=== PATIENT | female | born 1960 | race Caucasian/White ===

== ENCOUNTER → 2017-11-28 10:20 | Outpatient (CLI) | payer OTHER, SELFPAY ==
[2017-11-28 12:24] LABS: Hematocrit 43.6 % (37-47); Hemoglobin 14.8 g/dl (12.0-15.0); Mean Corp Hgb Conc 33.9 g/gl (32-36); Mean Corpuscular Hgb 30.9 pg (27.0-32.0); Mean Platelet Vol. 10.6 fl (6.2-12.0); Platelet Count 252 K/mm3 (150-450); RBC Distribution Width SD 39.7 fl (35.1-43.9); Red Blood Count 4.79 M/mm3 (4.2-5.4); White Blood Count 6.6 K/mm3 (4.4-11.0)
[2017-11-28 12:32] LABS: Scan Indicated on CBC? Y/N NO
[2017-11-28 12:51] LABS: ALB/GLOB Ratio 1.4 RATIO (0.9-2.4); AST(SGOT) 18 U/L (15-37); Alanine Aminotransfer ALT/SGPT 27 U/L (13-56); Albumin, Serum 4.5 g/dL (3.2-5.0); Alkaline Phosphatase 96 U/L (45-117); Anion Gap 11 (5-15); BUN 18 mg/dL (7-18); BUN/Creat Ratio 18.9 RATIO (10-20); Calcium,Total 9.3 mg/dL (8.5-10.1); Chloride 110 mmol/L (98-107); Creatinine, Serum 0.95 mg/dL (0.55-1.02); EST Glomerular Filtration Rate 65 mL/min (>60); Est Glom Filt Rate - Afr Amer 78 mL/min (>60); Globulin 3.3 g/dL (2.2-4.2); Glucose 87 mg/dL (74-106); Protein, Total 7.8 g/dL (6.4-8.2); Sodium Level 141 mmol/L (136-145)
[2017-12-02 12:07] LABS: KEPPRA (LEVETIRACETAM) 23.6 ug/mL (10.0-40.0)
== END ==
LOC: MTLAB 10:26
PROVIDERS: Family Provider Family Medicine; PCP Family Medicine
DX: G40.909 Epilepsy, unspecified, not intractable, without status epilepticus (principal)
CPT/HCPCS: 36415; 80053; 80177; 85027

== ENCOUNTER → 2017-12-13 15:13 | Outpatient (CLI) | payer OTHER, SELFPAY ==
[2017-12-13 17:05] LABS: Free T3 2.2 pg/mL (2.18-3.98); T4 Free Direct 1.26 ng/dL (0.76-1.46); Thyroid Stim Hormone (TSH) 6.93 uIU/mL (0.358-3.74)
== END ==
PROVIDERS: Family Provider Family Medicine; PCP Family Medicine; Visit Provider Nurse Practitioner
DX: Z86.39 Personal history of other endocrine, nutritional and metabolic disease (principal)
CPT/HCPCS: 36415; 84439; 84443; 84481

== ENCOUNTER → 2018-01-30 09:17 | Outpatient (CLI) | payer OTHER, SELFPAY ==
[2018-01-30 15:17] LABS: T4 Free Direct 1.33 ng/dL (0.76-1.46); Thyroid Stim Hormone (TSH) 1.04 uIU/mL (0.358-3.74)
== END ==
LOC: MTLAB 09:18
PROVIDERS: Family Provider Family Medicine; PCP Family Medicine; Visit Provider Nurse Practitioner
DX: E03.9 Hypothyroidism, unspecified (principal); R89.9 Unspecified abnormal finding in specimens from other organs, systems and tissues
CPT/HCPCS: 36415; 84439; 84443

== ENCOUNTER 2018-03-25 09:00 | Outpatient (RCR) | payer OTHER, SELFPAY ==
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
--- NOTE | 2017-04-02 09:55 | HP.OTCOM ---
OT Communication Note 04/02/[address] Patrick Phillips Pt., Keily, has had variable compliance with prefabricated splint because of increase rubbing and discomfort over wrist and ulnar styloid. She is continuing to work on increasing shoulder flexion and elbow flexion. She needed increased rest breaks to promote ROM tasks. Pt. completed AROM/AAROM to R UE for 1x10 total reps of shoulder flexion (2x5 reps), 1x10 reps of elbow flexion (2x5 reps). Completed PROM to wrist to promote extension for 5 reps to promote wrist extension. She is to continue HEP and increase to 4-6x daily for AROM shoulder flexion, AROM elbow exercises alone to decrease stiffness, and promote ROM to hand and fingers. to continue PROM to fingers and continue to work on promoting AROM for wrist extension and finger flexion. She is still significantly limited by pain, weakness, and limited ROM. Continuing to promote ROM through active and passive strength as tolerated. Weightbearing techniques are being promoted to try and decrease pain but pain persists with all movements at this time. OT will continue to progress through therapy techniques to promote ROM and strength. Pt. educated that increase movement will help decrease swelling. Edema glove does not seem to be option as Pt. is too painful with touch to R hand at this time. Sincerely, Liberty Pardo Contact Information
--- NOTE | 2017-04-02 10:08 | HP.OTCOM_ITS ---
OT Communication Note 04/02/[address] Patrick Phillips Pt., Keily, has had variable compliance with prefabricated splint because of increase rubbing and discomfort over wrist and ulnar styloid. She is continuing to work on increasing shoulder flexion and elbow flexion. She needed increased rest breaks to promote ROM tasks. Pt. completed AROM/AAROM to R UE for 1x10 total reps of shoulder flexion (2x5 reps), 1x10 reps of elbow flexion (2x5 reps) . Completed PROM to wrist to promote extension for 5 reps to promote wrist extension. She is to continue HEP and increase to 4-6x daily for AROM shoulder flexion, AROM elbow exercises alone to decrease stiffness, and promote ROM to hand and fingers. to continue PROM to fingers and continue to work on promoting AROM for wrist extension and finger flexion. She is still significantly limited by pain, weakness, and limited ROM. Continuing to promote ROM through active and passive strength as tolerated. Weightbearing techniques are being promoted to try and decrease pain but pain persists with all movements at this time. OT will continue to progress through therapy techniques to promote ROM and strength. Pt. educated that increase movement will help decrease swelling. Edema glove does not seem to be option as Pt. is too painful with touch to R hand at this time. Sincerely, Liberty Pardo Contact Information
--- NOTE | 2017-04-26 08:13 | OTREVAL_ITS ---
Patrick Phillips, It has been my pleasure to treat DIANNE BENZ over the last 8 visits for Cat bite with abscess to carpal tunnel, suppuratuive flexor tenosynovitis. Please see the progress note below for an update on the occupational therapy plan of care! Subjective: Pt, Dianne, arrived with , Yo. Pt. noted that she had seocndary surgery to remove infection. provided pictures. There is a total of 7 open wounds with 4 on dorsum and 3 on palmar side of hand. Rosa noted that volar incisions are located over median nerve and aroudn ring and pinky fingers. She noted decreased pain in wrist and hand since surgical removal but has since has increased pain in shoulder. Rosa and Yo noted Dr. Phillips surgically manipulated shoulder during surgery.Rosa noted she is on less pain meds but back on antibiotics and nursing come daily to change dressign and repack hand to promote healing. Objective/Function: Pt. re-evaluation post surgical operation for removal of infection to R dominant hand. Pt. present with serve limited ROM and strength. Hand is swollen and has 7 surgical opening on dorsum and volar sides. Nursing reporting daily for packing of incisions. Muscle atrohy is present t/o R UE and is increasingly pronouced throughout forearm and wrist areas. Pt. ROM of shoudler is as follows: active flexion of R shoulder 0-116 with increased pain presnet; active abduction 0-84 degrees with increased pain. Pt. active elbow 0- 108 degrees. Pt. is able to rest hand in pronated position but has significantly decreased supination at this time of R UE. Compensations noted for all R UE movement secondary to increased weakness and pain. Pt. ROM of wrist is as follows: active flexion 48-37 for a total of 11 degrees. Pt. is in flexed position and splint to help place Pt. in more neutral position. She is unable to actively extend wrist at this time. She has PROM of R wrist for extension measuring from 45-13. Pt. L UE is WFL and her L wrist flexion is 0-60 degrees with L wrist extension 0-59 degrees. Pt. is unable to form composite fist with R hand; L hand is WNL. Pt. active ROM of R finger flexion at MCP for digits 2-5 are as follows: 9-29; 20-34; 22-30; 22-29. Pt. is unable to axtively flex PIP at this time. Passive PIP flexion is as follows for digits 2-5: 8-57; 4 -57; 7- 52; 7-67. Pt. 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 Plan Frequency: 2x /Week Duration: 4-6 Weeks Plan: continue POC. POC to continued to focus on regaining ROM, strength, and fx use of R dominant hand. Orthotics will be used as needed and wound care completed daily by nursing per Pt. report. Anticipated Interventions Anticipated Interventions: A/AAROM/PROM, Strengthening, Edema Control, Scar Care , Massage, Wound Care, Modalities, Orthoses, Joint Protection/Energy Conservation, Fine Motor Coord/Aakash, ADL Training, Education re Skin Care and Precautions, Education re Self Massage Techniques, Education re Correct Donning Tech,Care&Wearing Sched Comp Garments, Caregiver Training, Home Program Please do not hesitate to contact me at [phone] by phone or Fax: if you have questions or concerns regarding this new plan of care! Sincerely, Liberty Pardo
--- NOTE | 2017-04-26 10:26 | HP.OTCOM ---
OT Communication Note 04/26/[address] Patrick Phillips Keily has returned to outpatient OT following incision and debridement of infection occurring s/p cat bite. Pt. continues to have significantly decreased ROM and strength. Please refer to re-evaluation for additional measurements on functional ability. Due to decreased ROM and strength Pt. would potentially benefit from Continuous Passive Movement (CPM) splint at this time for increased ROM exercises at home. Keily is apprehensive to fabrication of static splint as insurance will not cover orthotic charges. I feel due to medical necessity from lack of ROM of R dominant hand Pt. would greatly benefit from CPM splint to help maintain ROM as e-stim and other modalities are unable to be used due to seizure based implant device. Please let me know your input of this device as the potential of a written doctor order would benefit Pt. for potential insurance coverage. Sincerely, Liberty Pardo, OTR/L Contact Information
--- NOTE | 2017-04-26 12:35 | OTREVAL_ITS ---
Patrick Phillips, It has been my pleasure to treat DIANNE BENZ over the last 9 visits for Cat bite with abscess to carpal tunnel, suppuratuive flexor tenosynovitis. Please see the progress note below for an update on the occupational therapy plan of care! Subjective: Pt. arrived and noted pain. , Yo, present for session. Shorty noted Dr. Phillips appointment following OT. Objective/Function: Pt. re-evaluation post surgical operation for removal of infection to R dominant hand. Pt. present with serve limited ROM and strength. Hand is swollen and has 7 surgical opening on dorsum and volar sides. Nursing reporting daily for packing of incisions. Muscle atrophy is present t/o R UE and is increasingly pronouced throughout forearm and wrist areas. Pt. ROM of shoudler is as follows: active flexion of R shoulder 0-116 with increased pain present; active abduction 0-84 degrees with increased pain. Pt. active elbow 0- 108 degrees. Pt. is able to rest hand in pronated position but has significantly decreased supination at this time of R UE. Compensations noted for all R UE moved secondary to increased weakness and pain. Pt. ROM of wrist is as follows: active flexion 48-37 for a total of 11 degrees. Pt. is in flexed position and splint to be fabircated to help place Pt. in more neutral position. She is unable to actively extend wrist at this time. She has PROM of R wrist for extension measuring from 45-13. Pt. L UE is WFL and her L wrist flexion is 0-60 degrees with L wrist extension 0-59 degrees. Pt. is unable to form composite fist with R hand; L hand is WNL. Pt. active ROM of R finger flexion at MCP for digits 2-5 are as follows: 9-29; 20-34; 22-30; 22-29. Pt. is unable to axtively flex PIP at this time. Passive PIP flexion is as follows for digits 2-5: 8-57; 4-57; 7- 52; 7-67. Pt. 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 She has increased nodular presence on index DIP area that causes increased pain with flexion. CPM splint potentially needed at this time upon doctor approval. Plan Frequency: 2x /Week Duration: 4-6 Weeks Plan: Pt. to continued POC to increased ROM and strength. She CANNOT have E- stim or tens due to implant. OT to contact [facility] about potential for CPM splint to promote ROM of wrist ahdn and fingers by d/c. OT to contact Mika to determine if we can further get orthotic from him. Goals - Goals Goal:: Pt. to regain #30 lbs of guide dog mobility instructor strength 4/5 trials 80% of the tiem to increase (I) and ability to complete ADL/IADL by time of d/c. Goal:: Pt. to be able to actively form composite fist 5/5 trials 100% of the time to increase (I) and ability to manipulate change and complete self-care tasks by time of d/c. Pt. ROM of R hand to be that of equal value of L non involved hand for increased(I) and ability to complete self-care tasks by time of d/c. Goal:: Pt. pain to be under 2/10 in R UE at shoulder, elbow, wrist, and hand 4/ 5 trials 80% of the time by time of d/c. Goal:: Pt. will be able to actively for tripod grasp for increased ability to complete fasteners and manipulate other self care items 100% of the time by d/c. Goal:: Pt. R hand to measure within 1-2 cm of L non affected hand, with edema management techniques as needed, for increased ability to complete ADL/IADls 4/ 5 trials 80% of the time by time of d/c. Goal:: Pt. to be mod I to cook meal, from start to stop, with R dominant hand with use of L hand for bilateral hand tasks as needed 4/5 trials 80% of the time , with pain WFL, by time of d/c. Goal:: Pt. to be able to manipulate silverware through using R hand to cut food 4/5 trials 80% of the time to increase (I) and decrease need for assistance by time of d/c. Goal:: Pt. to be able to actively flex/extend all PIP of R fingers to WFL 100% of the by session #15 to promote increased ability to use fingers to decrease risk of contractures and pain by tiem of d/c. Anticipated Interventions Anticipated Interventions: A/AAROM/PROM, Strengthening, Edema Control, Scar Care , Massage, Wound Care, Modalities, Orthoses, Joint Protection/Energy Conservation, Fine Motor Coord/Aakash, ADL Training, Education re Skin Care and Precautions, Education re Self Massage Techniques, Education re Correct Donning Tech,Care&Wearing Sched Comp Garments, Caregiver Training, Home Program Please do not hesitate to contact me at [phone] by phone or Fax: if you have questions or concerns regarding this new plan of care! Sincerely, Liberty Pardo
--- NOTE | 2017-07-02 07:16 | HP.OTCOM ---
OT Communication Note 07/02/[address] Patrick Phillips Pt., Keily, is progressing with therapy. Frequency of visits has been decreased over the past three weeks due to running out of insurance coverage. She has maximized therapy coverage with 20 covered visits and will be seen after the first of the year. Measurements were taken on last appointment prior to first of the year on 07/01/17 and are as follows for R affected and dominant hand: forearm: supination: neutral position; 0-0 degrees Wrist: flexion: 0-30 extension: 15-0 After flexing wrist she has difficulty extending wrist back to neutral position secondary to decreased strength. Extension from 15 degrees as she is able to move from 15 degrees of flexion to neutral. Hand: thumb radial adduction: 0-28 2nd MCP 4-37, PIP 11-26, DIP 12-12 3rd MCP -8-32, PIP 13-29, DIP 11-13 4th MCP -8-27, PIP 12-27, DIP 10-19 5th MCP -12-15, PIP 12-21, DIP 11-11 Keily is progressing with therapy but stiffness and scar tissue remain over surgical sites. Pt. is emerging with lateral pinch abilities with visible compensations due to decreased ROM. ROM has increased since time of initial evaluation and statadyne splint has been ordered and Pt. has received and verbalizes use of splint at home. She is to continue statadyne splint to promote increasing ROM, paraffin/ moist heat, and continue with HEP to promote increase ROM and strength. OT offered to obtained and called for PT order to has PT address shoulder as PT has 20 visits per calendar year and Pt. reports shoulder waking her at night. Also educated on potential for dry needling to help reduce pain and scar tissue but Pt. and denied PT services at this time. She is progressing towards formation of composite fist but is unable to complete full or functional fist at this task at this time. After the first of the year, further continuation of therapy will be determined. Sincerely, Liberty Pardo OTR/L Contact Information
--- NOTE | 2017-08-30 11:38 | OTREVAL_ITS ---
Patrick Phillips, It has been my pleasure to treat DIANNE BENZ over the last 1 visits for Cat bite with abscess to carpal tunnel, suppuratuive flexor tenosynovitis. Please see the progress note below for an update on the occupational therapy plan of care! Subjective: Arrived and noted things are going ok. She notes she cotninues to use statdyne daily, complete HEP, and have shoulder pain that reaches 7-8/10 everynight. Edcuated on potential for PT to try for shoulder mobility and rehab so OT can focus on wrist and hand. Pt. to think on it and see if she wants to do that. She noted she was not as good at exercises for the shoulder as she was for her hand. She further noted pain comes when she is using it and not just sitting anymore. Objective/Function: Reassessment completed on this date and Pt. progressed from last appointment with mvoement of fingers. SHe is able to complete slight AROM ( measurments below) of R hand. She is unable to form composite fist at this time but is able to complete thumb opposition to PIP of 2nd and 3rd digits. This is progression as previously Pt. was unable to complete AROM of fingers. Measurements are as follows: Supination R 0-3 degrees, L WFL. Wrist flexion R 15-46, L 0-73. extension R -15-8, L 0-66. radial deviation R 0-3, L 0-15. ulnar deviation R 0-9, L 0-37. MCP R 2-5th fingers 3-46, -9-38, -11-34, -20- 27. MCP R PIP 2-5th fingers 3-46, 5-46, 0-40, 13-38. DIP R 0-12, 6-10, 10-10, 10-10. Thumb MP 20-48, DIP 0-29. thumb radial abduction R 0-24 degrees, L 0- 90 degrees. Strength. 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 Dianne is progressing with treatment. She continues to exhibit increased crepitus in all joints expecially wrist which appears to be due to arthitis and scar tissue. Increased keloid scaring to dorsal and volar hands. Increased scarring over CTS continues to have increased tissue formation at this time. Wrist movement is extremely limited on R side and OT to start working on PROM and other manual therpay techniques to avoid joint fusion. Plan Frequency: 1x weekfor next 2 weeks; everyother week after that Duration: 8-9 months Plan: continue POC. She will be starting with 1xweekly for next 2 weeks. After that she will completed OT 1x every two weeks to spread out visits and promote increased ROM and strength for increased fx in R hand. Goals - Goals Goal:: Pt. 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 Goal:: Pt. to be able to actively form composite fist 5/5 trials 100% of the time to increase (I) and ability to manipulate change and complete self-care tasks by time of d/c. Pt. ROM of R hand to be that of equal value of L non involved hand for increased(I) and ability to complete self-care tasks by time of d/c. Goal:: Pt. pain to be under 2/10 in R UE at shoulder, elbow, wrist, and hand 4/ 5 trials 80% of the time by time of d/c. Goal:: Pt. will be able to actively for tripod grasp for increased ability to complete fasteners and manipulate other self care items 100% of the time by d/c. Goal:: Pt. R hand to measure within 1-2 cm of L non affected hand, with edema management techniques as needed, for increased ability to complete ADL/IADls 4/ 5 trials 80% of the time by time of d/c. Goal:: Pt. to be mod I to cook meal, from start to stop, with R dominant hand with use of L hand for bilateral hand tasks as needed 4/5 trials 80% of the time , with pain WFL, by time of d/c. Goal:: Pt. to be able to manipulate silverware through using R hand to cut food 4/5 trials 80% of the time to increase (I) and decrease need for assistance by time of d/c. Goal:: Pt. to be able to actively flex/extend all PIP of R fingers to WFL 100% of the by session #15 to promote increased ability to use fingers to decrease risk of contractures and pain by tiem of d/c. Anticipated Interventions Anticipated Interventions: A/AAROM/PROM, Strengthening, Edema Control, Scar Care , Massage, Wound Care, Modalities, Orthoses, Joint Protection/Energy Conservation, Fine Motor Coord/Aakash, ADL Training, Education re Skin Care and Precautions, Education re Self Massage Techniques, Education re Correct Donning Tech,Care&Wearing Sched Comp Garments, Caregiver Training, Home Program Please do not hesitate to contact me at [phone] by phone or Fax: if you have questions or concerns regarding this new plan of care! Sincerely, Liberty Pardo
--- NOTE | 2017-11-21 10:23 | HP.OTCOM ---
OT Communication Note 11/21/[address] Patrick Phillips Rosa is progressing with therapy but ROM is limited at this time. She notes that statadyne is not completing needed finger flexion. She would benefit from flexion glove to further target ROM needs. Rosa would further like to order for flexion glove with recommendation from OT. If doctor approval then a prescription is needed to help with insurance coverage. At this time it is believed that a flexion glove is medically necessary as this will help to promote increased ability to of MCP to start to form a composite fist. Although, movement of fingers is limited she does have needed AROM to start increased prolonged static stretch that flexion glove will provide. The flexion glove will be adapted as needed to promote joint stability to increase ability to stretch to end point to increase ROM. This flexion glove will help progress Rosa up to a static progressive splint which will further help promote PIP and DIP flexion in which OT will fabricate. Overall, this will help to promote Rosa's ability to continue to gain ROM and ability to use R hand at PLOF for ADL/IADls. If agree with medical necessity please forward script to OT at fax number: [phone] , ATTN: Abi to further get glove order set up. Thank you! Sincerely, Liberty Pardo, OTR.L Contact Information
--- NOTE | 2017-11-21 10:30 | HP.OTCOM_ITS ---
OT Communication Note 11/21/[address] Patrick Phillips Rosa is progressing with therapy but ROM is limited at this time. She notes that statadyne is not completing needed finger flexion. She would benefit from flexion glove to further target ROM needs. Rosa would further like to order for flexion glove with recommendation from OT. If doctor approval then a prescription is needed to help with insurance coverage. At this time it is believed that a flexion glove is medically necessary as this will help to promote increased ability to of MCP to start to form a composite fist. Although, movement of fingers is limited she does have needed AROM to start increased prolonged static stretch that flexion glove will provide. The flexion glove will be adapted as needed to promote joint stability to increase ability to stretch to end point to increase ROM. This flexion glove will help progress Rosa up to a static progressive splint which will further help promote PIP and DIP flexion in which OT will fabricate. Overall, this will help to promote Rosa's ability to continue to gain ROM and ability to use R hand at PLOF for ADL/IADls. If agree with medical necessity please forward script to OT at fax number: [phone] , ATTN: Abi to further get glove order set up. Thank you! Sincerely, Liberty Pardo, OTR.L Contact Information
--- NOTE | 2018-01-06 09:00 | DT_ITS ---
This patient was seen during an EMR downtime January 06, 2018 - January 13, 2018. This patient may have a combination of paper and electronic documentation or all paper documentation. All documentation is viewable within the e-chart portion of [employer] for each patient visit.
--- NOTE | 2018-02-07 09:58 | HP.OTCOM_ITS ---
OT Communication Note 02/07/[address] Patrick Phillips Due to insurance limitations Bobo has been completing OT every 2 weeks with extensive HEP to do while at home. HEP is variable as pain is limiting. She is exhibiting what appears to be fusion of R wrist at this time and is concerning to OT. New measurements taken and are as follows for ROM: R wrist: flexion: 14-30 ext: -14--14 supination 0-47 radial deviation 0-0 ulnar deviation 0-0 L Wrist: R fingers: MCP 2nd 5-69, L WNL 3rd R 0-60, L WNL 4th 0-49, L WNL 5th -12-41, L WNL PIP 2nd R 0-65, L WNL 3rd 0-60, L WNL 4th 0-46, L WNL 5th 34-39, L WNL DIP 2nd TR 5-20, L WNL 3rd 5-22, L WNL 4th 10- 23, L WNL 5th R 14-24, L WNL Thumb radial adduction R 0-28 , L WNL IP R -8-13, L L WNL MP 0-48, L WNL She remains unable to form full composite fist. Finger flexion has progressed since last measurements. 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 Wrist measurements have regressed at this time. Most recent splint OT has fabricated is a static progressive splint she is to be wearing 10- 15 mins every 1-2 hours or at least 6 x a day to promote increasing finger flexion to promote increased movement for composite fist. Splint has been made with use of flexion glove that has been reinforced with custom fabricated wrist cock up splint. ROM is significantly limited and strength assessment is unable to be completed at this time. OT recommended PT for shoulder as shoulder remains painful for her. Exercises were provided previously and focus for OT has been on hand and wrist and increased functionality for ADL/IADls. Due to insurance limitations on coverage Pt. would like to wait on PT. OT is recommending seeing a hand specialist at this time as ROM is significantly limited and it is believed that wrist is fused. Sincerely, Liberty Pardo, OTR/L Contact Information
== END 2018-03-25 19:00 | disposition home or self-care (01) ==
LOC: OT 09:00
PROVIDERS: Family Provider Family Medicine; PCP Family Medicine; Visit Provider Surgery
DX: L03.113 Cellulitis of right upper limb (principal); W55.01XD Bitten by cat, subsequent encounter; M65.841 Other synovitis and tenosynovitis, right hand; M71.031 Abscess of bursa, right wrist; M71.04 Abscess of bursa, hand
CPT/HCPCS: 97035; 97110; 97140; 97166; 97168; 97530; 97760; 97762

== ENCOUNTER → 2018-04-22 14:19 | Outpatient (CLI) | payer OTHER, SELFPAY | LOC: LABSPEC 14:20 | PROVIDERS: Family Provider Family Medicine; PCP Family Medicine; Visit Provider Physician Assistant | DX: R19.7 Diarrhea, unspecified (principal) | CPT/HCPCS: 87177; 87209 ==

== ENCOUNTER 2018-06-25 12:04 | Emergency (ER) | payer OTHER, SELFPAY ==
[2018-06-25 12:05] VITALS: BP 133/79; PULSE 105; RESP 16; TEMP 36.2; O2SAT 98; BMI 32.5
--- NOTE | 2018-06-25 12:38 | ED.VISSUMM ---
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 She has been treated in the past with Bactrim for skin infections she believes she may have had MRSA she does not sure about her tetanus status she had notes no loss of function to her hand Physical Examination: [] 133/79, The left hand thenar region there is a 1 cm thin linear laceration over the thenar region, thumb function finger function all hand function wrist function are normal there is no bleeding no drainage, no neurologic abnormalities, she is no possibility of foreign body by her history we discussed management the area was cleansed, Betadine and, he agreed with glue therapy and glue was applied to the wound with no difficulty she did not wish to have sutures we will update her tetanus she was started on Bactrim related to her prior history for infection and her concern for infection and she will follow up with her outpatient providers Test Results: [] Emergency Department Course and Treatment: [] Treatment Plan: [] Disposition: [] Home stable Impression: [] 1 cm left hand laceration This note was generated with [employer] dictation software. It may contain incorrect words, spelling, and punctuation that were not noted in review of the chart prior to signing ED Disposition - Plan for ED Patient: Chief Complaint: Laceration Referrals: Randy Reynoso DO [Primary Care Provider] -
--- NOTE | 2018-06-25 12:40 | ED.DEP ---
ED Disposition - Plan for ED Patient: Chief Complaint: Laceration Instructions: ED Laceration Hand Prescriptions: Smz/Tmp Ds [Bactrim Ds] 1 tab PO BID #14 tab Referrals: Randy Reynoso DO [Primary Care Provider] -
[2018-06-25] MEDS: Diphth,Pertuss(Acell),Tet Vac 0.5 ML Vial IM (12:56)
== END 2018-06-25 13:13 | disposition home or self-care (01) ==
LOC: ED 13:26
PROVIDERS: Emergency Provider Emergency Medicine; Family Provider Family Medicine; PCP Family Medicine
DX: S61.412A Laceration without foreign body of left hand, initial encounter (principal); Z23 Encounter for immunization; W26.0XXA Contact with knife, initial encounter; Y93.G1 Activity, food preparation and clean up; Y92.89 Other specified places as the place of occurrence of the external cause; Y99.8 Other external cause status
CPT/HCPCS: 90715; 99282

== ENCOUNTER → 2018-06-27 09:33 | Outpatient (CLI) | payer OTHER, SELFPAY ==
[2018-06-25 12:05] VITALS: BMI 32.5
[2018-06-27 12:19] LABS: T4 Free Direct 1.37 ng/dL (0.76-1.46); Thyroid Stim Hormone (TSH) 2.75 uIU/mL (0.358-3.74)
== END ==
LOC: MTLAB 09:38
PROVIDERS: Family Provider Family Medicine; PCP Family Medicine
DX: E03.9 Hypothyroidism, unspecified (principal)
CPT/HCPCS: 36415; 84439; 84443

== ENCOUNTER → 2018-07-22 12:26 | Outpatient (CLI) | payer OTHER, SELFPAY ==
[2018-07-02 10:50] VITALS: BMI 32.5
--- OUTSIDE RECORDS SUMMARY | 2018-10-23 22:24 | XMS RPT_ITS ---
:1960 Author Organization OHIP Support Name Relationship Address Phone D Unavailable Unavailable Unavailable LIRIANO, DAMIAN Unavailable [address] + [place] [address] D Unavailable Unavailable Unavailable LIRIANO, DAMIAN Unavailable [address] + [place] [address] D Unavailable Unavailable Unavailable LIRIANO, DAMIAN Unavailable [address] + [place] [address] D Unavailable Unavailable Unavailable LIRIANO, DAMIAN Unavailable [address] [place] [address] DR + [place] [address] D Unavailable Unavailable Unavailable LIRIANO, DAMIAN Unavailable [address] [place] [address] DR + [place] [address] D Unavailable Unavailable Unavailable LIRIANO, DAMIAN Unavailable [address] [place] [address] DR + [place] [address] D Unavailable Unavailable Unavailable LIRIANO, DAMIAN Unavailable [address] [place] [address] DR + [place] [address] D Unavailable Unavailable Unavailable LIRIANO, DAMIAN Unavailable [address] [place] [address] DR + [place] [address] D Unavailable Unavailable Unavailable LIRIANO, DAMIAN Unavailable [address] [place] [address] DR + [place] [address] D Unavailable Unavailable Unavailable LIRIANO, DAMIAN Unavailable [address] [place] [address] DR + [place] [address] D Unavailable Unavailable Unavailable LIRIANO, DAMIAN Unavailable [address] + [place] [address] D Unavailable Unavailable Unavailable LIRIANO, DAMIAN Unavailable [address] + [place] [address] D Unavailable Unavailable Unavailable LIRIANO, DAMIAN Unavailable [address] [phone] [place] [address] D Unavailable Unavailable Unavailable LIRIANO, DAMIAN Unavailable [address] [place] [address] DR [phone] [place] [address] D Unavailable Unavailable Unavailable LIRIANO, DAMIAN Unavailable [address] [place] [address] DR [phone] [place] [address] D Unavailable Unavailable Unavailable LIRIANO, DAMIAN Unavailable [address] [place] [address] DR [phone] [place] [address] D Unavailable Unavailable Unavailable LIRIANO, DAMIAN Unavailable [address] [place] [address] DR [phone] [place] [address] D Unavailable Unavailable Unavailable LIRIANO, DAMIAN Unavailable [address] [place] [address] DR [phone] [place] [address] D Unavailable Unavailable Unavailable LIRIANO, DAMIAN Unavailable [address] [place] [address] DR [phone] [place] [address] D Unavailable Unavailable Unavailable LIRIANO, DAMIAN Unavailable [address] [place] [address] DR [phone] [place] [address] D Unavailable Unavailable Unavailable LIRIANO, DAMIAN Unavailable [address] [place] [address] DR [phone] [place] [address] D Unavailable Unavailable Unavailable LIRIANO, DAMIAN Unavailable [address] [place] [address] DR [phone] [place] [address] Care Team Providers Name Role Phone Sunny Reynoso Attending Unavailable Kaitlyn, Sunny Primary Care Unavailable Patrick Phillips Attending Unavailable Kaitlyn, Sunny Primary Care Unavailable Patrick Phillips Referring Unavailable Patrick Phillips Attending Unavailable Kaitlyn, Sunny Referring Unavailable Kaitlyn, Sunny Primary Care Unavailable Patrick Phillips Attending Unavailable Kaitlyn, Sunny Referring Unavailable Kaitlyn, Sunny Primary Care Unavailable Joie Ryan Attending Unavailable Kaitlyn, Sunny Referring Unavailable Kaitlyn, Sunny Primary Care Unavailable Patrick Phillips Attending Unavailable Kaitlyn, Sunny Referring Unavailable Patrick Phillips Attending Unavailable Kaitlyn, Sunny Referring Unavailable Kaitlyn, Sunny Primary Care Unavailable Joie Ryan Attending Unavailable Kaitlyn, Sunny Referring Unavailable WON SANDOVAL Attending Unavailable WON SANDOVAL Referring Unavailable Kaitlyn, Sunny Primary Care Unavailable Joie Ryan Attending Unavailable Kaitlyn, Sunny Referring Unavailable Francesca Negro NP-Belia Attending Unavailable Shook, Francesca J ENVIRONMENTAL TECH-C Referring Unavailable Kaitlyn, Sunny Primary Care Unavailable Francesca Negro ENVIRONMENTAL TECH-C Attending Unavailable Francesca Negro ENVIRONMENTAL TECH-C Referring Unavailable Kaitlyn, Sunny Primary Care Unavailable Patrick Phillips Attending Unavailable Kaitlyn, Sunny Referring Unavailable Kaitlyn, Sunny Primary Care Unavailable Gokul Varma Attending Unavailable Kaitlyn, Sunny Referring Unavailable Kaitlyn, Sunny Attending Unavailable Kaitlyn, Sunny Referring Unavailable Kaitlyn, Sunny Primary Care Unavailable Oswald, Sunny Attending Unavailable Kaitlyn, Sunny Referring Unavailable Oswald, Sunny Attending Unavailable Oswald, Sunny Referring Unavailable Kaitlyn, Sunny Primary Care Unavailable Monisha Fried Attending Unavailable Kaitlyn, Sunny Referring Unavailable Kaitlyn, Sunny Primary Care Unavailable Nick Camarena Attending Unavailable WON SANDOVAL Attending Unavailable WON SANDOVAL Referring Unavailable Kaitlyn, Sunny Primary Care Unavailable Slabjoseph, Patrick Attending Unavailable Kaitlyn, Sunny Referring Unavailable Alan, Patrick Attending Unavailable Kaitlyn, Sunny Referring Unavailable Kaitlyn, Sunny Primary Care Unavailable JUAN JIM Attending Unavailable AZZAM, RAED H Referring Unavailable CLAUDIA JIMLE BRIE Referring Unavailable AZZAM, RAED H Referring Unavailable LEANDRO, JUAN BRIE Attending Unavailable DAYANARA MONTENEGRO (COCOA POWDER MIXER OPERATOR) Attending Unavailable KAITLYN, SUNNY A Referring Unavailable SIMONE ROTH (PA-C) Attending Unavailable KAITLYN, SUNNY A Referring Unavailable KAITLYN, SUNNY A Referring Unavailable KAITLYN, SUNNY A Referring Unavailable JUAN JIM C Attending Unavailable AZZAM, RAED Referring Unavailable [facility] Primary Care Unavailable JUAN JIM C Referring Unavailable [facility] Primary Care Unavailable JUAN JIM Attending Unavailable [facility] Referring Unavailable [facility] Primary Care Unavailable AZZAM, RAED Referring Unavailable [facility] Primary Care Unavailable PROBLEMS PROBLEMS DATE TYPE CONDITION / CODE ATTENDING STATUS SOURCE 08/01/2018 Unknown L02.511 - Cutaneous KaitlynSunny mesa Active [place] abscess of right Community hand / Hospital L02.511(ICD-10) Repository 07/22/2018 Unknown R30.0 - Dysuria / KaitlynSunny dunbar Active [place] R30.0(ICD-10) [facility] Repository 07/14/2018 Active Autoimmune LEANDRO, 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 / [facility] Other E06.3(ICD-10) [facility] Repository 07/14/2018 Admitting Unknown / LEANDRO, Active [facility] diagnosis UNK(Unknown) [facility] Repository 06/12/2018 Unknown M25.561 - Pain in Corky, Active [place] right knee / [facility] M25.561(ICD-10) Hospital Repository 06/12/2018 Unknown M25.562 - Pain in Corky, Active [place] left knee / [facility] M25.562(ICD-10) Hospital Repository 06/06/2018 Active Unknown / NA Active [facility] UNK(Unknown) Clinic Other [place] Repository 04/22/2018 Unknown R19.7 - Diarrhea, Oswald Sunny Active [place] unspecified / Community R19.7(ICD-10) Hospital Repository 04/08/2018 Active Obesity, unspecified LEANDRO, Active [place] / E66.9(ICD-10) [facility] Other [place] Repository 09/28/2014 Active Other encephalopathy LEANDRO, Active [place] / G93.49(ICD-10) [facility] Other [place] Repository 04/08/2018 Active Hypothyroidism, LEANDRO, Active [place] unspecified / [facility] Other E03.9(ICD-10) [facility] Repository 08/29/2017 Unknown L03.113 - Cellulitis Patrick Phillips Active [place] of right upper limb Community / L03.113(ICD-10) Hospital Repository 08/29/2017 Unknown W55.01XD - Bitten by Patrick Phillips Active [place] cat, subsequent Community encounter / Hospital W55.01XD(ICD-10) Repository 08/29/2017 Unknown M65.841 - Other Patrick Phillips Active [place] synovitis and Community tenosynovitis, right Hospital hand / Repository M65.841(ICD-10) 08/29/2017 Unknown M71.031 - Abscess of Patrick Phillips Active [place] bursa, right wrist / Community M71.031(ICD-10) Hospital Repository 08/29/2017 Unknown M71.041 - Abscess of Patrick Phillips Active [place] bursa, right hand / Community M71.041(ICD-10) Hospital Repository 01/24/2018 Active Epilepsy, DAYANARA MONTENEGRO Active [place] unspecified, (COCOA POWDER MIXER OPERATOR) Clinic Main intractable, without [place] status epilepticus / Repository G40.919(ICD-10) PROCEDURES PROCEDURES No Procedure Records FoundRESULTS RESULTS Observed: 07/22/2018 Status: F Source: [place] CULTURE, URINE 12:27 PM [facility] Urine Culture ORGANISM 1: Mixed Gram Pos AND Gram Neg Org [place] Count 11,000-25,000 MIX CULTURE Mixed contaminants. Submit a new specimen if indicated. Performed By: #### M100.0650 #### [facility] [address] [place], [address] PROGRESS Observed: 07/14/2018 Status: COMPLETED Source: [place] 9:50 AM CLINIC OTHER CAMPUS REPOSITORY HNO ID: [id number] Author: Juan Jim Service: (none) Author Type: Physician Type: Progress Notes Filed: 07/14/2018 10:29 AM Note Text: Subjective HPI HYPOTHYROIDISM 02/2014: TPO antibody 421 (0-60) 09/2014: microsomal antibody 25.4 (<0.56), thyroglobulin antibody normal. 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 She was referred by her new neurologist Dr. Donna Mix of [facility] in [facility]. Pt is a poor historian due to hx of memory loss. She presents with her today. 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 Meek (changed due to insurance) and was placed on high dose prednisone up to 40-60 mg daily which helped in the past. This was in 2013. She was then weaned off and apparently did another course of high dose prednisone which didn't help much and was then put on Imuran and has been on Imuran since. She says she refused to do LP in the past. In Epic, I reviewed a note from [facility] neurologist Dr. Anselmo Weldon from Sep, 2014. He states he thought the diagnosis of Warren encephalopathy was questionable. He was going to refer her to epilepsy center for trial of higher dose steroids or possible IV steroid but it looks like this didn't happen and pt went back to Dr. Meek. Pt is currently concerned about being on Imuran as she says she is having trouble fighting off infections. Had cat bite last year and had trouble with healing. She would like to come off Imuran if able. She states overall she is feeling a baseline. No recent grand-mal seizures. states seizure activity is now more of a quick spacing out episode followed by a headache. Pt is currently taking levothyroxine 175 mcg 1 tablet Saturday through Saturday and 2 tablets on Saturday. Pt takes in the middle of the night. Pt's family hx of Warren's includes mother, 2 daughters, and sister. Pt used to see digital color press operator Dr. 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 Taking levothyroxine 175 mcg daily with extra tablet on Sundays. She is taking it properly. Check labs and will renew Rx. Regarding Warren's encephalopathy, this is a questionable (and controversial) diagnosis. Apparently this diagnosis was made by her previous neurologist Dr. Meek years ago due to having elevated TPO antibody and difficult to control epilepsy with memory loss. Reviewed with pt that her TPO antibody was elevated due to Warren's thyroiditis. It can be difficult to ascertain if encephalopathy is due to that. She was on high dose prednisone around 4 years ago - no steroids since - but remains on Imuran. She had another opinion by [facility] neurologist in 2015 who questioned the diagnosis of Warren encephalopathy but she never followed up there. 04/09/18:Labs reviewed. Decrease levothyroxine to 175 mcg daily (no extra tablet on Sundays) I tried to contact Dr. Mix at pt request, but he was not available. I spoke with his nurse who reviewed chart and his plan was to taper her off of Imuran. 06/27/18: TSH 2.75, Free T4 1.37 07/14/18: Recent labs reviewed with pt and her . Pt currently taking levothyroxine 175 mcg daily. Denies difficulty swallowing or pressure sensation. No neck enlargement. States still on Imuran per neuro - she is getting additional workup. Last 2 Encounter Wt Readings: Has lost some weight. Date: Wt: 07/14/2018 86 kg (189 lb 11.2 oz) 04/08/2018 88.3 kg (194 lb 11.2 oz) Review of Systems Constitutional: Positive for diaphoresis. Negative for chills, fever, malaise/fatigue and weight loss. HENT: Negative for congestion, ear discharge, ear pain, hearing loss, nosebleeds, sinus pain, sore throat and tinnitus. Eyes: Negative for blurred vision, double vision, photophobia, pain, discharge and redness. Respiratory: Positive for shortness of breath. Negative for cough, hemoptysis, sputum production, wheezing and stridor. Cardiovascular: Negative for chest pain, palpitations, orthopnea, claudication, leg swelling and PND. Gastrointestinal: Positive for nausea. Negative for abdominal pain, blood in stool, constipation, diarrhea, heartburn, melena and vomiting. Genitourinary: Positive for frequency. Negative for dysuria, flank pain, hematuria and urgency. Musculoskeletal: Positive for joint pain and neck pain. Negative for back pain, falls and myalgias. Skin: Negative for itching and rash. Neurological: Positive for seizures and headaches. Negative for dizziness, tingling, tremors, sensory change, speech change, focal weakness, loss of consciousness and weakness. Endo/Heme/Allergies: Negative for environmental allergies and polydipsia. Does not bruise/bleed easily. Psychiatric/Behavioral: Positive for memory loss. Negative for depression, hallucinations, substance abuse and suicidal ideas. The patient is not nervous/anxious and does not have insomnia. PAST MEDICAL HISTORY Diagnosis Date - Asthma - Chronic pain - COPD (chronic obstructive pulmonary disease) (HCC) - Epilepsy (HCC) - Warren encephalopathy - Restless leg syndrome - S/P placement of VNS (vagus nerve stimulation) device - Unspecified hypothyroidism PAST SURGICAL HISTORY Procedure Laterality Date - BX BREAST PERC VACUUM/ROTN 01/31/2007 Left breast 6 oclock - HAND SURGERY HX Right x 4 - INCISION EARDRUM,ASPIR,GEN ANESTH Myringotomy/tubes - OTHER left rotator cuff torn - PAST SURGICAL HISTORY OF Bilateral tubal ligation - PAST SURGICAL HISTORY OF 2006 Ablation - PAST SURGICAL HISTORY OF 2008 Bladder sling - REMOVAL OF TONSILS,<12 Y/O Tonsillectomy FAMILY HISTORY Problem Relation Age of Onset - Diabetes Mother - Stroke Mother tia - Heart disease Mother - Diabetes Sister - Diabetes Brother - Diabetes Maternal Grandmother - Cancer Maternal Grandmother colon - Diabetes Maternal Grandfather - Cancer Father skin - Stroke Father - Parkinsonism Father Social History Marital status: Spouse name: Years of education: Number of children: Occupational History Occupation Employer Comment disabled Social History Main Topics Smoking status: Former Smoker Packs/day: 1.00 Years: 30.00 Types: Cigarettes Quit date: 08/05/2012 Smokeless tobacco: Never Used Alcohol use: No Drug use: No Sexual activity: Yes Partners with: Female, Male control/protection: Tubal Ligation Current Meds levothyroxine (SYNTHROID) 175 mcg tablet Take 1 tablet by mouth once daily. calcium carbonate (CALCIUM 500 ORAL) Take 1 tablet by mouth once daily. oxyCODONE-acetaminophen (PERCOCET) 5-325 mg tablet 4 TIMES DAILY NEEDED PRN For Pain pyridoxine, vitamin B6, (VITAMIN B6) 25 mg tablet Take by mouth. rOPINIRole (REQUIP) 0.25 mg tablet AT BEDTIME PRN For Restlessness alpha tocopheryl acetate (VITAMIN E) 400 unit capsule Take 400 Units by mouth. Estradiol (ESTRACE) 0.5 mg tablet Take 1 tablet by mouth once daily. medroxyPROGESTERone (PROVERA) 2.5 mg tablet Take 0.5 tablets by mouth once daily. FEXOFENADINE HCL (YADIRA ALLERGY ORAL) Take by mouth as needed. AZATHIOPRINE (IMURAN ORAL) Take by mouth. topiramate (TROKENDI XR) 100 mg cp24 Take 150 mg by mouth once daily. albuterol HFA (VENTOLIN HFA) 90 mcg/actuation inhaler Inhale 2 Puffs as instructed. MAGNESIUM ORAL Take 400 mg by mouth once daily. ergocalciferol, vitamin D2, (VITAMIN D) 50,000 unit capsule she takes 1 capsule per week selenium 200 mcg tab Take 1 tablet by mouth twice daily. LEVETIRACETAM (KEPPRA ORAL) Take 500 mg by mouth twice daily. Takes 500 Mg in AM and 1000 mg in PM omeprazole 20 mg capsule Take 40 mg by mouth once daily. Objective BP 128/82 Ht 5' 4 (1.63m) Wt 189 lb 11.2 oz (86.0kg) BMI 32.55 kg/(m2). Physical Exam Constitutional: She is oriented to person, place, and time and well-developed, well-nourished, and in no distress. HENT: Head: Normocephalic and atraumatic. Mouth/Throat: Oropharynx is clear and moist. Eyes: Pupils are equal, round, and reactive to light. Conjunctivae and EOM are normal. Neck: No thyromegaly present. Cardiovascular: Normal rate, regular rhythm and normal heart sounds. No murmur heard. Pulmonary/Chest: Effort normal and breath sounds normal. Musculoskeletal: She exhibits no edema. Lymphadenopathy: She has no cervical adenopathy. Neurological: She is alert and oriented to person, place, and time. No cranial nerve deficit. Gait normal. Skin: Skin is warm and dry. Psychiatric: Mood, memory, affect and judgment normal. ASSESSMENT/PLAN: 1. Acquired hypothyroidism - ICD9: 244.9, ICD10: E03.9 (primary diagnosis) Thyroid labs are now at goal. Continue levothyroxine 175 mcg daily. Follow-up in 6 months with TSH and free T4 before visit. - LEVOTHYROXINE 175 MCG TABLET - TSH BLD - T4 FREE/FREE THYROX 2. 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 3. Non morbid obesity - ICD9: 278.00, ICD10: E66.9, Work on dietary modification and increased physical activity to promote weight loss. Juan Jim DO CNOV Observed: 07/14/2018 Status: COMPLETED Source: [place] 9:45 AM [facility] REPOSITORY Office Visit (ENAGST) DIANNE LIRIANO ([id number]) 1960 F Date Time Provider Department 07/14/18 9:45 AM JUAN JIM During your visit today, we recorded the following information about you: Blood pressure Weight Height 128/82 86 kg 1.626 m Juan Jim DO 07/14/2018 10:29 AM Signed Subjective HPI HYPOTHYROIDISM 02/2014: TPO antibody 421 (0-60) 09/2014: microsomal antibody 25.4 (<0.56), thyroglobulin antibody normal. 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 She was referred by her new neurologist Dr. Donna Mix of [facility] in [facility]. Pt is a poor historian due to hx of memory loss. She presents with her today. 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 Meek (changed due to insurance) and was placed on high dose prednisone up to 40-60 mg daily which helped in the past. This was in 2013. She was then weaned off and apparently did another course of high dose prednisone which didn't help much and was then put on Imuran and has been on Imuran since. She says she refused to do LP in the past. In Epic, I reviewed a note from [facility] neurologist Dr. Anselmo Weldon from Sep, 2014. He states he thought the diagnosis of Warren encephalopathy was questionable. He was going to refer her to epilepsy center for trial of higher dose steroids or possible IV steroid but it looks like this didn't happen and pt went back to Dr. Meek. Pt is currently concerned about being on Imuran as she says she is having trouble fighting off infections. Had cat bite last year and had trouble with healing. She would like to come off Imuran if able. She states overall she is feeling a baseline. No recent grand- mal seizures. states seizure activity is now more of a quick spacing out episode followed by a headache. Pt is currently taking levothyroxine 175 mcg 1 tablet Saturday through Saturday and 2 tablets on Saturday. Pt takes in the middle of the night. Pt's family hx of Warren's includes mother, 2 daughters, and sister. Pt used to see digital color press operator Dr. 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 Taking levothyroxine 175 mcg daily with extra tablet on Sundays. She is taking it properly. Check labs and will renew Rx. Regarding Warren's encephalopathy, this is a questionable (and controversial) diagnosis. Apparently this diagnosis was made by her previous neurologist Dr. Meek years ago due to having elevated TPO antibody and difficult to control epilepsy with memory loss. Reviewed with pt that her TPO antibody was elevated due to Warren's thyroiditis. It can be difficult to ascertain if encephalopathy is due to that. She was on high dose prednisone around 4 years ago - no steroids since - but remains on Imuran. She had another opinion by [facility] neurologist in 2015 who questioned the diagnosis of Warren encephalopathy but she never followed up there. 04/09/18:Labs reviewed. Decrease levothyroxine to 175 mcg daily (no extra tablet on Sundays) I tried to contact Dr. Mix at pt request, but he was not available. I spoke with his nurse who reviewed chart and his plan was to taper her off of Imuran. 06/27/18: TSH 2.75, Free T4 1.37 07/14/18: Recent labs reviewed with pt and her . Pt currently taking levothyroxine 175 mcg daily. Denies difficulty swallowing or pressure sensation. No neck enlargement. States still on Imuran per neuro - she is getting additional workup. Last 2 Encounter Wt Readings: Has lost some weight. Date: Wt: 07/14/2018 86 kg (189 lb 11.2 oz) 04/08/2018 88.3 kg (194 lb 11.2 oz) Review of Systems Constitutional: Positive for diaphoresis. Negative for chills, fever, malaise/fatigue and weight loss. HENT: Negative for congestion, ear discharge, ear pain, hearing loss, nosebleeds, sinus pain, sore throat and tinnitus. Eyes: Negative for blurred vision, double vision, photophobia, pain, discharge and redness. Respiratory: Positive for shortness of breath. Negative for cough, hemoptysis, sputum production, wheezing and stridor. Cardiovascular: Negative for chest pain, palpitations, orthopnea, claudication, leg swelling and PND. Gastrointestinal: Positive for nausea. Negative for abdominal pain, blood in stool, constipation, diarrhea, heartburn, melena and vomiting. Genitourinary: Positive for frequency. Negative for dysuria, flank pain, hematuria and urgency. Musculoskeletal: Positive for joint pain and neck pain. Negative for back pain, falls and myalgias. Skin: Negative for itching and rash. Neurological: Positive for seizures and headaches. Negative for dizziness, tingling, tremors, sensory change, speech change, focal weakness, loss of consciousness and weakness. Endo/Heme/Allergies: Negative for environmental allergies and polydipsia. Does not bruise/bleed easily. Psychiatric/Behavioral: Positive for memory loss. Negative for depression, hallucinations, substance abuse and suicidal ideas. The patient is not nervous/anxious and does not have insomnia. PAST MEDICAL HISTORY Diagnosis Date - Asthma - Chronic pain - COPD (chronic obstructive pulmonary disease) (HCC) - Epilepsy (HCC) - Warren encephalopathy - Restless leg syndrome - S/P placement of VNS (vagus nerve stimulation) device - Unspecified hypothyroidism PAST SURGICAL HISTORY Procedure Laterality Date - BX BREAST PERC VACUUM/ROTN 01/31/2007 Left breast 6 oclock - HAND SURGERY HX Right x 4 - INCISION EARDRUM,ASPIR,GEN ANESTH Myringotomy/tubes - OTHER left rotator cuff torn - PAST SURGICAL HISTORY OF Bilateral tubal ligation - PAST SURGICAL HISTORY OF 2006 Ablation - PAST SURGICAL HISTORY OF 2008 Bladder sling - REMOVAL OF TONSILS,<14 Y/O Tonsillectomy FAMILY HISTORY Problem Relation Age of Onset - Diabetes Mother - Stroke Mother tia - Heart disease Mother - Diabetes Sister - Diabetes Brother - Diabetes Maternal Grandmother - Cancer Maternal Grandmother colon - Diabetes Maternal Grandfather - Cancer Father skin - Stroke Father - Parkinsonism Father Social History Marital status: Spouse name: Years of education: Number of children: Occupational History Occupation Employer Comment disabled Social History Main Topics Smoking status: Former Smoker Packs/day: 1.00 Years: 30.00 Types: Cigarettes Quit date: 08/05/2012 Smokeless tobacco: Never Used Alcohol use: No Drug use: No Sexual activity: Yes Partners with: Female, Male control/protection: Tubal Ligation Current Meds levothyroxine (SYNTHROID) 175 mcg tablet Take 1 tablet by mouth once daily. calcium carbonate (CALCIUM 500 ORAL) Take 1 tablet by mouth once daily. oxyCODONE-acetaminophen (PERCOCET) 5-325 mg tablet 4 TIMES DAILY NEEDED PRN For Pain pyridoxine, vitamin B6, (VITAMIN B6) 25 mg tablet Take by mouth. rOPINIRole (REQUIP) 0.25 mg tablet AT BEDTIME PRN For Restlessness alpha tocopheryl acetate (VITAMIN E) 400 unit capsule Take 400 Units by mouth. Estradiol (ESTRACE) 0.5 mg tablet Take 1 tablet by mouth once daily. medroxyPROGESTERone (PROVERA) 2.5 mg tablet Take 0.5 tablets by mouth once daily. FEXOFENADINE HCL (YADIRA ALLERGY ORAL) Take by mouth as needed. AZATHIOPRINE (IMURAN ORAL) Take by mouth. topiramate (TROKENDI XR) 100 mg cp24 Take 150 mg by mouth once daily. albuterol HFA (VENTOLIN HFA) 90 mcg/actuation inhaler Inhale 2 Puffs as instructed. MAGNESIUM ORAL Take 400 mg by mouth once daily. ergocalciferol, vitamin D2, (VITAMIN D) 50,000 unit capsule she takes 1 capsule per week selenium 200 mcg tab Take 1 tablet by mouth twice daily. LEVETIRACETAM (KEPPRA ORAL) Take 500 mg by mouth twice daily. Takes 500 Mg in AM and 1000 mg in PM omeprazole 20 mg capsule Take 40 mg by mouth once daily. Objective BP 128/82 Ht 5' 4 (1.63m) Wt 189 lb 11.2 oz (86.0kg) BMI 32.55 kg/(m2). Physical Exam Constitutional: She is oriented to person, place, and time and well-developed, well-nourished, and in no distress. HENT: Head: Normocephalic and atraumatic. Mouth/Throat: Oropharynx is clear and moist. Eyes: Pupils are equal, round, and reactive to light. Conjunctivae and EOM are normal. Neck: No thyromegaly present. Cardiovascular: Normal rate, regular rhythm and normal heart sounds. No murmur heard. Pulmonary/Chest: Effort normal and breath sounds normal. Musculoskeletal: She exhibits no edema. Lymphadenopathy: She has no cervical adenopathy. Neurological: She is alert and oriented to person, place, and time. No cranial nerve deficit. Gait normal. Skin: Skin is warm and dry. Psychiatric: Mood, memory, affect and judgment normal. ASSESSMENT/PLAN: 1. Acquired hypothyroidism - ICD9: 244.9, ICD10: E03.9 (primary diagnosis) Thyroid labs are now at goal. Continue levothyroxine 175 mcg daily. Follow-up in 6 months with TSH and free T4 before visit. - LEVOTHYROXINE 175 MCG TABLET - TSH BLD - T4 FREE/FREE THYROX 2. 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 3. Non morbid obesity - ICD9: 278.00, ICD10: E66.9, Work on dietary modification and increased physical activity to promote weight loss. Juan Jim, Referring Provider: SELF [200] Allergies As of Date: 07/14/2018 Noted Allergy Reaction DILAUDID (HYDROMORPHONE (BULK)) 04/08/2018 14 - Other: See Comments Comments: Seizures GABAPENTIN 02/15/2017 16 - Unknown LYRICA (PREGABALIN) 07/31/2012 14 - Other: See Comments Comments: Pt had a seizure day after taking WELLBUTRIN (BUPROPION HCL) 02/15/2017 14 - Other: See Comments Comments: Severe mood swings Date Reviewed: 07/14/2018 Reviewed by: Juan Jim - Fully Assessed Reason for Visit: Thyroid Problem [110] Primary Visit Diagnosis:Acquired hypothyroidism [E03.9] Other Visit Diagnoses:Warren's thyroiditis [E06.3] Non morbid obesity [E66.9] Order(s):levothyroxine (SYNTHROID) 175 mcg tabletTake 1 tablet by mouth once daily.Disp: 90 tabletRfl: 1 TSH BLD [SQTSH] Order #: [id number] FUTURE T4 FREE/FREE THYROX [SQFT4] Order #: [id number] FUTURE Prescriptions as of 07/14/2018 Sig: LEVOTHYROXINE 175 MCG TABLET Take 1 tablet by mouth once d* CALCIUM 500 ORAL Take 1 tablet by mouth once d* OXYCODONE-ACETAMINOPHEN 5 MG-* 4 TIMES DAILY NEEDED PRN F* PYRIDOXINE (VITAMIN B6) 25 MG* Take by mouth. ROPINIROLE 0.25 MG TABLET AT BEDTIME PRN For Restlessne* VITAMIN E 400 UNIT CAPSULE Take 400 Units by mouth. ESTRADIOL 0.5 MG TABLET Take 1 tablet by mouth once d* MEDROXYPROGESTERONE 2.5 MG TA* Take 0.5 tablets by mouth onc* YADIRA ALLERGY ORAL Take by mouth as needed. IMURAN ORAL Take by mouth. TOPIRAMATE XR 100 MG CAPSULE,* Take 150 mg by mouth once blanco* ALBUTEROL SULFATE HFA 90 MCG/* Inhale 2 Puffs as instructed. 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 Medications Discontinued During This Encounter beclomethasone (QVAR) 80 mcg/actuati* 07/14/2018 Class: Historical Med Route: INHALATION Sig: Inhale 2 Puffs as instructed twice daily. Disc: Reason for discontinue is not on file. celecoxib (CELEBREX) 200 mg capsule 07/14/2018 Class: Historical Med Route: ORAL Sig: Take 200 mg by mouth. Disc: Reason for discontinue is not on file. furosemide (LASIX) 20 mg tablet 03/27/2017 07/14/2018 Class: Historical Med Sig: LASIX 20 MG TABS Disc: Reason for discontinue is not on file. levothyroxine (SYNTHROID) 175 mcg ta* 30 t* 3 06/04/2018 07/14/2018 Route: ORAL Sig: Take 1 tablet by mouth once daily. Disc: Reason for discontinue is not on file. Disposition: Return 6 months but prefers to hold off scheduling for now, for Future labs. Follow-up and Disposition History Recorded Encounter Status:Closed by JUAN JIM DO on 07/14/18 RE-EVALUTION OT Observed: 07/10/2018 Status: F Source: [place] 5:51 PM [facility] [address] [place] [address]. [address] [place] [address] Fax REEVALUATION / MEDICARE RECERTIFICATION OCCUPATIONAL THERAPY MR#: [id number] Acct: [id number] Name: DIANNE LIRIANO Rep #: [id number] : 1960 58 From: Liberty Pardo Referring Dr.: Sunny Reynoso DO Status: REG RCR Insurance: [employer] JUST FOR ME Eval Date: SELF PAY INSURANCE Sunny Reynoso DO, It has been my pleasure to treat DIANNE LIRIANO over the last 19 visits for Cat Bite. Please see the progress note below for an update on the occupational therapy plan of care! Subjective: Arrived with . [place]ed [place] hand did very well. I weas amazed how well it loosened up. Objective/Function: Complete reassessment on this date of 07/09/18. Results are as follows: ROM: Wrist: L 0-0-15, R WNL. She exhibits 15 degrees flexion but no noticeable or measurable extension at this time. Wrist is extremely limited with active and passive ROM and appears to be fused at this time. Fingers for R hand only: 2nd MCP 0-77, PIP 0-75, DIP 0-10. 3rd MCP -5-0-65, PIP 0-64, DIP 0-19. 4th MCP 0-55, PIP 0-49, DIP 12-17. 5th -25-0-33, PIP 30-61, 14-21. R Thumb. MP 0-64. IP -14-0-12. Strength: Rn Outpatient Surgery: 10, L 45 lbs. Geno has progressed with all ROM measurements of R fingers. Wrist movement has plateaued at this time. She is progressing with some strengthening and although unable to make full composite fist she is able to complete fist around dynameter to complete community center worker testing. This is progress from previous measurements. Plan Visits in this POC: 20 Plan: continue POC. Will complete finished therapy for this year and then continue next year for 1x weekly- every other week depending of affordability for client. It would benefit her to continued OT as with HEP and splint management she is progressing with finger ROM. OT tightened flexion glove today. OT is working on making static progressive splint to promote increased PIP and DIP flexion while flexion glove helps with MCP flexion. Additionally, would like to try other conservative management of hands to promote increased movement. Goals - Goals Goal:: Dianne to regain #30 lbs of community center worker strength 4/5 trials 80% of the time to increase (I) and ability to complete ADL/IADL by time of d/c. Goal:: Dianne to be able to actively form composite fist 5/5 trials 100% of the time to increase (I) and ability to manipulate change and complete self-care tasks by time of d/c. Dianne ROM of R hand to be that of equal value of L noninvolved hand for increased(I) and ability to complete self-care tasks by time of d/c. Goal:: Dianne pain to be under 2/10 in R UE at shoulder, elbow, wrist, and hand 4/5 trials 80% of the time by time of d/c. Goal:: Dianne will be able to actively for tripod grasp for increased ability to complete fasteners and manipulate other self-care items 100% of the time by d/c. Goal:: Dianne R hand to measure within 1-2 cm of L non-affected hand, with edema management techniques as needed, for increased ability to complete ADL/IADls 4/5 trials 80% of the time by time of d/c. Goal:: Dianne to be mod I to cook meal, from start to stop, with R dominant hand with use of L hand for bilateral hand tasks as needed 4/5 trials 80% of the time, with pain WFL, by time of d/c. Goal:: Dianne to be able to manipulate silverware through using R hand to cut food 4/5 trials 80% of the time to increase (I) and decrease need for assistance by time of d/c. Goal:: Dianne to be able to actively flex/extend all PIP of R fingers to WFL 100% of the by session #15 to promote increased ability to use fingers to decrease risk of contractures and pain by time of d/c. Anticipated Interventions Anticipated Interventions: A/AAROM/PROM, Strengthening, Scar Care, Modalities, Orthoses, Joint Protection/Energy Conservation, Ergonomic Education, Fine Motor Coord/Aakash, ADL Training, Education re assistive Equipment, Caregiver Training, Home Program Please do not hesitate to contact me at [phone] by phone or if you have questions or concerns regarding this new plan of care! Sincerely, Liberty Pardo <Electronically signed by Liberty Pardo > 07/10/18 1751 CC: Sunny PittsKaitlyn KMB Signed For Medicare only, by signing this I certify the plan of care. Physicians Signature Date PLASTIC SURGERY Observed: 07/07/2018 Status: F Source: [place] VISIT REPORT 2:01 PM [facility] [address] [address] OFFICE VISIT Date of Service: 07/02/18 MR#: [id number] Acct: [id number] Name: DIANNE LIRIANO Rep #: [id number] : 1960 Provider: Patrick Phillips MD Age/Sex: 58/F Location: [facility] Status: Signed Intake Vital Signs07/02/18 Body Mass Index (BMI) 32.5 07/02/18 Height 5 ft 4 in 07/02/18 Weight: 191 lb 6 oz Intake Visit Reasons: evaluation left hand s/p knife injury Delivery Man Required: No Accompanied by: Is patient in pain?: Yes (LEFT HAND PAIN SORE AND RIGHT HAND STIFFNESS ) Pain scale (1-10): 3 Allergies bupropion HCl [From Wellbutrin] Allergy (Verified 07/02/18 10:39) Unknown pregabalin [From Lyrica] Allergy (Verified 07/02/18 10:39) Unknown gabapentin Adverse Reaction (Verified 07/02/18 10:39) Other hydromorphone [From Dilaudid] Adverse Reaction (Verified 07/02/18 10:39) Other MRI Adverse Reaction (Uncoded 07/02/18 10:39) Other Medications Azathioprine 50 mg PO QHS 02/11/17 [History Confirmed 06/25/18] Ergocalciferol [Vitamin D] 50,000 unit PO QWEEK 02/11/17 [History Confirmed 04/20/18] Estradiol 0.5 mg PO DAILY 02/11/17 [History Confirmed 04/20/18] Levetiracetam 1,000 mg PO QHS 02/11/17 [History Confirmed 04/20/18] Levetiracetam 500 mg PO DAILY 02/11/17 [History Confirmed 04/20/18] Magnesium Oxide [Magnesium] 1,000 mg PO DAILY 02/11/17 [History Confirmed 04/20/18] MedroxyPROGESTERone [Provera] 1.25 mg PO DAILY 02/11/17 [History Confirmed 04/20/18] Ropinirole HCl [Requip] 0.25 mg PO QHS PRN 02/11/17 [History Confirmed 04/20/18] Selenium 200 mcg PO DAILY 02/11/17 [History Confirmed 04/20/18] Fexofenadine HCl [Yadira Allergy] 60 mg PO DAILY PRN PRN 02/27/17 [History Confirmed 04/20/18] Omeprazole [Prilosec] 40 mg PO DAILY 02/27/17 [History Confirmed 04/20/18] Pyridoxine HCl [Vitamin B6] 50 mg PO DAILY 02/27/17 [History Confirmed 04/20/18] Topiramate [Trokendi Xr] 50 mg PO QHS 02/27/17 [History Confirmed 04/20/18] Topiramate [Trokendi Xr] 100 mg PO QHS 02/27/17 [History Confirmed 04/20/18] Vitamin E 800 unit PO DAILY 02/27/17 [History Confirmed 04/20/18] Oxycodone HCl/Acetaminophen [Percocet 5-325] 1 - 2 tab PO 4X/DAY PRN PRN #60 04/12/17 [Rx Confirmed 04/20/18] levothyroxine 175 mcg tablet 175 mcg PO DAILY #30 tab 09/09/17 [Rx Confirmed 04/20/18] albuterol sulfate HFA 90 mcg/actuation aerosol inhaler 2 puff INHALATION Q4H #1 inh 10/03/17 [Rx Confirmed 04/20/18] budesonide 0.25 mg/2 mL suspension for nebulization 0.25 mg INHALATION 4X/DAY 04/20/18 [History Confirmed 04/20/18] celecoxib 200 mg capsule 200 mg PO DAILY 04/20/18 [History Confirmed 04/20/18] ferrous gluconate 240 mg (27 mg iron) tablet 240 mg PO DAILY tab 04/20/18 [History Confirmed 04/20/18] sennosides 8.6 mg tablet 8.6 mg PO BID PRN 04/20/18 [History Confirmed 04/20/18] Smz/Tmp Ds [Bactrim Ds] 1 tab PO BID #14 tab 06/25/18 [Rx] Is last menstrual period known: No Post menopausal: Yes Patient : No PFSH Medical History Dyspnea (Chronic) Hypersomnia (Chronic) Subacromial bursitis of left shoulder joint (Chronic) Degenerative disc disease (Chronic) Migraines (Chronic) Hyperlipidemia (Chronic) Hypocalcemia (Chronic) Acute osteomyelitis of right hand (Acute) Abscess of right forearm (Acute) Arthritis due to other bacteria, right wrist (Acute) Stiffness of right wrist joint (Chronic) Stiffness of finger joint of right hand (Acute) Complex regional pain syndrome of right upper extremity (Acute) Abscess of bursa, right hand (Acute) Abscess of bursa, right wrist (Acute) Other synovitis and tenosynovitis, right hand (Acute) History of gastroesophageal reflux (GERD) (Chronic) History of hypothyroidism (Chronic) RLS (restless legs syndrome) (Chronic) Infection of right hand (Acute) Cellulitis of right hand (Acute) Abscess of right hand (Acute) Seizure disorder (Chronic) Encephalopathy chronic (Acute) Cat bite of hand (Acute) Pain in right hand (Acute) COPD (chronic obstructive pulmonary disease) (Acute) Arthritis (Acute) Asthma (Acute) Back problem (Acute) Bloody stool (Acute) CAT BITE ABCESS RIGHT MID PALM (Acute) CAT BITE INFECTION ABSCESS DISTAL PALM (Acute) CAT BITE INFECTION ABSCESS MIDCARPAL JOINTS RIGHT WRIST (Acute) CAT BITE INFECTION ABSCESS RIGHT DISTAL FOREARM (Acute) CATBITE ABSCESS CARPAL TUNNEL RIGHT WRIST (Acute) COMPARTMENT SYNDROME DORSAL INTEROSSEOUS MUSCLES RIGHT HAND (Acute) Diarrhea (Acute) Difficulty balancing (Acute) Environmental allergies (Acute) Epilepsy (Acute) Fatigue (Acute) HEADACHES/MIGRAINES (Acute) HERPETIC LESION DORSUM RIGHT INDEX FINGER (Acute) HOSHIMOTO ENCEPHELITIS (Acute) Hay fever (Acute) Hearing problem (Acute) High cholesterol (Acute) Hypothyroidism (Acute) Knee pain (Acute) Lung disease (Acute) OSTEOMYELITIS RIGHT DISTAL RADIUS (Acute) REFLEX DYSTROPHY RIGHT HAND AND WRIST (Acute) Restless legs (Acute) SOB (shortness of breath) (Acute) SUPPURATIVE FLEXOR TENOSYNOVITIS RIGHT SMALL FINGER (Acute) Seizure (Acute) Shoulder pain (Acute) Tubal ligation status (Acute) UNUSUAL TIREDNESS (Acute) Vision problem (Acute) Surgical History History of bladder suspension procedure (Resolved) History of tonsillectomy (Resolved) Status post VNS (vagus nerve stimulator) placement (Resolved) History of endometrial ablation (Resolved) History of tubal ligation (Resolved) ABLATION (Acute) BLADDER LIFT (Acute) CARPAL BONE RIGHT WRIST FOR OSTEOMYELITIS (Acute) EAR TUBES AND TONSILS (Acute) INCISION AND DRAINAGE RIGHT ULNAR PALM (Acute) SURGICAL PREPARATION RIGHT DISTAL PALM (Acute) VAGUS NERVESTIMULATOR IMPLANT (Acute) Family History Mother Arthritis Bleeding disorder Hypertension High cholesterol LUNG/RESPIRATORY DISEASE Other Diabetes Social History household members: spouse Smoking Status: Former smoker second hand exposure: No alcohol intake: never substance use type: does not use caffeine: Yes what type of physical activity do you participate in: other details: DANCING frequency: 3-4 times per week seatbelt use: always additional social history: SUN EXPOSURE - RARE HPI evaluation left hand s/p knife injury: Details: HISTORY OF PRESENT ILLNESS Patient is a 58 year old female who presents with an injury to her left hand on 06/25/18. She was cooking and was using a knife when she suffered a laceration to the first web space of the left hand. She went to ED and they used glue on the laceration. She was updated on her Tetanus. She has a history of infection related to animal bite with multiple surgeries right upper extremity and she was concerned for infection, so they started her on Bactrim and she has finished it without problem. She is finishing her OT for the year for her stiffness right hand from the late effects of a cat bite with her last surgery on 04/04/17. To stretch it out for most of the year, will go twice a month since her insurance allows 20 visits per year. Will renew for next year since she is making slow but steady progress. She states she went to [place] for family reasons and went on a cruise and her hand felt better with increased range of motion after being exposed to the salt water of the ocean and the warmer temperatures. REVIEW OF SYSTEMS General - Denies fear, fatigue, and weight loss. Eyes - Denies cataracts and glaucoma. ENT - Denies nasal congestion and sore throat. Endocrine - Denies excessive thirst and urination. Skin - Denies suspicious lesions and skin cancer. Musculoskeletal - Healed left hand laceration in first web space. Right hand has had previous surgeries due to infection caused by a cat bite. Neuro - Denies headaches. Cardiovascular - Denies chest pain, fatigue, and shortness of breath with exertion. Psych - Denies anxiety and depression. Respiratory - Denies chronic cough and shortness of breath. Gastrointestinal - Denies nausea, vomiting, diarrhea, and constipation. Hematologic - Denies abnormal bruising and bleeding. Genitourinary - Denies hematuria and urinary frequency. PHYSICAL EXAMINATION General: Alert, Oriented. HEENT: PERRLA, EOMI. Throat is clear. Neck: Supple and nontender. No cervical adenopathy. Lungs: Clear to auscultation Cardiovascular: Regular rate, Regular Rhythm Abdomen: Soft, Nondistended. Extremities: Mild edema in right hand. Radial pulses are palpable. Healed cat bite wounds distal palm right hand on the ulnar side extending onto the small finger. Healed cat bite wound right mid palm. Healed cat bite wound right volar wrist at carpal tunnel. The wrist in general is stiff with minimal residual tenderness on the ulnar side of the wrist. Palm is soft and nontender. Mild decrease in finger sensation to pinprick as compared to the left hand. Fingers are warm with good capillary refill. Can flex MP joints 60-70 degrees. Little bit less for the ring and small fingers. She has good community center worker strength on the right. Noticeable improvement. Minimal wrist flexion noted but limited secondary to the wrist pain. Elbow flexion and extension are intact without pain. Forearm supination and pronation are good with both active and passive range of motion. Thumb opposition good to index finger, long finger and ring finger. When she does oppose, her thumb touches the DIP joint crease and not the finger tip. Thumb opposition continues to slowly improve. She is adapting at home with activities of daily living and is doing better with activities at home. No axillary adenopathy. Patient is right hand dominant. On the left hand in the first webspace is a healed incision measuring 1.5 cm. She has good community center worker strength and good ROM of left hand. No signs of infection. Neurological: Cranial nerves II-XII grossly intact. Has mild paresthesias in her fingers right hand as compared to her left hand. Psych/Mental Status: Normal mood and affect. ASSESSMENT 1. 1.5 cm laceration first webspace left hand, healed. 2. Late effect cat bite right hand. 3. Stiffness right wrist from cat bite. 4. History of complex cat bite abscesses right hand, wrist, and forearm. 5. History of RSD right hand and wrist. 6. History of osteomyelitis right hand and wrist. 7. 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 PLAN The laceration first webspace left hand has healed. Comes in today feeling better with regard to her right hand. She states the pain is more manageable. She has been to Pain Management and she will continue to see them every other month. She is getting her Percocet from the Pain Center. The wounds remain healed. She states when she was in [place] on a cruise, the warm weather and salt water helped her range of motion. There is some residual stiffness in the wrist with some persistent discomfort on the ulnar side. The stiffness will not improve due to the severity of the infection. She may benefit from wrist fusion in the future if discomfort persists especially on the ulnar side. She was working on range of motion in her thumb webspace at OT which has improved. There is some improvement with thumb abduction. She has better opposition of her thumb to the fingers, but is not to the tips of the fingers though. The MP joints are less stiff with improved range of motion with flexion of 60-70 degrees with a little less with the ring and small fingers. She can make a fist with her right hand and has good community center worker strength, a noticeable improvement. The elbow range of motion is good with flexion and extension and forearm pronation and supination are good. As long as she is making small but steady improvement with her range of motion and function of her hand, he is not interested in any surgery at this time. Once we get to a plateau in the function, then we can discuss various surgical options for treatment such as tenolysis and capsulectomy that may help but also may hinder further progress. I discussed with her that at the time of plateau in her OT, she would need to be really bothered and frustrated by problems with activities of daily living before proceeding with any type of revision surgery. With the severity of the cat bite infection and the amount of scarring, further surgery would certainly have increased risk associated with it. Continue OT for range of motion exercises, strengthening, and edema management. Also Ultrasound massage and thumb splinting. Her fingers are a little less stiff, but would benefit from additional OT in the new year. OT will be renewed for next year, probably twice a month. She states her insurance will pay for 20 treatments per year. So twice a month will get us 10 months of treatment. Continue to massage the incisions with skin lotion daily to help soften up the scars as the scars are much softer at this time. Followup 6 months. Assessment AND Plan Problems 1. Laceration of hand, left S61.412A 2. Bitten by cat, sequela W55.01XS 3. Stiffness of right wrist joint M25.631 4. History of drainage of abscess Z98.890 5. History of osteomyelitis Z87.39 6. Status post decompression of compartment syndrome Z98.890 Orders Referrals: Coding Level of Care Code Off vis,est,level 4 Diagnoses Laceration of hand, left S61.412A Bitten by cat, sequela W55.01XS Stiffness of right wrist joint M25.631 History of drainage of abscess Z98.890 History of osteomyelitis Z87.39 Status post decompression of compartment syndrome Z98.890 07/06/18 2339 <Electronically signed by Patrick Phillips MD> Date Patrick Phillips MD 07/07/18 1401<Electronically signed by Beth TAMEZ> Cosigner Signature: Date (if applicable) Beth Coe CC: Sunny Reynoso DO THYROID STIM HORMONE Collected: 06/27/2018 Status: F Source: DEON (TSH) 9:40 AM [facility] REPOSITORY TYPE CODE TESTS RESULT OUT OF RANGE REFERENCE UNITS LAB L501.9520 0.358-3.74 uIU/mL Normal TSH 2.75 Performed By: #### L501.9520, L506.0400 #### [facility] [address] [place], [address] T4 FREE DIRECT Collected: 06/27/2018 Status: F Source: [place] 9:40 AM [facility] TYPE CODE TESTS RESULT OUT OF RANGE REFERENCE UNITS LAB L506.0400 0.76-1.46 ng/dL Normal T4 FREE 1.37 DIRECT Performed By: #### L501.9520, L506.0400 #### [facility] [address] [place], [address] EMERGENCY DEPARTMENT Observed: 06/25/2018 Status: F Source: [place] SUMMARY 3:50 PM [facility] Medical Records Department [address] [place] [address] [place] [address] Emergency Department Summary 06/25/18 1238 MR#: [id number] Acct: [id number] Name: DIANNE LIRIANO Rep #: [id number] : 1960 58 From: Nick Camarena MD PCP: Sunny Reynoso DO Status: DEP ER - ER Visit Summary Date of Service: 06/25/18 Chief Complaint: [] Left hand injury with knife working with food History of Present Illness: The patient is a 58 F [] a knife working with food suffered a laceration to the thenar region of the left hand, she has a history of infection related to animal bite with multiple surgeries right upper extremity and she is concerned for infection. She has been treated in the past with Bactrim for skin infections she believes she may have had MRSA she does not sure about her tetanus status she had notes no loss of function to her hand Physical Examination: [] 133/79, The left hand thenar region there is a 1 cm thin linear laceration over the thenar region, thumb function finger function all hand function wrist function are normal there is no bleeding no drainage, no neurologic abnormalities, she is no possibility of foreign body by her history we discussed management the area was cleansed, Betadine and, he agreed with glue therapy and glue was applied to the wound with no difficulty she did not wish to have sutures we will update her tetanus she was started on Bactrim related to her prior history for infection and her concern for infection and she will follow up with her outpatient providers Test Results: [] Emergency Department Course and Treatment: [] Treatment Plan: [] Disposition: [] Home stable Impression: [] 1 cm left hand laceration This note was generated with SwimTopiaation software. It may contain incorrect words, spelling, and punctuation that were not noted in review of the chart prior to signing ED Disposition - Plan for ED Patient: Chief Complaint: Laceration Referrals: Sunny Reynoso DO [Primary Care Provider] - What to do if you have Problems For any increased pain, shortness of breath, bleeding, nausea or vomiting, chest pain, or any unexpected problems, contact your Primary Care Provider. Call [facility] ([phone]) or report to the closest Emergency Room. Call 911 if necessary. 06/25/18 1550 <Electronically signed by Nick Camarena MD> Date Nick Camarena MD Cosigner Signature (If Indicated): Date CC: Sunny Reynoso DO DISCHARGE INSTRUCTION Observed: 06/25/2018 Status: F Source: [place] 12:41 PM [facility] Medical Records Department [address] [place] [address] Discharge Instruction 06/25/18 1240 MR#: [id number] Acct: [id number] Name: LIRIANODIANNE Rep #: [id number] : 1960 58 From: Nick Camarena MD PCP: Sunny Reynoso DO Status: PRE ER ED Disposition - Plan for ED Patient: Chief Complaint: Laceration Instructions: ED Laceration Hand Prescriptions: Smz/Tmp Ds [Bactrim Ds] 1 tab PO BID #14 tab Referrals: Kaitlyn,Sunny, DO [Primary Care Provider] - What to do if you have Problems For any increased pain, shortness of breath, bleeding, nausea or vomiting, chest pain, or any unexpected problems, contact your Primary Care Provider. Call [facility] ([phone]) or report to the closest Emergency Room. Call 911 if necessary. 06/25/18 1241 <Electronically signed by Nick Camarena MD> Date Nick Camarena MD Cosigner Signature (If Indicated): Date CC: Sunny Reynoso DO ORTHOPEDIC VISIT Observed: 06/12/2018 Status: F Source: [place] REPORT 4:08 PM [facility] Orthopaedics AND Sports Medicine [address] [place] [address] OFFICE VISIT Date of Service: 06/12/18 MR#: [id number] Acct: [id number] Name: DIANNE LIRIANO Rep #: [id number] : 1960 Provider: Monisha Fried DO Age/Sex: 58/F Location: [facility] [place] Status: Signed Intake Intake Visit Reasons: BILAT KNEES Chief Complaint: diarrhea Delivery Man Required: No Accompanied by: None Is patient in pain?: Yes (bilateral knee ) Pain scale (1-10): 10 Allergies bupropion HCl [From Wellbutrin] Allergy (Verified 04/20/18 12:13) Unknown pregabalin [From Lyrica] Allergy (Verified 04/20/18 12:13) Unknown gabapentin Adverse Reaction (Verified 04/20/18 12:13) Other hydromorphone [From Dilaudid] Adverse Reaction (Verified 04/20/18 12:13) Other MRI Adverse Reaction (Uncoded 04/20/18 12:13) Other Medications Azathioprine 50 mg PO QHS 02/11/17 [History Confirmed 04/20/18] Ergocalciferol [Vitamin D] 50,000 unit PO QWEEK 02/11/17 [History Confirmed 04/20/18] Estradiol 0.5 mg PO DAILY 02/11/17 [History Confirmed 04/20/18] Levetiracetam 1,000 mg PO QHS 02/11/17 [History Confirmed 04/20/18] Levetiracetam 500 mg PO DAILY 02/11/17 [History Confirmed 04/20/18] Magnesium Oxide [Magnesium] 1,000 mg PO DAILY 02/11/17 [History Confirmed 04/20/18] MedroxyPROGESTERone [Provera] 1.25 mg PO DAILY 02/11/17 [History Confirmed 04/20/18] Ropinirole HCl [Requip] 0.25 mg PO QHS PRN 02/11/17 [History Confirmed 04/20/18] Selenium 200 mcg PO DAILY 02/11/17 [History Confirmed 04/20/18] Fexofenadine HCl [Yadira Allergy] 60 mg PO DAILY PRN PRN 02/27/17 [History Confirmed 04/20/18] Omeprazole [Prilosec] 40 mg PO DAILY 02/27/17 [History Confirmed 04/20/18] Pyridoxine HCl [Vitamin B6] 50 mg PO DAILY 02/27/17 [History Confirmed 04/20/18] Topiramate [Trokendi Xr] 50 mg PO QHS 02/27/17 [History Confirmed 04/20/18] Topiramate [Trokendi Xr] 100 mg PO QHS 02/27/17 [History Confirmed 04/20/18] Vitamin E 800 unit PO DAILY 02/27/17 [History Confirmed 04/20/18] Oxycodone HCl/Acetaminophen [Percocet 5-325] 1 - 2 tab PO 4X/DAY PRN PRN #60 04/12/17 [Rx Confirmed 04/20/18] levothyroxine 175 mcg tablet 175 mcg PO DAILY #30 tab 09/09/17 [Rx Confirmed 04/20/18] albuterol sulfate HFA 90 mcg/actuation aerosol inhaler 2 puff INHALATION Q4H #1 inh 10/03/17 [Rx Confirmed 04/20/18] budesonide 0.25 mg/2 mL suspension for nebulization 0.25 mg INHALATION 4X/DAY 04/20/18 [History Confirmed 04/20/18] celecoxib 200 mg capsule 200 mg PO DAILY 04/20/18 [History Confirmed 04/20/18] ferrous gluconate 240 mg (27 mg iron) tablet 240 mg PO DAILY tab 04/20/18 [History Confirmed 04/20/18] sennosides 8.6 mg tablet 8.6 mg PO BID PRN 04/20/18 [History Confirmed 04/20/18] PFSH Medical History Dyspnea (Chronic) Hypersomnia (Chronic) Subacromial bursitis of left shoulder joint (Chronic) Degenerative disc disease (Chronic) Migraines (Chronic) Hyperlipidemia (Chronic) Hypocalcemia (Chronic) Acute osteomyelitis of right hand (Acute) Abscess of right forearm (Acute) Arthritis due to other bacteria, right wrist (Acute) Stiffness of right wrist joint (Acute) Stiffness of finger joint of right hand (Acute) Complex regional pain syndrome of right upper extremity (Acute) Abscess of bursa, right hand (Acute) Abscess of bursa, right wrist (Acute) Other synovitis and tenosynovitis, right hand (Acute) History of gastroesophageal reflux (GERD) (Chronic) History of hypothyroidism (Chronic) RLS (restless legs syndrome) (Chronic) Infection of right hand (Acute) Cellulitis of right hand (Acute) Abscess of right hand (Acute) Seizure disorder (Chronic) Encephalopathy chronic (Acute) Cat bite of hand (Acute) Pain in right hand (Acute) COPD (chronic obstructive pulmonary disease) (Acute) Arthritis (Acute) Asthma (Acute) Back problem (Acute) Bloody stool (Acute) CAT BITE ABCESS RIGHT MID PALM (Acute) CAT BITE INFECTION ABSCESS DISTAL PALM (Acute) CAT BITE INFECTION ABSCESS MIDCARPAL JOINTS RIGHT WRIST (Acute) CAT BITE INFECTION ABSCESS RIGHT DISTAL FOREARM (Acute) CATBITE ABSCESS CARPAL TUNNEL RIGHT WRIST (Acute) COMPARTMENT SYNDROME DORSAL INTEROSSEOUS MUSCLES RIGHT HAND (Acute) Diarrhea (Acute) Difficulty balancing (Acute) Environmental allergies (Acute) Epilepsy (Acute) Fatigue (Acute) HEADACHES/MIGRAINES (Acute) HERPETIC LESION DORSUM RIGHT INDEX FINGER (Acute) HOSHIMOTO ENCEPHELITIS (Acute) Hay fever (Acute) Hearing problem (Acute) High cholesterol (Acute) Hypothyroidism (Acute) Knee pain (Acute) Lung disease (Acute) OSTEOMYELITIS RIGHT DISTAL RADIUS (Acute) REFLEX DYSTROPHY RIGHT HAND AND WRIST (Acute) Restless legs (Acute) SOB (shortness of breath) (Acute) SUPPURATIVE FLEXOR TENOSYNOVITIS RIGHT SMALL FINGER (Acute) Seizure (Acute) Shoulder pain (Acute) Tubal ligation status (Acute) UNUSUAL TIREDNESS (Acute) Vision problem (Acute) Surgical History History of bladder suspension procedure (Resolved) History of tonsillectomy (Resolved) Status post VNS (vagus nerve stimulator) placement (Resolved) History of endometrial ablation (Resolved) History of tubal ligation (Resolved) ABLATION (Acute) BLADDER LIFT (Acute) CARPAL BONE RIGHT WRIST FOR OSTEOMYELITIS (Acute) EAR TUBES AND TONSILS (Acute) INCISION AND DRAINAGE RIGHT ULNAR PALM (Acute) SURGICAL PREPARATION RIGHT DISTAL PALM (Acute) VAGUS NERVESTIMULATOR IMPLANT (Acute) Family History Mother Arthritis Bleeding disorder Hypertension High cholesterol LUNG/RESPIRATORY DISEASE Other Diabetes Social History household members: spouse Smoking Status: Former smoker second hand exposure: No alcohol intake: never substance use type: does not use caffeine: Yes what type of physical activity do you participate in: other details: DANCING frequency: 3-4 times per week seatbelt use: always additional social history: SUN EXPOSURE - RARE HPI BILAT KNEES: Details: DIANNE LIRIANO is a 58 year old F here today for bilateral knee pain. Patient rates her pain as a 10/10 and describes as a throbbing pain. Patients pain is located on both the right and left side of her patella on both knees and does radiate down both legs. Patient would like an injection in both knees today as she is leaving for vacation soon. Ortho Exam Right Knee Skin/Wound: Yes CDI Contralateral Normal: No Swelling: No Homans Sign: No Knee ROM: Yes ROM-Extension -20 to 0, Yes ROM-Flexion 0-140 Examination: Yes Med jt line tenderness, Yes Pain with flexion Left Knee Skin/Wound: Yes CDI Contralateral Normal: No Swelling: No Homans Sign: No Knee ROM: Yes ROM-Extension -20 to 0, Yes ROM-Flexion 0-140 Examination: Yes med jt line tenderness, Yes Pain with flexion Office Procedures Ortho Injections Injections Yes Knee Bilateral Details: Obtained consent for injection. Under sterile conditions, injected the patients right and left knee with a 10cc cocktail of 8cc bupivacaine and 2cc kenalog. The patient tolerated the injection well without any noted complication. Patient should call our office if redness develops, pain worsens or if they have any concerns. Office Meds Kenalog Performing Provider: Monisha Fried DO Administered by: Monisha Fried DO on 06/12/18 14:39 Dose Route Admin Location Lot Number Expiration DateNDC Garage Worker 80 mg Intra-Articularbilat knees [id number] 07/05/19 [id number] [facility] Assessment AND Plan 1. Chronic pain of both knees M25.561; M25.562; G89.29 Plan Educated the patient on the risks and benefits of injections for pain relief and swelling control. Patient is in understanding and elects to proceed with injections. Ice as needed next couple days. Follow up as needed or sooner if pain, swelling, numbness or associated symptoms, or concerns develop. All questions answered. Patient in agreement of plan. Orders Orders: Medications Discontinued: Kenalog (triamcinolone acetonide) Kotssgrc31 mg (2 mL) Intra-Articular ONCE 2 mL 0RF NS nued Reason: Office Medication has been Docu mented as given Coding Level of Care Code Off vis,est,level 3 Diagnoses Chronic pain of both knees M25.561; M25.562; G89.29 Chronicity: chronic Additional Codes hip hop performers.knee ([id number]) 06/12/18 1608 <Electronically signed by Monisha Fried DO> Date Monisha Fried DO Cosigner Signature: Date (if applicable) CC: MISC. TEST Collected: 06/06/2018 Status: F Source: [facility] 10:05 AM [facility] REPOSITORY TYPE CODE TESTS RESULT OUT OF REFERENCE UNITS RANGE LAB GO3X(LOINC) Test Name [facility] LAB GO1X(LOINC) [facility] Order VGKCAB Code LAB GO2X(LOINC) Misc. Test SEE BELOW Result Result Comment: Volt Gated K Bowers Ab 0 Reference range: 0 to 31 Unit: pmol/L (NOTE) INTERPRETIVE INFORMATION: Voltage-Gated Potassium ChanneL (VGKC) Ab Negative ....... 31 pmol/L or less Indeterminate... 32 - 87 pmol/L Positive ....... 88 pmol/L or greater Voltage-Gated Potassium Channel (VGKC) antibodies are associated with neuromuscular weakness as found in neuromyotonia (also known as Issacs syndrome) and Morvan syndrome. VGKC antibodies are also associated with paraneoplastic neurological syndromes and limbic encephalitis; however, VGKC antibody-associated limbic encephalitis may be associated with antibodies to leucine-rich, glioma-inactivated 1 protein (Lgi1) or contactin-associated protein-2 (Caspr-2) instead of potassium channel antigens. The clinical significance of this test can only be determined in conjunction with the patient's clinical history and related laboratory testing. Test developed and characteristics determined by [facility]. See Compliance Statement D: [facility]/ Performed by [facility], [address] [place] [id number] [email or web address] Nunez MD, Lab. Director Performing Laboratory: Performed By: #### GOX #### [address] SEND OUT Collected: 06/06/2018 Status: F Source: [facility] 10:05 AM HEALTH SYSTEM REPOSITORY TYPE CODE TESTS RESULT OUT OF REFERENCE UNITS RANGE LAB NAME1(LOIN C) Paraneoplastic Test Name Result Comment: Purkinje/Neur Ab Screen LAB RES(LOINC) None Result Detected Result Comment: DESTINI-1, DESTINI-2 or STONE GANG SAWYER- 1 antibodies not detected, confirmatory testing for Hu (DESTINI-1), Ri (DESTINI-2) or Yo (STONE GANG SAWYER-1) IgG antibodies will not be performed LAB REF(LOINC) Reference None Range Detected LAB ADDR(LOINC) Lab See Name/Address below Result Comment: Testing performed at [facility] [address] [place] [address] Performed By: #### MISC2 #### [place] [address] Observed: 04/22/2018 Status: F Source: DEON OVA AND PARASITES 2:23 PM [facility] REPOSITORY Reason for Exam: diarrhea O + P OVA AND PARASITES EXAM, ROUTINE These results were obtained using wet preparation(s) and trichrome stained smear. This test does not include testing for Crytosporidium parvum, Cyclospora, or Microsporidia. TESTING PERFORMED AT [facility]. ORIGINAL REPORT ON FILE IN LAB CONTAINS ADDITIONAL TEST SITE INFORMATION. Ova/Parasite Exam NO OVA, CYSTS, OR PARASITES FOUND. Performed By: #### M600.5000 #### [facility] [address] [place], [place], [address] URGENT CARE VISIT Observed: 04/20/2018 Status: F Source: [place] REPORT 12:45 PM [facility] [address] [place] [address] [address] [place], [place] [address] OFFICE VISIT Date of Service: 04/20/18 MR#: [id number] Acct: [id number] Name: DIANNE LIRIANO Rep #: [id number] : 1960 Provider: KRYSTIAN Akers Age/Sex: 57/F Location: [facility] Status: Signed Intake Vital Signs04/20/18 Height 5 ft 3.5 in Intake Visit Reasons: Diarrhea Chief Complaint: diarrhea Allergies bupropion HCl [From Wellbutrin] Allergy (Verified 04/20/18 12:13) Unknown pregabalin [From Lyrica] Allergy (Verified 04/20/18 12:13) Unknown gabapentin Adverse Reaction (Verified 04/20/18 12:13) Other hydromorphone [From Dilaudid] Adverse Reaction (Verified 04/20/18 12:13) Other MRI Adverse Reaction (Uncoded 04/20/18 12:13) Other Medications Azathioprine 50 mg PO QHS 02/11/17 [History Confirmed 04/20/18] Ergocalciferol [Vitamin D] 50,000 unit PO QWEEK 02/11/17 [History Confirmed 04/20/18] Estradiol 0.5 mg PO DAILY 02/11/17 [History Confirmed 04/20/18] Levetiracetam 1,000 mg PO QHS 02/11/17 [History Confirmed 04/20/18] Levetiracetam 500 mg PO DAILY 02/11/17 [History Confirmed 04/20/18] Magnesium Oxide [Magnesium] 1,000 mg PO DAILY 02/11/17 [History Confirmed 04/20/18] MedroxyPROGESTERone [Provera] 1.25 mg PO DAILY 02/11/17 [History Confirmed 04/20/18] Ropinirole HCl [Requip] 0.25 mg PO QHS PRN 02/11/17 [History Confirmed 04/20/18] Selenium 200 mcg PO DAILY 02/11/17 [History Confirmed 04/20/18] Fexofenadine HCl [Yadira Allergy] 60 mg PO DAILY PRN PRN 02/27/17 [History Confirmed 04/20/18] Omeprazole [Prilosec] 40 mg PO DAILY 02/27/17 [History Confirmed 04/20/18] Pyridoxine HCl [Vitamin B6] 50 mg PO DAILY 02/27/17 [History Confirmed 04/20/18] Topiramate [Trokendi Xr] 50 mg PO QHS 02/27/17 [History Confirmed 04/20/18] Topiramate [Trokendi Xr] 100 mg PO QHS 02/27/17 [History Confirmed 04/20/18] Vitamin E 800 unit PO DAILY 02/27/17 [History Confirmed 04/20/18] Oxycodone HCl/Acetaminophen [Percocet 5-325] 1 - 2 tab PO 4X/DAY PRN PRN #60 04/12/17 [Rx Confirmed 04/20/18] levothyroxine 175 mcg tablet 175 mcg PO DAILY #30 tab 09/09/17 [Rx Confirmed 04/20/18] albuterol sulfate HFA 90 mcg/actuation aerosol inhaler 2 puff INHALATION Q4H #1 inh 10/03/17 [Rx Confirmed 04/20/18] budesonide 0.25 mg/2 mL suspension for nebulization 0.25 mg INHALATION 4X/DAY 04/20/18 [History Confirmed 04/20/18] celecoxib 200 mg capsule 200 mg PO DAILY 04/20/18 [History Confirmed 04/20/18] ferrous gluconate 240 mg (27 mg iron) tablet 240 mg PO DAILY tab 04/20/18 [History Confirmed 04/20/18] sennosides 8.6 mg tablet 8.6 mg PO BID PRN 04/20/18 [History Confirmed 04/20/18] PFSH Medical History Dyspnea (Chronic) Hypersomnia (Chronic) Subacromial bursitis of left shoulder joint (Chronic) Degenerative disc disease (Chronic) Migraines (Chronic) Hyperlipidemia (Chronic) Hypocalcemia (Chronic) Acute osteomyelitis of right hand (Acute) Abscess of right forearm (Acute) Arthritis due to other bacteria, right wrist (Acute) Stiffness of right wrist joint (Acute) Stiffness of finger joint of right hand (Acute) Complex regional pain syndrome of right upper extremity (Acute) Abscess of bursa, right hand (Acute) Abscess of bursa, right wrist (Acute) Other synovitis and tenosynovitis, right hand (Acute) History of gastroesophageal reflux (GERD) (Chronic) History of hypothyroidism (Chronic) RLS (restless legs syndrome) (Chronic) Infection of right hand (Acute) Cellulitis of right hand (Acute) Abscess of right hand (Acute) Seizure disorder (Chronic) Encephalopathy chronic (Acute) Cat bite of hand (Acute) Pain in right hand (Acute) COPD (chronic obstructive pulmonary disease) (Acute) Arthritis (Acute) Asthma (Acute) Back problem (Acute) Bloody stool (Acute) CAT BITE ABCESS RIGHT MID PALM (Acute) CAT BITE INFECTION ABSCESS DISTAL PALM (Acute) CAT BITE INFECTION ABSCESS MIDCARPAL JOINTS RIGHT WRIST (Acute) CAT BITE INFECTION ABSCESS RIGHT DISTAL FOREARM (Acute) CATBITE ABSCESS CARPAL TUNNEL RIGHT WRIST (Acute) COMPARTMENT SYNDROME DORSAL INTEROSSEOUS MUSCLES RIGHT HAND (Acute) Diarrhea (Acute) Difficulty balancing (Acute) Environmental allergies (Acute) Epilepsy (Acute) Fatigue (Acute) HEADACHES/MIGRAINES (Acute) HERPETIC LESION DORSUM RIGHT INDEX FINGER (Acute) HOSHIMOTO ENCEPHELITIS (Acute) Hay fever (Acute) Hearing problem (Acute) High cholesterol (Acute) Hypothyroidism (Acute) Knee pain (Acute) Lung disease (Acute) OSTEOMYELITIS RIGHT DISTAL RADIUS (Acute) REFLEX DYSTROPHY RIGHT HAND AND WRIST (Acute) Restless legs (Acute) SOB (shortness of breath) (Acute) SUPPURATIVE FLEXOR TENOSYNOVITIS RIGHT SMALL FINGER (Acute) Seizure (Acute) Shoulder pain (Acute) UNUSUAL TIREDNESS (Acute) Vision problem (Acute) Surgical History History of bladder suspension procedure (Resolved) History of tonsillectomy (Resolved) Status post VNS (vagus nerve stimulator) placement (Resolved) History of endometrial ablation (Resolved) History of tubal ligation (Resolved) ABLATION (Acute) BLADDER LIFT (Acute) CARPAL BONE RIGHT WRIST FOR OSTEOMYELITIS (Acute) EAR TUBES AND TONSILS (Acute) INCISION AND DRAINAGE RIGHT ULNAR PALM (Acute) SURGICAL PREPARATION RIGHT DISTAL PALM (Acute) Tubal ligation status (Acute) VAGUS NERVESTIMULATOR IMPLANT (Acute) Family History Mother Arthritis Bleeding disorder Hypertension High cholesterol LUNG/RESPIRATORY DISEASE Other Diabetes Social History household members: spouse Smoking Status: Former smoker second hand exposure: No alcohol intake: never substance use type: does not use caffeine: Yes what type of physical activity do you participate in: other details: DANCING frequency: 3-4 times per week seatbelt use: always additional social history: SUN EXPOSURE - RARE HPI HPI Chief Complaint: diarrhea Details: DIANNE LIRIANO, is a 57 F who presents to the office today for a 5 day h/o diarrhea. She was at the [facility] and ate food while there. I believe the following day she developed diarrhea with 102 F fever. She has had intermittent blood in the stools. He believes the blood is from a hemorrhoid. No gross blood is reported. She contacted her primary care physician who ordered antidiarrheal medication. She tells me she took 8 pills on 04/19/2018 and her diarrhea seems to be improving, with only 2 episodes today. She is no longer febrile. She is tolerating a light diet. She is pushing fluids. ROS Const Constitutional: Positive for fatigue and fever(s) (Fever resolved a few days ago) Eyes Eyes: No change in vision ENT ENT: No ear pain, sore throat, nasal congestion or nasal discharge Resp Respiratory: No cough, chest congestion, shortness of breath or wheezing Cardio Cardiology: No chest pain at rest or chest pain with exertion Gastro GI: Positive for abdominal pain, diarrhea, blood in stool (Minimal amount) and loose stools; no Black,tarry stools, nausea/dyspepsia or vomiting Musc Musculoskeletal: No back pain or abnormal walking Skin Skin: No rash or change in skin color Neuro Neurology: No confusion, abnormal walking or abnormal speech Psych Psychiatric: No confusion Endo Endocrine: Positive for fatigue Aller/Imm Allergy/Immunologic: No wheezing Exam Const General: healthy appearing, no acute distress Orientation: oriented x3, oriented to person, oriented to place, oriented to time [facility] Head: normocephalic Ears: external ears normal, TM's normal bilaterally, EAC's normal Eyes General: appearance normal, both eyes and all related structures Conjunctivae: conjunctivae normal Sclera: sclerae normal Pupils: PERRL Neck Neck: no lymphadenopathy Thyroid: thyroid normal Chest Chest palpation AND inspection: normal inspection of the chest Resp Effort AND Inspection: normal respiratory effort, no cough, no respiratory distress Auscultation: Bilateral: Clear to Auscultation Cardio Rate: regular rate Rhythm: regular rhythm GI Inspection: normal to inspection, non-distended Auscultation: normal bowel sounds Percussion: normal to percussion, no fluid wave Palpation: soft, no guarding, no masses, not rigid, no hepatosplenomegaly, other (Negative Park sign. Negative McBurney's point) Skin General: no pallor Rashes: no rashes Nails: no clubbing Neuro General: oriented x3, gait normal Extrem General: normal to inspection, no pedal edema, no calf tenderness, normal gait, no edema, no cyanosis, no clubbing, no calf tenderness bilaterally, no pedal edema Psych Mood: congruent mood Affect: normal affect Speech and Movement: speech and movement normal Assessment AND Plan 1. Diarrhea, unspecified type R19.7 Orders Orders: Plan Detail Other Medications Discontinued: umeclidinium-vilanterol 62.5-25 mcg/actuation (Ano1 inh Inhalation Q24H Tracy Little) Discontinued Reason: Pt no longer taking Additional Comments Stool cultures for ova and parasites have been ordered. Patient was instructed to continue antidiarrheal medication push fluids and begin a BRAT diet. Follow-up with primary care physician this week. If acute worsening or increased bloody stools and/or abdominal pain occur she was instructed to be evaluated in the emergency department. Coding Level of Care Code Off vis,est,level 4 Diagnoses Diarrhea, unspecified type R19.7 Diarrhea type: unspecified type 04/20/18 1245 <Electronically signed by Sunny BOLAND> Date Sunny Lara Signature: Date (if applicable) CC: FREE THYROXINE Collected: 04/08/2018 Status: F Source: [address] [facility] REPOSITORY TYPE CODE TESTS RESULT OUT OF REFERENCE UNITS RANGE LAB FT4(LOINC) 0.76-1.46 ng/dL Free High Thyroxine 1.58 Performed By: #### FT4 #### [place] [address] TSH, 3RD GENERATION Collected: 04/08/2018 Status: F Source: [address] [facility] REPOSITORY TYPE CODE TESTS RESULT OUT OF REFERENCE UNITS RANGE LAB TSH3(LOINC 0.358-3.740 uIU/mL ) Low TSH, 3rd generation 0.132 Performed By: #### TSH3 #### [place] [address] THYRO. PEROXIDASE AB Collected: 04/08/2018 Status: F Source: [address] [facility] REPOSITORY TYPE CODE TESTS RESULT OUT OF REFERENCE UNITS RANGE LAB TPAB(LOINC 0.0-60.0 IU/ml ) Thyro. High Peroxidase Ab 109.7 Performed By: #### TPAB #### [place] [address] CNOV Observed: 04/08/2018 Status: COMPLETED Source: [place] 10:30 AM CLINIC OTHER CAMPUS REPOSITORY Office Visit (ENAGST) DIANNE LIRIANO ([id number]) 1960 F Date Time Provider Department 04/08/18 10:30 AM JUAN JIM During your visit today, we recorded the following information about you: Blood pressure Weight Height 124/84 88.3 kg 1.626 m Juan Jim, 04/11/2018 2:49 PM Addendum Subjective HPI HYPOTHYROIDISM 02/2014: TPO antibody 421 (0-60) 09/2014: microsomal antibody 25.4 (<0.56), thyroglobulin antibody normal. 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 She was referred by her new neurologist Dr. Donna Mix of [facility] in [facility]. Pt is a poor historian due to hx of memory loss. She presents with her today. 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 Meek (changed due to insurance) and was placed on high dose prednisone up to 40-60 mg daily which helped in the past. This was in 2013. She was then weaned off and apparently did another course of high dose prednisone which didn't help much and was then put on Imuran and has been on Imuran since. She says she refused to do LP in the past. In Epic, I reviewed a note from [facility] neurologist Dr. Anselmo Weldon from Sep, 2014. He states he thought the diagnosis of Warren encephalopathy was questionable. He was going to refer her to epilepsy center for trial of higher dose steroids or possible IV steroid but it looks like this didn't happen and pt went back to Dr. Meek. Pt is currently concerned about being on Imuran as she says she is having trouble fighting off infections. Had cat bite last year and had trouble with healing. She would like to come off Imuran if able. She states overall she is feeling a baseline. No recent grand- mal seizures. states seizure activity is now more of a quick spacing out episode followed by a headache. Pt is currently taking levothyroxine 175 mcg 1 tablet Saturday through Saturday and 2 tablets on Saturday. Pt takes in the middle of the night. Pt's family hx of Warren's includes mother, 2 daughters, and sister. Pt used to see digital color press operator Dr. Sunny Tian at [facility] in [place] for thyroid hormone management. Review of Systems Constitutional: Positive for diaphoresis and malaise/fatigue. Negative for chills, fever and weight loss. HENT: Positive for ear pain. Negative for congestion, ear discharge, hearing loss, nosebleeds, sinus pain, sore throat and tinnitus. Eyes: Negative for blurred vision, double vision, photophobia, pain, discharge and redness. Respiratory: Positive for shortness of breath and wheezing. Negative for cough, hemoptysis, sputum production and stridor. Cardiovascular: Positive for chest pain. Negative for palpitations, orthopnea, claudication, leg swelling and PND. Gastrointestinal: Positive for abdominal pain, diarrhea and heartburn. Negative for blood in stool, constipation, melena, nausea and vomiting. Genitourinary: Negative for dysuria, flank pain, frequency, hematuria and urgency. Musculoskeletal: Positive for back pain, joint pain and neck pain. Negative for falls. Skin: Positive for rash. Negative for itching. Neurological: Positive for dizziness, seizures and headaches. Negative for tingling, tremors, sensory change, speech change, focal weakness, loss of consciousness and weakness. Endo/Heme/Allergies: Negative for environmental allergies and polydipsia. Does not bruise/bleed easily. Psychiatric/Behavioral: Positive for memory loss. Negative for depression, hallucinations, substance abuse and suicidal ideas. The patient is not nervous/anxious and does not have insomnia. PAST MEDICAL HISTORY Diagnosis Date - Asthma - Chronic pain - COPD (chronic obstructive pulmonary disease) ([facility]) - Epilepsy ([facility]) - Warren encephalopathy - Restless leg syndrome - S/P placement of VNS (vagus nerve stimulation) device - Unspecified hypothyroidism PAST SURGICAL HISTORY Procedure Laterality Date - BX BREAST PERC VACUUM/ROTN 01/31/2007 Left breast 6 oclock - HAND SURGERY HX Right x 4 - INCISION EARDRUM,ASPIR,GEN ANESTH Myringotomy/tubes - OTHER left rotator cuff torn - PAST SURGICAL HISTORY OF Bilateral tubal ligation - PAST SURGICAL HISTORY OF 2006 Ablation - PAST SURGICAL HISTORY OF 2008 Bladder sling - REMOVAL OF TONSILS,<14 Y/O Tonsillectomy FAMILY HISTORY Problem Relation Age of Onset - Diabetes Mother - Stroke Mother tia - Heart disease Mother - Diabetes Sister - Diabetes Brother - Diabetes Maternal Grandmother - Cancer Maternal Grandmother colon - Diabetes Maternal Grandfather - Cancer Father skin - Stroke Father - Parkinsonism Father Social History Marital status: Spouse name: Years of education: Number of children: Occupational History Occupation Employer Comment disabled Social History Main Topics Smoking status: Former Smoker Packs/day: 1.00 Years: 30.00 Types: Cigarettes Quit date: 08/05/2012 Smokeless tobacco: Never Used Alcohol use: No Drug use: No Sexual activity: Yes Partners with: Female, Male control/protection: Tubal Ligation Current Meds calcium carbonate (CALCIUM 500 ORAL) Take 1 tablet by mouth once daily. furosemide (LASIX) 20 mg tablet LASIX 20 MG TABS oxyCODONE-acetaminophen (PERCOCET) 5-325 mg tablet 4 TIMES DAILY NEEDED PRN For Pain celecoxib (CELEBREX) 200 mg capsule Take 200 mg by mouth. pyridoxine, vitamin B6, (VITAMIN B6) 25 mg tablet Take by mouth. rOPINIRole (REQUIP) 0.25 mg tablet AT BEDTIME PRN For Restlessness alpha tocopheryl acetate (VITAMIN E) 400 unit capsule Take 400 Units by mouth. Estradiol (ESTRACE) 0.5 mg tablet Take 1 tablet by mouth once daily. medroxyPROGESTERone (PROVERA) 2.5 mg tablet Take 0.5 tablets by mouth once daily. FEXOFENADINE HCL (YADIRA ALLERGY ORAL) Take by mouth as needed. AZATHIOPRINE (IMURAN ORAL) Take by mouth. beclomethasone (QVAR) 80 mcg/actuation inhaler Inhale 2 Puffs as instructed twice daily. levothyroxine (SYNTHROID) 175 mcg tablet Take 175 mcg by mouth daily before breakfast. 1 tablet Saturday through Saturday and 2 tablets on tablets on Saturday topiramate (TROKENDI XR) 100 mg cp24 Take 150 mg by mouth once daily. albuterol HFA (VENTOLIN HFA) 90 mcg/actuation inhaler Inhale 2 Puffs as instructed. MAGNESIUM ORAL Take 400 mg by mouth once daily. ergocalciferol, vitamin D2, (VITAMIN D) 50,000 unit capsule she takes 1 capsule per week selenium 200 mcg tab Take 1 tablet by mouth twice daily. LEVETIRACETAM (KEPPRA ORAL) Take 500 mg by mouth twice daily. Takes 500 Mg in AM and 1000 mg in PM omeprazole 20 mg capsule Take 40 mg by mouth once daily. Objective BP 124/84 Ht 5' 4 (1.63m) Wt 194 lb 11.2 oz (88.3kg) BMI 33.40 kg/(m2). Physical Exam Constitutional: She is oriented to person, place, and time and well-developed, well-nourished, and in no distress. HENT: Head: Normocephalic and atraumatic. Mouth/Throat: Oropharynx is clear and moist. Eyes: Pupils are equal, round, and reactive to light. Conjunctivae and EOM are normal. Neck: No thyromegaly present. Cardiovascular: Normal rate, regular rhythm and normal heart sounds. No murmur heard. Pulmonary/Chest: Effort normal and breath sounds normal. Musculoskeletal: She exhibits no edema. Lymphadenopathy: She has no cervical adenopathy. Neurological: She is alert and oriented to person, place, and time. No cranial nerve deficit. Gait normal. Skin: Skin is warm and dry. Psychiatric: Mood, affect and judgment normal. ASSESSMENT/PLAN: 1. Acquired hypothyroidism - ICD9: 244.9, ICD10: E03.9 (primary diagnosis) Pt has hypothyroidism due to Warren's thyroiditis. Taking levothyroxine 175 mcg daily with extra tablet on Sundays. She is taking it properly. Check labs and will renew Rx. - TSH BLD - T4 FREE/FREE THYROX - THYROID PEROXIDASE ANTIBODY BLOOD 2. Warren's thyroiditis - ICD9: 245.2, ICD10: E06.3 - THYROID PEROXIDASE ANTIBODY BLOOD 3. 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 Apparently this diagnosis was made by her previous neurologist Dr. Meek years ago due to having elevated TPO antibody and difficult to control epilepsy with memory loss. Reviewed with pt that her TPO antibody was elevated due to Warren's thyroiditis. It can be difficult to ascertain if encephalopathy is due to that. She was on high dose prednisone around 4 years ago - no steroids since - but remains on Imuran. She had another opinion by [facility] neurologist in 2014 who questioned the diagnosis of Warren encephalopathy but she never followed up there. Pt is under the impression that she was sent to see me so that I would take over her Imuran management. 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 I can adjust her thyroid hormone only. Will get labs done and will then discuss with Dr. Mix. Possible wean off Imuran would be warranted (pt concerned it is fighting her ability to heal from infections) 4. Non morbid obesity - ICD9: 278.00, ICD10: E66.9 Juan Jim DO Addendum: 04/09/2018 10:20:20 Component Latest Ref Rng AND Units 04/08/2018 TSH 0.358 - 3.740 uIU/mL 0.132 (L) Free Thyroxine 0.76 - 1.46 ng/dL 1.58 (H) Thyro. Peroxidase Ab 0.0 - 60.0 IU/ml 109.7 (H) Labs reviewed. Decrease levothyroxine to 175 mcg daily (no extra tablet on Sundays) Schedule follow-up in 3 months with TSH and free T4 before visit. I tried to contact Dr. Mix, but he was not available. I spoke with his nurse who reviewed chart and his plan was to taper her off of Imuran. DO Juan Ruano DO 04/09/2018 6:15 PM Signed Addended by: JUAN JIM DO on: 04/09/2018 06:15 PM Modules accepted: Orders Referring Provider: DONNA MIX [[id number]] Allergies As of Date: 04/08/2018 Noted Allergy Reaction DILAUDID (HYDROMORPHONE (BULK)) 04/08/2018 14 - Other: See Comments Comments: Seizures GABAPENTIN 02/15/2017 16 - Unknown LYRICA (PREGABALIN) 07/31/2012 14 - Other: See Comments Comments: Pt had a seizure day after taking WELLBUTRIN (BUPROPION HCL) 02/15/2017 14 - Other: See Comments Comments: Severe mood swings Date Reviewed: 04/08/2018 Reviewed by: Juan Jim - Fully Assessed Reason for Visit: Thyroid Problem [110] Primary Visit Diagnosis:Acquired hypothyroidism [E03.9] Other Visit Diagnoses:Warren's thyroiditis [E06.3] 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, G93.49] Non morbid obesity [E66.9] Order(s):TSH BLD [SQTSH] Order #: [id number] FUTURE T4 FREE/FREE THYROX [SQFT4] Order #: [id number] FUTURE THYROID PEROXIDASE ANTIBODY BLOOD [SQMICRO] Order #: [id number] FUTURE levothyroxine (SYNTHROID) 175 mcg tabletTake 1 tablet by mouth once daily.Disp: 30 tabletRfl: 3 TSH BLD [SQTSH] Order #: [id number] FUTURE T4 FREE/FREE THYROX [SQFT4] Order #: [id number] FUTURE Prescriptions as of 04/08/2018 Sig: LEVOTHYROXINE 175 MCG TABLET Take 1 tablet by mouth once d* CALCIUM 500 ORAL Take 1 tablet by mouth once d* FUROSEMIDE 20 MG TABLET LASIX 20 MG TABS OXYCODONE-ACETAMINOPHEN 5 MG-* 4 TIMES DAILY NEEDED PRN F* CELECOXIB 200 MG CAPSULE Take 200 mg by mouth. PYRIDOXINE (VITAMIN B6) 25 MG* Take by mouth. ROPINIROLE 0.25 MG TABLET AT BEDTIME PRN For Restlessne* VITAMIN E 400 UNIT CAPSULE Take 400 Units by mouth. ESTRADIOL 0.5 MG TABLET Take 1 tablet by mouth once d* MEDROXYPROGESTERONE 2.5 MG TA* Take 0.5 tablets by mouth onc* YADIRA ALLERGY ORAL Take by mouth as needed. IMURAN ORAL Take by mouth. BECLOMETHASONE DIPROPIONATE 8* Inhale 2 Puffs as instructed * TOPIRAMATE XR 100 MG CAPSULE,* Take 150 mg by mouth once blanco* ALBUTEROL SULFATE HFA 90 MCG/* Inhale 2 Puffs as instructed. MAGNESIUM ORAL Take 400 mg by mouth once blanco* ERGOCALCIFEROL (VITAMIN D2) 5* she takes 1 capsule per week SELENIUM 200 MCG TABLET Take 1 tablet by mouth twice * KEPPRA ORAL Take 500 mg by mouth twice da* OMEPRAZOLE 20 MG CAPSULE,KEYLA* Take 40 mg by mouth once allyson* Problem List As Of Date 04/08/2018 Noted Resolved HYPOTHYROIDISM NOS [E03.9] UNSP ABNORMAL MAMMOGRAM [R92.8] INVALID FOR* Microscopic Hematuria [R31.29] INVALID FOR* Female Stress Incontinence [N39.3] INVALID FOR* Urethrocele [N36.8] INVALID FOR* Seizure [R56.9] INVALID FOR* Seizure disorder (HCC) [G40.909] INVALID FOR* 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, G93.49] INVALID FOR* Non morbid obesity [E66.9] INVALID FOR* Prescriptions ordered this encounter Disp Refills Start End LEVOTHYROXINE 175 MCG TABLET 30 t* 3 04/09/2018 Route: ORAL Sig: Take 1 tablet by mouth once daily. Medications Discontinued During This Encounter acetaminophen-HYDROcodone (VICODIN) * 0 11/27/2012 04/08/2018 Class: Historical Med Route: ORAL Sig: Take 1-2 tablets by mouth every 6 hours as needed (for pain.). Disc: Reason for discontinue is not on file. clonazePAM (KLONOPIN) 1 mg tablet 11/27/2012 04/08/2018 Class: Historical Med Route: ORAL Sig: Take 1 tablet by mouth once daily. Disc: Reason for discontinue is not on file. lacosamide (VIMPAT) 100 mg Tab 04/08/2018 Class: Historical Med Route: ORAL Sig: Take 50 mg by mouth twice daily. Disc: Reason for discontinue is not on file. CALCIUM CARBONATE/VITAMIN D3 (VITAMI* 04/08/2018 Class: Historical Med Route: ORAL Sig: Take by mouth once daily. Disc: Reason for discontinue is not on file. FEXOFENADINE HCL (YADIRA ORAL) 04/08/2018 Class: Historical Med Route: ORAL Sig: Take by mouth as needed. Disc: Reason for discontinue is not on file. TOPIRAMATE (TROKENDI XR ORAL) 04/08/2018 Class: Historical Med Route: ORAL Sig: Take by mouth. Disc: Reason for discontinue is not on file. phenazopyridine (PYRIDIUM) 200 mg ta* 6 ta* 0 05/11/2016 04/08/2018 Class: Print RX Sig: TO BE TAKEN DIRECTED BY MOUTH ONE(1) TABLET THREE TIMES DAILY X 2 DAYS Patient not taking: Reported on 04/08/2018 Disc: Reason for discontinue is not on file. levothyroxine (SYNTHROID) 175 mcg ta* 04/09/2018 Class: Historical Med Route: ORAL Sig: Take 175 mcg by mouth daily before breakfast. 1 tablet Saturday through Saturday and 2 tablets on tablets on Saturday Disc: Reason for discontinue is not on file. Disposition: Return labs pending, for Labs today. Follow-up and Disposition History Recorded Letter Text Encounter Status:Closed by JUAN JIM DO on 04/08/18 PROGRESS Observed: 04/08/2018 Status: COMPLETED Source: [place] 10:29 AM CLINIC OTHER CAMPUS REPOSITORY HNO ID: [id number] Author: Juan Keeneice Leandro Service: (none) Author Type: Physician Type: Progress Notes Filed: 04/11/2018 2:49 PM Note Text: Subjective HPI HYPOTHYROIDISM 02/2014: TPO antibody 421 (0-60) 09/2014: microsomal antibody 25.4 (<0.56), thyroglobulin antibody normal. 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 She was referred by her new neurologist Dr. Donna Mix of [facility] in [facility]. Pt is a poor historian due to hx of memory loss. She presents with her today. 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 Meek (changed due to insurance) and was placed on high dose prednisone up to 40-60 mg daily which helped in the past. This was in 2013. She was then weaned off and apparently did another course of high dose prednisone which didn't help much and was then put on Imuran and has been on Imuran since. She says she refused to do LP in the past. In Epic, I reviewed a note from [facility] neurologist Dr. Anselmo Weldon from Sep, 2014. He states he thought the diagnosis of Warren encephalopathy was questionable. He was going to refer her to epilepsy center for trial of higher dose steroids or possible IV steroid but it looks like this didn't happen and pt went back to Dr. Meek. Pt is currently concerned about being on Imuran as she says she is having trouble fighting off infections. Had cat bite last year and had trouble with healing. She would like to come off Imuran if able. She states overall she is feeling a baseline. No recent grand-mal seizures. states seizure activity is now more of a quick spacing out episode followed by a headache. Pt is currently taking levothyroxine 175 mcg 1 tablet Saturday through Saturday and 2 tablets on Saturday. Pt takes in the middle of the night. Pt's family hx of Warren's includes mother, 2 daughters, and sister. Pt used to see digital color press operator Dr. Sunny Tian at [facility] in [place] for thyroid hormone management. Review of Systems Constitutional: Positive for diaphoresis and malaise/fatigue. Negative for chills, fever and weight loss. HENT: Positive for ear pain. Negative for congestion, ear discharge, hearing loss, nosebleeds, sinus pain, sore throat and tinnitus. Eyes: Negative for blurred vision, double vision, photophobia, pain, discharge and redness. Respiratory: Positive for shortness of breath and wheezing. Negative for cough, hemoptysis, sputum production and stridor. Cardiovascular: Positive for chest pain. Negative for palpitations, orthopnea, claudication, leg swelling and PND. Gastrointestinal: Positive for abdominal pain, diarrhea and heartburn. Negative for blood in stool, constipation, melena, nausea and vomiting. Genitourinary: Negative for dysuria, flank pain, frequency, hematuria and urgency. Musculoskeletal: Positive for back pain, joint pain and neck pain. Negative for falls. Skin: Positive for rash. Negative for itching. Neurological: Positive for dizziness, seizures and headaches. Negative for tingling, tremors, sensory change, speech change, focal weakness, loss of consciousness and weakness. Endo/Heme/Allergies: Negative for environmental allergies and polydipsia. Does not bruise/bleed easily. Psychiatric/Behavioral: Positive for memory loss. Negative for depression, hallucinations, substance abuse and suicidal ideas. The patient is not nervous/anxious and does not have insomnia. PAST MEDICAL HISTORY Diagnosis Date - Asthma - Chronic pain - COPD (chronic obstructive pulmonary disease) ([facility]) - Epilepsy ([facility]) - Warren encephalopathy - Restless leg syndrome - S/P placement of VNS (vagus nerve stimulation) device - Unspecified hypothyroidism PAST SURGICAL HISTORY Procedure Laterality Date - BX BREAST PERC VACUUM/ROTN 01/31/2007 Left breast 6 oclock - HAND SURGERY HX Right x 4 - INCISION EARDRUM,ASPIR,GEN ANESTH Myringotomy/tubes - OTHER left rotator cuff torn - PAST SURGICAL HISTORY OF Bilateral tubal ligation - PAST SURGICAL HISTORY OF 2006 Ablation - PAST SURGICAL HISTORY OF 2008 Bladder sling - REMOVAL OF TONSILS,<14 Y/O Tonsillectomy FAMILY HISTORY Problem Relation Age of Onset - Diabetes Mother - Stroke Mother tia - Heart disease Mother - Diabetes Sister - Diabetes Brother - Diabetes Maternal Grandmother - Cancer Maternal Grandmother colon - Diabetes Maternal Grandfather - Cancer Father skin - Stroke Father - Parkinsonism Father Social History Marital status: Spouse name: Years of education: Number of children: Occupational History Occupation Employer Comment disabled Social History Main Topics Smoking status: Former Smoker Packs/day: 1.00 Years: 30.00 Types: Cigarettes Quit date: 08/05/2012 Smokeless tobacco: Never Used Alcohol use: No Drug use: No Sexual activity: Yes Partners with: Female, Male control/protection: Tubal Ligation Current Meds calcium carbonate (CALCIUM 500 ORAL) Take 1 tablet by mouth once daily. furosemide (LASIX) 20 mg tablet LASIX 20 MG TABS oxyCODONE-acetaminophen (PERCOCET) 5-325 mg tablet 4 TIMES DAILY NEEDED PRN For Pain celecoxib (CELEBREX) 200 mg capsule Take 200 mg by mouth. pyridoxine, vitamin B6, (VITAMIN B6) 25 mg tablet Take by mouth. rOPINIRole (REQUIP) 0.25 mg tablet AT BEDTIME PRN For Restlessness alpha tocopheryl acetate (VITAMIN E) 400 unit capsule Take 400 Units by mouth. Estradiol (ESTRACE) 0.5 mg tablet Take 1 tablet by mouth once daily. medroxyPROGESTERone (PROVERA) 2.5 mg tablet Take 0.5 tablets by mouth once daily. FEXOFENADINE HCL (YADIRA ALLERGY ORAL) Take by mouth as needed. AZATHIOPRINE (IMURAN ORAL) Take by mouth. beclomethasone (QVAR) 80 mcg/actuation inhaler Inhale 2 Puffs as instructed twice daily. levothyroxine (SYNTHROID) 175 mcg tablet Take 175 mcg by mouth daily before breakfast. 1 tablet Saturday through Saturday and 2 tablets on tablets on Saturday topiramate (TROKENDI XR) 100 mg cp24 Take 150 mg by mouth once daily. albuterol HFA (VENTOLIN HFA) 90 mcg/actuation inhaler Inhale 2 Puffs as instructed. MAGNESIUM ORAL Take 400 mg by mouth once daily. ergocalciferol, vitamin D2, (VITAMIN D) 50,000 unit capsule she takes 1 capsule per week selenium 200 mcg tab Take 1 tablet by mouth twice daily. LEVETIRACETAM (KEPPRA ORAL) Take 500 mg by mouth twice daily. Takes 500 Mg in AM and 1000 mg in PM omeprazole 20 mg capsule Take 40 mg by mouth once daily. Objective BP 124/84 Ht 5' 4 (1.63m) Wt 194 lb 11.2 oz (88.3kg) BMI 33.40 kg/(m2). Physical Exam Constitutional: She is oriented to person, place, and time and well-developed, well-nourished, and in no distress. HENT: Head: Normocephalic and atraumatic. Mouth/Throat: Oropharynx is clear and moist. Eyes: Pupils are equal, round, and reactive to light. Conjunctivae and EOM are normal. Neck: No thyromegaly present. Cardiovascular: Normal rate, regular rhythm and normal heart sounds. No murmur heard. Pulmonary/Chest: Effort normal and breath sounds normal. Musculoskeletal: She exhibits no edema. Lymphadenopathy: She has no cervical adenopathy. Neurological: She is alert and oriented to person, place, and time. No cranial nerve deficit. Gait normal. Skin: Skin is warm and dry. Psychiatric: Mood, affect and judgment normal. ASSESSMENT/PLAN: 1. Acquired hypothyroidism - ICD9: 244.9, ICD10: E03.9 (primary diagnosis) Pt has hypothyroidism due to Warren's thyroiditis. Taking levothyroxine 175 mcg daily with extra tablet on Sundays. She is taking it properly. Check labs and will renew Rx. - TSH BLD - T4 FREE/FREE THYROX - THYROID PEROXIDASE ANTIBODY BLOOD 2. Warren's thyroiditis - ICD9: 245.2, ICD10: E06.3 - THYROID PEROXIDASE ANTIBODY BLOOD 3. 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 Apparently this diagnosis was made by her previous neurologist Dr. Meek years ago due to having elevated TPO antibody and difficult to control epilepsy with memory loss. Reviewed with pt that her TPO antibody was elevated due to Warren's thyroiditis. It can be difficult to ascertain if encephalopathy is due to that. She was on high dose prednisone around 4 years ago - no steroids since - but remains on Imuran. She had another opinion by [facility] neurologist in 2014 who questioned the diagnosis of Warren encephalopathy but she never followed up there. Pt is under the impression that she was sent to see me so that I would take over her Imuran management. 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 I can adjust her thyroid hormone only. Will get labs done and will then discuss with Dr. Mix. Possible wean off Imuran would be warranted (pt concerned it is fighting her ability to heal from infections) 4. Non morbid obesity - ICD9: 278.00, ICD10: E66.9 Juan Jim DO Addendum: 04/09/2018 10:20:20 Component Latest Ref Rng AND Units 04/08/2018 TSH 0.358 - 3.740 uIU/mL 0.132 (L) Free Thyroxine 0.76 - 1.46 ng/dL 1.58 (H) Thyro. Peroxidase Ab 0.0 - 60.0 IU/ml 109.7 (H) Labs reviewed. Decrease levothyroxine to 175 mcg daily (no extra tablet on Sundays) Schedule follow-up in 3 months with TSH and free T4 before visit. I tried to contact Dr. Mix, but he was not available. I spoke with his nurse who reviewed chart and his plan was to taper her off of Imuran. Juan Jim DO PLASTIC SURGERY Observed: 03/04/2018 Status: F Source: [place] VISIT REPORT 3:40 PM [facility] [address] [place] [address] OFFICE VISIT Date of Service: 02/12/18 MR#: [id number] Acct: [id number] Name: DIANNE LIRIANO Rep #: [id number] : 1960 Provider: Patrick Phillips MD Age/Sex: 57/F Location: [facility] Status: Signed Intake Vital Signs02/12/18 Height 5 ft 4 in 02/12/18 Weight: 195 lb 8 oz Intake Visit Reasons: evaluation late effect cat bite right hand Delivery Man Required: No Accompanied by: Is patient in pain?: Yes (HAND PAIN FEELS IMFLAMED) Pain scale (1-10): 3 Allergies bupropion HCl [From Wellbutrin] Allergy (Verified 02/12/18 11:18) Unknown pregabalin [From Lyrica] Allergy (Verified 02/12/18 11:18) Unknown gabapentin Adverse Reaction (Verified 02/12/18 11:18) Other hydromorphone [From Dilaudid] Adverse Reaction (Verified 02/12/18 11:18) Other MRI Adverse Reaction (Uncoded 02/12/18 11:18) Other Medications Azathioprine 50 mg PO QHS 02/11/17 [History Confirmed 11/06/17] Budesonide 0.25 mg INHALATION 4X/DAY 02/11/17 [History Confirmed 11/06/17] Ergocalciferol [Vitamin D] 50,000 unit PO QWEEK 02/11/17 [History Confirmed 11/06/17] Estradiol 0.5 mg PO DAILY 02/11/17 [History Confirmed 11/06/17] Levetiracetam 1,000 mg PO QHS 02/11/17 [History Confirmed 11/06/17] Levetiracetam 500 mg PO DAILY 02/11/17 [History Confirmed 11/06/17] Magnesium Oxide [Magnesium] 1,000 mg PO DAILY 02/11/17 [History Confirmed 11/06/17] MedroxyPROGESTERone [Provera] 1.25 mg PO DAILY 02/11/17 [History Confirmed 11/06/17] Ropinirole HCl [Requip] 0.25 mg PO QHS PRN 02/11/17 [History Confirmed 11/06/17] Selenium 200 mcg PO DAILY 02/11/17 [History Confirmed 11/06/17] Fexofenadine HCl [Yadira Allergy] 60 mg PO DAILY PRN PRN 02/27/17 [History Confirmed 11/06/17] Omeprazole [Prilosec] 40 mg PO DAILY 02/27/17 [History Confirmed 11/06/17] Pyridoxine HCl [Vitamin B6] 50 mg PO DAILY 02/27/17 [History Confirmed 11/06/17] Topiramate [Trokendi Xr] 50 mg PO QHS 02/27/17 [History Confirmed 11/06/17] Topiramate [Trokendi Xr] 100 mg PO QHS 02/27/17 [History Confirmed 11/06/17] Vitamin E 800 unit PO DAILY 02/27/17 [History Confirmed 11/06/17] Docusate Sodium [Colace] 100 mg PO BID #60 cap 04/12/17 [Rx Confirmed 11/06/17] Iron Polysaccharide Complex [Ferrex 150] 150 mg PO DAILYCM #30 cap 04/12/17 [Rx Confirmed 11/06/17] Oxycodone HCl/Acetaminophen [Percocet 5-325] 1 - 2 tab PO 4X/DAY PRN PRN #60 04/12/17 [Rx Confirmed 11/06/17] proMETHazine tablet [Phenergan tablet] 25 mg PO 4X/DAY PRN PRN #30 tab 04/12/17 [Rx Confirmed 11/06/17] levothyroxine 175 mcg tablet 175 mcg PO DAILY #30 tab 09/09/17 [Rx Confirmed 11/06/17] albuterol sulfate HFA 90 mcg/actuation aerosol inhaler 2 puff INHALATION Q4H #1 inh 10/03/17 [Rx Confirmed 11/06/17] umeclidinium 62.5 mcg-vilanterol 25 mcg/actuation powdr for inhalation 1 inh INHALATION Q24H #60 ea 11/14/17 [Rx] Patient : No PFSH Medical History Dyspnea (Chronic) Hypersomnia (Chronic) Subacromial bursitis of left shoulder joint (Chronic) Degenerative disc disease (Chronic) Migraines (Chronic) Hyperlipidemia (Chronic) Hypocalcemia (Chronic) Acute osteomyelitis of right hand (Acute) Abscess of right forearm (Acute) Arthritis due to other bacteria, right wrist (Acute) Stiffness of right wrist joint (Acute) Stiffness of finger joint of right hand (Acute) Complex regional pain syndrome of right upper extremity (Acute) Abscess of bursa, right hand (Acute) Abscess of bursa, right wrist (Acute) Other synovitis and tenosynovitis, right hand (Acute) History of gastroesophageal reflux (GERD) (Chronic) History of hypothyroidism (Chronic) RLS (restless legs syndrome) (Chronic) Infection of right hand (Acute) Cellulitis of right hand (Acute) Abscess of right hand (Acute) Seizure disorder (Chronic) Encephalopathy chronic (Acute) Cat bite of hand (Acute) Pain in right hand (Acute) COPD (chronic obstructive pulmonary disease) (Acute) Arthritis (Acute) Asthma (Acute) Back problem (Acute) CAT BITE ABCESS RIGHT MID PALM (Acute) CAT BITE INFECTION ABSCESS DISTAL PALM (Acute) CAT BITE INFECTION ABSCESS MIDCARPAL JOINTS RIGHT WRIST (Acute) CAT BITE INFECTION ABSCESS RIGHT DISTAL FOREARM (Acute) CATBITE ABSCESS CARPAL TUNNEL RIGHT WRIST (Acute) COMPARTMENT SYNDROME DORSAL INTEROSSEOUS MUSCLES RIGHT HAND (Acute) Difficulty balancing (Acute) Environmental allergies (Acute) Epilepsy (Acute) HEADACHES/MIGRAINES (Acute) HERPETIC LESION DORSUM RIGHT INDEX FINGER (Acute) HOSHIMOTO ENCEPHELITIS (Acute) Hay fever (Acute) Hearing problem (Acute) High cholesterol (Acute) Hypothyroidism (Acute) Knee pain (Acute) Lung disease (Acute) OSTEOMYELITIS RIGHT DISTAL RADIUS (Acute) REFLEX DYSTROPHY RIGHT HAND AND WRIST (Acute) Restless legs (Acute) SOB (shortness of breath) (Acute) SUPPURATIVE FLEXOR TENOSYNOVITIS RIGHT SMALL FINGER (Acute) Seizure (Acute) UNUSUAL TIREDNESS (Acute) Vision problem (Acute) Surgical History History of bladder suspension procedure (Resolved) History of tonsillectomy (Resolved) Status post VNS (vagus nerve stimulator) placement (Resolved) History of endometrial ablation (Resolved) History of tubal ligation (Resolved) ABLATION (Acute) BLADDER LIFT (Acute) CARPAL BONE RIGHT WRIST FOR OSTEOMYELITIS (Acute) EAR TUBES AND TONSILS (Acute) INCISION AND DRAINAGE RIGHT ULNAR PALM (Acute) SURGICAL PREPARATION RIGHT DISTAL PALM (Acute) Tubal ligation status (Acute) VAGUS NERVESTIMULATOR IMPLANT (Acute) Family History Mother Arthritis Bleeding disorder Hypertension High cholesterol LUNG/RESPIRATORY DISEASE Social History Smoking Status: Former smoker second hand exposure: No alcohol intake: never substance use type: does not use caffeine: Yes what type of physical activity do you participate in: other frequency: 3-4 times per week HPI evaluation late effect cat bite right hand : Details: HISTORY OF PRESENT ILLNESS: 57-year-old woman presents for further evaluation and treatment of a late effect of a severe cat bite to her right hand with residual stiffness and pain in the hand. She was initially bitten at the end of January by a feral cat that she was trying to get back into her crate. The cat was exhibiting signs of neurologic disease and when the patient tried to pick her up she was bitten. Since then the feral cat has been . She initially went to get this looked at on February 04, 2017 and was given Augmentin. Improvement was minimal and she was switched over to Bactrim. Once again she was noticing increasing pain, swelling, and redness extending onto her forearm, and she went to the emergency department on February 11, 2017. She was taken to surgery that evening by Dr. Forde who performed an incision and drainage procedure. While in the hospital she was treated with IV Unasyn and was discharged back to Augmentin. She followed up with Dr. Forde's office who recommended that she go to the wound center for continued wound care treatment. Patient states she could not get an appointment with the wound center for a couple weeks and went to [facility] for further evaluation and treatment. When they saw the extent of redness and swelling extending onto her forearm and they sent her up to [facility] where she was admitted for 5 days and had a PICC line placed and was started on Unasyn. She continued on Unasyn IV antibiotics until I saw her in the office on 02/27/17. She was admitted to the hospital for continued IV antibiotic therapy and went to the OR on 02/28/17 where she underwent surgical preparation right distal palm at ulnar aspect by small finger with incision and drainage and excisional debridement cat bite abscess and incision tendon sheath right small finger for suppurative flexor tenosynovitis and incision and drainage right midpalm cat bite abscess and incision and drainage cat bite abscess carpal tunnel right wrist and neuroplasty median nerve. Operative cultures were negative but she was still continued on IV antibiotics with Unasyn at discharge from the hospital. The wounds showed improvement over the ensuing weeks with Aquacel Silver dressing changes. Her biggest issue was pain and the development of RSD. She started OT for range of motion exercises. The pain was slowly improving. The range of motion progress was very slow. When the Unasyn was stopped after 6 weeks of IV antibiotic therapy, she came into the office with increasing pain and redness in her wrist area and dorsum of right hand with some extension onto the distal forearm. She was once again admitted to the hospital for more aggressive IV antibiotic therapy and wound care in anticipation of further operative intervention. She was taken to the OR on 04/04/17 where she underwent incision and drainage right ulnar palm and right carpal tunnel infection and incision and drainage right distal forearm abscess (dorsal and volar) and arthrotomy midcarpal joints right wrist with exploration and drainage abscess and partial ostectomy right distal radius and joint for osteomyelitis and incision bone cortex triquetrum carpal bone right wrist for osteomyelitis and partial ostectomy right long finger metacarpal base for osteomyelitis and decompressive fasciotomy dorsal interosseous muscles right hand for compartment syndrome. She presents at this time for further evaluation and treatment. She recently saw the Pain Center MD on 09/16/17 and will continue to be seen by them every other month. She states she is now getting her Percocet as needed by their office. She has started OT again. To stretch it out for most of the year, will go twice a month since her insurance allows 20 visits per year. PAST MEDICAL HISTORY Lung disease. Shortness of breath. Unusual tiredness. He fever. Knee pain. Asthma. Epilepsy. Warren encephalitis. Hypothyroidism. Restless leg syndrome. Environmental allergies. Arthritis. Back problems. Headaches. Hearing problems. High cholesterol. Vision problems. Balance difficulties. Gastroesophageal reflux disease. Cat bite infection abscess distal palm on ulnar side right hand by small finger. Suppurative flexor tenosynovitis right small finger. Cat bite abscess right midpalm. Cat bite abscess carpal tunnel right wrist. Cat bite infection abscess midcarpal joints right wrist. Cat bite infection abscess right distal forearm (dorsal and volar). Herpetic lesion dorsum right index finger at ulna aspect DIP joint. RSD right hand and wrist. Osteomyelitis right distal radius, metacarpal bases right hand, carpal bones right wrist. Compartment syndrome dorsal interosseous muscles right hand. PAST SURGICAL HISTORY Vagus nerve stimulator implants. Ablation. Tubal ligation. Placement of ear tubes. Tonsillectomy. Bladder lift. Incision and drainage of right palm cat-bite infection on February 11, 2017. Surgical preparation right distal palm at ulnar aspect by small finger with incision and drainage and excisional debridement cat bite abscess and incision tendon sheath right small finger for suppurative flexor tenosynovitis and incision and drainage right midpalm cat bite abscess and incision and drainage cat bite abscess carpal tunnel right wrist and neuroplasty median nerve on 02/28/17. Incision and drainage right ulnar palm and right carpal tunnel infection and incision and drainage right distal forearm abscess (dorsal and volar) and arthrotomy midcarpal joints right wrist with exploration and drainage abscess and partial ostectomy right distal radius and joint for osteomyelitis and incision bone cortex triquetrum carpal bone right wrist for osteomyelitis and partial ostectomy right long finger metacarpal base for osteomyelitis and decompressive fasciotomy dorsal interosseous muscles right hand for compartment syndrome - 04/04/17 MEDICATIONS Estradiol. Medroxyprogesterone. Vitamin D. Magnesium. Imuran. Budesonide. Beclomethasone. Selenium. Vitamin E. Requip. Iron complex tablets. Keppra. Topamax. Morphine. Percocet. Duragesic Patch. Valium. Zoloft. Elavil. Procardia XL. ALLERGIES Wellbutrin. Neurontin. Lyrica. MRI because of placement of vagal nerve stimulator implant. SOCIAL HISTORY Patient is a former smoker. Patient does not drink alcohol. FAMILY HISTORY Positive for arthritis, diabetes, heart disease, hypertension, lung disease, bleeding disorder, and high cholesterol. REVIEW OF SYSTEMS Constitutional: Denies: Chills, Fever, Weight Change Eyes: Denies: Pain, Vision Change HEENT: Denies: Difficulty Hearing, Difficulty Swallowing, Sinus Congestion Cardiovascular: Denies: Chest Pain, Palpitations Respiratory: Denies: Cough, Shortness of Breath Gastrointestinal: Denies: Diarrhea, Nausea, Vomiting Genitourinary: Denies: Dysuria, Hematuria Skin: History of cat bite infection right hand and wrist. Endocrine: Denies: Heat/ Cold Intolerance, Polydipsia, Polyuria Hematologic/ Lymphatic: Denies: Easy Bruising, Easy Bleeding PHYSICAL EXAMINATION General: Alert, Oriented x3, Cooperative, No apparent distress HEENT: PERRLA, EOMI Neck: Supple. Lungs: Clear to auscultation Cardiovascular: Regular rate, Regular Rhythm Abdomen: Soft, Non Tender Extremities: Mild edema in right hand. Radial pulses are palpable. Skin: Healed cat bite wounds distal palm right hand on the ulnar side extending onto the small finger. Healed cat bite wound right mid palm. Healed cat bite wound right volar wrist at carpal tunnel. The wrist in general is stiff with residual tenderness. Palm is soft and nontender. Mild decrease in finger sensation to pinprick as compared to the left hand. Fingers are warm with good capillary refill. Can flex MP joints at index finger and long finger to about 60 degrees. Ring finger and small finger are stiff at MP joint but with passive flexion do show some softening and some flexion to about 30-40 degrees. Fingers are stiff secondary to the pain from RSD but are slowly improving. Minimal wrist flexion noted but limited secondary to the wrist pain. Elbow flexion and extension are intact without pain. Forearm supination and pronation are stiff and limited initially but with passive range of motion do show some softening and increasing supination and pronation. Thumb opposition better to index finger and long finger and can almost oppose the ring finger. When she does oppose, her thumb touches the DIP joint crease and not the finger tip. Thumb opposition continues to slowly improve. She is adapting at home with activities of daily living and is doing better with activities at home. No axillary adenopathy. Patient is right hand dominant. Neurological: Cranial nerves II-XII grossly intact. Has mild paresthesias in her fingers right hand as compared to her left hand. Psych/Mental Status: Normal Affect, Appropriate ASSESSMENT 1. Cat bite infection abscess distal palm on ulnar side right hand by small finger, s/p I AND D. 2. Suppurative flexor tenosynovitis right small finger, s/p I AND D. 3. Cat bite abscess right midpalm, s/p I AND D. 4. Cat bite abscess carpal tunnel right wrist, s/p I AND D. 5. Cat bite infection abscess midcarpal joints right wrist. 6. Cat bite infection abscess right distal forearm (dorsal and volar). 7. RSD right hand and wrist. 8. Osteomyelitis right distal radius, metacarpal bases right hand, carpal bones right wrist. 9. Compartment syndrome dorsal interosseous muscles right hand. PLAN Comes in today feeling better. She states the pain is more manageable. She has been to Pain Management and she will continue to see them every other month. She is getting her Percocet from the Pain Center. The wounds remain healed. There is some stiffness in the wrist and in the first webspace. She was working on range of motion in her thumb webspace at OT. Also has an edema glove to help with swelling which should help with range of motion exercises. The thumb is showing less adduction. She has splint at home from OT to help to abduct the thumb. She needs to use it. There is some improvement with thumb abduction. The MP joints are less stiff with improved range of motion slightly. The index finger and long finger MP joints have improved the most. Almost at 60 degrees. The small finger still shows some stiffness. With passive range of motion, the small finger shows some improvement in range of motion, up to 30-40 degrees. She was using the CPM machine but has stopped. It has helped with range of motion. Progress is slow. I have noticed improvement and have encouraged her to continue to use the machine. The elbow range of motion is good with flexion and extension. With the CPM machine, she can flex at the MP joint of the index and long fingers to about 60 degrees. The goal is 60-70 degrees. Doubt we will be able to get to 90 degrees without operative intervention with capsulectomy and pinning. She is not interested in that surgery at this time. She has better opposition with the thumb to the index finger and long finger and also to the ring finger. Opposition is not to the tip though. Her forearm is soft with improvement with supination and pronation but there is some limitation because of the stiffness in her wrist. However the supination and pronation continues to slowly improve. The shoulder is showing some improvement but needs more work. She states she was seeing Dr. Pitts for her shoulder issues. I told her it was ok for him to give her shoulder steroid injections as needed. He is relocating to [place], so she will need to find another Orthopedic provider. Pathology showed the right distal radius joint was negative for osteomyelitis. The base of long finger metacarpal was negative for osteomyelitis. The triquetra bone was negative for osteomyelitis. The operative culture, soft tissue showed MRSE. The viral culture was negative. The operative culture, bone showed MRSE in all 3 bone specimens (right distal radius joint, base of long finger metacarpal, and triquetra bone).She is finished with the Vancomycin and Unasyn and tolerated Augmentin and has finished them. Continue OT for range of motion exercises, strengthening, and edema management. Also Ultrasound massage and thumb splinting. Her fingers are a little less stiff, but is going to need OT for a long time. OT has been renewed, probably twice a month. She states her insurance will pay for 20 treatments per year. So twice a month will get us 10 months of treatment. Continue the CPM machine, hopefully. Massage the incisions with skin lotion daily to help soften up the scars. Followup 4 months. Assessment AND Plan Problems 1. Bitten by cat, sequela W55.01XS 2. Complex regional pain syndrome of right upper extremity G90.511 3. Abscess of right hand L02.511 4. Abscess of right forearm L02.413 5. Stiffness of finger joint of right hand M25.641 6. Stiffness of right wrist joint M25.631 7. Other synovitis and tenosynovitis, right hand M65.841 8. Abscess of bursa, right wrist M71.031 9. Abscess of bursa, right hand M71.041 10. Acute osteomyelitis of right hand M86.141 11. Traumatic compartment syndrome of right upper extremity, sequela T79.A11S 12. Arthritis due to other bacteria, right wrist M00.831 Coding Level of Care Code Off vis,est,level 4 Diagnoses Bitten by cat, sequela W55.01XS Complex regional pain syndrome of right upper extremity G90.511 Abscess of right hand L02.511 Abscess of right forearm L02.413 Stiffness of finger joint of right hand M25.641 Stiffness of right wrist joint M25.631 Other synovitis and tenosynovitis, right hand M65.841 Abscess of bursa, right wrist M71.031 Abscess of bursa, right hand M71.041 Acute osteomyelitis of right hand M86.141 Traumatic compartment syndrome of right upper extremity, sequela T79.A11S Arthritis due to other bacteria, right wrist M00.831 03/04/18 1540 <Electronically signed by Patrick Phillips MD> Date Patrick Phillips MD Cosigner Signature: Date (if applicable) CC: THYROID STIM HORMONE Collected: 01/30/2018 Status: F Source: [place] (TSH) 9:30 AM [facility] TYPE CODE TESTS RESULT OUT OF RANGE REFERENCE UNITS LAB L501.9520 0.358-3.74 uIU/mL Normal TSH 1.04 Performed By: #### L501.9520, L506.0400 #### [facility] [address] [place], [address] T4 FREE DIRECT Collected: 01/30/2018 Status: F Source: [place] 9:30 AM [facility] TYPE CODE TESTS RESULT OUT OF RANGE REFERENCE UNITS LAB L506.0400 0.76-1.46 ng/dL Normal T4 FREE 1.33 DIRECT Performed By: #### L501.9520, L506.0400 #### [facility] [address], [address] PROGRESS Observed: 01/24/2018 Status: COMPLETED Source: [place] 11:08 AM [facility] HNO ID: [id number] Author: Simone Roth Service: (none) Author Type: Physician Health Unit Coordinator Type: Progress Notes Filed: 01/24/2018 11:18 AM Note Text: Output current 0.00-1.00(New) mAmps Signal frequency 20 Hz Pulse width 250 msec Signal on time 30 sec Signal off time 5 min Magnet current 0.00-.1.25 (New) mAmps Magnet on time 60 sec Magnet pulse width 250 msec ? Demipulse #103 Serial: [id number] Oper: [id number] hrs 56 mins Tot: 3867 hrs 10 mins Ma IMP: 06/26/2013 ? VNS unit turned back ON after MRI. Thanks, Simone Roth PA-C January 24, 2018 CNOV Observed: 01/24/2018 Status: COMPLETED Source: [place] 10:30 AM [facility] Office Visit ([id number]) DIANNE LIRIANO ([id number]) 1960 F Date Time Provider Department 01/24/18 10:30 AM SIMONE ROTH) NE50MN During your visit today, we recorded the following information about you: Simone Roth PA-C 01/24/2018 11:18 AM Signed Output current 0.00-1.00(New) mAmps Signal frequency 20 Hz Pulse width 250 msec Signal on time 30 sec Signal off time 5 min Magnet current 0.00-.1.25 (New) mAmps Magnet on time 60 sec Magnet pulse width 250 msec ? Demipulse #103 Serial: [id number] Oper: 26674 hrs 56 mins Tot: 3867 hrs 10 mins Ma IMP: 06/26/2013 ? VNS unit turned back ON after MRI. Thanks, Simone Roth PA-C January 24, 2018 Referring Provider: SELF [[id number]] Allergies As of Date: 01/24/2018 Noted Allergy Reaction GABAPENTIN 02/15/2017 16 - Unknown LYRICA (PREGABALIN) 07/31/2012 14 - Other: See Comments Comments: Pt had a seizure day after taking WELLBUTRIN (BUPROPION HCL) 02/15/2017 14 - Other: See Comments Comments: Severe mood swings Date Reviewed: 02/15/2017 Reviewed by: Connie (Rn) KARLOS Thorne - Fully Assessed Primary Visit Diagnosis:Seizure disorder ([facility]) [G40.909] Other Visit Diagnosis:S/P placement of VNS (vagus nerve stimulation) device [Z96.89] Prescriptions as of 01/24/2018 Sig: IV CONTRAST (RADIOLOGY PROCED* MRI Brain Inject, intravenous* ESTRADIOL 0.5 MG TABLET Take 1 tablet by mouth once d* MEDROXYPROGESTERONE 2.5 MG TA* Take 0.5 tablets by mouth onc* PHENAZOPYRIDINE 200 MG TABLET TO BE TAKEN DIRECTED BY MO* YADIRA ALLERGY ORAL Take by mouth as needed. IMURAN ORAL Take by mouth. TROKENDI XR ORAL Take by mouth. BECLOMETHASONE DIPROPIONATE 8* Inhale 1 Puff as instructed t* LEVOTHYROXINE 175 MCG TABLET Take 175 mcg by mouth daily b* YADIRA ORAL Take by mouth as needed. TOPIRAMATE XR 100 MG CAPSULE,* Take 150 mg by mouth once blanco* ALBUTEROL SULFATE HFA 90 MCG/* Inhale 2 Puffs as instructed. MAGNESIUM ORAL Take 1,000 mg by mouth once d* ERGOCALCIFEROL (VITAMIN D2) 5* she takes 1 capsule per week SELENIUM 200 MCG TABLET Take 1 tablet by mouth twice * VITAMIN D-3 ORAL Take by mouth once daily. KEPPRA ORAL Take 500 mg by mouth twice da* OMEPRAZOLE 20 MG CAPSULE,KEYLA* Take 40 mg by mouth once allyson* LACOSAMIDE 100 MG TABLET Take 50 mg by mouth twice blanco* CLONAZEPAM 1 MG TABLET Take 1 tablet by mouth once d* HYDROCODONE 5 MG-ACETAMINOPHE* Take 1-2 tablets by mouth adele* Problem List As Of Date 01/24/2018 Noted Resolved HYPOTHYROIDISM NOS [E03.9] UNSP ABNORMAL MAMMOGRAM [R92.8] INVALID FOR* Microscopic Hematuria [R31.29] INVALID FOR* Female Stress Incontinence [N39.3] INVALID FOR* Urethrocele [N36.8] INVALID FOR* Seizure [R56.9] INVALID FOR* Seizure disorder (HCC) [G40.909] INVALID FOR* 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, G93.49] INVALID FOR* Encounter Status:Closed by SIMONE ROTH PA-C on 01/24/18 MRI BRAIN WO/W Observed: 01/24/2018 Status: C Source: [place] IVCON 10:00 AM [facility] REPOSITORY * * *Final Report* * * * * * SEE BOTTOM OF REPORT FOR ADDENDED TEXT * * * DATE OF EXAM: Jan 24 2018 10:00AM [facility] 0295 - MRI BRAIN WO/W IVCON / PROCEDURE REASON: MRI OF BRAIN/PT HAS IMPLANT * * * * Physician Interpretation * * * * * * * * * * * * ORIGINAL REPORT * * * * * * * * MRI BRAIN WO/W IVCON HISTORY: Epilepsy. Generalized tonic-clonic seizure by EEG. COMPARISON: MRI brain WWO contrast 12/10/2012. TECHNIQUE: Epilepsy MR protocol with axial diffusion study. RESULT: Hippocampal Formations: No significant asymmetry in signal intensity characteristics or morphology. Brain Parenchymal Morphology: No evidence of localized or more generalized encephalomalacia otherwise. Intracranial Mass(es): No evidence of an intracranial mass or extraaxial fluid collection. Developmental: Mild asymmetry of the occipital lobes with rightward deviation of the posterior cerebral falx, unchanged from . However, there is no clear corresponding abnormal sulcation or gyral pattern at this site and this finding is likely represents developmental variation. Tentorium is intact. The tail of the left hippocampus extends into the superior cerebellar cistern and abuts the left internal cerebral vein. This is also unchanged from the prior exam. Hemorrhage: No evidence of prior parenchymal hemorrhage within the limits of the study. Brain Parenchymal Signal: The brain parenchyma is within normal limits of signal intensity characteristics. Diffusion: No evidence of restricted diffusion Ventricles: Normal caliber and morphology. Other: The visualized paranasal sinuses and mastoid air cells are clear. The orbits and extracranial soft tissues are unremarkable. IMPRESSION: Mild asymmetry in the size of the occipital lobes without evidence of a distinct focal developmental anomaly or abnormal sulcation/gyral pattern. This is unchanged and likely represents a normal developmental variation. No acute intracranial process. Hippocampal formations are symmetric in size and signal intensity. There is extension of the tail of the left hippocampal formation in the left superior cerebellar cistern, which is unchanged. * * * * * * * * ADDENDUM #1 * * * * * * * * This is an administrative addendum to correct the ordering provider. The correct ordering provider for this procedure is Slade Lo. Please refer to accession number [id number] to reflect this correction. Recruiting Internship: RITA Transcribe Date/Time: Feb 26 2018 1:21P Dictated by : DOROTA RYAN MD This examination was interpreted and the report reviewed and electronically signed by: JUAN MANUEL PIERRE MD on Jan 24 2018 5:25PM EST This document has been addended by: JUAN MANUEL PIERRE MD on Feb 26 2018 1:34PM EST [id number] MRI BRAIN WO/W Observed: 01/24/2018 Status: F Source: [place] IV[facility] 10:00 AM [facility] REPOSITORY * * *Final Report* * * DATE OF EXAM: Jan 24 2018 10:00AM [facility] 0295 - MRI BRAIN WO/W IVCON / PROCEDURE REASON: MRI OF BRAIN/PT HAS IMPLANT * * * * Physician Interpretation * * * * MRI BRAIN WO/W IVCON HISTORY: Epilepsy. Generalized tonic-clonic seizure by EEG. COMPARISON: MRI brain WWO contrast 12/10/2012. TECHNIQUE: Epilepsy MR protocol with axial diffusion study. RESULT: Hippocampal Formations: No significant asymmetry in signal intensity characteristics or morphology. Brain Parenchymal Morphology: No evidence of localized or more generalized encephalomalacia otherwise. Intracranial Mass(es): No evidence of an intracranial mass or extraaxial fluid collection. Developmental: Mild asymmetry of the occipital lobes with rightward deviation of the posterior cerebral falx, unchanged from . However, there is no clear corresponding abnormal sulcation or gyral pattern at this site and this finding is likely represents developmental variation. Tentorium is intact. The tail of the left hippocampus extends into the superior cerebellar cistern and abuts the left internal cerebral vein. This is also unchanged from the prior exam. Hemorrhage: No evidence of prior parenchymal hemorrhage within the limits of the study. Brain Parenchymal Signal: The brain parenchyma is within normal limits of signal intensity characteristics. Diffusion: No evidence of restricted diffusion Ventricles: Normal caliber and morphology. Other: The visualized paranasal sinuses and mastoid air cells are clear. The orbits and extracranial soft tissues are unremarkable. IMPRESSION: Mild asymmetry in the size of the occipital lobes without evidence of a distinct focal developmental anomaly or abnormal sulcation/gyral pattern. This is unchanged and likely represents a normal developmental variation. No acute intracranial process. Hippocampal formations are symmetric in size and signal intensity. There is extension of the tail of the left hippocampal formation in the left superior cerebellar cistern, which is unchanged. Recruiting Internship: [id number] Transcribe Date/Time: Feb 26 2018 1:17P Dictated by : DOROTA RYAN MD This examination was interpreted and the report reviewed and electronically signed by: JUAN MANUEL PIERRE MD on Feb 26 2018 1:34PM EST [id number] PROGRESS Observed: 01/24/2018 Status: COMPLETED Source: [place] 9:54 AM [facility] REPOSITORY O ID: [id number] Author: Kenyon Fitch Service: (none) Author Type: (none) Type: Progress Notes Filed: 01/24/2018 9:55 AM Note Text: Radiology Service Progress Note PATIENT NAME: Dianne Liriano DATE OF SERVICE: January 24, 2018 TIME: 9:54 AM PATIENT IDENTITY VERIFICATION COMPLETED USING TWO (2) METHODS: Patient confirmed name verbally and Date of . PATIENT GENDER DATA: Female. status: : No status: NO. PATIENT RELEVANT IMPLANT DATA REVIEWED: Yes VNS turned off prior to scanning. Tx/Rx coil used. RADIOLOGY DEPARTMENT: MR; Exam(s) Completed: Head: Seizure PERIPHERAL IV DATA: Site assessment: Clean,Dry and Intact, Site disposition Discontinued SIGNED BY: Kenyon Fitch January 24, 2018 9:54 AM CNOV Observed: 01/24/2018 Status: COMPLETED Source: [place] 9:00 AM [facility] REPOSITORY Office Visit (NE50MN) DIANNE LIRIANO ([id number]) 1960 F Date Time Provider Department 01/24/18 9:00 AM DAYANARA MONTENEGRO ([facility]) NE50MN During your visit today, we recorded the following information about you: Dayanara Montenegro RN MSN FIELD ADMINISTRATOR.COCOA POWDER MIXER OPERATOR 01/24/2018 8:43 AM Signed Output current 1.00-0.00(New) mAmps Signal frequency 20 Hz Pulse width 250 msec Signal on time 30 sec Signal off time 5 min Magnet current 1.25-.0.00(New) mAmps Magnet on time 60 sec Magnet pulse width 250 msec Demipulse #103 Serial: [id number] Oper: [id number] hrs 56 mins Tot: 3867 hrs 10 mins Ma IMP: 06/26/2013 VNS unit turned off for MRI this am. She will need to return to [facility] for turn on before she lives [facility] today. Dayanara Montenegro RN MSN FIELD ADMINISTRATOR.[facility] Referring Provider: SUNNY REYNOSO [[id number]] Allergies As of Date: 01/24/2018 Noted Allergy Reaction GABAPENTIN 02/15/2017 16 - Unknown LYRICA (PREGABALIN) 07/31/2012 14 - Other: See Comments Comments: Pt had a seizure day after taking WELLBUTRIN (BUPROPION HCL) 02/15/2017 14 - Other: See Comments Comments: Severe mood swings Date Reviewed: 02/15/2017 Reviewed by: Connie (Rn) KARLOS Thorne - Fully Assessed Reason for Visit: Established Patient [175] Cmt: VNS turn off Visit Diagnosis:Intractable epilepsy without status epilepticus, unspecified epilepsy type (HCC) [G40.919] Prescriptions as of 01/24/2018 Sig: IV CONTRAST (RADIOLOGY PROCED* MRI Brain Inject, intravenous* ESTRADIOL 0.5 MG TABLET Take 1 tablet by mouth once d* MEDROXYPROGESTERONE 2.5 MG TA* Take 0.5 tablets by mouth onc* PHENAZOPYRIDINE 200 MG TABLET TO BE TAKEN DIRECTED BY MO* YADIRA ALLERGY ORAL Take by mouth as needed. IMURAN ORAL Take by mouth. TROKENDI XR ORAL Take by mouth. BECLOMETHASONE DIPROPIONATE 8* Inhale 1 Puff as instructed t* LEVOTHYROXINE 175 MCG TABLET Take 175 mcg by mouth daily b* YADIRA ORAL Take by mouth as needed. TOPIRAMATE XR 100 MG CAPSULE,* Take 150 mg by mouth once blanco* ALBUTEROL SULFATE HFA 90 MCG/* Inhale 2 Puffs as instructed. MAGNESIUM ORAL Take 1,000 mg by mouth once d* ERGOCALCIFEROL (VITAMIN D2) 5* she takes 1 capsule per week SELENIUM 200 MCG TABLET Take 1 tablet by mouth twice * VITAMIN D-3 ORAL Take by mouth once daily. KEPPRA ORAL Take 500 mg by mouth twice da* OMEPRAZOLE 20 MG CAPSULE,KEYLA* Take 40 mg by mouth once allyson* LACOSAMIDE 100 MG TABLET Take 50 mg by mouth twice blanco* CLONAZEPAM 1 MG TABLET Take 1 tablet by mouth once d* HYDROCODONE 5 MG-ACETAMINOPHE* Take 1-2 tablets by mouth adele* Problem List As Of Date 01/24/2018 Noted Resolved HYPOTHYROIDISM NOS [E03.9] UNSP ABNORMAL MAMMOGRAM [R92.8] INVALID FOR* Microscopic Hematuria [R31.29] INVALID FOR* Female Stress Incontinence [N39.3] INVALID FOR* Urethrocele [N36.8] INVALID FOR* Seizure [R56.9] INVALID FOR* Seizure disorder (HCC) [G40.909] INVALID FOR* 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, 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] INVALID FOR* Encounter Status:Closed by DAYANARA MONTENEGRO CNP on 01/24/18 PROGRESS Observed: 01/24/2018 Status: COMPLETED Source: [place] 8:55 AM [facility] REPOSITORY O ID: [id number] Author: Leeanne (Rn) KARLOS Capps Service: Radiology Author Type: Registered Nurse Type: Progress Notes Filed: 01/24/2018 9:02 AM Note Text: Radiology Service Progress Note PATIENT NAME: Dianne Liriano DATE OF SERVICE: January 24, 2018 TIME: 8:55 AM PATIENT WEIGHT: 190 LBS PATIENT IDENTITY VERIFICATION COMPLETED USING TWO (2) METHODS: Patient confirmed name verbally and ID band matches.. PATIENT GENDER DATA: Female. status: : No status: NO. CONTRAST INDUCED NEPHROPATHY RISK FACTORS: Not applicable CREATININE: Creatinine Date Value Ref Range Status 06/23/2014 0.81 0.70 - 1.40 mg/dL Final 03/03/2014 0.79 0.51 - 0.95 mg/dL Final 06/19/2013 0.76 0.51 - 0.95 mg/dL Final eGFR-All Other Races Date Value Ref Range Status 06/23/2014 >60 . Final Comment: eGFR (Estimated GFR) Units of measure: mL/min/1.73 meters squared eGFR is derived from the reexpressed MDRD Study equation using the following parameters: serum creatinine, age, gender and race. The creatinine assay has been calibrated to be traceable to IDMS. An eGFR <60 mL/min/1.73m2 for >3 months is consistent with chronic kidney disease. Refer to KDOQI guidelines for clinical interpretation. In patients with unstable renal function, e.g. those with acute kidney injury, the eGFR may not accurately reflect actual GFR. eGFR- Date Value Ref Range Status 06/23/2014 >60 Final P.O.C.T. RESULTS: N/A January 24, 2018 TREATMENT: No Hydration needed. ALLERGIES: Reviewed and unchanged CONTRAST ALLERGY: NO. IV SITE: Ambulatory: A peripheral IV was started in the Left forearm with a Angio cath: 22 gauge. and A Saline lock was inserted per protocol IV SITE APPEARANCE: Clean,Dry and Intact SIGNED BY: Leeanne Capps RN January 24, 2018 8:55 AM PROGRESS Observed: 01/24/2018 Status: COMPLETED Source: [place] 8:37 AM [facility] REPOSITORY [facility] ID: [id number] Author: Dayanara Still (Prema) Lan Service: (none) Author Type: Nurse Practitioner Type: Progress Notes Filed: 01/24/2018 8:43 AM Note Text: Output current 1.00-0.00(New) mAmps Signal frequency 20 Hz Pulse width 250 msec Signal on time 30 sec Signal off time 5 min Magnet current 1.25-.0.00(New) mAm Magnet on time 60 sec Magnet pulse width 250 msec Demipulse #103 Serial: [id number] Oper: [id number] hrs 56 mins Tot: 3867 hrs 10 mins Ma IMP: 06/26/2013 VNS unit turned off for MRI this am. She will need to return to [facility] for turn on before [place]. Dayanara Montenegro RN MSN FIELD ADMINISTRATOR.COCOA POWDER MIXER OPERATOR DOWNTIME REPORT Observed: 01/23/2018 Status: F Source: [place] 12:16 PM [facility] Medical Records Department [address] [place] [address] Downtime Report MR#: [id number] Acct: [id number] Name: DIANNE LIRIANO Rep #: [id number] : 1960 57 From: Booker Bowden PCP: Sunny Reynoso DO Status: REG RCR This patient was seen during an EMR downtime January 06, 2018 - January 13, 2018. This patient may have a combination of paper and electronic documentation or all paper documentation. All documentation is viewable within the e-chart portion of [employer] for each patient visit. FREE T3 Collected: 12/13/2017 Status: F Source: [place] 3:21 PM [facility] TYPE CODE TESTS RESULT OUT OF RANGE REFERENCE UNITS LAB [id number] 2.18-3.98 pg/mL Normal FREE T3 2.2 Performed By: #### L501.96428, L501.9520, L506.0400 #### [facility] [address] [place], [address] THYROID STIM HORMONE Collected: 12/13/2017 Status: F Source: [place] (TSH) 3:21 PM [facility] TYPE CODE TESTS RESULT OUT OF RANGE REFERENCE UNITS LAB L501.9520 0.358-3.74 uIU/mL High TSH 6.93 Performed By: #### L501.19683, L501.9520, L506.0400 #### [facility] [address] [place], [address] T4 FREE DIRECT Collected: 12/13/2017 Status: F Source: [place] 3:21 PM [facility] TYPE CODE TESTS RESULT OUT OF RANGE REFERENCE UNITS LAB L506.0400 0.76-1.46 ng/dL Normal T4 FREE 1.26 DIRECT Performed By: #### L501.30323, L501.9520, L506.0400 #### [facility] [address] [place], [address] PULMONARY VISIT REPORT Observed: 12/11/2017 Status: F Source: [place] 10:03 AM [facility] [address] [place] [address] OFFICE VISIT Date of Service: 12/09/17 MR#: [id number] Acct: [id number] Name: DIANNE LIRIANO Rep #: [id number] : 1960 Provider: Joie Ryan Age/Sex: 57/F Location: [facility] Status: Signed Assessment AND Plan 1. LYLE (obstructive sleep apnea) G47.33 Status Acute Plan New. The patient has been under a significant amount of financial strain secondary to a cat bite she received several months ago. They have been trying to continue preventative health care and contain costs as possible, therefore it would like to evaluate the possibility of using a CPAP that they already on. The patient's has a CPAP that is approximately 5-6 years old that he is no longer using. He would like to initiate therapy with his CPAP, but they have been instructed they will likely need to replace tubing, cushion, mask and headgear. They are agreeable. We will start therapy at 5 cm of water and she will follow-up with Dr. Varma in 6-8 weeks to evaluate her response to therapy. She has been encouraged to contact the office if she has any difficulty acclimating to the device in the meantime. 2. Chronic obstructive pulmonary disease, unspecified COPD type J44.9 Status Acute Plan She has not tolerated any maintenance medications, she is doing fine on rescue inhaler alone. Consider repeating PFTs, Dr. Varma can evaluate the timeframe at the next follow-up. 3. PND (post-nasal drip) R09.82 Status Acute Plan New. Plan to treat with [id number]-[id number] Flonase. She has been instructed 2 sprays each nostril once daily. Follow-up with Dr. Varma in 6-8 weeks, at which time he can evaluate her response to this new added medication. Plan Detail Follow Up 6 Weeks (BWA) HPI Home Sleep test results: Chief Complaint: Daytime hypersomnia HPI Comments Details: This patient presents to the office today to follow- up on her daytime hypersomnia and her COPD. She is ambulatory, currently on room air and accompanied today by her . She has not been seen in the ED urgent care for any breathing problems since her last office visit, she has not required any antibiotics or prednisone for any respiratory illnesses. She continues to experience a daily dry cough, denies any sputum production or hemoptysis. She also continues to experience shortness of breath on exertion, denies any conversational dyspnea or dyspnea at rest. She denies any chest tightness, wheezing, chest pain or palpitations. She does admit to anxiety. She denies any fever, chills or body aches. She was previously tried on Symbicort, and subsequently Anoro but did not tolerate either medication. She states that those medications worsened her breathing and caused her chest pains. After stopping those medications those symptoms completely resolved. She does occasionally use her Pro Air rescue inhaler, not daily. He continues to experience daytime hypersomnia. She denies any nocturia but is experiencing restless legs with sleep. Her reports that she snores very loudly. Home sleep study was completed and shows that the patient has an apnea index average of 3.1 events per hour, and also has an average hypercapnia events of 0.4 events per hour. According to testing the patient has mild sleep apnea. A CPAP titration was recommended or if therapy was to be considered he was suggested to be started at 5 cm of water. Intake Vital Signs12/09/17 Height 5 ft 4 in 12/09/17 Weight: 191 lb Intake Visit Reasons: Home Sleep test results Chief Complaint: daytime fatigue Accompanied by: Allergies bupropion HCl [From Wellbutrin] Allergy (Verified 11/06/17 10:43) Unknown pregabalin [From Lyrica] Allergy (Verified 11/06/17 10:43) Unknown gabapentin Adverse Reaction (Verified 11/06/17 10:43) Other hydromorphone [From Dilaudid] Adverse Reaction (Verified 11/06/17 10:43) Other MRI Adverse Reaction (Uncoded 11/06/17 10:43) Other Medications Azathioprine 50 mg PO QHS 02/11/17 [History Confirmed 11/06/17] Budesonide 0.25 mg INHALATION 4X/DAY 02/11/17 [History Confirmed 11/06/17] Ergocalciferol [Vitamin D] 50,000 unit PO QWEEK 02/11/17 [History Confirmed 11/06/17] Estradiol 0.5 mg PO DAILY 02/11/17 [History Confirmed 11/06/17] Levetiracetam 1,000 mg PO QHS 02/11/17 [History Confirmed 11/06/17] Levetiracetam 500 mg PO DAILY 02/11/17 [History Confirmed 11/06/17] Magnesium Oxide [Magnesium] 1,000 mg PO DAILY 02/11/17 [History Confirmed 11/06/17] MedroxyPROGESTERone [Provera] 1.25 mg PO DAILY 02/11/17 [History Confirmed 11/06/17] Ropinirole HCl [Requip] 0.25 mg PO QHS PRN 02/11/17 [History Confirmed 11/06/17] Selenium 200 mcg PO DAILY 02/11/17 [History Confirmed 11/06/17] Fexofenadine HCl [Yadira Allergy] 60 mg PO DAILY PRN PRN 02/27/17 [History Confirmed 11/06/17] Omeprazole [Prilosec] 40 mg PO DAILY 02/27/17 [History Confirmed 11/06/17] Pyridoxine HCl [Vitamin B6] 50 mg PO DAILY 02/27/17 [History Confirmed 11/06/17] Topiramate [Trokendi Xr] 50 mg PO QHS 02/27/17 [History Confirmed 11/06/17] Topiramate [Trokendi Xr] 100 mg PO QHS 02/27/17 [History Confirmed 11/06/17] Vitamin E 800 unit PO DAILY 02/27/17 [History Confirmed 11/06/17] Docusate Sodium [Colace] 100 mg PO BID #60 cap 04/12/17 [Rx Confirmed 11/06/17] Iron Polysaccharide Complex [Ferrex 150] 150 mg PO DAILYCM #30 cap 04/12/17 [Rx Confirmed 11/06/17] Oxycodone HCl/Acetaminophen [Percocet 5-325] 1 - 2 tab PO 4X/DAY PRN PRN #60 04/12/17 [Rx Confirmed 11/06/17] proMETHazine tablet [Phenergan tablet] 25 mg PO 4X/DAY PRN PRN #30 tab 04/12/17 [Rx Confirmed 11/06/17] levothyroxine 175 mcg tablet 175 mcg PO DAILY #30 tab 09/09/17 [Rx Confirmed 11/06/17] albuterol sulfate HFA 90 mcg/actuation aerosol inhaler 2 puff INHALATION Q4H #1 inh 10/03/17 [Rx Confirmed 11/06/17] umeclidinium 62.5 mcg-vilanterol 25 mcg/actuation powdr for inhalation 1 inh INHALATION Q24H #60 ea 11/14/17 [Rx] PFSH Medical History Dyspnea (Chronic) Hypersomnia (Chronic) Subacromial bursitis of left shoulder joint (Chronic) Degenerative disc disease (Chronic) Migraines (Chronic) Hyperlipidemia (Chronic) Hypocalcemia (Chronic) Acute osteomyelitis of right hand (Acute) Abscess of right forearm (Acute) Arthritis due to other bacteria, right wrist (Acute) Stiffness of right wrist joint (Acute) Stiffness of finger joint of right hand (Acute) Complex regional pain syndrome of right upper extremity (Acute) Abscess of bursa, right hand (Acute) Abscess of bursa, right wrist (Acute) Other synovitis and tenosynovitis, right hand (Acute) History of gastroesophageal reflux (GERD) (Chronic) History of hypothyroidism (Chronic) RLS (restless legs syndrome) (Chronic) Infection of right hand (Acute) Cellulitis of right hand (Acute) Abscess of right hand (Acute) Seizure disorder (Chronic) Encephalopathy chronic (Acute) Cat bite of hand (Acute) Pain in right hand (Acute) COPD (chronic obstructive pulmonary disease) (Acute) Arthritis (Acute) Asthma (Acute) Back problem (Acute) CAT BITE ABCESS RIGHT MID PALM (Acute) CAT BITE INFECTION ABSCESS DISTAL PALM (Acute) CAT BITE INFECTION ABSCESS MIDCARPAL JOINTS RIGHT WRIST (Acute) CAT BITE INFECTION ABSCESS RIGHT DISTAL FOREARM (Acute) CATBITE ABSCESS CARPAL TUNNEL RIGHT WRIST (Acute) COMPARTMENT SYNDROME DORSAL INTEROSSEOUS MUSCLES RIGHT HAND (Acute) Difficulty balancing (Acute) Environmental allergies (Acute) Epilepsy (Acute) HEADACHES/MIGRAINES (Acute) HERPETIC LESION DORSUM RIGHT INDEX FINGER (Acute) HOSHIMOTO ENCEPHELITIS (Acute) Hay fever (Acute) Hearing problem (Acute) High cholesterol (Acute) Hypothyroidism (Acute) Knee pain (Acute) Lung disease (Acute) OSTEOMYELITIS RIGHT DISTAL RADIUS (Acute) REFLEX DYSTROPHY RIGHT HAND AND WRIST (Acute) Restless legs (Acute) SOB (shortness of breath) (Acute) SUPPURATIVE FLEXOR TENOSYNOVITIS RIGHT SMALL FINGER (Acute) Seizure (Acute) UNUSUAL TIREDNESS (Acute) Vision problem (Acute) Surgical History History of bladder suspension procedure (Resolved) History of tonsillectomy (Resolved) Status post VNS (vagus nerve stimulator) placement (Resolved) History of endometrial ablation (Resolved) History of tubal ligation (Resolved) ABLATION (Acute) BLADDER LIFT (Acute) CARPAL BONE RIGHT WRIST FOR OSTEOMYELITIS (Acute) EAR TUBES AND TONSILS (Acute) INCISION AND DRAINAGE RIGHT ULNAR PALM (Acute) SURGICAL PREPARATION RIGHT DISTAL PALM (Acute) Tubal ligation status (Acute) VAGUS NERVESTIMULATOR IMPLANT (Acute) Family History Mother Arthritis Bleeding disorder Hypertension High cholesterol LUNG/RESPIRATORY DISEASE Social History household members: spouse Smoking Status: Former smoker second hand exposure: No alcohol intake: never substance use type: does not use caffeine: Yes what type of physical activity do you participate in: other details: DANCING frequency: 3-4 times per week seatbelt use: always additional social history: SUN EXPOSURE - RARE Review of Systems Const CONSTITUTIONAL: Negative anorexia, body ache, chills, daytime sleepiness, fever(s), night sweats, oral thrush, stops breathing during sleep, weight loss, sleeping in chair, fatigue, weight loss, weight gain, frequent colds, seasonal allergies, other, headache(s) or orthopnea EETM Ear Nose Throat Mouth: Positive hearing normal, nasal congestion, nasal discharge, post nasal drip and sinus pressure; negative hard of hearing, hoarseness, dry mouth in morning, change in vision, itchy eyes, eye pain, swallowing Difficulty, ear pain, nose bleed, headache(s), mouth pain, sinus pain, sore throat or other Cardio Cardiovascular: Negative chest pain, chest pain at rest, chest pain with activity, irregular heart rhythm, edema, shortness of breath when lying down, palpitations, murmur or other Resp Respiratory: Positive as per HPI, shortness of breath shortness of breath: Positive with activity and cough cough: Positive non-productive; negative pain with cough, wheezing, chest congestion, chest tightness, pain on inspiration, inhalers, increase use of rescue inhalers, snoring, apnea or other Gastro Gastrointestional: Negative bloody stools, change in appetite, difficulty swallowing, reflux, hematemesis, melena stool, loose stool, constipation or other Genitourinary: Negative blood in urine, nocturia, pain with urination or other Musc Musculoskeletal: Negative body pain, back pain, neck pain or other Skin/Breast Skin/Breast: Negative dry skin, itching, rash, unusual bruising, breast lump or other Neuro Neurological: Positive restless legs; negative confusion, weakness or other Psych Psychocological: Positive abnormal sleep pattern and anxiety; negative thoughts of hurting self/others, hopelessness or other Lymph Lymphatic: Negative easy bleeding, easy bruising, swollen lymph nodes or other Exam Const Constitutional: Positive conversant, cooperative, in no acute respiratory distress, healthy appearing, well developed, well nourished, good hygiene and obese Head Head: Positive normocephalic and atraumatic; negative cyanosis of lips/distal nose Eyes Eye: Positive clear conjunctiva and nystagmus; negative scleral abnormality Ears Ear: Positive hearing normal and external ears normal; negative hard of hearing Nose Nose: Positive external nose normal and no nasal discharge; negative epistaxis Mouth Mouth: Positive post nasal drip, oral mucosae normal, no lesions and crowded posterior oropharynx; negative malodorous breath or oral thrush present Mallampati Score: III: Mallampati Score Neck Neck: Positive normal visual inspection, full ROM, trachea midline and thick neck; negative lymphadenopathy, JVD or tender Chest Wall Chest: Positive normal inspection of the chest and symmetric chest movement; negative increased A/P diameter Resp lung sounds: Positive clear to auscultation, good air exchange, normal expiratory time and normal respiratory effort; negative diminished, wheezes, rhonchi, rales, dullness to percussion or wheeze present on forced exhalation Cardio Cardiac: Positive regular rate, regular rhythm, S1 normal and S2 normal; negative murmur GI GI: Positive normal to inspection, normal bowel sounds and obese; negative distended Genitourinary: Positive deferred Musc Musculoskeletal: Positive steady gait and ROM normal; negative kyphosis or scoliosis Skin Pulmonary Skin Exam: Positive intact (dry dressing to right hand, currently under plastic surg care); negative rash, erythema or dermal atrophy Pulses Pulse: Yes pulses normal x4 extremities Extremities Extremities: Yes capillary refill normal, No clubbing, No cyanosis, No edema Neuro Neurologic: Yes conversant, Yes no focal neuro deficits, Yes cooperative, Yes normal cognition, Yes normal coordination, Yes normal concentration, Yes understands questions, No tremor Lymph Lymphatic: No lymphadenopathy, No tenderness, No cervical adenopathy, No axillary adenopathy Psych Appearance: Positive grossly normal, eye contact and well kempt Mental Status: Positive mental status grossly normal Mood: Positive congruent mood Affect: Positive normal affect Coding Level of Care Code Off vis,est,level 4 Diagnoses LYLE (obstructive sleep apnea) G47.33 Chronic obstructive pulmonary disease, unspecified COPD type J44.9 COPD type: unspecified COPD PND (post-nasal drip) R09.82 12/11/17 1003 <Electronically signed by Joie TAMEZ> Date Joie TAMEZ Cosigner Signature: Date (if applicable) CC: Sunny Reynoso DO PLASTIC SURGERY Observed: 12/01/2017 Status: F Source: [place] VISIT REPORT 9:20 PM [facility] [address] [address] OFFICE VISIT Date of Service: 11/06/17 MR#: [id number] Acct: [id number] Name: LIRIANODIANNE J Rep #: [id number] : 1960 Provider: Patrick Phillips MD Age/Sex: 57/F Location: [facility] Status: Signed Intake Vital Signs11/06/17 Height 5 ft 4 in 11/06/17 Weight: 190 lb 2 oz Intake Visit Reasons: evaluation late effect cat bite right hand Delivery Man Required: No Accompanied by: Is patient in pain?: Yes (right hand index finger swollen and tight ) Pain scale (1-10): 2 Allergies bupropion HCl [From Wellbutrin] Allergy (Verified 11/06/17 10:43) Unknown pregabalin [From Lyrica] Allergy (Verified 11/06/17 10:43) Unknown gabapentin Adverse Reaction (Verified 11/06/17 10:43) Other hydromorphone [From Dilaudid] Adverse Reaction (Verified 11/06/17 10:43) Other MRI Adverse Reaction (Uncoded 11/06/17 10:43) Other Medications Azathioprine 50 mg PO QHS 02/11/17 [History Confirmed 11/06/17] Budesonide 0.25 mg INHALATION 4X/DAY 02/11/17 [History Confirmed 11/06/17] Ergocalciferol [Vitamin D] 50,000 unit PO QWEEK 02/11/17 [History Confirmed 11/06/17] Estradiol 0.5 mg PO DAILY 02/11/17 [History Confirmed 11/06/17] Levetiracetam 1,000 mg PO QHS 02/11/17 [History Confirmed 11/06/17] Levetiracetam 500 mg PO DAILY 02/11/17 [History Confirmed 11/06/17] Magnesium Oxide [Magnesium] 1,000 mg PO DAILY 02/11/17 [History Confirmed 11/06/17] MedroxyPROGESTERone [Provera] 1.25 mg PO DAILY 02/11/17 [History Confirmed 11/06/17] Ropinirole HCl [Requip] 0.25 mg PO QHS PRN 02/11/17 [History Confirmed 11/06/17] Selenium 200 mcg PO DAILY 02/11/17 [History Confirmed 11/06/17] Fexofenadine HCl [Yadira Allergy] 60 mg PO DAILY PRN PRN 02/27/17 [History Confirmed 11/06/17] Omeprazole [Prilosec] 40 mg PO DAILY 02/27/17 [History Confirmed 11/06/17] Pyridoxine HCl [Vitamin B6] 50 mg PO DAILY 02/27/17 [History Confirmed 11/06/17] Topiramate [Trokendi Xr] 50 mg PO QHS 02/27/17 [History Confirmed 11/06/17] Topiramate [Trokendi Xr] 100 mg PO QHS 02/27/17 [History Confirmed 11/06/17] Vitamin E 800 unit PO DAILY 02/27/17 [History Confirmed 11/06/17] Docusate Sodium [Colace] 100 mg PO BID #60 cap 04/12/17 [Rx Confirmed 11/06/17] Iron Polysaccharide Complex [Ferrex 150] 150 mg PO DAILYCM #30 cap 04/12/17 [Rx Confirmed 11/06/17] Oxycodone HCl/Acetaminophen [Percocet 5-325] 1 - 2 tab PO 4X/DAY PRN PRN #60 04/12/17 [Rx Confirmed 11/06/17] proMETHazine tablet [Phenergan tablet] 25 mg PO 4X/DAY PRN PRN #30 tab 04/12/17 [Rx Confirmed 11/06/17] levothyroxine 175 mcg tablet 175 mcg PO DAILY #30 tab 09/09/17 [Rx Confirmed 11/06/17] albuterol sulfate HFA 90 mcg/actuation aerosol inhaler 2 puff INHALATION Q4H #1 inh 10/03/17 [Rx Confirmed 11/06/17] umeclidinium 62.5 mcg-vilanterol 25 mcg/actuation powdr for inhalation 1 inh INHALATION Q24H #60 ea 11/14/17 [Rx] Is last menstrual period known: No Post menopausal: Yes Patient : No PFSH Medical History Dyspnea (Chronic) Hypersomnia (Chronic) Subacromial bursitis of left shoulder joint (Chronic) Degenerative disc disease (Chronic) Migraines (Chronic) Hyperlipidemia (Chronic) Hypocalcemia (Chronic) Acute osteomyelitis of right hand (Acute) Abscess of right forearm (Acute) Arthritis due to other bacteria, right wrist (Acute) Stiffness of right wrist joint (Acute) Stiffness of finger joint of right hand (Acute) Complex regional pain syndrome of right upper extremity (Acute) Abscess of bursa, right hand (Acute) Abscess of bursa, right wrist (Acute) Other synovitis and tenosynovitis, right hand (Acute) History of gastroesophageal reflux (GERD) (Chronic) History of hypothyroidism (Chronic) RLS (restless legs syndrome) (Chronic) Infection of right hand (Acute) Cellulitis of right hand (Acute) Abscess of right hand (Acute) Seizure disorder (Chronic) Encephalopathy chronic (Acute) Cat bite of hand (Acute) Pain in right hand (Acute) COPD (chronic obstructive pulmonary disease) (Acute) Arthritis (Acute) Asthma (Acute) Back problem (Acute) CAT BITE ABCESS RIGHT MID PALM (Acute) CAT BITE INFECTION ABSCESS DISTAL PALM (Acute) CAT BITE INFECTION ABSCESS MIDCARPAL JOINTS RIGHT WRIST (Acute) CAT BITE INFECTION ABSCESS RIGHT DISTAL FOREARM (Acute) CATBITE ABSCESS CARPAL TUNNEL RIGHT WRIST (Acute) COMPARTMENT SYNDROME DORSAL INTEROSSEOUS MUSCLES RIGHT HAND (Acute) Difficulty balancing (Acute) Environmental allergies (Acute) Epilepsy (Acute) HEADACHES/MIGRAINES (Acute) HERPETIC LESION DORSUM RIGHT INDEX FINGER (Acute) HOSHIMOTO ENCEPHELITIS (Acute) Hay fever (Acute) Hearing problem (Acute) High cholesterol (Acute) Hypothyroidism (Acute) Knee pain (Acute) Lung disease (Acute) OSTEOMYELITIS RIGHT DISTAL RADIUS (Acute) REFLEX DYSTROPHY RIGHT HAND AND WRIST (Acute) Restless legs (Acute) SOB (shortness of breath) (Acute) SUPPURATIVE FLEXOR TENOSYNOVITIS RIGHT SMALL FINGER (Acute) Seizure (Acute) UNUSUAL TIREDNESS (Acute) Vision problem (Acute) Surgical History History of bladder suspension procedure (Resolved) History of tonsillectomy (Resolved) Status post VNS (vagus nerve stimulator) placement (Resolved) History of endometrial ablation (Resolved) History of tubal ligation (Resolved) ABLATION (Acute) BLADDER LIFT (Acute) CARPAL BONE RIGHT WRIST FOR OSTEOMYELITIS (Acute) EAR TUBES AND TONSILS (Acute) INCISION AND DRAINAGE RIGHT ULNAR PALM (Acute) SURGICAL PREPARATION RIGHT DISTAL PALM (Acute) Tubal ligation status (Acute) VAGUS NERVESTIMULATOR IMPLANT (Acute) Family History Mother Arthritis Bleeding disorder Hypertension High cholesterol LUNG/RESPIRATORY DISEASE Social History household members: spouse Smoking Status: Former smoker second hand exposure: No alcohol intake: never substance use type: does not use caffeine: Yes what type of physical activity do you participate in: other details: DANCING frequency: 3-4 times per week seatbelt use: always additional social history: SUN EXPOSURE - RARE HPI evaluation late effect cat bite right hand: Details: HISTORY OF PRESENT ILLNESS: 57-year-old woman presents for further evaluation and treatment of a late effect of a severe cat bite to her right hand with residual stiffness and pain in the hand. She was initially bitten at the end of January by a feral cat that she was trying to get back into her crate. The cat was exhibiting signs of neurologic disease and when the patient tried to pick her up she was bitten. Since then the feral cat has been . She initially went to get this looked at on February 04, 2017 and was given Augmentin. Improvement was minimal and she was switched over to Bactrim. Once again she was noticing increasing pain, swelling, and redness extending onto her forearm, and she went to the emergency department on February 11, 2017. She was taken to surgery that evening by Dr. Forde who performed an incision and drainage procedure. While in the hospital she was treated with IV Unasyn and was discharged back to Augmentin. She followed up with Dr. Forde's office who recommended that she go to the wound center for continued wound care treatment. Patient states she could not get an appointment with the wound center for a couple weeks and went to [facility] for further evaluation and treatment. When they saw the extent of redness and swelling extending onto her forearm and they sent her up to [facility] where she was admitted for 5 days and had a PICC line placed and was started on Unasyn. She continued on Unasyn IV antibiotics until I saw her in the office on 02/27/17. She was admitted to the hospital for continued IV antibiotic therapy and went to the OR on 02/28/17 where she underwent surgical preparation right distal palm at ulnar aspect by small finger with incision and drainage and excisional debridement cat bite abscess and incision tendon sheath right small finger for suppurative flexor tenosynovitis and incision and drainage right midpalm cat bite abscess and incision and drainage cat bite abscess carpal tunnel right wrist and neuroplasty median nerve. Operative cultures were negative but she was still continued on IV antibiotics with Unasyn at discharge from the hospital. The wounds showed improvement over the ensuing weeks with Aquacel Silver dressing changes. Her biggest issue was pain and the development of RSD. She started OT for range of motion exercises. The pain was slowly improving. The range of motion progress was very slow. When the Unasyn was stopped after 6 weeks of IV antibiotic therapy, she came into the office with increasing pain and redness in her wrist area and dorsum of right hand with some extension onto the distal forearm. She was once again admitted to the hospital for more aggressive IV antibiotic therapy and wound care in anticipation of further operative intervention. She was taken to the OR on 04/04/17 where she underwent incision and drainage right ulnar palm and right carpal tunnel infection and incision and drainage right distal forearm abscess (dorsal and volar) and arthrotomy midcarpal joints right wrist with exploration and drainage abscess and partial ostectomy right distal radius and joint for osteomyelitis and incision bone cortex triquetrum carpal bone right wrist for osteomyelitis and partial ostectomy right long finger metacarpal base for osteomyelitis and decompressive fasciotomy dorsal interosseous muscles right hand for compartment syndrome. She presents at this time for further evaluation and treatment. She recently saw the Pain Center MD on 09/16/17 and will continue to be seen by them every other month. She states she is now getting her Percocet as needed by their office. She has started OT again. To stretch it out for most of the year, will go twice a month since her insurance allows 20 visits per year. PAST MEDICAL HISTORY Lung disease. Shortness of breath. Unusual tiredness. He fever. Knee pain. Asthma. Epilepsy. Warren encephalitis. Hypothyroidism. Restless leg syndrome. Environmental allergies. Arthritis. Back problems. Headaches. Hearing problems. High cholesterol. Vision problems. Balance difficulties. Gastroesophageal reflux disease. Cat bite infection abscess distal palm on ulnar side right hand by small finger. Suppurative flexor tenosynovitis right small finger. Cat bite abscess right midpalm. Cat bite abscess carpal tunnel right wrist. Cat bite infection abscess midcarpal joints right wrist. Cat bite infection abscess right distal forearm (dorsal and volar). Herpetic lesion dorsum right index finger at ulna aspect DIP joint. RSD right hand and wrist. Osteomyelitis right distal radius, metacarpal bases right hand, carpal bones right wrist. Compartment syndrome dorsal interosseous muscles right hand. PAST SURGICAL HISTORY Vagus nerve stimulator implants. Ablation. Tubal ligation. Placement of ear tubes. Tonsillectomy. Bladder lift. Incision and drainage of right palm cat-bite infection on February 11, 2017. Surgical preparation right distal palm at ulnar aspect by small finger with incision and drainage and excisional debridement cat bite abscess and incision tendon sheath right small finger for suppurative flexor tenosynovitis and incision and drainage right midpalm cat bite abscess and incision and drainage cat bite abscess carpal tunnel right wrist and neuroplasty median nerve on 02/28/17. Incision and drainage right ulnar palm and right carpal tunnel infection and incision and drainage right distal forearm abscess (dorsal and volar) and arthrotomy midcarpal joints right wrist with exploration and drainage abscess and partial ostectomy right distal radius and joint for osteomyelitis and incision bone cortex triquetrum carpal bone right wrist for osteomyelitis and partial ostectomy right long finger metacarpal base for osteomyelitis and decompressive fasciotomy dorsal interosseous muscles right hand for compartment syndrome - 04/04/17 MEDICATIONS Estradiol. Medroxyprogesterone. Vitamin D. Magnesium. Imuran. Budesonide. Beclomethasone. Selenium. Vitamin E. Requip. Iron complex tablets. Keppra. Topamax. Morphine. Percocet. Duragesic Patch. Valium. Zoloft. Elavil. Procardia XL. ALLERGIES Wellbutrin. Neurontin. Lyrica. MRI because of placement of vagal nerve stimulator implant. SOCIAL HISTORY Patient is a former smoker. Patient does not drink alcohol. FAMILY HISTORY Positive for arthritis, diabetes, heart disease, hypertension, lung disease, bleeding disorder, and high cholesterol. REVIEW OF SYSTEMS Constitutional: Denies: Chills, Fever, Weight Change Eyes: Denies: Pain, Vision Change HEENT: Denies: Difficulty Hearing, Difficulty Swallowing, Sinus Congestion Cardiovascular: Denies: Chest Pain, Palpitations Respiratory: Denies: Cough, Shortness of Breath Gastrointestinal: Denies: Diarrhea, Nausea, Vomiting Genitourinary: Denies: Dysuria, Hematuria Skin: History of cat bite infection right hand and wrist. Endocrine: Denies: Heat/ Cold Intolerance, Polydipsia, Polyuria Hematologic/ Lymphatic: Denies: Easy Bruising, Easy Bleeding PHYSICAL EXAMINATION General: Alert, Oriented x3, Cooperative, No apparent distress HEENT: PERRLA, EOMI Neck: Supple. Lungs: Clear to auscultation Cardiovascular: Regular rate, Regular Rhythm Abdomen: Soft, Non Tender Extremities: Mild edema in right hand. Radial pulses are palpable. Skin: Healed cat bite wounds distal palm right hand on the ulnar side extending onto the small finger. Healed cat bite wound right mid palm. Healed cat bite wound right volar wrist at carpal tunnel. The wrist in general is stiff with residual tenderness. Palm is soft and nontender. Mild decrease in finger sensation to pinprick as compared to the left hand. Fingers are warm with good capillary refill. Can flex MP joints at index finger and long finger to about 45 degrees. Ring finger and small finger are stiff at MP joint but with passive flexion do show some softening and some flexion to about 30 degrees. Fingers are stiff secondary to the pain from RSD but are slowly improving. Minimal wrist flexion noted but limited secondary to the wrist pain. Elbow flexion and extension are intact without pain. Forearm supination and pronation are stiff and limited initially but with passive range of motion do show some softening and increasing supination and pronation. Thumb opposition better to index finger and long finger and can almost oppose the ring finger. When she does oppose, her thumb touches the DIP joint crease and not the finger tip. Thumb opposition continues to slowly improve. She is adapting at home with activities of daily living and is doing better with activities at home. No axillary adenopathy. Patient is right hand dominant. Neurological: Cranial nerves II-XII grossly intact. Has mild paresthesias in her fingers right hand as compared to her left hand. Psych/Mental Status: Normal Affect, Appropriate ASSESSMENT 1. Cat bite infection abscess distal palm on ulnar side right hand by small finger, s/p I AND D. 2. Suppurative flexor tenosynovitis right small finger, s/p I AND D. 3. Cat bite abscess right midpalm, s/p I AND D. 4. Cat bite abscess carpal tunnel right wrist, s/p I AND D. 5. Cat bite infection abscess midcarpal joints right wrist. 6. Cat bite infection abscess right distal forearm (dorsal and volar). 7. RSD right hand and wrist. 8. Osteomyelitis right distal radius, metacarpal bases right hand, carpal bones right wrist. 9. Compartment syndrome dorsal interosseous muscles right hand. PLAN Comes in today feeling better. She states the pain is more manageable. She has been to Pain Management and she will continue to see them every other month. She is getting her Percocet from the Pain Center. The wounds remain healed. There is some stiffness in the wrist and in the first webspace. She was working on range of motion in her thumb webspace at OT. Also has an edema glove to help with swelling which should help with range of motion exercises. The thumb is showing less adduction. She has splint at home from OT to help to abduct the thumb. She needs to use it. There is some improvement with thumb abduction. The MP joints are less stiff with improved range of motion slightly. The index finger and long finger MP joints have improved the most. Almost at 45 degrees. The small finger still shows some stiffness. With passive range of motion, the small finger shows some improvement in range of motion. She was using the CPM machine but has stopped. It has helped with range of motion. Progress is slow. I have noticed improvement and have encouraged her to continue to use the machine. The elbow range of motion is good with flexion and extension. With the CPM machine, she can flex at the MP joint of the index and long fingers to about 45 degrees. The goal is 60-70 degrees. Doubt we will be able to get to 90 degrees without operative intervention with capsulectomy and pinning. She is not interested in that surgery at this time. She has better opposition with the thumb to the index finger and long finger and also to the ring finger. Opposition is not to the tip though. Her forearm is soft with improvement with supination and pronation but there is some limitation because of the stiffness in her wrist. However the supination and pronation continues to slowly improve. The shoulder is showing some improvement but needs more work. She states she is seeing Dr. Pitts for her shoulder issues. I told her it was ok for him to give her shoulder steroid injections as needed. Pathology showed the right distal radius joint was negative for osteomyelitis. The base of long finger metacarpal was negative for osteomyelitis. The triquetra bone was negative for osteomyelitis. The operative culture, soft tissue showed MRSE. The viral culture was negative. The operative culture, bone showed MRSE in all 3 bone specimens (right distal radius joint, base of long finger metacarpal, and triquetra bone).She is finished with the Vancomycin and Unasyn and tolerated Augmentin and has finished them. Continue OT for range of motion exercises, strengthening, and edema management. Also Ultrasound massage and thumb splinting. Her fingers are a little less stiff, but is going to need OT for a long time. OT has been renewed, probably twice a month. She states her insurance will pay for 20 treatments per year. So twice a month will get us 10 months of treatment. Continue the CPM machine, hopefully. Massage the incisions with skin lotion daily to help soften up the scars. Followup 3 months. Assessment AND Plan Problems 1. Bitten by cat, sequela W55.01XS 2. Complex regional pain syndrome of right upper extremity G90.511 3. Abscess of right hand L02.511 4. Abscess of right forearm L02.413 5. Stiffness of finger joint of right hand M25.641 6. Stiffness of right wrist joint M25.631 7. Other synovitis and tenosynovitis, right hand M65.841 8. Abscess of bursa, right wrist M71.031 9. Abscess of bursa, right hand M71.041 10. Acute osteomyelitis of right hand M86.141 11. Traumatic compartment syndrome of right upper extremity, sequela T79.A11S Coding Level of Care Code Off vis,est,level 4 Diagnoses Bitten by cat, sequela W55.01XS Complex regional pain syndrome of right upper extremity G90.511 Abscess of right hand L02.511 Abscess of right forearm L02.413 Stiffness of finger joint of right hand M25.641 Stiffness of right wrist joint M25.631 Other synovitis and tenosynovitis, right hand M65.841 Abscess of bursa, right wrist M71.031 Abscess of bursa, right hand M71.041 Acute osteomyelitis of right hand M86.141 Traumatic compartment syndrome of right upper extremity, sequela T79.A11S 12/01/170 <Electronically signed by Patrick Phillips MD> Date Patrick Phillips MD Cosigner Signature: Date (if applicable) CC: Sunny Reynoso DO CBC-COMPLETE BLOOD CNT Collected: 11/28/2017 Status: F Source: [place] NO DIFF 10:28 AM [facility] TYPE CODE TESTS RESULT OUT OF RANGE REFERENCE UNITS LAB L100.1000 4.4-11.0 K/mm3 Normal WBC 6.6 LAB L100.1200 4.2-5.4 M/mm3 Normal RBC 4.79 LAB L100.1300 12.0-15.0 g/dl Normal HGB 14.8 LAB L100.1400 37-47 % Normal HCT 43.6 LAB L100.1500 81-99 fL Normal MCV 91.0 LAB L100.1600 27.0-32.0 pg Normal MCH 30.9 LAB L100.1700 32-36 g/gl Normal MCHC 33.9 LAB L100.1810 11.6-14.6 % Normal RDW CV 12.0 LAB L100.1820 35.1-43.9 fl Normal RDW SD 39.7 LAB L100.1900 150-450 K/mm3 Normal PLT 252 LAB L100.2000 6.2-12.0 fl Normal MPV 10.6 Performed By: #### L100.0500 #### [facility] [address] [place], [address] COMPREHENSIVE METABOLIC Collected: 11/28/2017 Status: F Source: [facility] 10:28 AM [facility] TYPE CODE TESTS RESULT OUT OF RANGE REFERENCE UNITS LAB L501.0100 74-106 mg/dL Normal GLU 87 Result Comment: Please note revised GLUCOSE reference range effective 2017. LAB L501.1000 7-18 mg/dL Normal BUN 18 LAB L501.1100 0.55-1.02 mg/dL Normal CREAT,SERUM 0.95 Result Comment: The validity of the calculated GFR AND GFRAA in patients over 70 years has not been determined. Clinical correlation is essential. LAB L501.1110 >60 mL/min Normal EST GFR 65 Result Comment: Non- GFR Calc LAB L501.1115 >60 mL/min Normal EST GFR - AA 78 Result Comment: GFR Calc LAB L501.1300 10-20 RATIO Normal BUN/CRE 18.9 LAB L501.1500 6.4-8.2 g/dL T Normal PROT 7.8 LAB L501.1800 3.2-5.0 g/dL Normal ALB 4.5 LAB L501.1950 2.2-4.2 g/dL Normal GLOB 3.3 LAB L501.2000 0.9-2.4 RATIO Normal A/G 1.4 LAB L501.2200 8.5-10.1 mg/dL CA Normal 9.3 LAB L501.4100 15-37 U/L Normal AST 18 LAB L501.4305 45-117 U/L Normal ALK P 96 LAB L501.4405 13-56 U/L Normal ALT 27 LAB L501.4600 0.20-1.00 mg/dL T Normal BILI 0.50 LAB L501.5300 136-145 mmol/L NA Normal 141 LAB L501.5600 3.5-5.1 mmol/L K Normal 4.0 LAB L501.5900 98-107 mmol/L High CL 110 LAB L501.6100 21.0-32.0 mmol/L Low CO2 20.0 LAB L501.6200 5-15 Normal GAP 11 Performed By: #### L500.4050 #### [facility] [address] [place], [place], [address] KEPPRA (LEVETIRACETAM) Collected: 11/28/2017 Status: F Source: [place] 10:28 AM [facility] TYPE CODE TESTS RESULT OUT OF RANGE REFERENCE UNITS LAB L3310.0000 10.0-40.0 ug/mL Normal KEPPRA 23.6 Result Comment: Performed at: [facility] [address] [id number] Clinical Fellow: Chris Hernandez MD, Phone: [phone] Performed By: #### L3310.0000 #### [facility] (refer to report for specific site) refer to report for address and phone number PLASTIC SURGERY Observed: 10/15/2017 Status: F Source: [place] VISIT REPORT 11:53 PM [facility] [address] [place] [address] OFFICE VISIT Date of Service: 09/25/17 MR#: [id number] Acct: [id number] Name: DIANNE LIRIANO Ben Rep #: [id number] : 1960 Provider: Patrick Phillips MD Age/Sex: 57/F Location: [facility] Status: Signed Intake Vital Signs09/25/17 Height 5 ft 4 in 09/25/17 Weight: 184 lb 8 oz Intake Visit Reasons: evaluation late effect cat bite right hand Delivery Man Required: No Accompanied by: Is patient in pain?: Yes (PAIN IN HAND - DEEP ACHING SWOLLEN AND PRESSURE) Pain scale (1-10): 4 Allergies bupropion HCl [From Wellbutrin] Allergy (Verified 10/03/17 09:47) Unknown pregabalin [From Lyrica] Allergy (Verified 10/03/17 09:47) Unknown gabapentin Adverse Reaction (Verified 10/03/17 09:47) Other hydromorphone [From Dilaudid] Adverse Reaction (Verified 10/03/17 09:47) Other MRI Adverse Reaction (Uncoded 10/03/17 09:47) Other Medications Azathioprine 50 mg PO QHS 02/11/17 [History Confirmed 10/03/17] Budesonide 0.25 mg INHALATION 4X/DAY 02/11/17 [History Confirmed 10/03/17] Ergocalciferol [Vitamin D] 50,000 unit PO QWEEK 02/11/17 [History Confirmed 10/03/17] Estradiol 0.5 mg PO DAILY 02/11/17 [History Confirmed 10/03/17] Levetiracetam 1,000 mg PO QHS 02/11/17 [History Confirmed 10/03/17] Levetiracetam 500 mg PO DAILY 02/11/17 [History Confirmed 10/03/17] Magnesium Oxide [Magnesium] 1,000 mg PO DAILY 02/11/17 [History Confirmed 10/03/17] MedroxyPROGESTERone [Provera] 1.25 mg PO DAILY 02/11/17 [History Confirmed 10/03/17] Ropinirole HCl [Requip] 0.25 mg PO QHS PRN 02/11/17 [History Confirmed 10/03/17] Selenium 200 mcg PO DAILY 02/11/17 [History Confirmed 10/03/17] Fexofenadine HCl [Yadira Allergy] 60 mg PO DAILY PRN PRN 02/27/17 [History Confirmed 10/03/17] Omeprazole [Prilosec] 40 mg PO DAILY 02/27/17 [History Confirmed 10/03/17] Pyridoxine HCl [Vitamin B6] 50 mg PO DAILY 02/27/17 [History Confirmed 10/03/17] Topiramate [Trokendi Xr] 50 mg PO QHS 02/27/17 [History Confirmed 10/03/17] Topiramate [Trokendi Xr] 100 mg PO QHS 02/27/17 [History Confirmed 10/03/17] Vitamin E 800 unit PO DAILY 02/27/17 [History Confirmed 10/03/17] Docusate Sodium [Colace] 100 mg PO BID #60 cap 04/12/17 [Rx Confirmed 10/03/17] Iron Polysaccharide Complex [Ferrex 150] 150 mg PO DAILYCM #30 cap 04/12/17 [Rx Confirmed 10/03/17] Oxycodone HCl/Acetaminophen [Percocet 5-325] 1 - 2 tab PO 4X/DAY PRN PRN #60 04/12/17 [Rx Confirmed 10/03/17] ProMETHAzine [Phenergan] 25 mg PO 4X/DAY PRN PRN #30 tab 04/12/17 [Rx Confirmed 10/03/17] levothyroxine 175 mcg tablet 175 mcg PO DAILY #30 tab 09/09/17 [Rx Confirmed 10/03/17] albuterol sulfate HFA 90 mcg/actuation aerosol inhaler 2 puff INHALATION Q4H #1 inh 10/03/17 [Rx Confirmed 10/03/17] umeclidinium 62.5 mcg-vilanterol 25 mcg/actuation powdr for inhalation 1 inh INHALATION Q24H #60 ea 10/03/17 [Rx Confirmed 10/03/17] oxycodone-acetaminophen 5 mg-325 mg tablet See Label Instructions PO 4X/DAY PRN #30 tab 10/15/17 [Rx Confirmed 10/15/17] Patient : No PFSH Medical History Dyspnea (Chronic) Hypersomnia (Chronic) Subacromial bursitis of left shoulder joint (Chronic) Degenerative disc disease (Chronic) Migraines (Chronic) Hyperlipidemia (Chronic) Hypocalcemia (Chronic) Acute osteomyelitis of right hand (Acute) Abscess of right forearm (Acute) Arthritis due to other bacteria, right wrist (Acute) Stiffness of right wrist joint (Acute) Stiffness of finger joint of right hand (Acute) Complex regional pain syndrome of right upper extremity (Acute) Abscess of bursa, right hand (Acute) Abscess of bursa, right wrist (Acute) Other synovitis and tenosynovitis, right hand (Acute) History of gastroesophageal reflux (GERD) (Chronic) History of hypothyroidism (Chronic) RLS (restless legs syndrome) (Chronic) Infection of right hand (Acute) Cellulitis of right hand (Acute) Abscess of right hand (Acute) Seizure disorder (Chronic) Encephalopathy chronic (Acute) Cat bite of hand (Acute) Pain in right hand (Acute) COPD (chronic obstructive pulmonary disease) (Acute) Arthritis (Acute) Asthma (Acute) Back problem (Acute) CAT BITE ABCESS RIGHT MID PALM (Acute) CAT BITE INFECTION ABSCESS DISTAL PALM (Acute) CAT BITE INFECTION ABSCESS MIDCARPAL JOINTS RIGHT WRIST (Acute) CAT BITE INFECTION ABSCESS RIGHT DISTAL FOREARM (Acute) CATBITE ABSCESS CARPAL TUNNEL RIGHT WRIST (Acute) COMPARTMENT SYNDROME DORSAL INTEROSSEOUS MUSCLES RIGHT HAND (Acute) Difficulty balancing (Acute) Environmental allergies (Acute) Epilepsy (Acute) HEADACHES/MIGRAINES (Acute) HERPETIC LESION DORSUM RIGHT INDEX FINGER (Acute) HOSHIMOTO ENCEPHELITIS (Acute) Hay fever (Acute) Hearing problem (Acute) High cholesterol (Acute) Hypothyroidism (Acute) Knee pain (Acute) Lung disease (Acute) OSTEOMYELITIS RIGHT DISTAL RADIUS (Acute) REFLEX DYSTROPHY RIGHT HAND AND WRIST (Acute) Restless legs (Acute) SOB (shortness of breath) (Acute) SUPPURATIVE FLEXOR TENOSYNOVITIS RIGHT SMALL FINGER (Acute) Seizure (Acute) UNUSUAL TIREDNESS (Acute) Vision problem (Acute) Surgical History History of bladder suspension procedure (Resolved) History of tonsillectomy (Resolved) Status post VNS (vagus nerve stimulator) placement (Resolved) History of endometrial ablation (Resolved) History of tubal ligation (Resolved) ABLATION (Acute) BLADDER LIFT (Acute) CARPAL BONE RIGHT WRIST FOR OSTEOMYELITIS (Acute) EAR TUBES AND TONSILS (Acute) INCISION AND DRAINAGE RIGHT ULNAR PALM (Acute) SURGICAL PREPARATION RIGHT DISTAL PALM (Acute) Tubal ligation status (Acute) VAGUS NERVESTIMULATOR IMPLANT (Acute) Family History Mother Arthritis Bleeding disorder Hypertension High cholesterol LUNG/RESPIRATORY DISEASE Social History Smoking Status: Former smoker second hand exposure: No alcohol intake: never substance use type: does not use caffeine: Yes what type of physical activity do you participate in: other frequency: 3-4 times per week HPI evaluation late effect cat bite right hand: Details: HISTORY OF PRESENT ILLNESS: 57-year-old woman presents for further evaluation and treatment of a late effect of a severe cat bite to her right hand with residual stiffness and pain in the hand. She was initially bitten at the end of January by a feral cat that she was trying to get back into her crate. The cat was exhibiting signs of neurologic disease and when the patient tried to pick her up she was bitten. Since then the feral cat has been . She initially went to get this looked at on February 04, 2017 and was given Augmentin. Improvement was minimal and she was switched over to Bactrim. Once again she was noticing increasing pain, swelling, and redness extending onto her forearm, and she went to the emergency department on February 11, 2017. She was taken to surgery that evening by Dr. Forde who performed an incision and drainage procedure. While in the hospital she was treated with IV Unasyn and was discharged back to Augmentin. She followed up with Dr. Forde's office who recommended that she go to the wound center for continued wound care treatment. Patient states she could not get an appointment with the wound center for a couple weeks and went to [facility] for further evaluation and treatment. When they saw the extent of redness and swelling extending onto her forearm and they sent her up to [facility] where she was admitted for 5 days and had a PICC line placed and was started on Unasyn. She continued on Unasyn IV antibiotics until I saw her in the office on 02/27/17. She was admitted to the hospital for continued IV antibiotic therapy and went to the OR on 02/28/17 where she underwent surgical preparation right distal palm at ulnar aspect by small finger with incision and drainage and excisional debridement cat bite abscess and incision tendon sheath right small finger for suppurative flexor tenosynovitis and incision and drainage right midpalm cat bite abscess and incision and drainage cat bite abscess carpal tunnel right wrist and neuroplasty median nerve. Operative cultures were negative but she was still continued on IV antibiotics with Unasyn at discharge from the hospital. The wounds showed improvement over the ensuing weeks with Aquacel Silver dressing changes. Her biggest issue was pain and the development of RSD. She started OT for range of motion exercises. The pain was slowly improving. The range of motion progress was very slow. When the Unasyn was stopped after 6 weeks of IV antibiotic therapy, she came into the office with increasing pain and redness in her wrist area and dorsum of right hand with some extension onto the distal forearm. She was once again admitted to the hospital for more aggressive IV antibiotic therapy and wound care in anticipation of further operative intervention. She was taken to the OR on 04/04/17 where she underwent incision and drainage right ulnar palm and right carpal tunnel infection and incision and drainage right distal forearm abscess (dorsal and volar) and arthrotomy midcarpal joints right wrist with exploration and drainage abscess and partial ostectomy right distal radius and joint for osteomyelitis and incision bone cortex triquetrum carpal bone right wrist for osteomyelitis and partial ostectomy right long finger metacarpal base for osteomyelitis and decompressive fasciotomy dorsal interosseous muscles right hand for compartment syndrome. She presents at this time for further evaluation and treatment. She recently saw the [facility] MD on 09/16/17. She has started OT again. To stretch it out for most of the year, will go twice a month since her insurance allows 20 visits per year. PAST MEDICAL HISTORY Lung disease. Shortness of breath. Unusual tiredness. He fever. Knee pain. Asthma. Epilepsy. Warren encephalitis. Hypothyroidism. Restless leg syndrome. Environmental allergies. Arthritis. Back problems. Headaches. Hearing problems. High cholesterol. Vision problems. Balance difficulties. Gastroesophageal reflux disease. Cat bite infection abscess distal palm on ulnar side right hand by small finger. Suppurative flexor tenosynovitis right small finger. Cat bite abscess right midpalm. Cat bite abscess carpal tunnel right wrist. Cat bite infection abscess midcarpal joints right wrist. Cat bite infection abscess right distal forearm (dorsal and volar). Herpetic lesion dorsum right index finger at ulna aspect DIP joint. RSD right hand and wrist. Osteomyelitis right distal radius, metacarpal bases right hand, carpal bones right wrist. Compartment syndrome dorsal interosseous muscles right hand. PAST SURGICAL HISTORY Vagus nerve stimulator implants. Ablation. Tubal ligation. Placement of ear tubes. Tonsillectomy. Bladder lift. Incision and drainage of right palm cat-bite infection on February 11, 2017. Surgical preparation right distal palm at ulnar aspect by small finger with incision and drainage and excisional debridement cat bite abscess and incision tendon sheath right small finger for suppurative flexor tenosynovitis and incision and drainage right midpalm cat bite abscess and incision and drainage cat bite abscess carpal tunnel right wrist and neuroplasty median nerve on 02/28/17. Incision and drainage right ulnar palm and right carpal tunnel infection and incision and drainage right distal forearm abscess (dorsal and volar) and arthrotomy midcarpal joints right wrist with exploration and drainage abscess and partial ostectomy right distal radius and joint for osteomyelitis and incision bone cortex triquetrum carpal bone right wrist for osteomyelitis and partial ostectomy right long finger metacarpal base for osteomyelitis and decompressive fasciotomy dorsal interosseous muscles right hand for compartment syndrome - 04/04/17 MEDICATIONS Estradiol. Medroxyprogesterone. Vitamin D. Magnesium. Imuran. Budesonide. Beclomethasone. Selenium. Vitamin E. Requip. Iron complex tablets. Keppra. Topamax. Morphine. Percocet. Duragesic Patch. Valium. Zoloft. Elavil. Procardia XL. ALLERGIES Wellbutrin. Neurontin. Lyrica. MRI because of placement of vagal nerve stimulator implant. SOCIAL HISTORY Patient is a former smoker. Patient does not drink alcohol. FAMILY HISTORY Positive for arthritis, diabetes, heart disease, hypertension, lung disease, bleeding disorder, and high cholesterol. REVIEW OF SYSTEMS Constitutional: Denies: Chills, Fever, Weight Change Eyes: Denies: Pain, Vision Change HEENT: Denies: Difficulty Hearing, Difficulty Swallowing, Sinus Congestion Cardiovascular: Denies: Chest Pain, Palpitations Respiratory: Denies: Cough, Shortness of Breath Gastrointestinal: Denies: Diarrhea, Nausea, Vomiting Genitourinary: Denies: Dysuria, Hematuria Skin: Reports: Wounds - right hand Endocrine: Denies: Heat/ Cold Intolerance, Polydipsia, Polyuria Hematologic/ Lymphatic: Denies: Easy Bruising, Easy Bleeding PHYSICAL EXAMINATION General: Alert, Oriented x3, Cooperative, No apparent distress HEENT: PERRLA, EOMI Neck: Supple. Lungs: Clear to auscultation Cardiovascular: Regular rate, Regular Rhythm Abdomen: Soft, Non Tender Extremities: Mild edema in right hand. Radial pulses are palpable. Skin: Healed cat bite wounds distal palm right hand on the ulnar side extending onto the small finger. Healed cat bite wound right mid palm. Healed cat bite wound right volar wrist at carpal tunnel. The wrist in general is stiff with residual tenderness. Palm is soft and nontender. Mild decrease in finger sensation to pinprick as compared to the left hand. Fingers are warm with good capillary refill. MP joints are extended. Can flex MP joints at index finger and long finger to about 45 degrees. Ring finger and small finger are stiff at MP joint but with passive flexion do show some softening and some flexion to about 30 degrees. Fingers are stiff secondary to the pain from RSD but are slowly improving. Minimal wrist flexion noted but limited secondary to the wrist pain. Elbow flexion and extension are intact without pain. Forearm supination and pronation are stiff and limited initially but with passive range of motion do show some softening and increasing supination and pronation. Thumb opposition better to index finger and long finger and can almost oppose the ring finger. When she does oppose, her thumb touches the DIP joint crease and not the finger tip. No axillary adenopathy. Patient is right hand dominant. Neurological: Cranial nerves II-XII grossly intact. Has mild paresthesias in her fingers right hand as compared to her left hand. Psych/Mental Status: Normal Affect, Appropriate ASSESSMENT 1. Cat bite infection abscess distal palm on ulnar side right hand by small finger, s/p I AND D. 2. Suppurative flexor tenosynovitis right small finger, s/p I AND D. 3. Cat bite abscess right midpalm, s/p I AND D. 4. Cat bite abscess carpal tunnel right wrist, s/p I AND D. 5. Cat bite infection abscess midcarpal joints right wrist. 6. Cat bite infection abscess right distal forearm (dorsal and volar). 7. RSD right hand and wrist. 8. Osteomyelitis right distal radius, metacarpal bases right hand, carpal bones right wrist. 9. Compartment syndrome dorsal interosseous muscles right hand. PLAN Comes in today feeling better. She states the pain is a little more manageable. The wounds remain healed. There is some stiffness in the wrist and in the first webspace. She was working on range of motion in her thumb webspace at OT. Also has an edema glove to help with swelling which should help with range of motion exercises. The thumb is starting to adduct. She has splint at home from OT to help to abduct the thumb. She needs to use it. There is some improvement with thumb abduction. The MP joints are less stiff with improved range of motion slightly. The index finger and long finger MP joints have improved the most. Almost at 45 degrees. The small finger still shows some stiffness. With passive range of motion, the small finger shows some improvement in range of motion. She was using the CPM machine but has stopped. It has helped with range of motion. Progress is slow. I have noticed improvement and have encouraged her to continue to use the machine. The elbow range of motion is good with flexion and extension. With the CPM machine, she can flex at the MP joint of the index and long fingers to about 45 degrees. The goal is 60-70 degrees. Doubt we will be able to get to 90 degrees without operative intervention with capsulectomy and pinning. She is not interested in that surgery at this time. She has better opposition with the thumb to the index finger and long finger and also to the ring finger. Opposition is not to the tip though. Her forearm is soft with improvement with supination and pronation but there is some limitation because of the stiffness in her wrist. However the supination and pronation continues to slowly improve. The shoulder is showing some improvement but needs more work. She states she is seeing Dr. Pitts for her shoulder issues. I told her it was ok for him to give her shoulder steroid injections as needed. Pathology showed the right distal radius joint was negative for osteomyelitis. The base of long finger metacarpal was negative for osteomyelitis. The triquetra bone was negative for osteomyelitis. The operative culture, soft tissue showed MRSE. The viral culture was negative. The operative culture, bone showed MRSE in all 3 bone specimens (right distal radius joint, base of long finger metacarpal, and triquetra bone).She is finished with the Vancomycin and Unasyn and tolerated Augmentin and has finished them. Continue OT for range of motion exercises, strengthening, and edema management. Also Ultrasound massage and thumb splinting. Her fingers are a little less stiff, but is going to need OT for a long time. OT has been renewed, probably twice a month. She states her insurance will pay for 20 treatments per year. So twice a month will get us 10 months of treatment. Continue the CPM machine, hopefully. Massage the incisions with skin lotion daily to help soften up the scars. Renewed her Percocet for pain, one tab (30 tabs). She went to the [facility] Center on 09/16/17 and will take over the pain medication when I am finished, so I am weaning her at this time. Followup 2 months. Assessment AND Plan Problems 1. Bitten by cat, sequela W55.01XS 2. Complex regional pain syndrome of right upper extremity G90.511 3. Abscess of right hand L02.511 4. Abscess of right forearm L02.413 5. Stiffness of finger joint of right hand M25.641 6. Stiffness of right wrist joint M25.631 7. Other synovitis and tenosynovitis, right hand M65.841 8. Abscess of bursa, right wrist M71.031 9. Abscess of bursa, right hand M71.041 10. Acute osteomyelitis of right hand M86.141 11. Traumatic compartment syndrome of right upper extremity, sequela T79.A11S Medications New: oxycodone-acetaminophen 5-325 mg 5 mg PO 4X/DAY PRN pain G90.511, L02.413, L02.511, M25.63 (Percocet) 1, M25.641, M65.841, M71.031, M71 .041, M86.141, T79.A11S, W55.01XS Coding Level of Care Code Off vis,est,level 4 Diagnoses Bitten by cat, sequela W55.01XS Complex regional pain syndrome of right upper extremity G90.511 Abscess of right hand L02.511 Abscess of right forearm L02.413 Stiffness of finger joint of right hand M25.641 Stiffness of right wrist joint M25.631 Other synovitis and tenosynovitis, right hand M65.841 Abscess of bursa, right wrist M71.031 Abscess of bursa, right hand M71.041 Acute osteomyelitis of right hand M86.141 Traumatic compartment syndrome of right upper extremity, sequela T79.A11S 10/15/17 0613 <Electronically signed by Patrick Phillips MD> Date Patrick Phillips MD Cosign Signature: Date (if applicable) CC: Sunny Reynoso DO PULMONARY VISIT REPORT Observed: 10/04/2017 Status: F Source: [place] 9:57 AM [facility] [address] [place] [address] OFFICE VISIT Date of Service: 10/03/17 MR#: [id number] Acct: [id number] Name: DIANNE LIRIANO Rep #: [id number] : 1960 Provider: Joie Ryan Age/Sex: 57/F [facility] Status: Signed Assessment AND Plan 1. Chronic obstructive pulmonary disease, unspecified COPD type J44.9 Status Acute Plan Given patient's wheezing on exam, I have decided to place her on Symbicort 2 puffs twice daily. A sample was provided, she was personally instructed on the use of the inhaler and first dose was taken in the office today. She was also provided with a spacer. She was instructed to rinse her mouth out after each use. She has also been ordered an albuterol rescue inhaler with instructions on how to use and when to use the device. I will follow-up with her in 1 month to assess her response to the newly added medication. No additional testing at this time. If stable at the one-month follow-up will plan to follow-up in 3 months. Orders Orders: 2. Hypersomnia G47.10 Status Chronic Plan The patient reports that she continues to have daytime hypersomnia. Her is concerned about her periods of apnea while sleeping that he has witnessed. I will set her up with an in-home sleep study. Discussed how the sleep study is performed and we will follow-up in 1 month to discuss test results and develop a further plan. Also discussed with the patient that if the sleep study is positive she may require a titration study or may be treated directly with AutoPap. 3. Seizure disorder G40.909 Status Chronic Plan Defer to neurology. She has a follow-up pending in November, will await their update. Complicates exam, plan and care. Plan Detail Other Medications New: albuterol sulfate HFA 90 mcg/actuation (ProAir HFA) administer 2 puffs Inhalation Q4H with spacer Follow Up 6 Weeks ([facility]) HPI 3 M FU: Chief Complaint: daytime fatigue HPI Comments Details: This patient presents to the office today for routine follow-up on her COPD, epilepsy and chronic daytime hypersomnia. She is ambulatory, currently on room air and accompanied by her . She denies being seen in the ED urgent care for any respiratory problems since her last office visit. She has not required antibiotics or prednisone for any lung infections. She admits that she is not very compliant with her budesonide nebulizer, that was prescribed to be taken twice daily. She does have wheezing, but does not currently have a rescue inhaler to attempt to treat. She denies any cough, sputum production or hemoptysis. She denies any chest tightness, chest pain or palpitations. She denies any fever, chills or body aches. See complete review of systems. She continues to follow with neurology regarding her epilepsy. She does have an appointment to follow-up with the neurologist with [facility] next month. She continues to have persistent daytime hypersomnia. Her reports that she snores intensely. She admits that sometimes she awakens herself gasping for air. He also reports that he occasionally watches her sleep and notices periods of apnea. She does fall asleep easily while watching TV and sitting still. Unfortunately, over the past year she has had complications secondary to a cat bite. She is undergone 5 surgeries to her hand and has accumulated significant medical bills which they are concerned about. Intake Vital Signs10/03/17 Height 5 ft 4 in 10/03/17 Weight: 184 lb Intake Visit Reasons: 3 M FU Accompanied by: Self Allergies bupropion HCl [From Wellbutrin] Allergy (Verified 10/03/17 09:47) Unknown pregabalin [From Lyrica] Allergy (Verified 10/03/17 09:47) Unknown gabapentin Adverse Reaction (Verified 10/03/17 09:47) Other hydromorphone [From Dilaudid] Adverse Reaction (Verified 10/03/17 09:47) Other MRI Adverse Reaction (Uncoded 10/03/17 09:47) Other Medications Azathioprine 50 mg PO QHS 02/11/17 [History Confirmed 10/03/17] Budesonide 0.25 mg INHALATION 4X/DAY 02/11/17 [History Confirmed 10/03/17] Ergocalciferol [Vitamin D] 50,000 unit PO QWEEK 02/11/17 [History Confirmed 10/03/17] Estradiol 0.5 mg PO DAILY 02/11/17 [History Confirmed 10/03/17] Levetiracetam 1,000 mg PO QHS 02/11/17 [History Confirmed 10/03/17] Levetiracetam 500 mg PO DAILY 02/11/17 [History Confirmed 10/03/17] Magnesium Oxide [Magnesium] 1,000 mg PO DAILY 02/11/17 [History Confirmed 10/03/17] MedroxyPROGESTERone [Provera] 1.25 mg PO DAILY 02/11/17 [History Confirmed 10/03/17] Ropinirole HCl [Requip] 0.25 mg PO QHS PRN 02/11/17 [History Confirmed 10/03/17] Selenium 200 mcg PO DAILY 02/11/17 [History Confirmed 10/03/17] Fexofenadine HCl [Yadria Allergy] 60 mg PO DAILY PRN PRN 02/27/17 [History Confirmed 10/03/17] Omeprazole [Prilosec] 40 mg PO DAILY 02/27/17 [History Confirmed 10/03/17] Pyridoxine HCl [Vitamin B6] 50 mg PO DAILY 02/27/17 [History Confirmed 10/03/17] Topiramate [Trokendi Xr] 50 mg PO QHS 02/27/17 [History Confirmed 10/03/17] Topiramate [Trokendi Xr] 100 mg PO QHS 02/27/17 [History Confirmed 10/03/17] Vitamin E 800 unit PO DAILY 02/27/17 [History Confirmed 10/03/17] Docusate Sodium [Colace] 100 mg PO BID #60 cap 04/12/17 [Rx Confirmed 10/03/17] Iron Polysaccharide Complex [Ferrex 150] 150 mg PO DAILYCM #30 cap 04/12/17 [Rx Confirmed 10/03/17] Oxycodone HCl/Acetaminophen [Percocet 5-325] 1 - 2 tab PO 4X/DAY PRN PRN #60 04/12/17 [Rx Confirmed 10/03/17] ProMETHAzine [Phenergan] 25 mg PO 4X/DAY PRN PRN #30 tab 04/12/17 [Rx Confirmed 10/03/17] levothyroxine 175 mcg tablet 175 mcg PO DAILY #30 tab 09/09/17 [Rx Confirmed 10/03/17] albuterol sulfate HFA 90 mcg/actuation aerosol inhaler 2 puff INHALATION Q4H #1 inh 10/03/17 [Rx Confirmed 10/03/17] umeclidinium 62.5 mcg-vilanterol 25 mcg/actuation powdr for inhalation 1 inh INHALATION Q24H #60 ea 10/03/17 [Rx Confirmed 10/03/17] PFSH Medical History Dyspnea (Chronic) Hypersomnia (Chronic) Subacromial bursitis of left shoulder joint (Chronic) Degenerative disc disease (Chronic) Migraines (Chronic) Hyperlipidemia (Chronic) Hypocalcemia (Chronic) Acute osteomyelitis of right hand (Acute) Traumatic compartment syndrome of right upper extremity, subsequent encounter (Acute) Abscess of right forearm (Acute) Arthritis due to other bacteria, right wrist (Acute) Stiffness of right wrist joint (Acute) Stiffness of finger joint of right hand (Acute) Complex regional pain syndrome of right upper extremity (Acute) Abscess of bursa, right hand (Acute) Abscess of bursa, right wrist (Acute) Other synovitis and tenosynovitis, right hand (Acute) Bitten by cat, subsequent encounter (Acute) History of gastroesophageal reflux (GERD) (Chronic) History of hypothyroidism (Chronic) RLS (restless legs syndrome) (Chronic) Infection of right hand (Acute) Cellulitis of right hand (Acute) Abscess of right hand (Acute) Seizure disorder (Acute) Encephalopathy chronic (Acute) Cat bite of hand (Acute) Pain in right hand (Acute) COPD (chronic obstructive pulmonary disease) (Acute) Arthritis (Acute) Asthma (Acute) Back problem (Acute) CAT BITE ABCESS RIGHT MID PALM (Acute) CAT BITE INFECTION ABSCESS DISTAL PALM (Acute) CAT BITE INFECTION ABSCESS MIDCARPAL JOINTS RIGHT WRIST (Acute) CAT BITE INFECTION ABSCESS RIGHT DISTAL FOREARM (Acute) CATBITE ABSCESS CARPAL TUNNEL RIGHT WRIST (Acute) COMPARTMENT SYNDROME DORSAL INTEROSSEOUS MUSCLES RIGHT HAND (Acute) Difficulty balancing (Acute) Environmental allergies (Acute) Epilepsy (Acute) HEADACHES/MIGRAINES (Acute) HERPETIC LESION DORSUM RIGHT INDEX FINGER (Acute) HOSHIMOTO ENCEPHELITIS (Acute) Hay fever (Acute) Hearing problem (Acute) High cholesterol (Acute) Hypothyroidism (Acute) Knee pain (Acute) Lung disease (Acute) OSTEOMYELITIS RIGHT DISTAL RADIUS (Acute) REFLEX DYSTROPHY RIGHT HAND AND WRIST (Acute) Restless legs (Acute) SOB (shortness of breath) (Acute) SUPPURATIVE FLEXOR TENOSYNOVITIS RIGHT SMALL FINGER (Acute) Seizure (Acute) UNUSUAL TIREDNESS (Acute) Vision problem (Acute) Surgical History History of bladder suspension procedure (Resolved) History of tonsillectomy (Resolved) Status post VNS (vagus nerve stimulator) placement (Resolved) History of endometrial ablation (Resolved) History of tubal ligation (Resolved) ABLATION (Acute) BLADDER LIFT (Acute) CARPAL BONE RIGHT WRIST FOR OSTEOMYELITIS (Acute) EAR TUBES AND TONSILS (Acute) INCISION AND DRAINAGE RIGHT ULNAR PALM (Acute) SURGICAL PREPARATION RIGHT DISTAL PALM (Acute) Tubal ligation status (Acute) VAGUS NERVESTIMULATOR IMPLANT (Acute) Family History Mother Arthritis Bleeding disorder Hypertension High cholesterol LUNG/RESPIRATORY DISEASE Social History household members: spouse Smoking Status: Former smoker second hand exposure: No alcohol intake: never substance use type: does not use caffeine: Yes what type of physical activity do you participate in: other details: DANCING frequency: 3-4 times per week seatbelt use: always additional social history: SUN EXPOSURE - RARE Review of Systems Const CONSTITUTIONAL: Positive daytime sleepiness and fatigue; negative anorexia, body ache, chills, fever(s), night sweats, oral thrush, stops breathing during sleep, weight loss, sleeping in chair, weight loss, weight gain, frequent colds, seasonal allergies, other, headache(s) or orthopnea EETM Ear Nose Throat Mouth: Positive dry mouth in morning; negative hard of hearing, hearing normal, hoarseness, change in vision, itchy eyes, eye pain, swallowing Difficulty, ear pain, nose bleed, headache(s), mouth pain, nasal congestion, nasal discharge, sinus pain, sinus pressure, sore throat or other Cardio Cardiovascular: Negative chest pain, chest pain at rest, chest pain with activity, irregular heart rhythm, edema, shortness of breath when lying down, palpitations, murmur or other Resp Respiratory: Positive as per HPI, shortness of breath and apnea; negative pain with cough, wheezing, chest congestion, cough, chest tightness, pain on inspiration, inhalers, increase use of rescue inhalers, snoring or other Gastro Gastrointestional: Negative bloody stools, change in appetite, difficulty swallowing, reflux, hematemesis, melena stool, loose stool, constipation or other Genitourinary: Negative blood in urine, nocturia, pain with urination or other Musc Musculoskeletal: Negative body pain, back pain, neck pain or other Skin/Breast Skin/Breast: Negative dry skin, itching, rash, unusual bruising, breast lump or other Neuro Neurological: Positive restless legs; negative confusion, weakness or other Psych Psychocological: Positive abnormal sleep pattern; negative anxiety, thoughts of hurting self/others, hopelessness or other Lymph Lymphatic: Negative easy bleeding, easy bruising, swollen lymph nodes or other Exam Const Constitutional: Positive conversant, cooperative, in no acute respiratory distress, healthy appearing, well developed, well nourished and good hygiene Head Head: Positive normocephalic and atraumatic; negative cyanosis of lips/distal nose Eyes Eye: Positive clear conjunctiva and nystagmus; negative scleral abnormality Ears Ear: Positive external ears normal; negative hard of hearing or hearing normal Nose Nose: Positive external nose normal and no nasal discharge; negative epistaxis Mouth Mouth: Positive oral mucosae normal, no lesions, good dentition and crowded posterior oropharynx; negative malodorous breath or oral thrush present Mallampati Score: IV: Mallampati Score Neck Neck: Positive normal visual inspection, full ROM and trachea midline; negative lymphadenopathy, JVD or tender Chest Wall Chest: Positive normal inspection of the chest and symmetric chest movement; negative increased A/P diameter Resp lung sounds: Positive clear to auscultation, good air exchange, normal expiratory time and normal respiratory effort; negative diminished, wheezes, rhonchi, rales, dullness to percussion or wheeze present on forced exhalation Cardio Cardiac: Positive regular rate, S1 normal, S2 normal and regular rhythm; negative murmur GI GI: Positive normal to inspection and normal bowel sounds; negative distended Genitourinary: Positive deferred Musc Musculoskeletal: Positive steady gait and ROM normal; negative kyphosis or scoliosis Skin Pulmonary Skin Exam: Positive intact; negative rash, lesion, ulcers, erythema, scaly or dermal atrophy Pulses Pulse: Yes pulses normal x4 extremities Extremities Extremities: Yes capillary refill normal, No clubbing, No cyanosis, No edema, No stasis dermatitis Neuro Neurologic: Yes conversant, Yes no focal neuro deficits, Yes cooperative, Yes normal cognition, Yes normal coordination, Yes normal concentration, Yes understands questions, No tremor Lymph Lymphatic: No lymphadenopathy, No tenderness, No cervical adenopathy, No axillary adenopathy Psych Appearance: Positive grossly normal, eye contact and well kempt Mental Status: Positive mental status grossly normal Mood: Positive congruent mood Affect: Positive normal affect Office Procedures Inhaler Training Inhaler Training Procedure performed by: Joie Ryan Inhaler Training: Yes personally trained on inhaler use, sample provided, first dose given in the office, expresses understanding and continue to monitor Coding Level of Care Code Off vis,est,level 4 Diagnoses Chronic obstructive pulmonary disease, unspecified COPD type J44.9 COPD type: unspecified COPD Hypersomnia G47.10 Seizure disorder G40.909 10/04/17 0957 <Electronically signed by Joie TAMEZ> Date Joie TAMEZ Cosigner Signature: Date (if applicable) CC: Sunny Reynoso DO PLASTIC SURGERY Observed: 09/28/2017 Status: F Source: [place] VISIT REPORT 11:14 PM [facility] [address] [place] [address] OFFICE VISIT Date of Service: 08/28/17 MR#: [id number] Acct: [id number] Name: DIANNE LIRIANO Rep #: [id number] : 1960 Provider: Patrick Phillips MD Age/Sex: 57/F Location: [facility] Status: Signed Intake Vital Signs08/28/17 Height 5 ft 4 in 08/28/17 Weight: 180 lb 8 oz Intake Visit Reasons: postop surgery 04/04/17 and 7/27/17 Delivery Man Required: No Accompanied by: Is patient in pain?: Yes (right hand tight feeling) Pain scale (1-10): 2 Allergies bupropion HCl [From Wellbutrin] Allergy (Verified 09/25/17 09:09) Unknown pregabalin [From Lyrica] Allergy (Verified 09/25/17 09:09) Unknown gabapentin Adverse Reaction (Verified 09/25/17 09:09) Other hydromorphone [From Dilaudid] Adverse Reaction (Verified 09/25/17 09:09) Other MRI Adverse Reaction (Uncoded 09/25/17 09:09) Other Medications Azathioprine 50 mg PO QHS 02/11/17 [History Confirmed 09/25/17] Budesonide 0.25 mg INHALATION 4X/DAY 02/11/17 [History Confirmed 09/25/17] Ergocalciferol [Vitamin D] 50,000 unit PO QWEEK 02/11/17 [History Confirmed 09/25/17] Estradiol 0.5 mg PO DAILY 02/11/17 [History Confirmed 09/25/17] Levetiracetam 1,000 mg PO QHS 02/11/17 [History Confirmed 09/25/17] Levetiracetam 500 mg PO DAILY 02/11/17 [History Confirmed 09/25/17] Magnesium Oxide [Magnesium] 1,000 mg PO DAILY 02/11/17 [History Confirmed 09/25/17] MedroxyPROGESTERone [Provera] 1.25 mg PO DAILY 02/11/17 [History Confirmed 09/25/17] Ropinirole HCl [Requip] 0.25 mg PO QHS PRN 02/11/17 [History Confirmed 09/25/17] Selenium 200 mcg PO DAILY 02/11/17 [History Confirmed 09/25/17] Fexofenadine HCl [Yadira Allergy] 60 mg PO DAILY PRN PRN 02/27/17 [History Confirmed 09/25/17] Omeprazole [Prilosec] 40 mg PO DAILY 02/27/17 [History Confirmed 09/25/17] Pyridoxine HCl [Vitamin B6] 50 mg PO DAILY 02/27/17 [History Confirmed 09/25/17] Topiramate [Trokendi Xr] 50 mg PO QHS 02/27/17 [History Confirmed 09/25/17] Topiramate [Trokendi Xr] 100 mg PO QHS 02/27/17 [History Confirmed 09/25/17] Vitamin E 800 unit PO DAILY 02/27/17 [History Confirmed 09/25/17] Docusate Sodium [Colace] 100 mg PO BID #60 cap 03/06/17 [Rx Confirmed 09/25/17] Docusate Sodium [Colace] 100 mg PO BID #60 cap 04/12/17 [Rx Confirmed 09/25/17] Gauze Bandage [Bandage Roll] 1 ea TP .QDAILY #30 bandage 04/12/17 [Rx Confirmed 09/25/17] Gauze Bandage [Gauze Pads] 2 ea TP .QDAILY #60 bandage 04/12/17 [Rx Confirmed 09/25/17] Iron Polysaccharide Complex [Ferrex 150] 150 mg PO DAILYCM #30 cap 04/12/17 [Rx Confirmed 09/25/17] Oxycodone HCl/Acetaminophen [Percocet 5-325] 1 - 2 tab PO 4X/DAY PRN PRN #60 04/12/17 [Rx Confirmed 09/25/17] ProMETHAzine [Phenergan] 25 mg PO 4X/DAY PRN PRN #30 tab 04/12/17 [Rx Confirmed 09/25/17] oxycodone-acetaminophen 5 mg-325 mg tablet 1 tab PO .COMPLEX PRN #30 tab 07/18/17 [Rx Confirmed 09/25/17] levothyroxine 175 mcg tablet 175 mcg PO DAILY #30 tab 09/09/17 [Rx Confirmed 09/25/17] Patient : No PFSH Medical History Dyspnea (Chronic) Hypersomnia (Chronic) Subacromial bursitis of left shoulder joint (Chronic) Degenerative disc disease (Chronic) Migraines (Chronic) Hyperlipidemia (Chronic) Hypocalcemia (Chronic) Acute osteomyelitis of right hand (Acute) Traumatic compartment syndrome of right upper extremity, subsequent encounter (Acute) Abscess of right forearm (Acute) Arthritis due to other bacteria, right wrist (Acute) Stiffness of right wrist joint (Acute) Stiffness of finger joint of right hand (Acute) Complex regional pain syndrome of right upper extremity (Acute) Abscess of bursa, right hand (Acute) Abscess of bursa, right wrist (Acute) Other synovitis and tenosynovitis, right hand (Acute) Bitten by cat, subsequent encounter (Acute) History of gastroesophageal reflux (GERD) (Chronic) History of hypothyroidism (Chronic) RLS (restless legs syndrome) (Chronic) Infection of right hand (Acute) Cellulitis of right hand (Acute) Abscess of right hand (Acute) Seizure disorder (Acute) Encephalopathy chronic (Acute) Cat bite of hand (Acute) Pain in right hand (Acute) COPD (chronic obstructive pulmonary disease) (Acute) Arthritis (Acute) Asthma (Acute) Back problem (Acute) CAT BITE ABCESS RIGHT MID PALM (Acute) CAT BITE INFECTION ABSCESS DISTAL PALM (Acute) CAT BITE INFECTION ABSCESS MIDCARPAL JOINTS RIGHT WRIST (Acute) CAT BITE INFECTION ABSCESS RIGHT DISTAL FOREARM (Acute) CATBITE ABSCESS CARPAL TUNNEL RIGHT WRIST (Acute) COMPARTMENT SYNDROME DORSAL INTEROSSEOUS MUSCLES RIGHT HAND (Acute) Difficulty balancing (Acute) Environmental allergies (Acute) Epilepsy (Acute) HEADACHES/MIGRAINES (Acute) HERPETIC LESION DORSUM RIGHT INDEX FINGER (Acute) HOSHIMOTO ENCEPHELITIS (Acute) Hay fever (Acute) Hearing problem (Acute) High cholesterol (Acute) Hypothyroidism (Acute) Knee pain (Acute) Lung disease (Acute) OSTEOMYELITIS RIGHT DISTAL RADIUS (Acute) REFLEX DYSTROPHY RIGHT HAND AND WRIST (Acute) Restless legs (Acute) SOB (shortness of breath) (Acute) SUPPURATIVE FLEXOR TENOSYNOVITIS RIGHT SMALL FINGER (Acute) Seizure (Acute) UNUSUAL TIREDNESS (Acute) Vision problem (Acute) Surgical History History of bladder suspension procedure (Resolved) History of tonsillectomy (Resolved) Status post VNS (vagus nerve stimulator) placement (Resolved) History of endometrial ablation (Resolved) History of tubal ligation (Resolved) ABLATION (Acute) BLADDER LIFT (Acute) CARPAL BONE RIGHT WRIST FOR OSTEOMYELITIS (Acute) EAR TUBES AND TONSILS (Acute) INCISION AND DRAINAGE RIGHT ULNAR PALM (Acute) SURGICAL PREPARATION RIGHT DISTAL PALM (Acute) Tubal ligation status (Acute) VAGUS NERVESTIMULATOR IMPLANT (Acute) Family History Mother Arthritis Bleeding disorder Hypertension High cholesterol LUNG/RESPIRATORY DISEASE Social History Smoking Status: Former smoker second hand exposure: No alcohol intake: never substance use type: does not use caffeine: Yes what type of physical activity do you participate in: other frequency: 3-4 times per week HPI postop surgery 04/04/17 and 02/28/17: Details: Postop visit from her recent surgery on 04/04/17 where she underwent incision and drainage right ulnar palm and right carpal tunnel infection and incision and drainage right distal forearm abscess (dorsal and volar) and arthrotomy midcarpal joints right wrist with exploration and drainage abscess and partial ostectomy right distal radius and joint for osteomyelitis and incision bone cortex triquetrum carpal bone right wrist for osteomyelitis and partial ostectomy right long finger metacarpal base for osteomyelitis and decompressive fasciotomy dorsal interosseous muscles right hand for compartment syndrome. Patient was discharged from the hospital on 04/12/17. Postop visit from her recent surgery on February 28, 2017 where she underwent surgical preparation right distal palm at ulnar aspect by small finger with incision and drainage and excisional debridement cat bite abscess and incision tendon sheath right small finger for suppurative flexor tenosynovitis and incision and drainage right mid palm cat-bite abscess and incision and drainage cat-bite abscess carpal tunnel right wrist and neuroplasty median nerve. Patient was discharged from the hospital on March 06, 2017. Comes in today feeling better. She states the pain is a little more manageable. The wounds remain healed. There is some stiffness in the wrist and in the first webspace. She was working on range of motion in her thumb webspace at OT. Also has an edema glove to help with swelling which should help with range of motion exercises. The thumb is starting to adduct. She has splint at home from OT to help to abduct the thumb. She needs to use it. There is some improvement with thumb abduction. The MP joints are less stiff with improved range of motion slightly. The index finger and long finger MP joints have improved the most. Almost at 45 degrees. The small finger still shows some stiffness. With passive range of motion, the small finger shows some improvement in range of motion. She is using the CPM machine which should help with range of motion. Progress is slow. I have noticed improvement and have encouraged her to continue to use the machine. The elbow range of motion is good with flexion and extension. With the CPM machine, she can flex at the MP joint of the index and long fingers to about 45 degrees. The goal is 60-70 degrees. Doubt we will be able to get to 90 degrees without operative intervention with capsulectomy and pinning. She has better opposition with the thumb to the index finger and long finger. Opposition is not to the tip though. Her forearm is soft with improvement with supination and pronation but there is some limitation because of the stiffness in her wrist. However the supination and pronation continues to slowly improve. The shoulder is showing some improvement but needs more work. She states she is seeing Dr. Pitts for her shoulder issues. I told her it was ok for him to give her shoulder steroid injections as needed. Pathology showed the right distal radius joint was negative for osteomyelitis. The base of long finger metacarpal was negative for osteomyelitis. The triquetra bone was negative for osteomyelitis. The operative culture, soft tissue showed MRSE. The viral culture was negative. The operative culture, bone showed MRSE in all 3 bone specimens (right distal radius joint, base of long finger metacarpal, and triquetra bone).She is finished with the Vancomycin and Unasyn and tolerated Augmentin and has finished them. Continue OT for range of motion exercises, strengthening, and edema management. Also Ultrasound massage ad thumb splinting. Her fingers are a little less stiff, but is going to need OT for a long time. Will need to renew the order for OT, probably twice a month. She states her insurance will pay for 20 treatments per year. So twice a month will get us 10 months of treatment. Continue the CPM machine. Massage the incisions with skin lotion daily to help soften up the scars. She has enough pain medication for now. [facility]. Followup one month. PAST MEDICAL HISTORY: lung disease SOB unusual tiredness Hay Fever knee pain Asthma epilepsy warren encephalitis hypothyroidism restless legs environmental allergies Arthritis Back problems Headaches/migraines Hearing problems High Cholesterol Seizure Vision problem Balance difficulties Cat-bite infection abscess distal palm on ulnar side right hand by small finger Suppurative flexor tenosynovitis right small finger Cat-bite abscess right mid palm Cat-bite abscess carpal tunnel right wrist Reflex dystrophy right hand and wrist Cat bite infection abscess midcarpal joints right wrist Cat bite infection abscess right distal forearm (dorsal and volar) Herpetic lesion dorsum right index finger at ulnar aspect DIP joint Osteomyelitis right distal radius, metacarpal bases right hand, carpal bones right wrist Compartment syndrome dorsal interosseous muscles right hand PAST SURGICAL HISTORY: vagus nerve stimulator implant ablation tubal ligation ear tubes and tonsils bladder lift surgical preparation right distal palm at ulnar aspect by small finger with incision and drainage and excisional debridement cat bite abscess and incision tendon sheath right small finger for suppurative flexor tenosynovitis and incision and drainage right mid palm cat-bite abscess and incision and drainage cat-bite abscess carpal tunnel right wrist and neuroplasty median nerve - 02/28/17 incision and drainage right ulnar palm and right carpal tunnel infection and incision and drainage right distal forearm abscess (dorsal and volar) and arthrotomy midcarpal joints right wrist with exploration and drainage abscess and partial ostectomy right distal radius and joint for osteomyelitis and incision bone cortex triquetrum carpal bone right wrist for osteomyelitis and partial ostectomy right long finger metacarpal base for osteomyelitis and decompressive fasciotomy dorsal interosseous muscles right hand for compartment syndrome - 04/04/17 FAMILY HISTORY: Other family member - Has Family History of Arthritis Other family member - Has Family History of Diabetes Other family member - Has Family History of Heart Disease Other family member - Has Family History of Hypertension Other family member - Has Family History of Lung/Respiratory Disease Mother (biol.) - Has Family History of Arthritis Mother (biol.) - Has Family History of Bleeding Disease Mother (biol.) - Has Family History of Hypertension Mother (biol.) - Has Family History of High Cholesterol Mother (biol.) - Has Family History of Lung/Respiratory Disease SOCIAL HISTORY: Alcohol Use - no Drug Use - no Regular Exercise - yes Patient is a former smoker. Assessment AND Plan Problems 1. Bitten by cat, subsequent encounter W55.01XD 2. Abscess of right hand L02.511 3. Complex regional pain syndrome of right upper extremity G90.511 4. Other synovitis and tenosynovitis, right hand M65.841 5. Abscess of bursa, right wrist M71.031 6. Abscess of bursa, right hand M71.041 7. Stiffness of finger joint of right hand M25.641 8. Stiffness of right wrist joint M25.631 9. Arthritis due to other bacteria, right wrist M00.831 10. Abscess of right forearm L02.413 11. Traumatic compartment syndrome of right upper extremity, subsequent encounter T79.A11D 12. Acute osteomyelitis of right hand M86.141 Orders Referrals: OT Referral G90.511, L02.413, L02.511, M25.631, M25.641, M65.841, M71.031, M71.041, M86.14 1, T79.A11D, W55.01XD Coding Level of Care Code Global Post Op Diagnoses Bitten by cat, subsequent encounter W55.01XD Abscess of right hand L02.511 Complex regional pain syndrome of right upper extremity G90.511 Other synovitis and tenosynovitis, right hand M65.841 Abscess of bursa, right wrist M71.031 Abscess of bursa, right hand M71.041 Stiffness of finger joint of right hand M25.641 Stiffness of right wrist joint M25.631 Arthritis due to other bacteria, right wrist M00.831 Abscess of right forearm L02.413 Traumatic compartment syndrome of right upper extremity, subsequent encounter T79.A11D Acute osteomyelitis of right hand M86.141 09/28/17 2314 <Electronically signed by Patrick Phillips MD> Date Patrick Phillips MD Cosigner Signature: Date (if applicable) CC: PLASTIC SURGERY Observed: 09/08/2017 Status: F Source: [place] VISIT REPORT 6:41 PM [facility] [address] [place] [address] OFFICE VISIT Date of Service: 07/31/17 MR#: [id number] Acct: [id number] Name: DIANNE LIRIANO Rep #: [id number] : 1960 Provider: Patrick Phillips MD Age/Sex: 57/F Location: [facility] Status: Signed Intake Vital Signs07/31/17 Height 5 ft 4 in 07/31/17 Weight: 182 lb 6 oz 07/31/17 Body Mass Index (BMI) 31.3 Intake Visit Reasons: postop surgery 04/04/17 and 02/28/17 Accompanied by: Is patient in pain?: Yes Pain scale (1-10): 3 Allergies bupropion HCl [From Wellbutrin] Allergy (Verified 08/28/17 10:36) Unknown pregabalin [From Lyrica] Allergy (Verified 08/28/17 10:36) Unknown gabapentin Adverse Reaction (Verified 08/28/17 10:36) Other hydromorphone [From Dilaudid] Adverse Reaction (Verified 08/28/17 10:36) Other MRI Adverse Reaction (Uncoded 08/28/17 10:36) Other Medications Azathioprine 50 mg PO QHS 02/11/17 [History Confirmed 08/28/17] Budesonide 0.25 mg INHALATION 4X/DAY 02/11/17 [History Confirmed 08/28/17] Ergocalciferol [Vitamin D] 50,000 unit PO QWEEK 02/11/17 [History Confirmed 08/28/17] Estradiol 0.5 mg PO DAILY 02/11/17 [History Confirmed 08/28/17] Levetiracetam 1,000 mg PO QHS 02/11/17 [History Confirmed 08/28/17] Levetiracetam 500 mg PO DAILY 02/11/17 [History Confirmed 08/28/17] Levothyroxine [Synthroid] 175 mcg PO DAILY 02/11/17 [History Confirmed 08/28/17] Magnesium Oxide [Magnesium] 1,000 mg PO DAILY 02/11/17 [History Confirmed 08/28/17] MedroxyPROGESTERone [Provera] 1.25 mg PO DAILY 02/11/17 [History Confirmed 08/28/17] Ropinirole HCl [Requip] 0.25 mg PO QHS PRN 02/11/17 [History Confirmed 08/28/17] Selenium 200 mcg PO DAILY 02/11/17 [History Confirmed 08/28/17] Fexofenadine HCl [Yadira Allergy] 60 mg PO DAILY PRN PRN 02/27/17 [History Confirmed 08/28/17] Omeprazole [Prilosec] 40 mg PO DAILY 02/27/17 [History Confirmed 08/28/17] Pyridoxine HCl [Vitamin B6] 50 mg PO DAILY 02/27/17 [History Confirmed 08/28/17] Topiramate [Trokendi Xr] 50 mg PO QHS 02/27/17 [History Confirmed 08/28/17] Topiramate [Trokendi Xr] 100 mg PO QHS 02/27/17 [History Confirmed 08/28/17] Vitamin E 800 unit PO DAILY 02/27/17 [History Confirmed 08/28/17] Docusate Sodium [Colace] 100 mg PO BID #60 cap 03/06/17 [Rx Confirmed 08/28/17] Docusate Sodium [Colace] 100 mg PO BID #60 cap 04/12/17 [Rx Confirmed 08/28/17] Gauze Bandage [Bandage Roll] 1 ea TP .QDAILY #30 bandage 04/12/17 [Rx Confirmed 08/28/17] Gauze Bandage [Gauze Pads] 2 ea TP .QDAILY #60 bandage 04/12/17 [Rx Confirmed 08/28/17] Iron Polysaccharide Complex [Ferrex 150] 150 mg PO DAILYCM #30 cap 04/12/17 [Rx Confirmed 08/28/17] Oxycodone HCl/Acetaminophen [Percocet 5-325] 1 - 2 tab PO 4X/DAY PRN PRN #60 04/12/17 [Rx Confirmed 08/28/17] ProMETHAzine [Phenergan] 25 mg PO 4X/DAY PRN PRN #30 tab 04/12/17 [Rx Confirmed 08/28/17] oxycodone-acetaminophen 5 mg-325 mg tablet 1 tab PO .COMPLEX PRN #30 tab 07/18/17 [Rx Confirmed 08/28/17] [facility] Medical History Acute osteomyelitis of right hand (Acute) Traumatic compartment syndrome of right upper extremity, subsequent encounter (Acute) Abscess of right forearm (Acute) Arthritis due to other bacteria, right wrist (Acute) Stiffness of right wrist joint (Acute) Stiffness of finger joint of right hand (Acute) Complex regional pain syndrome of right upper extremity (Acute) Abscess of bursa, right hand (Acute) Abscess of bursa, right wrist (Acute) Other synovitis and tenosynovitis, right hand (Acute) Bitten by cat, subsequent encounter (Acute) History of gastroesophageal reflux (GERD) (Chronic) History of hypothyroidism (Chronic) RLS (restless legs syndrome) (Chronic) Infection of right hand (Acute) Cellulitis of right hand (Acute) Abscess of right hand (Acute) Seizure disorder (Acute) Encephalopathy chronic (Acute) Cat bite of hand (Acute) Pain in right hand (Acute) COPD (chronic obstructive pulmonary disease) (Acute) Arthritis (Acute) Asthma (Acute) Back problem (Acute) CAT BITE ABCESS RIGHT MID PALM (Acute) CAT BITE INFECTION ABSCESS DISTAL PALM (Acute) CAT BITE INFECTION ABSCESS MIDCARPAL JOINTS RIGHT WRIST (Acute) CAT BITE INFECTION ABSCESS RIGHT DISTAL FOREARM (Acute) CATBITE ABSCESS CARPAL TUNNEL RIGHT WRIST (Acute) COMPARTMENT SYNDROME DORSAL INTEROSSEOUS MUSCLES RIGHT HAND (Acute) Difficulty balancing (Acute) Environmental allergies (Acute) Epilepsy (Acute) HEADACHES/MIGRAINES (Acute) HERPETIC LESION DORSUM RIGHT INDEX FINGER (Acute) HOSHIMOTO ENCEPHELITIS (Acute) Hay fever (Acute) Hearing problem (Acute) High cholesterol (Acute) Hypothyroidism (Acute) Knee pain (Acute) Lung disease (Acute) OSTEOMYELITIS RIGHT DISTAL RADIUS (Acute) REFLEX DYSTROPHY RIGHT HAND AND WRIST (Acute) Restless legs (Acute) SOB (shortness of breath) (Acute) SUPPURATIVE FLEXOR TENOSYNOVITIS RIGHT SMALL FINGER (Acute) Seizure (Acute) UNUSUAL TIREDNESS (Acute) Vision problem (Acute) Surgical History ABLATION (Acute) BLADDER LIFT (Acute) CARPAL BONE RIGHT WRIST FOR OSTEOMYELITIS (Acute) EAR TUBES AND TONSILS (Acute) INCISION AND DRAINAGE RIGHT ULNAR PALM (Acute) SURGICAL PREPARATION RIGHT DISTAL PALM (Acute) Tubal ligation status (Acute) VAGUS NERVESTIMULATOR IMPLANT (Acute) Family History Mother Arthritis Bleeding disorder Hypertension High cholesterol LUNG/RESPIRATORY DISEASE Social History Smoking Status: Former smoker HPI postop surgery 04/04/17 and 02/28/17: Details: Postop visit from her recent surgery on 04/04/17 where she underwent incision and drainage right ulnar palm and right carpal tunnel infection and incision and drainage right distal forearm abscess (dorsal and volar) and arthrotomy midcarpal joints right wrist with exploration and drainage abscess and partial ostectomy right distal radius and joint for osteomyelitis and incision bone cortex triquetrum carpal bone right wrist for osteomyelitis and partial ostectomy right long finger metacarpal base for osteomyelitis and decompressive fasciotomy dorsal interosseous muscles right hand for compartment syndrome. Patient was discharged from the hospital on 04/12/17. Postop visit from her recent surgery on February 28, 2017 where she underwent surgical preparation right distal palm at ulnar aspect by small finger with incision and drainage and excisional debridement cat bite abscess and incision tendon sheath right small finger for suppurative flexor tenosynovitis and incision and drainage right mid palm cat-bite abscess and incision and drainage cat-bite abscess carpal tunnel right wrist and neuroplasty median nerve. Patient was discharged from the hospital on March 06, 2017. Comes in today feeling better. She states the pain is a little more manageable. The wounds remain healed. There is some stiffness in the wrist and in the first webspace. She is working on range of motion in her thumb webspace at OT. Also has an edema glove to help with swelling which should help with range of motion exercises. The thumb is starting to adduct. She has splint at home from OT to help to abduct the thumb. She needs to use it. There is some improvement with thumb abduction. The MP joints are less stiff with improved range of motion slightly. The index finger and long finger MP joints have improved the most. Almost at 45 degrees. The small finger still shows some stiffness. She is using the CPM machine which should help with range of motion. Progress is slow. I have noticed improvement and have encouraged her to continue to use the machine. The elbow range of motion is good with flexion and extension. With the CPM machine, she can flex at the MP joint of the index and long fingers to about 45 degrees. The goal is 60-70 degrees. Doubt we will be able to get to 90 degrees without operative intervention with capsulectomy and pinning. Her forearm is soft with improvement with supination and pronation but there is some limitation because of the stiffness in her wrist. However the supination and pronation continues to slowly improve. The shoulder is showing some improvement but needs more work. She states she is seeing Dr. Pitts for her shoulder issues. I told her it was ok for him to give her shoulder steroid injections as needed. Pathology showed the right distal radius joint was negative for osteomyelitis. The base of long finger metacarpal was negative for osteomyelitis. The triquetra bone was negative for osteomyelitis. The operative culture, soft tissue showed MRSE. The viral culture was negative. The operative culture, bone showed MRSE in all 3 bone specimens (right distal radius joint, base of long finger metacarpal, and triquetra bone).She is finished with the Vancomycin and Unasyn and tolerated Augmentin and has finished them. Continue OT for range of motion exercises, strengthening, and edema management. Her fingers are a little less stiff, but is going to need OT for a long time. Will need to renew the order for OT, probably twice a week for an additional month and renew as needed. Continue the CPM machine. Massage the incisions with skin lotion daily to help soften up the scars. She has enough pain medication for now. [facility] or in September. Followup one month. PAST MEDICAL HISTORY: lung disease SOB unusual tiredness Hay Fever knee pain Asthma epilepsy warren encephalitis hypothyroidism restless legs environmental allergies Arthritis Back problems Headaches/migraines Hearing problems High Cholesterol Seizure Vision problem Balance difficulties Cat-bite infection abscess distal palm on ulnar side right hand by small finger Suppurative flexor tenosynovitis right small finger Cat-bite abscess right mid palm Cat-bite abscess carpal tunnel right wrist Reflex dystrophy right hand and wrist Cat bite infection abscess midcarpal joints right wrist Cat bite infection abscess right distal forearm (dorsal and volar) Herpetic lesion dorsum right index finger at ulnar aspect DIP joint Osteomyelitis right distal radius, metacarpal bases right hand, carpal bones right wrist Compartment syndrome dorsal interosseous muscles right hand PAST SURGICAL HISTORY: vagus nerve stimulator implant ablation tubal ligation ear tubes and tonsils bladder lift surgical preparation right distal palm at ulnar aspect by small finger with incision and drainage and excisional debridement cat bite abscess and incision tendon sheath right small finger for suppurative flexor tenosynovitis and incision and drainage right mid palm cat-bite abscess and incision and drainage cat-bite abscess carpal tunnel right wrist and neuroplasty median nerve - 02/28/17 incision and drainage right ulnar palm and right carpal tunnel infection and incision and drainage right distal forearm abscess (dorsal and volar) and arthrotomy midcarpal joints right wrist with exploration and drainage abscess and partial ostectomy right distal radius and joint for osteomyelitis and incision bone cortex triquetrum carpal bone right wrist for osteomyelitis and partial ostectomy right long finger metacarpal base for osteomyelitis and decompressive fasciotomy dorsal interosseous muscles right hand for compartment syndrome - 04/04/17 FAMILY HISTORY: Other family member - Has Family History of Arthritis Other family member - Has Family History of Diabetes Other family member - Has Family History of Heart Disease Other family member - Has Family History of Hypertension Other family member - Has Family History of Lung/Respiratory Disease Mother (biol.) - Has Family History of Arthritis Mother (biol.) - Has Family History of Bleeding Disease Mother (biol.) - Has Family History of Hypertension Mother (biol.) - Has Family History of High Cholesterol Mother (biol.) - Has Family History of Lung/Respiratory Disease SOCIAL HISTORY: Alcohol Use - no Drug Use - no Regular Exercise - yes Patient is a former smoker. Assessment AND Plan Problems 1. Bitten by cat, subsequent encounter W55.01XD 2. Abscess of right hand L02.511 3. Complex regional pain syndrome of right upper extremity G90.511 4. Other synovitis and tenosynovitis, right hand M65.841 5. Abscess of bursa, right wrist M71.031 6. Abscess of bursa, right hand M71.041 7. Stiffness of finger joint of right hand M25.641 8. Stiffness of right wrist joint M25.631 9. Arthritis due to other bacteria, right wrist M00.831 10. Abscess of right forearm L02.413 11. Traumatic compartment syndrome of right upper extremity, subsequent encounter T79.A11D 12. Acute osteomyelitis of right hand M86.141 Coding Level of Care Code Global Post Op Diagnoses Bitten by cat, subsequent encounter W55.01XD Abscess of right hand L02.511 Complex regional pain syndrome of right upper extremity G90.511 Other synovitis and tenosynovitis, right hand M65.841 Abscess of bursa, right wrist M71.031 Abscess of bursa, right hand M71.041 Stiffness of finger joint of right hand M25.641 Stiffness of right wrist joint M25.631 Arthritis due to other bacteria, right wrist M00.831 Abscess of right forearm L02.413 Traumatic compartment syndrome of right upper extremity, subsequent encounter T79.A11D Acute osteomyelitis of right hand M86.141 09/08/17 1840 <Electronically signed by Patrick Phillips MD> Date Patrick Phillips MD Cosigner Signature: Date (if applicable) CC: RE-EVALUTION OT Observed: 08/30/2017 Status: F Source: [place] 2:05 PM [facility] [address] [place] [address] Fax REEVALUATION / MEDICARE RECERTIFICATION OCCUPATIONAL THERAPY MR#: [id number] Acct: [id number] Name: DIANNE LIRIANO Rep #: [id number] : 1960 57 From: Liberty Pardo Referring Dr.: Patrick Phillips MD Status: REG RCR Insurance: [employer] JUST FOR ME Eval Date: Patrick Phillips, It has been my pleasure to treat DIANNE LIRIANO over the last 1 visits for Cat bite with abscess to carpal tunnel, suppuratuive flexor tenosynovitis. Please see the progress note below for an update on the occupational therapy plan of care! Subjective: Arrived and noted things are going ok. She notes she cotninues to use statdyne daily, complete HEP, and have shoulder pain that reaches 7- 8/10 everynight. Edcuated on potential for PT to try for shoulder mobility and rehab so OT can focus on wrist and hand. Pt. to think on it and see if she wants to do that. She noted she was not as good at exercises for the shoulder as she was for her hand. She further noted pain comes when she is using it and not just sitting anymore. Objective/Function: Reassessment completed on this date and Pt. progressed from last appointment with mvoement of fingers. SHe is able to complete slight AROM (measurments below) of R hand. She is unable to form composite fist at this time but is able to complete thumb opposition to PIP of 2nd and 3rd digits. This is progression as previously Pt. was unable to complete AROM of fingers. Measurements are as follows: Supination R 0-3 degrees, L WFL. Wrist flexion R 15-46, L 0-73. extension R -15-8, L 0-66. radial deviation R 0-3, L 0-15. ulnar deviation R 0-9, L 0-37. MCP R 2-5th fingers 3-46, -9-38, -11-34, -20-27. MCP R PIP 2-5th fingers 3-46, 5-46, 0-40, 13-38. DIP R 0-12, 6-10, 10-10, 10-10. Thumb MP 20-48, DIP 0-29. thumb radial abduction R 0-24 degrees, L 0-90 degrees. Strength. Rn Outpatient Surgery R negligible, L 79 lbs. Dianne is progressing with treatment. She continues to exhibit increased crepitus in all joints expecially wrist which appears to be due to arthitis and scar tissue. Increased keloid scaring to dorsal and volar hands. Increased scarring over CTS continues to have increased tissue formation at this time. Wrist movement is extremely limited on R side and OT to start working on PROM and other manual therpay techniques to avoid joint fusion. Plan Frequency: 1x weekfor next 2 weeks; everyother week after that Duration: 8-9 months Plan: continue POC. She will be starting with 1xweekly for next 2 weeks. After that she will completed OT 1x every two weeks to spread out visits and promote increased ROM and strength for increased fx in R hand. 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 Goal:: Pt. to be able to actively form composite fist 5/5 trials 100% of the time to increase (I) and ability to manipulate change and complete self-care tasks by time of d/c. Pt. ROM of R hand to be that of equal value of L non involved hand for increased(I) and ability to complete self-care tasks by time of d/c. Goal:: Pt. pain to be under 2/10 in R UE at shoulder, elbow, wrist, and hand 4/5 trials 80% of the time by time of d/c. Goal:: Pt. will be able to actively for tripod grasp for increased ability to complete fasteners and manipulate other self care items 100% of the time by d/c. Goal:: Pt. R hand to measure within 1-2 cm of L non affected hand, with edema management techniques as needed, for increased ability to complete ADL/IADls 4/5 trials 80% of the time by time of d/c. Goal:: Pt. to be mod I to cook meal, from start to stop, with R dominant hand with use of L hand for bilateral hand tasks as needed 4/5 trials 80% of the time, with pain WFL, by time of d/c. Goal:: Pt. to be able to manipulate silverware through using R hand to cut food 4/5 trials 80% of the time to increase (I) and decrease need for assistance by time of d/c. Goal:: Pt. to be able to actively flex/extend all PIP of R fingers to WFL 100% of the by session #15 to promote increased ability to use fingers to decrease risk of contractures and pain by tiem of d/c. Anticipated Interventions Anticipated Interventions: A/AAROM/PROM, Strengthening, Edema Control, Scar Care, Massage, Wound Care, Modalities, Orthoses, Joint Protection/Energy Conservation, Fine Motor Coord/Aakash, ADL Training, Education re Skin Care and Precautions, Education re Self Massage Techniques, Education re Correct Donning Tech,Care AND Wearing Sched Comp Garments, Caregiver Training, Home Program Please do not hesitate to contact me at [phone] by phone or if you have questions or concerns regarding this new plan of care! Sincerely, Liberty Pardo <Electronically signed by Liberty Pardo > 08/30/17 3601 CC: Patrick Phillips MD; Sunny Reynoso DO KMRakel Signed For Medicare only, by signing this I certify the plan of care. Physicians Signature Date ALLERGIES ALLERGIES DATE TYPE / CODE NAME / CODE REACTION SEVERITY SOURCE Drug bupropion Unknown Unknown [place] 8 Allergy/672699379( HCl/[id number](RXN [facility]) OR) Hospital Repository Drug gabapentin/[id number] Other Unknown [place] 8 Allergy/244168950( 415(RXNORM) [facility]) Hospital Repository Drug hydromorphone/F006 Other Unknown [place] 8 Allergy/666913111( 275822(RXNORM) [facility]) Hospital Repository Drug pregabalin/[id number] Unknown Unknown [place] 8 Allergy/696707769( 083(RXNORM) [facility]) Hospital Repository Miscellaneous MRI Other Unknown [place] 8 Allergy/442718918( [facility] SN[facility]) Hospital Repository DRUG/[id number](SNO HYDROMORPHONE OTHER: SEE [facility] [address]) (BULK) Clinic Other [place] Repository DRUG GABAPENTIN UNKNOWN [place] 7 INGREDI/520677302( Clinic Other SNOMED CT) [place] Repository DRUG BUPROPION HCL OTHER: SEE [facility] [place] 7 INGREDI/437477241( Clinic Other SNOMED CT) [place] Repository DRUG PREGABALIN OTHER: SEE [facility] [place] 2 INGREDI/786231431( Clinic Other SNOMED CT) [place] Repository NG/[id number](SNOME HYDROMORPHONE [facility]) (BULK) [facility] Repository NG/846951685(SNOME GABAPENTIN [facility]) [facility] System Repository NG/[id number](SNOME PREGABALIN [facility]) [facility] Repository NG/872203730(SNOME BUPROPION HCL [facility]) Health System Repository ENCOUNTERS ENCOUNTERS ADMIT/DISCHARGE ACCOUNT NUMBER ADMITTING ENCOUNTER LOCATION SOURCE CLASS 08/21/2018/08/21/19 [id number] Ambulatory [address] Main [place] Repository 08/20/2018/08/20/19 [id number] Ambulatory [address] [place] Repository 08/19/2018/08/19/19 [id number] Ambulatory [address] Repository 08/01/2018 [id number] [facility] Repository 07/22/2018 [id number] [facility] ding:[facility] Repository 07/14/2018/07/14/20 [id number] Ambulatory [address] Repository 07/14/2018/07/14/20 [id number] Ambulatory [address] MEDICAL Repository CENTERBuildi ng:EAST 07/02/2018/07/02/20 [id number] Ambulatory BMSBuilding: [place] 18 [facility]MS.[facility] Repository 06/27/2018 [id number] Ambulatory [facility] ding:MTLAB Repository 06/25/2018/06/25/20 [id number] Emergency [place] ding:ED Repository 06/12/2018/06/12/20 [id number] Ambulatory BMSBuilding: [place] 18 BMS.[facility] Repository 06/06/2018 [id number] Ambulatory [facility] Repository 06/06/2018/06/06/20 [id number] Ambulatory [address] MEDICAL Repository CENTERBuildi ng:AKLBB 04/22/2018 [id number] Ambulatory [facility] ding:LABSPEC Repository 04/20/2018/04/20/20 [id number] Ambulatory BMSBuilding: [place] 18 BMS.[facility] Repository 04/08/2018 [id number] Ambulatory [facility] Repository 04/08/2018/04/08/20 [id number] Ambulatory [address] MEDICAL Repository CENTERBuildi ng:AKLBS 04/08/2018/04/08/20 [id number] Ambulatory [address] Repository 04/08/2018/04/08/20 [id number] Ambulatory [address] MEDICAL Repository CENTERBuildi ng:EAST 03/25/2018/03/25/20 [id number] Ambulatory [address] ding:OT Repository 02/19/2018 [id number] Ambulatory BMSBuilding: [place] BMS.[facility] Repository 02/12/2018/02/13/20 [id number] Ambulatory BMSBuilding: [place] 18 BMS.[facility] Repository 01/30/2018 [id number] Ambulatory [facility] ding:MTLAB Repository 01/24/2018/01/25/20 [id number] Ambulatory [address] Repository 01/24/2018/01/25/20 [id number] Ambulatory [address] Repository 01/24/2018/01/25/20 [id number] Ambulatory [address] Repository 12/13/2017 [id number] Ambulatory [facility] ding:LAB Repository 12/09/2017/12/10/19 [id number] Ambulatory BMSBuilding: [place] 18 BMS.[facility] Repository 11/28/2017 [id number] Ambulatory [facility] ding:MTLAB Repository 11/19/2017 [id number] Ambulatory BMSBuilding: [place] BMS.[facility] Repository 11/06/2017/11/07/19 [id number] Ambulatory BMSBuilding: [place] 18 BMS.[facility] Repository 10/23/2017 [id number] Ambulatory BMSBuilding: [place] BMS.[facility] Repository 10/03/2017/10/04/19 [id number] Ambulatory BMSBuilding: [place] 18 BMS.[facility] Repository 09/25/2017/09/25/19 [id number] Ambulatory BMSBuilding: [place] 18 BMS.[facility] Repository 08/28/2017/08/28/19 [id number] Ambulatory BMSBuilding: [place] 18 BMS.[facility] Repository 07/31/2017/07/31/20 [id number] Ambulatory BMSBuilding: [place] 17 BMS.[facility] Repository PAYERS PAYERS ENCOUNTER GUARANTOR PAYER SUBSCRIBER SOURCE 08/01/2018 DAMIAN Lambert [id number] Primary DIANNE J [place] Insurance:CARESOMIRIAN PATYDOB: [facility] [id number] Hospital [address]Utx: 330) Number: Repository [phone] ) [id number] Date:8854-51-08Gz [address] [place] [address]XP: 08/01/2018 Secondary NOT GIVENUNK [place] Insurance:SELF PAY [facility] Number: Effective Repository Date:2018-03-25 07/22/2018 DAMIAN Lambert [id number] Primary DIANNE J [facility] Insurance:CARESOURCE FRYDOB: [facility] [id number] Hospital [address]Ieo: (330) Number: Repository [phone] () [id number] Date:9222-11-88Ut [address] [address]UZ: 07/22/2018 Secondary NOT GIVENUNK [place] Insurance:SELF PAY [facility] Number: Effective Repository Date:2018-07-22 07/14/2018 DIANNE J Primary DIANNE J [facility] FRYDOB: Insurance:CARESOURCE FRYDOB: [facility] Number: [id number] [id number] [place] Date: [address]Dcx: () 07/02/2018 DAMIAN [id number] Primary DIANNE J [facility] Insurance:CARESOURCE FRYDOB: [facility] [id number] Hospital [address]Nxu: (330) Number: Repository [phone] () [id number] Date:0701-45-04Yl [address] [address]FA: 07/02/2018 Secondary NOT GIVENUNK [place] Insurance:SELF PAY [facility] Number: Effective Repository Date:2018-07-02 06/27/2018 DAMIAN [id number] Primary DIANNE J [facility] Insurance:CARESOURCE FRYDOB: [facility] [id number] Hospital [address]Cjc: (330) Number: Repository [phone] () [id number] Date:5020-36-69Az [address] [address]ZY: 06/27/2018 Secondary NOT GIVENUNK [place] Insurance:SELF PAY [facility] Number: Effective Repository Date:2018-06-27 06/25/2018 DAMIAN Lambert [id number] Primary DIANNE J [facility] Insurance:CARESOURCE FRYDOB: [place], [place] JUST FOR [facility] [id number] Hospital [address]Yar: (330) Number: Repository [phone] () [id number] Date:2270-33-57Zv [address] [address]ML: 06/25/2018 Secondary NOT GIVENUNK [place] Insurance:SELF PAY [facility] Number: Effective Repository Date:2018-06-25 06/12/2018 DAMIAN Lambert [id number] Primary DIANNE J [facility] Insurance:CARESOURCE FRYDOB: [place] JUST FOR [facility] [id number] Hospital [address]Znq: (330) Number: Repository [phone] () [id number] Date:1353-72-09Pr [address] [address]CP: 06/12/2018 Secondary NOT GIVENUNK [place] Insurance:SELF PAY [facility] Number: Effective Repository Date:2018-06-12 06/06/2018 DIANNE J Primary DIANNE J [facility] FRYDOB: Insurance:CARESOURCE FRYDOB: [facility] Number: [id number] [facility] Hospital [id number] [place] Date: [address]Bma: (HP) 04/22/2018 DAMIAN Lambert [id number] Primary DIANNE J [facility] Insurance:CARESOURCE FRYDOB: [facility] [id number] Hospital [address]Nmh: (330) Number: Repository [phone] () [id number] Date:5929-63-77Mr [address] [address]VN: 04/22/2018 Secondary NOT GIVENUNK [place] Insurance:SELF PAY [facility] Effective Repository Date:2018-04-22 04/20/2018 DAMIAN Lambert [id number] [facility] Insurance:CARESOURCE [place] [id number] Hospital [address]Spy: (330) Number: Repository [phone] () [id number] Date:8352-14-86Py [address] [address]EM: 04/20/2018 Secondary NOT GIVENUNK [place] Insurance:SELF PAY [facility] Number: Effective Repository Date:2018-04-20 04/08/2018 DIANNE J Primary DIANNE J [facility] FRYDOB: Insurance:CARESOURCE FRYDOB: [facility]: [id number] Regional Hospital [id number] [facility] [place] Date: [address]Chs: (HP) 04/08/2018 DIANNE J Primary DIANNE J [facility] FRYDOB: Insurance:CARESOURCE FRYDOB: [facility] Number: [id number] Regional Hospital [id number] [place] Date: [address]Shg: (HP) 03/25/2018 DAMIAN [id number] [facility] Insurance:CARESOURCE FRYDOB: [place] [facility] [id number] Hospital [address]Cek: (330) Number: Repository [phone] () [id number] Date:3598-74-63St [address] [address]KA: 03/25/2018 Secondary NOT GIVENUNK [place] Insurance:SELF PAY [facility] Number: Effective Repository Date:2017-03-07 02/19/2018 DAMIAN Lambert [id number] Primary DIANNE [facility] Insurance:CARESOURCE FRYDOB: [facility] [place] JUST FOR [facility] [id number] Hospital [address]Qmj: (330) Number: Repository [phone] () [id number] Date:8706-47-98Iw [address] [address]PD: 02/19/2018 Secondary NOT GIVENUNK [place] Insurance:SELF PAY [facility] Number: Effective Repository Date:2018-02-12 02/12/2018 DAMIAN Lambert [id number] Primary DIANNE [facility] Insurance:CARESOURCE FRYDOB: [facility] [place] JUST FOR [facility] [id number] Hospital [address]Nko: (330) Number: Repository [phone] () [id number] Date:8729-51-17Vv [address] [address]IF: 02/12/2018 Secondary NOT GIVENUNK [place] Insurance:SELF PAY [facility] Number: Effective Repository Date:2018-02-11 01/30/2018 DAMIAN Lambert [id number] Primary DIANNE [facility] Insurance:CARESOURCE FRYDOB: [facility] [place] [facility] [id number] Hospital [address]Yzf: (330) Number: Repository [phone] () [id number] Date:6680-84-04Xu [address] [address]CX: 01/30/2018 Secondary NOT GIVENUNK [place] Insurance:SELF PAY [facility] Number: Effective Repository Date:2018-01-30 12/13/2017 DAMIAN Lambert [id number] Primary DIANNE J [facility] Insurance:CARESOURCE FRYDOB: [facility] [facility] [id number] Hospital [address]Qtb: Number: Repository [phone] [id number] -6 (HP) Date:8597-31-15Dd [address] [address]GC: 12/13/2017 Secondary NOT GIVENUNK [place] Insurance:SELF PAY [facility] Number: Effective Repository Date:2017-12-13 12/09/2017 DAMIAN Lambert [id number] [facility] Insurance:CARESOURCE FRYDOB: [facility] [id number] Hospital [address]Hrr: Number: Repository [phone] [id number] -6 (HP) Date:8526-71-15Ke [address] [place] [address]LT: 12/09/2017 Secondary NOT GIVENUNK [place] Insurance:SELF PAY [facility] Number: Effective Repository Date:2017-12-03 11/28/2017 DAMIAN Lambert [id number] Primary DIANNE J [facility] Insurance:CARESOURCE FRYDOB: [facility] [id number] Hospital [address]Iof: Number: Repository [phone] [id number] (HP) Date:6106-36-72Be [address] [address]DK: 11/28/2017 Secondary NOT GIVENUNK [place] Insurance:SELF PAY [facility] Number: Effective Repository Date:2017-11-28 11/19/2017 DAMIAN Lambert [id number] [facility] Insurance:CARESOURCE FRYDOB: [facility] [id number] Hospital [address]Mac: Number: Repository [phone] [id number] -6 (HP) Date:6603-42-56Zi [address] [place] [address]HQ: 11/19/2017 Secondary NOT GIVENUNK [place] Insurance:SELF PAY [facility] Number: Effective Repository Date:2017-11-14 11/06/2017 DAMIAN Lambert [id number] [facility] Insurance:CARESOURCE FRYDOB: [facility] [id number] Hospital [address]Evs: Number: Repository [phone] [id number] -6 (HP) Date:7530-76-56Hu [address] [place] [address]QP: 11/06/2017 Secondary NOT GIVENUNK [place] Insurance:SELF PAY [facility] Number: Effective Repository Date:2017-11-06 10/23/2017 DAMIAN Lambert [id number] Primary DIANNE J [facility] Insurance:CARESOURCE FRYDOB: [facility] [id number] Hospital [address]Inm: Number: Repository [phone] [id number] -6 (HP) Date:1969-68-34Ph [address] [place] [address]SE: 10/23/2017 Secondary NOT GIVENUNK [place] Insurance:SELF PAY [facility] Number: Effective Repository Date:2017-09-25 10/03/2017 DAMIAN Lambert [id number] Primary Dianne FryDOB: [facility] Insurance:CARESOURCE [id number] [facility] [address]Zmj: Number: Repository [phone] [id number] -6 (HP) Date:2845-10-41Tt [address] [address]TM: 10/03/2017 Secondary NOT GIVENUNK [place] Insurance:SELF PAY [facility] Number: Effective Repository Date:2017-08-26 09/25/2017 DAMIAN Lambert [id number] Primary Dianne FryDOB: [facility] Insurance:CARESOURCE [id number] [id number]: Number: Repository [phone] [id number] -6 (HP) Date:7257-40-39Cr [address] [place] [address]MR: 09/25/2017 Secondary NOT GIVENUNK [place] Insurance:SELF PAY [facility] Number: Effective Repository Date:2017-08-28 08/28/2017 DAMIAN F [id number] Primary DIANNE Ben [facility] Insurance:CARESOURCE FRYDOB: [facility] [id number] Hospital [address]Fae: Number: Repository [phone] [id number] -6 (HP) Date:5857-02-28JP [address] [place] [address]UM: 08/28/2017 Secondary NOT GIVENUNK [place] Insurance:SELF PAY [facility] Number: Effective Repository Date:2017-07-31 07/31/2017 Damian Petra [id number] Primary [facility] Insurance:CARESOURCE FRYDOB: [facility] [id number] Hospital [address]Xhk: Number: Repository [phone] [id number] -6 (HP) Date:8793-38-62BJ [address] [address]ZL: 07/31/2017 Secondary NOT GIVENUNK [place] Insurance:SELF PAY [facility] Number: Effective Repository Date:2017-07-10
== END ==
LOC: BFHLAB 12:26
PROVIDERS: Family Provider Family Medicine; PCP Family Medicine; Visit Provider Family Medicine
DX: R30.0 Dysuria (principal)
CPT/HCPCS: 87086; 87088

== ENCOUNTER → 2018-10-06 16:34 | Outpatient (CLI) | payer OTHER, SELFPAY ==
[2018-07-02 10:50] VITALS: BMI 32.5
[2018-10-06 17:35] LABS: Absolute Lymphocyte Count 1.63 X10^3/ul (0.83-4.51); Absolute Neutrophil Count 4.2 X10^3/uL (2.0-7.7); Basophil# 0.03 X10^3/uL; Basophil% 0.4 % (0-1); Eosinophil# 0.19 X10^3/uL; Eosinophils% 2.8 % (0-5); Hematocrit 42.2 % (37-47); Hemoglobin 13.7 g/dl (12.0-15.0); Lymphocyte # 1.63 X10^3/ul (4.0); Lymphocyte % 24.4 % (19-41); Mean Corp Hgb Conc 32.5 g/gl (32-36); Mean Corpuscular Hgb 30.7 pg (27.0-32.0); Mean Corpuscular Volume 94.6 fL (81-99); Mean Platelet Vol. 10.2 fl (6.2-12.0); Monocyte# 0.64 X10^3/uL; Monocyte% 9.6 % (0-10); Neutrophil # 4.17 X10^3/uL (2.7-7.7); Neutrophil % 62.7 % (47-70); POSITIVE COUNT NO; POSITIVE DIFFERENTIAL NO; POSITIVE MORPHOLOGY NO; Platelet Count 232 K/mm3 (150-450); RBC Distribution Width CV 11.8 % (11.6-14.6); RBC Distribution Width SD 40.4 fl (35.1-43.9); Red Blood Count 4.46 M/mm3 (4.2-5.4); White Blood Count 6.7 K/mm3 (4.4-11.0)
[2018-10-06 17:58] LABS: ALB/GLOB Ratio 1.1 RATIO (0.9-2.4); AST(SGOT) 26 U/L (15-37); Alanine Aminotransfer ALT/SGPT 27 U/L (13-56); Albumin, Serum 3.9 g/dL (3.2-5.0); Alkaline Phosphatase 86 U/L (45-117); Anion Gap 8 (5-15); BUN 13 mg/dL (7-18); BUN/Creat Ratio 13.4 RATIO (10-20); Calcium,Total 8.7 mg/dL (8.5-10.1); Chloride 112 mmol/L (98-107); Creatinine, Serum 0.97 mg/dL (0.55-1.02); EST Glomerular Filtration Rate 63 mL/min (>60); Est Glom Filt Rate - Afr Amer 76 mL/min (>60); Globulin 3.4 g/dL (2.2-4.2); Glucose 108 mg/dL (74-106); Potassium 3.9 mmol/L (3.5-5.1); Protein, Total 7.3 g/dL (6.4-8.2); Sodium Level 143 mmol/L (136-145)
== END ==
LOC: BFHLAB 16:35
PROVIDERS: Family Provider Family Medicine; PCP Family Medicine; Visit Provider Family Medicine
DX: N89.8 Other specified noninflammatory disorders of vagina (principal); R35.8 Other polyuria; R35.0 Frequency of micturition; Z51.81 Encounter for therapeutic drug level monitoring
CPT/HCPCS: 80053; 85025

== ENCOUNTER → 2018-10-22 13:52 | Outpatient (CLI) | payer OTHER, SELFPAY ==
[2018-07-02 10:50] VITALS: BMI 32.5
[2018-10-22 16:05] LABS: T4 Free Direct 1.34 ng/dL (0.76-1.46)
== END ==
LOC: MTLAB 13:55
PROVIDERS: Family Provider Family Medicine; PCP Family Medicine
DX: E03.9 Hypothyroidism, unspecified (principal)
CPT/HCPCS: 36415; 84439

== ENCOUNTER 2018-10-27 14:00 | Outpatient (RCR) | payer OTHER, SELFPAY ==
--- NOTE | 2018-07-09 16:11 | HP.OTREVAL ---
Randy Reynoso DO, It has been my pleasure to treat DIANNE BENZ over the last 19 visits for Cat Bite. Please see the progress note below for an update on the occupational therapy plan of care! Subjective: Arrived with . Noted when south on cruise hand did very well. I weas amazed how well it loosened up. Objective/Function: Complete reassessment on this date of 07/09/18. Results are as follows: ROM: Wrist: L 0-0-15, R WNL. She exhibits 15 degrees flexion but no noticeable or measurable extension at this time. Wrist is extremely limited with active and passive ROM and appears to be fused at this time. Fingers for R hand only: 2nd MCP 0-77, PIP 0-75, DIP 0-10. 3rd MCP -5-0-65, PIP 0-64, DIP 0-19. 4th MCP 0-55, PIP 0-49, DIP 12-17. 5th -25-0-33, PIP 30-61, 14-21. R Thumb. MP 0-64. IP -14-0-12. 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 Geno has progressed with all ROM measurements of R fingers. Wrist movement has plateaued at this time. 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 This is progress from previous measurements. Plan Visits in this POC: 20 Plan: continue POC. Will complete finished therapy for this year and then continue next year for 1x weekly- every other week depending of affordability for client. It would benefit her to continued OT as with HEP and splint management she is progressing with finger ROM. OT tightened flexion glove today. OT is working on making static progressive splint to promote increased PIP and DIP flexion while flexion glove helps with MCP flexion. Additionally, would like to try other conservative management of hands to promote increased movement. Goals - Goals Goal:: Dianne to regain #30 lbs of pipe fitter maintenance strength 4/5 trials 80% of the time to increase (I) and ability to complete ADL/IADL by time of d/c. Goal:: Dianne to be able to actively form composite fist 5/5 trials 100% of the time to increase (I) and ability to manipulate change and complete self-care tasks by time of d/c. Dianne ROM of R hand to be that of equal value of L noninvolved hand for increased(I) and ability to complete self-care tasks by time of d/c. Goal:: Dianne pain to be under 2/10 in R UE at shoulder, elbow, wrist, and hand 4/5 trials 80% of the time by time of d/c. Goal:: Dianne will be able to actively for tripod grasp for increased ability to complete fasteners and manipulate other self-care items 100% of the time by d/c. Goal:: Dinane R hand to measure within 1-2 cm of L non-affected hand, with edema management techniques as needed, for increased ability to complete ADL/IADls 4/5 trials 80% of the time by time of d/c. Goal:: Dianne to be mod I to cook meal, from start to stop, with R dominant hand with use of L hand for bilateral hand tasks as needed 4/5 trials 80% of the time, with pain WFL, by time of d/c. Goal:: Dianne to be able to manipulate silverware through using R hand to cut food 4/5 trials 80% of the time to increase (I) and decrease need for assistance by time of d/c. Goal:: Dianne to be able to actively flex/extend all PIP of R fingers to WFL 100% of the by session #15 to promote increased ability to use fingers to decrease risk of contractures and pain by time of d/c. Anticipated Interventions Anticipated Interventions: A/AAROM/PROM, Strengthening, Scar Care, Modalities, Orthoses, Joint Protection/Energy Conservation, Ergonomic Education, Fine Motor Coord/Aakash, ADL Training, Education re assistive Equipment, Caregiver Training, Home Program Please do not hesitate to contact me at [phone] by phone or if you have questions or concerns regarding this new plan of care! Sincerely, Liberty Pardo
== END 2018-10-27 19:00 | disposition home or self-care (01) ==
LOC: OT 14:00
PROVIDERS: Family Provider Family Medicine; PCP Family Medicine; Visit Provider Family Medicine
DX: L02.511 Cutaneous abscess of right hand (principal); W55.01XD Bitten by cat, subsequent encounter; G90.511 Complex regional pain syndrome I of right upper limb; M65.841 Other synovitis and tenosynovitis, right hand; M71.031 Abscess of bursa, right wrist; M71.04 Abscess of bursa, hand; M25.631 Stiffness of right wrist, not elsewhere classified; M25.641 Stiffness of right hand, not elsewhere classified; L02.413 Cutaneous abscess of right upper limb; T79.A11D Traumatic compartment syndrome of right upper extremity, subsequent encounter; M86.141 Other acute osteomyelitis, right hand
CPT/HCPCS: 97035; 97110; 97140; 97168; 97530; 97760

== ENCOUNTER → 2018-11-24 | Outpatient (CLI) | payer OTHER, SELFPAY ==
[2018-07-02 10:50] VITALS: BMI 32.5
[2018-11-24 12:33] LABS: Homocysteine 8.6 umol/L (3.2-10.7)
[2018-11-24 13:00] LABS: Hematocrit 40.1 % (37-47); Hemoglobin 13.5 g/dl (12.0-15.0); Mean Corp Hgb Conc 33.7 g/gl (32-36); Mean Corpuscular Hgb 30.5 pg (27.0-32.0); Mean Corpuscular Volume 90.5 fL (81-99); Mean Platelet Vol. 10.4 fl (6.2-12.0); Platelet Count 204 K/mm3 (150-450); RBC Distribution Width CV 12.2 % (11.6-14.6); RBC Distribution Width SD 40.1 fl (35.1-43.9); Red Blood Count 4.43 M/mm3 (4.2-5.4); White Blood Count 4.6 K/mm3 (4.4-11.0)
[2018-11-24 13:03] LABS: Scan Indicated on CBC? Y/N NO
[2018-11-24 13:13] LABS: ALB/GLOB Ratio 1.4 RATIO (0.9-2.4); AST(SGOT) 21 U/L (15-37); Alanine Aminotransfer ALT/SGPT 24 U/L (13-56); Albumin, Serum 3.9 g/dL (3.2-5.0); Alkaline Phosphatase 85 U/L (45-117); Anion Gap 5 (5-15); BUN 17 mg/dL (7-18); BUN/Creat Ratio 18.7 RATIO (10-20); Calcium,Total 8.8 mg/dL (8.5-10.1); Chloride 111 mmol/L (98-107); Creatinine, Serum 0.91 mg/dL (0.55-1.02); EST Glomerular Filtration Rate 68 mL/min (>60); Est Glom Filt Rate - Afr Amer 82 mL/min (>60); Ferritin 81 ng/mL (8-252); Globulin 2.8 g/dL (2.2-4.2); Glucose 98 mg/dL (74-106); Potassium 3.8 mmol/L (3.5-5.1); Protein, Total 6.7 g/dL (6.4-8.2); Sodium Level 140 mmol/L (136-145); Thyroid Stim Hormone (TSH) 0.29 uIU/mL (0.358-3.74)
[2018-11-24 13:25] LABS: Vitamin B12 518 pg/mL (211-911)
[2018-11-24 13:31] LABS: Hemoglobin A1c 5.6 % (4.2-6.3)
[2018-11-25 16:07] LABS: PROEL- A/G Ratio 1.3 (0.7-1.7); PROEL- Albumin 3.8 g/dL (2.9-4.4); PROEL- Alpha-1 Globulin 0.2 g/dL (0.0-0.4); PROEL- Alpha-2 Globulin 0.7 g/dL (0.4-1.0); PROEL- Beta Globulin 1.1 g/dL (0.7-1.3); PROEL- Gamma Globulin 0.9 g/dL (0.4-1.8); PROEL- Globulin, Total 2.9 g/dL (2.2-3.9); PROEL- TOTAL PROTEIN 6.7 g/dL (6.0-8.5)
[2018-11-26 14:07] LABS: PROELU- Albumin, Urine 26.7 % (.); PROELU- Alpha-1-Globulin,Ur 4.7 % (.); PROELU- Alpha-2-Globulin,Ur 13.1 % (.); PROELU- Beta Globulin, Ur 31.2 % (.); PROELU- Gamma Globulin, Ur 24.3 % (.); Total Protein, Ur 9.1 mg/dL (Not Estab.)
== END | disposition home or self-care (01) ==
LOC: MTLAB 09:34
PROVIDERS: Family Provider Family Medicine; PCP Family Medicine
DX: E03.9 Hypothyroidism, unspecified (principal); G25.81 Restless legs syndrome
CPT/HCPCS: 36415; 80053; 82607; 82728; 83036; 83090; 84165; 84166; 84443; 85027

== ENCOUNTER → 2019-01-07 | Outpatient (CLI) | payer OTHER, SELFPAY ==
[2018-07-02 10:50] VITALS: BMI 32.5
--- NOTE | 2019-01-07 13:54 | ECHOD_ITS ---
Reason For Study: EDEMA, COPD Procedure This was a 2D Doppler, Color Flow transthoracic echocardiogram. Exam performed in department. Left Ventricle Normal size and thickness. The estimated ejection fraction is 65 %. Stage 1 diastolic dysfunction. No regional wall motion abnormalities noted. Right Ventricle Normal size and thickness. Normal systolic function. Atria Normal left atrium. Normal right atrium. Normal atrial septum. Mitral Valve The mitral valve is structurally normal. No prolapse or stenosis seen. Trivial mitral valve insufficiency. Tricuspid Valve Normal tricuspid valve. Trivial tricuspid valve insufficiency. Right ventricular systolic pressure estimated to be 22 mmHg. Aortic Valve Normal aortic valve. Trisinus/trileaflet aortic valve. Pulmonic Valve Normal pulmonic valve. Trivial pulmonic valve insufficiency. Great Vessels Normal aortic root. Normal arch. Normal inferior vena cava. Pericardium/Pleural No pericardial effusion. MMode/2D Measurements & Calculations LVIDd: 4.1 cm IVSd: 1.1 cm Ao root diam: 2.8 cm LVIDs: 2.9 cm LVPWd: 0.83 cm RVDd: 2.4 cm FS: 30.1 % LAV(MOD-bp): 43.6 ml LA A4 area: 14.5 cm2 LA dimension(2D): 3.1 cm LAV(MOD-bp) Indexed: 22.3 ml/m2 LAV(MOD-sp2): 39.8 ml LAV(MOD-sp4): 39.8 ml RA A4 area: 9.5 cm2 Time Measurements MV dec time: 0.19 sec Doppler Measurements & Calculations MV E max agustin: 57.0 cm/sec Lat Peak E' Agustin: 7.4 cm/sec Med Peak E' Agustin: 7.0 cm/sec MV A max agustin: 64.1 cm/sec E/E' lat: 7.8 E/E' med: 8.2 MV E/A: 0.89 Ao V2 max: 109.1 cm/sec LV V1 max: 84.0 cm/sec PA V2 max: 85.8 cm/sec Ao max P.8 mmHg LV V1 max P.8 mmHg TR max agustin: 206.0 cm/sec TR max P.0 mmHg Interpretation Summary The estimated ejection fraction is 65 %. Stage 1 diastolic dysfunction. Trivial mitral valve insufficiency. Trivial tricuspid valve insufficiency. Right ventricular systolic pressure estimated to be 22 mmHg. Compared to echo report dated 07/19/2012, no appreciable changes noted. Ordering Physician: Randy Reynoso Referring Physician: Randy Reynoso Performed By: Destinee Franklin, ALEXANDRA, RVT
== END | disposition home or self-care (01) ==
LOC: CVS 13:50
PROVIDERS: Family Provider Family Medicine; PCP Family Medicine; Referring Provider Family Medicine; Visit Provider Family Medicine
DX: R60.0 Localized edema (principal); J44.9 Chronic obstructive pulmonary disease, unspecified; G47.33 Obstructive sleep apnea (adult) (pediatric)
CPT/HCPCS: 93306

== ENCOUNTER → 2019-01-29 | Outpatient (CLI) | payer OTHER, SELFPAY ==
[2018-07-02 10:50] VITALS: BMI 32.5
--- NOTE | 2019-01-29 07:53 | VDLE_ITS ---
Reason For Study: edema RIGHT LEFT CFV is compressible, spontaneous, phasic, CFV is compressible, spontaneous, phasic, competent and demonstrates normal competent, and demonstrates normal augmentation. augmentation. FV is compressible, spontaneous, phasic, FV is compressible, spontaneous, phasic, competent and demonstrates normal competent and demonstrates normal augmentation. augmentation. POP V is compressible, spontaneous, phasic, POP V is compressible, spontaneous, phasic, competent and demonstrates normal competent and demonstrates normal augmentation. augmentation. T/P Trunk is compressible. T/P Trunk is compressible. PTV is compressible. PTV is compressible. RT PerV is compressible. LT PerV is compressible. S-F Junction is competent. S-F Junction is competent. GSV is incompetent throughout for greater GSV is incompetent throughout for greater than .5 seconds. GSV measures .32 x .32 cm. than .5 seconds. GSV measures .24 x .29 cm. SSV is competent. SSV is competent. Procedure Exam performed in department. The exam was diagnostic. Interpretation Summary Deep veins of the lower extremities are bilaterally patent and compressible segmentally. There is no evidence of deep vein thrombosis on either side. Valvular competence appears intact within the proximal deep venous systems bilaterally. The greater saphenous veins appear bilaterally patent and compressible segmentally. Sapheno-femoral junctions are bilaterally competent . Segmental valvular incompetence is noted within the greater saphenous veins bilaterally. Small saphenous veins are patent and competent bilaterally. Ordering Physician: Randy Reynoso Performed By: Jose Daniel Alas RVT
== END | disposition home or self-care (01) ==
LOC: CVS 07:52
PROVIDERS: Family Provider Family Medicine; PCP Family Medicine; Referring Provider Family Medicine; Visit Provider Family Medicine
DX: R60.0 Localized edema (principal)
CPT/HCPCS: 93970

== ENCOUNTER → 2019-02-10 | Outpatient (CLI) | payer OTHER, SELFPAY ==
[2018-07-02 10:50] VITALS: BMI 32.5
== END | disposition home or self-care (01) ==
PROVIDERS: Family Provider Family Medicine; PCP Family Medicine; Visit Provider Family Medicine
DX: N89.8 Other specified noninflammatory disorders of vagina (principal)
CPT/HCPCS: 87210

== ENCOUNTER → 2019-03-04 | Outpatient (CLI) | payer OTHER, SELFPAY ==
[2018-07-02 10:50] VITALS: BMI 32.5
[2019-03-04 15:23] LABS: Thyroid Stim Hormone (TSH) 1.03 uIU/mL (0.358-3.74)
== END | disposition home or self-care (01) ==
LOC: MTLAB 12:54
PROVIDERS: Family Provider Family Medicine; PCP Family Medicine
DX: R35.0 Frequency of micturition (principal); R10.2 Pelvic and perineal pain; E03.9 Hypothyroidism, unspecified
CPT/HCPCS: 36415; 84439; 84443; 87070; 87086; 87088; 87205

== ENCOUNTER → 2019-04-21 | Outpatient (CLI) | payer SELFPAY ==
[2019-04-21 15:21] VITALS: BMI 32.5
[2019-04-28 17:08] LABS: HPV APTIMA, High Risk Negative (Negative)
== END | disposition home or self-care (01) ==
PROVIDERS: Family Provider Family Medicine; PCP Family Medicine; Referring Provider Nurse Practitioner Women's Health; Visit Provider Nurse Practitioner Women's Health
DX: Z12.4 Encounter for screening for malignant neoplasm of cervix (principal)
CPT/HCPCS: 87624; 88175; G0145

== ENCOUNTER → 2019-04-27 | Outpatient (CLI) | payer OTHER, SELFPAY ==
[2019-04-21 15:21] VITALS: BMI 32.5
--- NOTE | 2019-04-27 15:06 | BI_ITS ---
MAMMOGRAPHY - BILATERAL SCREENING REASON FOR EXAM: Female, 58 years old. Routine annual screening examination. PERTINENT HISTORY: Non-contributory. Remote left stereotactic breast biopsy. TECHNIQUE: Digital bilateral breast otto (3D mammographic acquisition) in the CC and MLO projections. 2-D mediolateral oblique (MLO) and craniocaudad (CC) views of both breasts were obtained. CAD: Full Field Digital Mammography with Computer Added Detection was performed. COMPARISON: Comparison is made with prior examination dated October 20, 2014 and August 22, 2011. FINDINGS: Breast Composition: There are scattered areas of fibroglandular density. There are no dominant masses or suspicious calcifications. A tissue clip marker is seen in the slightly inferior lateral aspect of the left breast. A battery pack of a pacemaker device is seen in the left axillary region. Stable appearance of the small bilateral axillary lymph nodes. No other significant abnormalities are identified. There has been no significant change since the prior study. BI/SCREEN MAMM (CAD) W/OTTO BILAT IMPRESSION: Stable bilateral screening mammogram. Yearly follow-up mammogram recommended. (A) ASSESSMENT CATEGORY: BIRADS Category 2: Benign. A letter regarding these results will be sent to the patient by the facility within 30 days. Approximately 10% of breast cancers are not detected by mammography. A normal mammogram should not delay biopsy of a clinically suspicious abnormality. [id number] Electronically Signed: Avinash Forrest, at 8:30 EDT , Service support ,
== END | disposition home or self-care (01) ==
LOC: OPBI 15:05
PROVIDERS: Family Provider Family Medicine; PCP Family Medicine; Referring Provider Nurse Practitioner Women's Health; Visit Provider Nurse Practitioner Women's Health
DX: Z12.31 Encounter for screening mammogram for malignant neoplasm of breast (principal)
CPT/HCPCS: 77063; 77067

== ENCOUNTER → 2019-05-30 | Outpatient (CLI) | payer OTHER, SELFPAY ==
[2018-07-02 10:50] VITALS: BMI 32.5
[2019-04-21 15:21] VITALS: BMI 32.5
[2019-05-30 08:25] LABS: T4 Free Direct 1.52 ng/dL (0.76-1.46)
== END | disposition home or self-care (01) ==
LOC: LAB.FUTURE 07:04
PROVIDERS: Family Provider Family Medicine; PCP Family Medicine; Referring Provider Family Medicine; Visit Provider Family Medicine
DX: E03.9 Hypothyroidism, unspecified (principal); E55.9 Vitamin D deficiency, unspecified
CPT/HCPCS: 36415; 82306; 84439; 84443

== ENCOUNTER → 2019-08-17 14:17 | Outpatient (CLI) | payer OTHER, SELFPAY ==
[2019-04-21 15:21] VITALS: BMI 32.5
== END ==
LOC: BFHLAB 14:18
PROVIDERS: Family Provider Family Medicine; PCP Family Medicine; Visit Provider Family Medicine
DX: N39.0 Urinary tract infection, site not specified (principal)
CPT/HCPCS: 87086; 87088; 87186

== ENCOUNTER → 2019-08-27 13:52 | Outpatient (CLI) | payer OTHER, SELFPAY ==
[2019-04-21 15:21] VITALS: BMI 32.5
--- NOTE | 2019-08-27 13:55 | US_ITS ---
HISTORY: Flank pain. Right greater than left. 61 images. No comparison imaging. TECHNIQUE: Cart[place]a scale and color doppler images were obtained of the kidneys. FINDINGS: RIGHT KIDNEY: 9.2 x 4.4 x 4.6 cm in length. No focal parenchymal mass, hydronephrosis, nephrolithiasis, or perinephric fluid collection is noted. LEFT KIDNEY: 10.3 x 4.7 x 5.9 cm in length. No focal parenchymal mass, hydronephrosis, nephrolithiasis, or perinephric fluid collection is noted. URINARY BLADDER: Decompressed. Ureteric jets were not perceived US/Kidney and Bladder IMPRESSION: Negative renal ultrasound. at 2240 Reported and signed by: Deven Sheldon MD Electronically Signed: Deven Sheldon MD at 22:39 EST Tel , Service support ,
== END ==
LOC: US 13:53
PROVIDERS: Family Provider Family Medicine; PCP Family Medicine; Referring Provider Family Medicine; Visit Provider Family Medicine
DX: R10.9 Unspecified abdominal pain (principal); N39.0 Urinary tract infection, site not specified
CPT/HCPCS: 76770

== ENCOUNTER 2019-09-03 08:05 | Outpatient (RCR) | payer OTHER, SELFPAY ==
[2019-04-21 15:21] VITALS: BMI 32.5
--- NOTE | 2019-09-03 18:12 | HP.OTFCE.D ---
FCE D/C Summary - Discharge DIANNE BENZ was seen for a one time visit for an FCE on 09/02/19 and is discharged.
--- NOTE | 2019-09-04 14:55 | HP.OTFCE_ITS ---
HP OT Functional Capacity Eval Date of Evaluation: 09/03/19 - Task Lift Floor (Occasional 1-33% of Day): 20 lbs Floor (Frequent 34-66% of Day): 15 lbs Floor (Constant 67-100% of Day): negligible Floor PDL: Light Knee (Occasional 1-33% of Day): 20 lbs Knee (Frequent 34-66% of Day): 15 lbs Knee (Constant 67-100% of Day): negligible Knee PDL: Light Waist (Occasional 1-33% of Day): 20 lbs Waist (Frequent 34-66% of Day): 15 lbs Waist (Constant 67-100% of Day): negligible Waist PDL: Light Shoulder (Occasional 1-33% of Day): 15 lbs Shoulder (Frequent 34-66% of Day): 10 lbs Shoulder (Constant 67-100% of Day): negligible Shoulder PDL: Sedentary-Light Overhead (Occasional 1-33% of Day): 15 lbs Overhead (Frequent 34-66% of Day): 8 lbs Overhead (Constant 67-100% of Day): negligible Overhead PDL: Sedentary-Light Comments: Carrying: Occasional Liftinx 15 lbs. Frequent liftinx 7.5 lbs. Category: Sedentary Light - Work Activity/Posture Bending: Frequent Ability (34-66% of day) Squatting: Occasional Ability (1-33% of day) Kneeling: Occasional Ability (1-33% of day) Reaching out: Frequent Ability (34-66% of day) Reaching up: Frequent Ability (34-66% of day) Sitting: Frequent Ability (34-66% of day) Walking: Occasional Ability (1-33% of day) Standing: Frequent Ability (34-66% of day) - Reference Duration Sedentary Sedentary Light Light Light Medium Medium Medium Heavy Very Heavy Heavy Occasional (0-33% of day) Frequent (34-66% of day) Constant (67-100% of day) 10 # Negligible Negligible 15 # 8 # Negligible 20 # 10# Negli. 35 # 18 # 7 # 50 # 25 # 10 # 75 # 100 # >100 # 38 # 50 # >50 # 15 # 20 # >20 # - Patient Information Height: 1.63 m Weight:: 81.193 kg Hand Dominance: Right but due to injury has become more left haded BP (Medication Use/Usual Values per pt report): no - Medical History Medical History Including Restrictions: No medical restirctions provided by referring doctor or patient. She has lifelong restriction on driving. - Diagnoses Diagnoses: Past medical history: chronic obstructive pulmonary disease, restless leg syndrome, cellulitis and osteomyelitis (resolved) right hand, stiffness right hand and wrist, hyperlipidemia, hypocalcemia, s/p valgus nerve stimulator, obstructive sleep apnea, degenerative disc disease, hypersomnia, dyspnea, left shoulder rotator cuff tear with bursitis. Current: Geno is currently receiving a functional capacity evaluation as part of normal policy and procedure of [facility]. There has been very mild change in symptoms. Symptoms persist for seizure related disorder and decreased ability to use right hand from cat bite. - Symptoms Symptoms: Geno notes generalized achiness secondary to arthritis related pain in cervical and thoracic spine, headaches intermittently with seizure related disorder, and significant impaired use of right hand and wrist status post cat bite injury occurring in 2017. She is unable to complete grasping with right dominant hand or make full composite fist with right hand status post injury and related surgeries. Additionally, with seizure related disorder she notes frequently confusion and memory impairment that could be medication related or current status as she has had multiple grand mal seizures due to disorder. - Pain Pain: Geno was previously seeing pain specialist Dr. Cantrell in [facility] but due to lack of insurance coverage she was unable to afford continued visits. She has increased pain generalized throughout her body which includes bilateral knee pain (that she is able to receive current injections in from Dr. Fried), cervical and thoracic spine related pain, bilateral shoulder pain, and right wrist and hand pain. Santana Pain Questionnaire is a self-report pain assessment to determine a patient?s accurate psychodynamics for accurate pain rating. A score of 30 or high indicates poor psychodynamics and the greater probability of decreased accuracy with accurate pain reporting. Pre- Santana: 29. Post Santana: 26. Fear Avoidance Questionnaire (FAQ) is a client self- report assessment for 18-64+ that has shown to be reliable and valid for determining increased fear with movements. A score of 96 or higher indicates increased fear avoidance behaviors. FAQ Pre-testin. -Fear avoidance belief about work (items 6,7,9,10,11,12,15): Did not finish assessment appeared to be due to memory. -Fear avoidance belief about physical activity (items 2,3,4,5): 24. FAQ Post testin. -Fear avoidance belief about work (items 6,7,9,10,11,12,15): 39. -Fear avoidance belief about physical activity (items 2,3,4,5):23 - Work History Work History: Geno has not worked int he last five years (since 2012). 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 - Behavioral Behavioral: Geno noted concern of memory related deficits which she believes are related to seizures. She was pleasant and participative with all tasks asked of her. Right hand and wrist are limiting for all grasping and pinch related tasks. - ADLS ADLS: Geno lives with in one story home with two steps to enter. She has 13 steps to basement with a one-sided handrail. She can still access basement to let dogs outside. She and care for two dogs. Geno is able to complete all self-care but often needs help from with cooking, cleaning, and more involved tasks due to seizure activities as well as significant limitations of right dominant hand from accident and following procedures status post cat bite. She is unable to drive at this time as instructed from neurologist due to seizure activities and or family completes transportation needs. - Physical Examination Physical Examination: The purpose of this functional capacity evaluation (FCE) was to determine Geno physical ability. This FCE was performed in order to shooter helper in the determination of her physical ability. Aerobic limiting factor: 85% of max adjust HR= (220-age) *.85= 139 bpm. Calculated max weight: 60% of weight= 107. Beginning Diagnostics: -Blood pressure: 105/79 mmHg. -Heart rate: 83 bpm. -Oxygen saturation at room air: 97% ROM: Range of motion: Forearm: - supination: R 0-72, L 0-77. Wrist: - flexion: R 0-21, L 0-80. - extension: R 0-0, L 0-45. Hand. Right Hand (dominant hand) : MCP: 2nd- 5th digits: R 0-67, 0-62, 0-54, -23-0-27. PIP. 2nd- 5th digits: R 0-86, 0-72, 0-61, 41-75. DIP. 2nd- 5th digits: R 0-31, 0- 30, 0-20, 0-26. Left hand exhibits full range of motion. Distance of middle finger to palm: Right 5.5 cm, L 0. This inability to complete composite fist on right hand poses significant limitations for daily tasks including but not limited to writing, typing, and basic self-care activities. Geno exhibit?s the inability to for a full composite on right dominant hand making increased challenges for fine motor and gross grasping tasks. She often is seen compensating for lack of range of motor throughout session. When manipulating all items with right hand. Her wrist joint has fused at this time due to limited mobility and she exhibit significantly decreased range of motion in right wrist as well. Strength: Strength measurements completed with use of manual muscle testing and short arm access of dynamometer. Results are as follows: Upper Body: Shoulder flexion: -Dynamometer: R 9.2 , L 9.3 lbs. Shoulder extension: -Dynamometer: R 13.6 , L 10.0 lbs. Shoulder abduction: -Dynamometer: R 10.8 , L 9.3 lbs. Shoulder Internal Rotation: -Dynamometer: R 10 , L 10.3. Shoulder External Rotation: -Dynamometer: R 8.9 , L 8.8 lbs. Elbow flexion: - Dynamometer: R 12.1 , L 17.4 lbs. Elbow extension: -Dynamometer: R 13.5 , L 11.1 lbs. Lower Body: Hip flexion: -Dynamometer: R 19.4 , L 18.3 lbs. Hip adduction: -Dynamometer: R 15.6 , L 12.4 lbs. Hip abduction: - Dynamometer: R 17.3 , L 14.3 lbs. Knee Flexion: -Dynamometer: R 23.2 , L 19.3 lbs. Knee extension: -Dynamometer: R 14.4 , L 12.8 lbs. Dorsiflexion: -Dynamometer: R 21.2 , L 25.3 lbs Right Stamp Presser Strength Average: 12.66 Left Stamp Presser Strength Average: 39.33 Right Lateral Pinch Average: 8.33 Right Lateral Pinch Percentile: 10 Left Lateral Pinch Average: 11.00 Left Lateral Pinch Percentile: 50 Right Tripod Pinch Average: 4.00 Right Tripod Pinch Percentile: below 10 Left Tripod Pinch Average: 9.66 Left Tripod Pinch Percentile: between 25th and 50th Comments: Five Span Stamp Presser testing on Dynamometer: Position 1: R 0 , L 21 lbs. Position 2: R 15 , L 25 lbs. Position 3: R 16 , L 21 lbs. Position 4: R 11 , L 10 lbs. Position 5: R 8 , L 11 lbs. A coefficient of variation greater than 15 % indicated decreased consistency of effort. Coefficient of variation: R 64%; L 38%. Consistency of Effort: consistent due to range of motion limitations for right hand; left inconsistent. Sensation: Sensation testing completed on bilateral feet with monofilament touch test. A score of normal on touch test is 2.83 and within normal range with just some discrepancies for light touch is between 3.22-3.61. The higher the number in more complications related to patient?s ability to perceive touch related sensory stimuli. R hand: Thumb 2.83 ,2nd 2.83 , 3rd 2.83 , 4th 2.83 , 5th 2.83. L hand: Thumb 2.83 ,2nd 2.83, 3rd 2.83 , 4th 2.83 , 5th 2.83 Fine Motor: Completed the Purdue Pegboard test to further determine the patient?s ability to complete 2-3 step tasks, assess fine motor control and general dexterity needed to complete assembly like work. The results are as follows: Right Hand: 2. -Percentile: 1. Left Hand: 9. -Percentile1. Both Hands: 4. -Percentile:1. R+ L+ Both: 15. -percentile: 1. Assembly: 3. - percentile:1. Table set at 34 inches from floor height. Increased difficulty and compensations noted for right hand due to increased range of motion deficits. She often has to use two handed assists to grasp pegs to be placed appropriately into right hand as limited movement affects her ability to complete functional pinch patterns needed for grasp and manipulation. Due to her lack of wrist movement she uses compensatory patterns from elbow and shoulder to promote placement of pegs in board on right side. Balance: Functional reach test is used to determine static balance in patients. A score of 15 is normal and less than 10 increases risk of falling. A score of 6 or less significantly increases a patient?s risk of falling. Dover 1: 9. Dover 2: 9.5. [place] 3: 9.5. Average: 9.3. She exhibits increased risk of falling based on measurements. Single leg stance: Eyes open: - right 8 s, left: 30 s. Eyes closed: - right 10 s, left 5 s. Functional Gait Assessment (FGA) is a dynamic balance test to determine vestibular functioning and general dynamic balance ability of patient 18-65+. This assessment can be used with clients of various backgrounds to determine functional dynamic balance needed to complete every day work related tasks. 1.Gait Level Surface:1. 2.Change in Gait Speed: 3. 3.Gait with horizontal head turns:1. 4.Gait with vertical head turns:1. 5.Gait and pivot turn:3. 6.Step over obstacle:2. 7.Gait with narrow base of support: 2. 8.Gait with eyes closed: 2. 9.Ambulating Backwards: 1. 10.Steps: 2. Total Score: 18 /maximum score 30. Significantly below normal peer related norms for test. Increased dynamic balance deficits noted. She not complete tasks requiring consistent balance related activities. - Non Material Handling Activities Bending: Heart rate prior to beginning with use of pulse oximeter: 82 bpm. 3x, 10x in 33 seconds, and 10x faster in 15 seconds. Completed bending tasks with fair body mechanics. She completed equal weightbearing into bilateral lower extremities with ability to complete full bend. Increase in heart rate observed due to exertion. Heart rate posttest with use of pulse oximeter: 91 bpm. Perceived pain: 4/10 Squatting: Heart rate prior to beginning with use of pulse oximeter: 90 bpm. 3x, 10x in 43 seconds, and 10x faster in 18 seconds. Completed with poor mechanics. Increased mechanical compensations observed with increased lumbar extension which increases anterior pelvis tilt. Increased crepitus noted with each squat to upright movement in bilateral knees. Completed with equal weightbe aring to bilateral lower extremities. Some pain behaviors noted of holding breath and general mechanical compensations observed. Due to poor mechanics she exhibits ability to complete occasionally. Increase in heart rate observed likely due to exertion and pain based on mechanics. Heart rate posttest with use of pulse oximeter: 106 bpm. Perceived pain: 5/10 Kneeling: Heart rate prior to beginning with use of pulse oximeter: 102 bpm. 3x with increase compensations and mechanical deficits indicating decreased safety. Completed with need for external support. Lateral leaning and loss of balance to left side with ability to self-correct. Would not recommend completing without assistance. Decrease in heart rate likely due to increased time for placement of pulse oximeter. Heart rate posttest with use of pulse oximeter: 95 bpm. Perceived pain: 6/10 Reaching out/up: Reaching out: Heart rate prior to beginning with use of pulse oximeter: 93 bpm. 3x, 10x in 11.35 seconds, and 10x faster in 9.13 seconds. Heart rate posttest with use of pulse oximeter: 85 bpm. Reaching up: Heart rate prior to beginning with use of pulse oximeter: 85 bpm. 3x, 10x in 14.63 seconds, and 10x faster in 19.80 seconds. Heart rate posttest with use of pulse oximeter: 84 bpm. Completed with good body mechanics. Some increased crepitus noted in bilateral shoulders. Equal reach and mild compensation noted through spinal alignment. No increase in heart rate to indicate discomfort or pain. Walking: Completed 15 minutes of walking around facility. Completed walking with mild antalgic gait and decreased speed. She completed mobility tasks on flat surfaces only. It would not be recommended based on her balance that she comple gustavo walking frequently on varied surfaces. She exhibit ability to complete walking tasks occasionally. Standing: Geno is able to complete static and dynamic standing tasks around facility related to testing. Some lateral and retrograde loss of balance with excessive head movements. Sitting: Geno exhibits ability to complete 30 mins of sitting tasks during background information and intake during assessment. She can complete frequently sitting tasks. Climbing Stairs: Heart rate prior to beginning with use of pulse oximeter: 84 bpm. Geno completes alternating foot patterns for ascending and descending stairs. Completes use of one-time handrail. Decreased speed observed for tasks with need to use vision to promote correct foot fall and lower extremity placement. She completed with mild mechanical compensations of slight full body turn to right side to complete descending tasks. Heart rate posttest with use of pulse oximeter: 106 bpm - Dynamic Occasional Lifting Capacity Floor Lift: Heart rate prior to beginning with use of pulse oximeter: 89 bpm. Maximum weight: 1x 25 lbs. Occasional Liftinx 20 lbs. Frequent liftinx 15 lbs. Geno completes floor lift with fair body mechanics and mild unequal weight bearing into bilateral upper and lower extremities. She compensates for right hand and wrist weakness with increased shoulder elevation during task and increased load distribution to left side. Increase in heart observed which is likely due to pain and exertion. Heart rate posttest with use of pulse oximeter: 111 bpm. Perceived pain: She noted constant aches and pain with movements. Knee Lift: Heart rate prior to beginning with use of pulse oximeter: 98 bpm. Maximum weight: 1x 30 lbs. Occasional Liftinx 20 lbs. Frequent liftinx 15 lbs. Completed knee lift with fair body mechanics. Increased mech anical compensations observed with need to complete use of torso to manage weakness of right hand and wrist. Equal weightbearing observed of lower body. Unequal weightbearing observed of upper body with mechanical deficits noted of right hand and increased load distribution to left side. Crepitus noted in left knee. No increase in heart rate. Heart rate posttest with use of pulse oximeter: 98 bpm. Perceived pain: She noted constant aches and pain with movements. Pain in right wrist 03/14. Waist Lift: Heart rate prior to beginning with use of pulse oximeter: 89 bpm. M aximum weight: 1x 25 lbs. Occasional Liftinx 20 lbs. Frequent liftinx 15 lbs. Completed waist lift with fair body mechanics. Increased mechanical deficits and compensations throughout bilateral upper extremities. Completed need to use torso to promote placement of box due to right wrist and hand range of motion deficits. Increase in heart rate likely due to exertion and potential of mild discomfort. Heart rate posttest with use of pulse oximeter: 94 bpm. Perceived pain: She noted constant aches and pain with movements. Shoulder Lift: Heart rate prior to beginning with use of pulse oximeter: 93 bpm. Maximum weight: 1x 20 lbs. Occasional Liftinx 15 lbs. Frequent liftinx 10 lbs. Completed with poor body mechanics. Increased compensatio ns needed to complete placement of box to location. Increased pain behaviors observed as Geno exhibits holding of breath, winces and facial changes, and increased crepitus noted in bilateral shoulders. Increase compensatory movements observed through decreased spinal alignment. She completed slight load shift to left upper extremity for placement of box. Increased in heart rate likely due to pain and exertion. She should not complete this lift frequently. Heart rate posttest with use of pulse oximeter: 102 bpm. Perceived pain: She noted constant aches and pain with movements. 8/10 in right wrist Overhead Lift: Heart rate prior to beginning with use of pulse oximeter: 105 bpm. Maximum weight: 1x 20 lbs. Occasional Liftinx 15 lbs. Frequent liftinx 8 lbs. Completed with poor body mechanics with increased mechanical deficits and compensations noted with completion of tasks. She completed load shift to left upper extremity for placement of box. Increase in heart rate observed and increased pain noted in wrist from all lift tasks. Increased pain behaviors observed with wincing and holding breath. She should not complete this lift frequently. Heart rate posttest with use of pulse oximeter: 112 bpm. Perceived pain: She noted constant aches and pain with movements. 8/10 in right wrist Carrying: Heart rate prior to beginning with use of pulse oximeter: 87 bpm. Occasional Liftinx 15 lbs. Frequent liftinx 7.5 lbs. Completed carrying tasks with fair body mechanics but increased mechanical compensations of increased spinal extension and load shift to left upper extremity. Increase in heart rate likely indicative of pain and exertion. She should not complete these tasks consistently due to mechanical changes. Heart rate posttest with use of pulse oximeter: 120 bpm. Perceived pain: She noted constant aches and pain with movements. 8/10 in right wrist Comments: Completed the cognitive screening tool of the [place] Cognitive Assessment (MoCA) due to significant past medical history of seizures. Geno scored the followin/30. This score indicates further cognitive relating difficulties and is below normal range. She exhibits increased difficulty with memory for both short-term and delayed recall in addition to difficulties with attention. She noted concerns for memory related difficulties at start session which is why screen was completed. Ending Diagnostics: -Blood pressure: 109/80 mmHg. -Heart rate: 99 bpm. -Oxygen saturation at room air: 98%
== END 2019-09-03 19:00 | disposition home or self-care (01) ==
LOC: OT 08:05
PROVIDERS: Family Provider Family Medicine; PCP Family Medicine; Referring Provider Nurse Practitioner Family; Visit Provider Nurse Practitioner Family
DX: R56.9 Unspecified convulsions (principal)
CPT/HCPCS: 97750

== ENCOUNTER → 2019-10-12 | Outpatient (CLI) | payer OTHER, SELFPAY ==
[2019-04-21 15:21] VITALS: BMI 32.5
--- NOTE | 2019-10-12 13:44 | RAD_ITS ---
STUDY: X-RAY - RIGHT KNEE REASON FOR EXAM: Pain. TECHNIQUE: 4 view(s) of the knee. COMPARISON: None. FINDINGS: Normal visualized distal femur. Normal visualized proximal tibia and fibula. Normal proximal tibiofibular articulation. Normal medial femorotibial compartment. Normal lateral femorotibial compartment. Normal patellofemoral articulation. There is an enthesophyte at the superior pole of the patella. RAD/Knee 4 or More Views IMPRESSION: Patellar enthesopathy. Otherwise, unremarkable x-ray examination of the right knee. Electronically Signed: Jon Johnson MD at 11:50 EDT Tel , Service support ,
--- NOTE | 2019-10-12 13:44 | RAD_ITS ---
STUDY: X-RAY - LEFT KNEE REASON FOR EXAM: Pain. TECHNIQUE: 4 view(s) of the knee. COMPARISON: None. FINDINGS: Normal visualized distal femur. Normal visualized proximal tibia and fibula. Normal proximal tibiofibular articulation. Normal medial femorotibial compartment. Normal lateral femorotibial compartment. Normal patellofemoral articulation. The soft tissue structures are unremarkable. RAD/Knee 4 or More Views IMPRESSION: Normal x-ray examination of the left knee. Electronically Signed: Jon Johnson MD at 11:49 EDT Tel , Service support ,
== END | disposition home or self-care (01) ==
LOC: HPRAD 13:44
PROVIDERS: PCP Family Medicine; Referring Provider Physician Assistant; Visit Provider Physician Assistant
DX: M25.561 Pain in right knee (principal); M25.562 Pain in left knee
CPT/HCPCS: 73564

== ENCOUNTER → 2019-12-17 | Outpatient (CLI) | payer OTHER, SELFPAY ==
[2019-10-12 13:44] VITALS: BMI 32.5
[2019-12-17 13:56] LABS: T4 Free Direct 1.37 ng/dL (0.76-1.46); Thyroid Stim Hormone (TSH) 0.07 uIU/mL (0.358-3.74)
== END | disposition home or self-care (01) ==
LOC: MTLAB 10:08
PROVIDERS: PCP Family Medicine; Referring Provider Internal Medicine Endocrinology, Diabetes & Metabolism; Visit Provider Internal Medicine Endocrinology, Diabetes & Metabolism
DX: E03.9 Hypothyroidism, unspecified (principal)
CPT/HCPCS: 36415; 84439; 84443

== ENCOUNTER → 2020-04-21 | Outpatient (CLI) | payer OTHER, SELFPAY ==
[2020-03-16 05:47] VITALS: BMI 30.7
[2020-04-21 09:26] VITALS: PULSE 106; PULSE 109; PULSE 110; PULSE 112; PULSE 113; PULSE 84; PULSE 88; PULSE 99; O2SAT 95; O2SAT 96; O2SAT 97; O2SAT 98; O2SAT 99
--- NOTE | 2020-04-21 10:35 | PCM.PSN.6M ---
PSN 6 Minute Walk Test - 6 Minute Walk Test 6 Minute Walk Test: 6 Minute Walk Test PSN:6-Minute Walk Test Start: 04/21/20 09:26 Freq: Status: Active Protocol: [id number].6MINW Document 04/21/20 09:26 [facility] (Rec: 04/21/20 09:30 [facility] [id number]) 6 Minute Walk Test Date Performed 04/21/20 Time Performed 09:15 Height 5 ft 4 in Weight: 78.471 kg Weight in Pounds 173.[address]: Dr Varma Assistive device used: None Pre-test Oxygen Delivery Method Room Air Pulse Ox (%) 98 Pulse Rate (60-100 beats/min) 84 Dyspnea Greta Scale (0-10) 0 Exertion Greta Scale (6-20) 6 1st minute Oxygen Delivery Method Room Air Pulse Ox (%) 98 Pulse Rate (60-100 beats/min) 99 2nd minute Oxygen Delivery Method Room Air Pulse Ox (%) 97 Pulse Rate (60-100 beats/min) 109 H 3rd minute Oxygen Delivery Method Room Air Pulse Ox (%) 96 Pulse Rate (60-100 beats/min) 112 H 4th minute Oxygen Delivery Method Room Air Pulse Ox (%) 97 Pulse Rate (60-100 beats/min) 106 H 5th minute Oxygen Delivery Method Room Air Pulse Ox (%) 95 Pulse Rate (60-100 beats/min) 110 H 6th minute Oxygen Delivery Method Room Air Pulse Ox (%) 95 Pulse Rate (60-100 beats/min) 113 H Dyspnea Greta Scale (0-10) 3 Exertion Greta Scale (6-20) 8 Post-test Oxygen Delivery Method Room Air Pulse Ox (%) 99 Pulse Rate (60-100 beats/min) 88 Full Laps Walked 19 Partial Lap, Number of Tiles Walked 17 Total Distance Walked (ft) 1138 - Interpretation Interpretation: The patient was able to ambulate 1138 feet over the course of 6 minutes on room air with no assistive devices or breaks. The patient experienced no significant desaturation, but did have tachycardia as high as 113 bpm. These findings are consistent with deconditioning. - Recommendations Recommendations: No supplemental oxygen is indicated at this time.
== END | disposition home or self-care (01) ==
LOC: PSN 09:00
PROVIDERS: PCP Family Medicine; Referring Provider Internal Medicine Critical Care Medicine; Visit Provider Internal Medicine Critical Care Medicine
DX: R06.02 Shortness of breath (principal)
CPT/HCPCS: 94618

== ENCOUNTER → 2020-04-22 | Outpatient (CLI) | payer OTHER, SELFPAY ==
[2020-03-16 05:47] VITALS: BMI 30.7
--- NOTE | 2020-04-22 14:49 | PFTCOMP ---
COMPLETE PULMONARY FUNCTION TEST INTERPRETATION Brief HPI: Patient is a 59 year old female, currently under the care of myself, who presents to [facility] for complete pulmonary function tests secondary to diagnosis of dyspnea. Respiratory therapist reports good effort and reproducible results. Interpretation: Forced expiration spirometry shows no large airways obstructive ventilatory defect with an FEV1 of 90% predicted. There is no significant bronchodilator response by strict ATS criteria. Spirograms are of good quality and plateau slowly, indicating slowly emptying areas of the lungs. The respiratory flow volume loop shows decreased expiratory flow rates at high lung volumes consistent with small airways obstruction. Lung volumes by body plethysmography show a normal total lung capacity at 5.02 L, 102% predicted. All other lung volumes are within normal limits. Diffusion capacity by carbon monoxide is normal at 88% predicted. The airway resistance is elevated. Compared to previous pulmonary function tests from 06/04/2014, there is been a slight improvement in DLCO by 12%. Impression: Grossly normal pulmonary function testing with slight improvement compared to previous.
== END | disposition home or self-care (01) ==
LOC: PSN 12:54
PROVIDERS: PCP Family Medicine; Referring Provider Internal Medicine Critical Care Medicine; Visit Provider Internal Medicine Critical Care Medicine
DX: R06.02 Shortness of breath (principal)
CPT/HCPCS: 94060; 94726; 94729

== ENCOUNTER → 2020-06-24 09:28 | Outpatient (CLI) | payer OTHER, SELFPAY ==
[2020-06-23 08:57] VITALS: BMI 29.3
[2020-06-24 12:41] LABS: Absolute Lymphocyte Count 1.54 X10^3/uL (0.83-4.51); Absolute Neutrophil Count 2.8 X10^3/uL (2.0-7.7); Basophil# 0.04 X10^3/uL; Basophil% 0.8 % (0-1); Eosinophil# 0.15 X10^3/uL; Eosinophils% 2.9 % (0-5); Hematocrit 40.3 % (37-47); Hemoglobin 12.8 g/dL (12.0-15.0); Lymphocyte # 1.54 X10^3/ul (4.0); Lymphocyte % 29.8 % (19-41); Mean Corp Hgb Conc 31.8 g/dL (32-36); Mean Corpuscular Hgb 29.4 pg (27.0-32.0); Mean Corpuscular Volume 92.4 fL (81-99); Mean Platelet Vol. 10.8 fl (6.2-12.0); Monocyte# 0.58 X10^3/uL; Monocyte% 11.2 % (0-10); NRBC Flagged by Analyzer 0 % (0-5); Neutrophil # 2.84 X10^3/uL (2.7-7.7); Neutrophil % 55.1 % (47-70); Platelet Count 233 K/mm3 (150-450); RBC Distribution Width CV 11.9 % (11.6-14.6); RBC Distribution Width SD 40.7 fl (35.1-43.9); Red Blood Count 4.36 M/mm3 (4.2-5.4); White Blood Count 5.2 K/mm3 (4.4-11.0)
[2020-06-27 16:08] LABS: ANTINUCLEAR ANTIBODIES DIRECT Positive (Negative); Alternaria alternata <0.10 kU/L (Class 0); Anti-Centromere B Ab <0.2 AI (0.0-0.9); Anti-Chromatin <0.2 AI (0.0-0.9); Anti-Jo <0.2 AI (0.0-0.9); Bermuda Grass <0.10 kU/L (Class 0); Bluegrass, Kentucky <0.10 kU/L (Class 0); Cat Hair/Dander, Standard <0.10 kU/L (Class 0); D farinae Mite <0.10 kU/L (Class 0); D pteronyssinus <0.10 kU/L (Class 0); Dog Epithelia <0.10 kU/L (Class 0); Elm, American White <0.10 kU/L (Class 0); Mouse Urine <0.10 kU/L (Class 0); Oak, White <0.10 kU/L (Class 0); Plantain, English <0.10 kU/L (Class 0); RNP Ab 0.6 AI (0.0-0.9); Ragweed, Short/Common <0.10 kU/L (Class 0); SJOGREN'S Anti-SS-A test < 0.2 AI (0.0-0.9); SJOGREN'S Anti-SS-B test 1.1 AI (0.0-0.9); Smith Ab <0.2 AI (0.0-0.9)
[2020-06-27 21:24] LABS: Anti-dsDNA Ab <1 IU/mL (0-9)
[2020-06-29 03:06] LABS: Aspirgillus flavus Negative (Neg:<1:1); Aspirgillus fumigatus Negative (Neg:<1:1); Aspirgillus niger Negative (Neg:<1:1)
[2020-06-29 13:04] LABS: Immunoglobulin E 4 IU/mL (6-495)
== END ==
LOC: MTLAB 09:29
PROVIDERS: PCP Family Medicine; Referring Provider Nurse Practitioner Acute Care; Visit Provider Nurse Practitioner Acute Care
DX: R06.00 Dyspnea, unspecified (principal)
CPT/HCPCS: 36415; 82785; 85025; 86003; 86038; 86225; 86235; 86606

== ENCOUNTER 2021-08-19 09:57 | Emergency (ER) | payer OTHER, SELFPAY ==
[2021-08-19 09:58] VITALS: BP 115/100; PULSE 74; RESP 14; TEMP 36.8; O2SAT 100; BMI 26.9
--- NOTE | 2021-08-19 10:37 | EDS_ITS ---
HPI HPI - GI History of Present Illness Chief Complaint: Abd Pain Narrative Narrative: 61-year-old female presenting with left lower quadrant pain. She states that sharp and came out of nowhere prior to arrival. She admits to feeling sweaty and nauseous. She did not vomit. She denies urinary symptoms. She denies constipation or diarrhea. She has not had fever or chills. Denies history of kidney stones or diverticulitis. [facility] Medical History Abscess of bursa, right hand Abscess of bursa, right wrist Abscess of right forearm Abscess of right hand Acute osteomyelitis of right hand Arthritis Arthritis due to other bacteria, right wrist Asthma Back problem Bloody stool CAT BITE ABCESS RIGHT MID PALM CAT BITE INFECTION ABSCESS DISTAL PALM CAT BITE INFECTION ABSCESS MIDCARPAL JOINTS RIGHT WRIST CAT BITE INFECTION ABSCESS RIGHT DISTAL FOREARM Cat bite of hand CATBITE ABSCESS CARPAL TUNNEL RIGHT WRIST Cellulitis of right hand COMPARTMENT SYNDROME DORSAL INTEROSSEOUS MUSCLES RIGHT HAND Complex regional pain syndrome of right upper extremity COPD (chronic obstructive pulmonary disease) Degenerative disc disease Diarrhea Difficulty balancing Dyspnea Encephalopathy chronic Environmental allergies Epilepsy Fatigue Hay fever HEADACHES/MIGRAINES Hearing problem HERPETIC LESION DORSUM RIGHT INDEX FINGER High cholesterol History of gastroesophageal reflux (GERD) History of hypothyroidism HOSHIMOTO ENCEPHELITIS Hyperlipidemia Hypersomnia Hypocalcemia Hypothyroidism Infection of right hand Knee pain Lung disease Migraines OSTEOMYELITIS RIGHT DISTAL RADIUS Other synovitis and tenosynovitis, right hand Pain in right hand REFLEX DYSTROPHY RIGHT HAND AND WRIST Restless legs RLS (restless legs syndrome) Seizure Seizure disorder Shoulder pain SOB (shortness of breath) Stiffness of finger joint of right hand Stiffness of right wrist joint Subacromial bursitis of left shoulder joint SUPPURATIVE FLEXOR TENOSYNOVITIS RIGHT SMALL FINGER UNUSUAL TIREDNESS Vision problem Home Medications estradiol 0.5 mg PO DAILY 02/11/17 [History Last Taken 04/03/17 08:00] levetiracetam 1,000 mg PO QHS 02/11/17 [History Last Taken 04/02/17 20:00] levetiracetam 500 mg PO DAILY 02/11/17 [History Last Taken 04/03/17 08:00] magnesium oxide 1,000 mg PO DAILY 02/11/17 [History Last Taken 04/02/17 20:00] selenium 200 mcg PO DAILY 02/11/17 [History Last Taken 04/02/17 20:00] omeprazole 40 mg PO DAILY 02/27/17 [History Last Taken 04/03/17 08:00] pyridoxine (vitamin B6) 50 mg PO DAILY 02/27/17 [History Last Taken 04/02/17 20:00] vitamin E 800 unit PO DAILY 02/27/17 [History Last Taken 04/02/17 20:00] levothyroxine 175 mcg tablet 175 mcg PO DAILY #30 tab 09/09/17 [Rx Last Taken Unknown] ferrous gluconate 240 mg (27 mg iron) tablet 240 mg PO DAILY tab 04/20/18 [History Last Taken Unknown] ropinirole 0.25 mg tablet 0.5 mg PO QHS PRN tab 03/04/19 [History Last Taken Unknown] topiramate 50 mg capsule,extended release 24 hr 150 mg PO DAILY cap 03/04/19 [History Last Taken Unknown] tolterodine 2 mg capsule,extended release 24 hr 2 mg PO DAILY #30 cap 03/08/19 [Rx Last Taken Unknown] methenamine hippurate 1 gram tablet tab PO 10/12/19 [History Last Taken Unknown] albuterol sulfate 90 mcg/actuation aerosol inhaler 2 puff INHALATION Q4H #1 inh 03/16/20 [Rx Last Taken Unknown] cholecalciferol (vitamin D3) 10 mcg (400 unit) capsule 10 mcg PO DAILY 06/23/20 [History Last Taken Unknown] fluticasone furoate 200 mcg/actuation blister powder for inhalation 1 inh INHALATION QDAY #30 ea 06/23/20 [Rx Last Taken Unknown] ondansetron 4 mg PO Q8H PRN PRN #14 tab 08/19/21 [Rx Last Taken Unknown] Allergy/AdvReac Type Severity Reaction Status Date / Time bupropion HCl Allergy Unknown Verified 08/19/21 10:00 [From Wellbutrin] pregabalin [From Lyrica] Allergy Unknown Verified 08/19/21 10:00 gabapentin AdvReac Other Verified 08/19/21 10:00 hydromorphone [From Dilaudid] AdvReac Other Verified 08/19/21 10:00 MRI AdvReac Other Uncoded 08/19/21 10:00 Family History Mother Arthritis Bleeding disorder Hypertension High cholesterol LUNG/RESPIRATORY DISEASE Other Diabetes Surgical History ABLATION BLADDER LIFT CARPAL BONE RIGHT WRIST FOR OSTEOMYELITIS EAR TUBES AND TONSILS History of bladder suspension procedure History of endometrial ablation History of tonsillectomy History of tubal ligation INCISION AND DRAINAGE RIGHT ULNAR PALM Status post VNS (vagus nerve stimulator) placement SURGICAL PREPARATION RIGHT DISTAL PALM Tubal ligation status VAGUS NERVESTIMULATOR IMPLANT Social History household members: spouse Smoking Status: Former smoker second hand exposure: No alcohol intake: never substance use type: does not use caffeine: Yes what type of physical activity do you participate in: walking frequency: 3-4 times per week seatbelt use: always do you feel safe at home: Yes additional social history: - Yo Patient is on disability ROS ROS ED Constitutional Constitutional ED: Reports sweats; Denies chills or fever(s) ENT ENT ED: Denies rhinorrhea or sore throat Cardiovascular Cardiovascular: Denies chest pain or palpitations Respiratory/Chest Respiratory/Chest: Denies cough, dyspnea or dyspnea on exertion Gastrointestinal Gastrointestinal: Reports abdominal pain and nausea; Denies constipation, diar elicia or vomiting Genitourinary Genitourinary ED: Denies dysuria or hematuria Musculoskeletal Musculoskeletal: Denies arthralgias, back pain or myalgias Integumentary Denies Abrasions or rash Neurologic Neurologic: Denies headache(s) or paresthesias EXAM Physical Exam Const Vital Signs: 08/19/21 09:58 08/19/21 11:30 08/19/21 11:57 Temperature 98.3 F Temperature Source Temporal Pulse Rate 74 84 91 Respiratory Rate 14 19 H Blood Pressure 115/100 H 85/42 L 112/30 L Blood Pressure Mean 105 56 57 Pulse Ox 100 96 Oxygen Delivery Method Room Air Nasal Cannula Oxygen Flow Rate (L/min) 2 Positive well nourished General Appearance ED: NAD; Negative for pallor HEENT Reports moist mucous membranes normocephalic and atraumatic Eyes PERRL and EOMs intact bilaterally General Eye ED: Negative for pale conjunctiva or scleral icterus Resp normal respiratory effort and clear to auscultation bilaterally Cardio regular rate and regular rhythm GI Palpation: soft and tender LLQ Neuro Sensorium / Orientation: alert, oriented to person, oriented to place and oriented to time Psych mental status grossly normal and thought process normal Skin General Skin Exam: Negative for jaundice or pallor MDM MDM MDM Narrative Medical decision making narrative: Patient presenting with left lower quadrant pain which she states was acute in onset. Urinalysis is obtained and is negative for infection or hematuria. CBC shows no leukocytosis and her hemoglobin and hematocrit are normal. Platelets are normal. Renal function electrolytes are also normal. Patient was medicated with morphine and Zofran as well as IV fluids. CT of the abdomen pelvis was performed with IV contrast which does not show any acute intra-abdominal pathology. She does have a nonobstructing left renal calculi. There is no evidence of hydronephrosis. Patient counseled on findings. I feel this point with a negative work-up she is stable to be discharged home. She is given return precautions. Impression: 1. Left lower quadrant abdominal pain Lab Data Labs: Laboratory Results - last 24 hr 08/19/21 08/19/21 08/19/21 11:15 11:40 11:40 WBC 5.9 RBC 4.64 Hgb 13.7 Hct 41.4 MCV 89.2 MCH 29.5 MCHC 33.1 RDW Std Deviation 38.8 RDW Coeff of Ovidio 11.9 Plt Count 170 MPV 10.9 Immature Gran % (Auto) 0.500 Neut % (Auto) 72.5 H Lymph % (Auto) 17.5 L [place] % (Auto) 6.8 Eos % (Auto) 2.2 Baso % (Auto) 0.5 Absolute Neuts (auto) 4.3 Absolute Lymphs (auto) 1.03 Nucleated RBC % 0 Sodium 140 Potassium 3.7 Chloride 111 H Carbon Dioxide 23.0 Anion Gap 6 BUN 17 Creatinine 0.87 Estim Creat Clear Calc 60.12 Est GFR (MDRD) Af Amer 86 Est GFR (MDRD) Non-Af 71 BUN/Creatinine Ratio 19.6 Glucose 93 Calcium 9.2 Urine Color Yellow Urine Clarity Clear Urine pH 6.5 Ur Specific Stout 1.020 Urine Protein Negative Urine Glucose (UA) Normal Urine Ketones Negative Urine Occult Blood Negative Urine Nitrite Negative Urine Bilirubin Negative Urine Urobilinogen Normal Ur Leukocyte Esterase Negative Urine RBC 0-5 SEEN Urine WBC 0-5 SEEN Ur Squamous Epith Cells 0 SEEN Urine Bacteria 1+ Urine Mucus 0 SEEN Radiography Diagnostic Testing: Clinical Impression(s) from Imaging Studies Abdomen/Pelvis CT 08/19/21 12:12 IMPRESSION: 1. Diverticulosis without evidence of diverticulitis. No acute inflammatory process or bowel obstruction. 2. Nonobstructing left renal calculus. No hydronephrosis. Electronically Signed: Mervin Connors MD ([place]) at 13:33 EST , Service support , Discharge Plan Triage Chief Complaint: Abd Pain ED Provider: Jagdish Price Dx/Rx/DC Orders Instructions: ED Abdominal Pain Unkn Cause Fem Prescriptions: New ondansetron 4 mg tablet,disintegrating 4 mg PO Q8H PRN PRN (Reason: Nausea) Qty: 14 RF: 0 No Action ferrous gluconate [Fergon] 240 mg (27 mg iron) tablet 240 mg PO DAILY RF: 0 Trokendi XR 50 mg capsule,extended release 24hr 150 mg PO DAILY RF: 0 methenamine hippurate 1 gram tablet PO RF: 0 albuterol sulfate [ProAir HFA] 90 mcg/actuation HFA aerosol inhaler 2 puff INHALATION Q4H Qty: 1 RF: 3 cholecalciferol (vitamin D3) 10 mcg (400 unit) capsule 10 mcg PO DAILY RF: 0 Arnuity Ellipta 200 mcg/actuation blister with device 1 inh INHALATION QDAY Qty: 30 RF: 6 levetiracetam 500 MG tablet 1,000 mg PO QHS RF: 0 levetiracetam 500 MG tablet 500 mg PO DAILY RF: 0 estradiol 0.5 MG tablet 0.5 mg PO DAILY RF: 0 selenium 100 MCG tablet 200 mcg PO DAILY RF: 0 magnesium oxide 500 MG capsule 1,000 mg PO DAILY RF: 0 ropinirole 0.25 mg tablet 0.5 mg PO QHS PRN (Reason: Restlessness) RF: 0 omeprazole 40 MG capsule 40 mg PO DAILY RF: 0 pyridoxine (vitamin B6) 50 MG tablet 50 mg PO DAILY RF: 0 vitamin E 400 UNIT capsule 800 unit PO DAILY RF: 0 levothyroxine 175 MCG tablet 175 mcg PO DAILY Qty: 30 RF: 11 tolterodine 2 mg capsule,extended release 24hr 2 mg PO DAILY Qty: 30 RF: 0 Primary Care Provider: Randy Reynoso Referrals: Randy Reynoso DO [Primary Care Provider] - Disposition Disposition: Home, Self Care
[2021-08-19 11:22] LABS: Absolute Lymphocyte Count 1.03 X10^3/uL (0.83-4.51); Absolute Neutrophil Count 4.3 X10^3/uL (2.0-7.7); Basophil# 0.03 X10^3/uL; Basophil% 0.5 % (0-1); Eosinophil# 0.13 X10^3/uL; Eosinophils% 2.2 % (0-5); Hematocrit 41.4 % (37-47); Hemoglobin 13.7 g/dL (12.0-15.0); Lymphocyte # 1.03 X10^3/ul (0.83-4.51); Lymphocyte % 17.5 % (19-41); Mean Corp Hgb Conc 33.1 g/dL (32-36); Mean Corpuscular Hgb 29.5 pg (27.0-32.0); Mean Corpuscular Volume 89.2 fL (81-99); Mean Platelet Vol. 10.9 fl (6.2-12.0); Monocyte% 6.8 % (0-10); NRBC Flagged by Analyzer 0 % (0-5); Neutrophil # 4.25 X10^3/uL (2.7-7.7); Neutrophil % 72.5 % (47-70); Platelet Count 170 K/mm3 (150-450); RBC Distribution Width CV 11.9 % (11.6-14.6); RBC Distribution Width SD 38.8 fl (35.1-43.9); Red Blood Count 4.64 M/mm3 (4.2-5.4); White Blood Count 5.9 K/mm3 (4.4-11.0)
[2021-08-19] MEDS: Morphine 4 MG/ML Syringe IV (11:28)
[2021-08-19] MEDS: Ketorolac 15 MG/ML Vial IV (11:28)
[2021-08-19] MEDS: Ondansetron 4 MG/2 ML Vial IV (11:29)
[2021-08-19] MEDS: 0.9% Normal Saline 1,000 ML 999 ML IV (11:29)
[2021-08-19 11:30] VITALS: BP 85/42; PULSE 84
[2021-08-19 11:46] LABS: Mucous, Urine 0 SEEN /hpf (<or=2+); Squamous Epithelial Cells - UA 0 SEEN /hpf (5-10)
[2021-08-19 11:50] LABS: Color, Urine Yellow (Yellow); Glucose, Dipstick Normal (Normal); Ketone-Dipstick Negative (Negative); Leukocyte Esterase-Dipstick Negative /ul (Negative); Nitrite-Dipstick Negative (Negative); Occult Blood-Urine Negative /ul (Negative); Protein-Dipstick Negative (Negative); Urine Bilirubin Dipstick Negative (Negative); Urine Clarity Clear (Clear); Urine Urobilinogen Normal (Normal); Urine pH 6.5 (5.0 - 8.0)
[2021-08-19 11:57] VITALS: BP 112/30; PULSE 91; RESP 19; O2SAT 96
[2021-08-19 11:58] LABS: Anion Gap 6 (5-15); BUN 17 mg/dL (7-18); BUN/Creat Ratio 19.6 RATIO (10-20); Calcium,Total 9.2 mg/dL (8.5-10.1); Chloride 111 mmol/L (98-107); Creatinine, Serum 0.87 mg/dL (0.55-1.02); EST Glomerular Filtration Rate 71 mL/min (>60); Est Glom Filt Rate - Afr Amer 86 mL/min (>60); Estimated Creatinine Clearance 60.12 ml/min; Glucose 93 mg/dL (74-106); Potassium 3.7 mmol/L (3.5-5.1); Sodium Level 140 mmol/L (136-145)
--- NOTE | 2021-08-19 12:12 | CT_ITS ---
STUDY: CT ABDOMEN AND PELVIS WITH CONTRAST REASON FOR EXAM: Female, 61 years old. LLQ abdominal pain RADIATION DOSAGE (If Supplied By Facility): CTDIvol = ( 15.03 ) mGy, DLP = ( 783.29 ) mGycm TECHNIQUE: Transaxial images were obtained from the dome of the diaphragm to the symphysis pubis without oral contrast. IV 100mL Isovue-[id number] was administered. Sagittal and coronal images were reconstructed. Individualized dose optimization techniques were used for this CT. COMPARISON: None. FINDINGS: The visualized lung bases are unremarkable. The visualized portions of the heart are within normal limits. Normal liver. Normal gallbladder and extrahepatic biliary system. Normal spleen. Normal pancreas. Normal bilateral adrenal glands. Normal right kidney. Nonobstructing 3 mm calculus of the left kidney. No hydronephrosis. Normal visualized stomach. Normal small intestine. There are multiple colonic diverticula consistent with diverticulosis. Fecal residue throughout the colon. No colon wall thickening or pericolonic stranding. There is non-visualization of the appendix. There is diffuse atherosclerotic calcification of the abdominal aorta, without a demonstrated aneurysm. Normal inferior vena cava. Normal retroperitoneum. Normal urinary bladder. Normal visualized uterus. Fallopian tube ligation clips. Normal abdominal wall. There are diffuse degenerative changes of the visualized lumbar spine. CT/Abdomen/Pelvis W IV Cont ONLY IMPRESSION: 1. Diverticulosis without evidence of diverticulitis. No acute inflammatory process or bowel obstruction. 2. Nonobstructing left renal calculus. No hydronephrosis. Electronically Signed: Mervin Connors MD ([place]) at 13:33 EST , Service support ,
[2021-08-19 12:34] LABS: Bacteria 1+ /hpf (None Seen); Red Blood Cells-Urine 0-5 SEEN /hpf (0-5); White Blood Cells 0-5 SEEN /hpf (0-5)
[2021-08-19 14:33] VITALS: PULSE 75; RESP 18
--- NOTE | 2021-08-19 18:38 | ED.RN ---
Incorrect and inaccurate vital signs documented at 1130 and 1157, these vital signs were documented on the wrong patient. This patient had the following vital signs assessed at 1200: HR 74, BP 113/73, Resp 14.
== END 2021-08-19 14:38 | disposition home or self-care (01) ==
PROVIDERS: Emergency Provider Student in an Organized Health Care Education/Training Program; PCP Family Medicine; Visit Provider Student in an Organized Health Care Education/Training Program
DX: R10.32 Left lower quadrant pain (principal); J44.9 Chronic obstructive pulmonary disease, unspecified; G40.909 Epilepsy, unspecified, not intractable, without status epilepticus; E78.5 Hyperlipidemia, unspecified; R11.0 Nausea; N20.0 Calculus of kidney; M19.90 Unspecified osteoarthritis, unspecified site; E03.9 Hypothyroidism, unspecified; Z79.899 Other long term (current) drug therapy; Z87.891 Personal history of nicotine dependence; Z79.890 Hormone replacement therapy; Z79.51 Long term (current) use of inhaled steroids
CPT/HCPCS: 74177; 80048; 81001; 85025; 96374; 96375; 99282; J7030; Q9967; A4216; J2405

== ENCOUNTER → 2022-04-18 | Outpatient (CLI) | payer OTHER, SELFPAY ==
--- NOTE | 2022-04-18 09:04 | BI_ITS ---
MAMMOGRAPHY - BILATERAL SCREENING REASON FOR EXAM: Female, 61 years old. Routine annual screening examination. PERTINENT HISTORY: Non-contributory. Remote left stereotactic breast biopsy. TECHNIQUE: Digital bilateral breast otto (3D mammographic acquisition) in the CC and MLO projections. 2-D mediolateral oblique (MLO) and craniocaudad (CC) views of both breasts were obtained. CAD: Full Field Digital Mammography with Computer Added Detection was performed. COMPARISON: Comparison is made with prior study dated 04/27/2019 and 10/20/2014. FINDINGS: Breast Composition: There are scattered areas of fibroglandular density. There are no dominant masses or suspicious calcifications. Stable appearance of the benign appearing axillary lymph nodes. No other significant abnormalities are identified. There has been no significant change since the prior study. BI/SCRN MAMM (CAD)W/OTTO BILAT IMPRESSION: Stable bilateral screening mammogram. Yearly follow-up mammogram recommended. (A) ASSESSMENT CATEGORY: BIRADS Category 2: Benign. A letter regarding these results will be sent to the patient by the facility within 30 days. Approximately 10% of breast cancers are not detected by mammography. A normal mammogram should not delay biopsy of a clinically suspicious abnormality. [id number] Electronically Signed: Avinash Forrest MD at 11:19 EDT ,
== END | disposition home or self-care (01) ==
LOC: OPBI 09:02
PROVIDERS: PCP Family Medicine; Referring Provider Family Medicine; Visit Provider Family Medicine
DX: Z12.31 Encounter for screening mammogram for malignant neoplasm of breast (principal)
CPT/HCPCS: 77063; 77067

== ENCOUNTER → 2022-04-23 | Outpatient (CLI) | payer OTHER, SELFPAY ==
[2022-04-23 07:25] LABS: Erythrocyte Sedimentation Rate < 1 mm/hr (0-30)
[2022-04-23 07:28] LABS: Absolute Lymphocyte Count 1.61 X10^3/uL (0.83-4.51); Absolute Neutrophil Count 2.9 X10^3/uL (2.0-7.7); Basophil# 0.04 X10^3/uL; Basophil% 0.8 % (0-1); Eosinophil# 0.21 X10^3/uL; Hematocrit 40.6 % (37-47); Hemoglobin 12.5 g/dL (12.0-15.0); Lymphocyte # 1.61 X10^3/ul (0.83-4.51); Lymphocyte % 30.4 % (19-41); Mean Corp Hgb Conc 30.8 g/dL (32-36); Mean Corpuscular Hgb 29.7 pg (27.0-32.0); Mean Corpuscular Volume 96.4 fL (81-99); Mean Platelet Vol. 10.7 fl (6.2-12.0); Monocyte# 0.49 X10^3/uL; Monocyte% 9.3 % (0-10); NRBC Flagged by Analyzer 0 % (0-5); Neutrophil # 2.92 X10^3/uL (2.7-7.7); Neutrophil % 55.1 % (47-70); Platelet Count 168 K/mm3 (150-450); RBC Distribution Width SD 42.7 fl (35.1-43.9); Red Blood Count 4.21 M/mm3 (4.2-5.4); White Blood Count 5.3 K/mm3 (4.4-11.0)
[2022-04-23 08:25] LABS: Cholesterol 212 mg/dL (200); Ferritin 147 ng/mL (8-252); High Density Lipoprotein 61 mg/dL; Iron 80 ug/dL (50-170); Rheumatoid Factor < 10.0 IU/mL (<15); T4 Free Direct 1.33 ng/dL (0.76-1.46); Thyroid Stim Hormone (TSH) 0.02 uIU/mL (0.358-3.74); Triglycerides 106 mg/dL; Very Low Density Lipoprotein 21 mg/dL (5-40)
[2022-05-03 16:09] LABS: Lyme IgG P18 Ab Absent (.); Lyme IgG P23 Ab Absent (.); Lyme IgG P28 Ab Absent (.); Lyme IgG P30 Ab Absent (.); Lyme IgG P39 Ab Absent (.); Lyme IgG P41 Ab Present (.); Lyme IgG P45 Ab Absent (.); Lyme IgG P58 Ab Present (.); Lyme IgG P66 Ab Absent (.); Lyme IgG P93 Ab Present (.); Lyme IgM P23 Ab Absent (.); Lyme IgM P39 Ab Absent (.); Lyme IgM P41 Ab Absent (.)
[2022-05-03 16:21] LABS: CCP IgG Antibodies 3 units (0-19); Lyme IgG WB Interpretation Negative (.); Lyme IgM WB Interpretation Negative (.)
== END | disposition home or self-care (01) ==
PROVIDERS: PCP Family Medicine; Referring Provider Family Medicine; Visit Provider Family Medicine
DX: Z00.00 Encounter for general adult medical examination without abnormal findings (principal); D64.9 Anemia, unspecified; E03.9 Hypothyroidism, unspecified; M13.0 Polyarthritis, unspecified
CPT/HCPCS: 36415; 80061; 82728; 83540; 84439; 84443; 85025; 85652; 86200; 86431; 86617

== ENCOUNTER → 2022-07-04 | Outpatient (CLI) | payer OTHER, SELFPAY ==
[2022-07-04 08:42] LABS: T4 Free Direct 1.49 ng/dL (0.76-1.46); Thyroid Stim Hormone (TSH) 0.04 uIU/mL (0.358-3.74)
== END | disposition home or self-care (01) ==
LOC: LAB 07:03
PROVIDERS: PCP Family Medicine; Referring Provider Family Medicine; Visit Provider Family Medicine
DX: E03.9 Hypothyroidism, unspecified (principal)
CPT/HCPCS: 36415; 84439; 84443; 84481

== ENCOUNTER → 2022-08-21 | Outpatient (CLI) | payer OTHER, SELFPAY ==
--- NOTE | 2022-08-21 14:40 | RAD_ITS ---
EXAM: XR CHEST, 2 VIEWS CLINICAL INDICATION: COUGH TECHNIQUE: Frontal and lateral views of the chest. This report was created using [employer] report generation technology. COMPARISON: 05/20/2014 FINDINGS: LUNGS AND PLEURAL SPACES: Unremarkable. No consolidation or edema. No pneumothorax. No effusion. HEART: Unremarkable. Cardiac silhouette not enlarged. MEDIASTINUM: Central airways and mediastinal contour are unremarkable. BONES/JOINTS: Unremarkable. SOFT TISSUES: Unremarkable. TUBES, LINES AND DEVICES: Battery pack is again seen overlying the left chest with leads extending into the left neck. RAD/Chest PA and Lateral IMPRESSION: No acute findings in the chest. Electronically Signed: Pacheco Bennett MD at 18:35 EST ,
[2022-08-21 18:53] LABS: T4 Free Direct 1.28 ng/dL (0.76-1.46); Thyroid Stim Hormone (TSH) 0.16 uIU/mL (0.358-3.74)
== END | disposition home or self-care (01) ==
LOC: MTLAB 14:39
PROVIDERS: PCP Family Medicine; Referring Provider Family Medicine; Visit Provider Family Medicine
DX: R05.9 Cough, unspecified (principal); E03.9 Hypothyroidism, unspecified
CPT/HCPCS: 36415; 71046; 84439; 84443

== ENCOUNTER 2022-11-08 07:50 | Day surgery (SDC) | payer OTHER, SELFPAY ==
[2022-11-08] MEDS: Lactated Ringers 1,000 ML 15 ML IV (08:09)
[2022-11-08 08:10] VITALS: BP 108/73; PULSE 88; RESP 18; TEMP 37.2; O2SAT 100; BMI 28.3
--- NOTE | 2022-11-08 08:28 | HP.PCM_ITS ---
[facility] - General General Date of Admission: 11/08/22 Date of Service: 11/08/22 Chief Complaint: Screening colonoscopy [facility] Narrative DIANNE BENZ, is a 62 F who presents today for screening colonoscopy. She has a past medical history of obstructive sleep apnea, sclera derma, arthritis, hyperlipidemia, COPD who presents today for screening colonoscopy. She had a colonoscopy over 20 years ago and it was normal except for some diverticulitis. She is not having abdominal pain at this time. She does not have any change in bowel habits. She is not have any chest pain or shortness of breath. All over she is in fairly good health. [facility] Medical History (Updated 11/08/22 @ 08:[address] Waldron Friend, DO) Abscess of bursa, right hand Abscess of bursa, right wrist Abscess of right forearm Abscess of right hand Acute osteomyelitis of right hand Anxiety Arthritis Arthritis due to other bacteria, right wrist Asthma Back problem Bladder disease Bloody stool CAT BITE ABCESS RIGHT MID PALM CAT BITE INFECTION ABSCESS DISTAL PALM CAT BITE INFECTION ABSCESS MIDCARPAL JOINTS RIGHT WRIST CAT BITE INFECTION ABSCESS RIGHT DISTAL FOREARM Cat bite of hand CATBITE ABSCESS CARPAL TUNNEL RIGHT WRIST Cellulitis of right hand COMPARTMENT SYNDROME DORSAL INTEROSSEOUS MUSCLES RIGHT HAND Complex regional pain syndrome of right upper extremity COPD (chronic obstructive pulmonary disease) Degenerative disc disease Diarrhea Difficulty balancing Dyspnea Encephalopathy chronic Environmental allergies Epilepsy Fatigue Former smoker Hay fever HEADACHES/MIGRAINES Hearing problem HERPETIC LESION DORSUM RIGHT INDEX FINGER High cholesterol History of echocardiogram History of edema History of gastroesophageal reflux (GERD) History of hypothyroidism HOSHIMOTO ENCEPHELITIS Hyperlipidemia Hypersomnia Hypocalcemia Hypothyroidism Infection of right hand Knee pain Leg cramps Lung disease Migraines OSTEOMYELITIS RIGHT DISTAL RADIUS Other synovitis and tenosynovitis, right hand Pain in right hand PONV (postoperative nausea and vomiting) Post-menopausal REFLEX DYSTROPHY RIGHT HAND AND WRIST Restless legs RLS (restless legs syndrome) Seizure Seizure disorder Shortness of breath on exertion Shoulder pain SOB (shortness of breath) Stiffness of finger joint of right hand Stiffness of right wrist joint Subacromial bursitis of left shoulder joint SUPPURATIVE FLEXOR TENOSYNOVITIS RIGHT SMALL FINGER Thyroid disease UNUSUAL TIREDNESS Vision problem Wears contact lenses Wears partial dentures Home Medications levetiracetam 500 mg tablet 1,000 mg PO QHS seizures 02/11/17 [History Last Taken 04/02/17 20:00] levetiracetam 500 mg tablet (Keppra) 500 mg PO DAILY seizures 02/11/17 [History Last Taken 11/08/22] magnesium oxide 500 mg capsule 1,000 mg PO DAILY 02/11/17 [History Last Taken 04/02/17 20:00] omeprazole 40 mg capsule,delayed release 40 mg PO DAILY 02/27/17 [History Last Taken 11/08/22] pyridoxine (vitamin B6) 50 mg tablet 50 mg PO DAILY 02/27/17 [History Last Taken 04/02/17 20:00] vitamin E 268 mg (400 unit) capsule 400 unit PO DAILY 02/27/17 [History Last Taken 04/02/17 20:00] ferrous gluconate 240 mg (27 mg iron) tablet (Fergon) 240 mg PO DAILY 04/20/18 [History Last Taken Unknown] albuterol sulfate 90 mcg/actuation aerosol inhaler (ProAir HFA) 2 puff inhalation Q4H #1 inh 03/16/20 [Rx Last Taken Unknown] cholecalciferol (vitamin D3) 10 mcg (400 unit) capsule 10 mcg PO DAILY 06/23/20 [History Last Taken Unknown] dextroamphetamine-amphetamine ER 20 mg 24hr capsule,extend release (Adderall XR) 20 mg PO DAILY DROWSINESS FROM SZ MEDS 11/02/22 [History Last Taken Unknown] levothyroxine 175 mcg tablet 125 mcg PO DAILY 11/02/22 [History Last Taken 11/08/22] ropinirole 0.5 mg tablet 0.5 mg PO TID PRN PRN RLS 11/02/22 [History Last Taken Unknown] topiramate 50 mg tablet 75 mg PO BID 11/02/22 [History Last Taken 11/08/22] Allergy/AdvReac Type Severity Reaction Status Date / Time ciprofloxacin [From Cipro] Allergy Severe SEIZURES Verified 11/08/22 08:08 bupropion HCl Allergy Unknown Verified 11/08/22 08:08 [From Wellbutrin] pregabalin [From Lyrica] Allergy Unknown Verified 11/08/22 08:08 gabapentin AdvReac Other Verified 11/08/22 08:08 hydromorphone [From Dilaudid] AdvReac Other Verified 11/08/22 08:08 [id number] Reductase AdvReac LEG CRAMPS Verified 11/08/22 08:08 Inhibitor MRI AdvReac Other Uncoded 07/13/22 09:21 Family History (Updated 07/13/22 @ 09:19 by Gertrude London) Mother Arthritis Bleeding disorder Hypertension High cholesterol LUNG/RESPIRATORY DISEASE Colon polyps Grandmother Colon cancer Aunt Colon cancer Son Colon polyps Other Diabetes Surgical History (Updated 07/13/22 @ 09:18 by Gertrude London) ABLATION BLADDER LIFT CARPAL BONE RIGHT WRIST FOR OSTEOMYELITIS EAR TUBES AND TONSILS History of bladder suspension procedure History of colonoscopy History of endometrial ablation History of tonsillectomy History of tubal ligation INCISION AND DRAINAGE RIGHT ULNAR PALM Status post VNS (vagus nerve stimulator) placement SURGICAL PREPARATION RIGHT DISTAL PALM Tubal ligation status VAGUS NERVESTIMULATOR IMPLANT Social History household members: spouse Smoking Status: Former smoker second hand exposure: No alcohol intake: never substance use type: does not use caffeine: Yes what type of physical activity do you participate in: walking frequency: 3-4 times per week seatbelt use: always do you feel safe at home: Yes additional social history: - Yo Patient is on disability ROS Review of Systems ROS Unobtainable: other Constitutional Constitutional: Denies fatigue, fever(s), poor appetite, weight gain or weight loss ENT HEENT: Denies mouth lesions Cardiovascular Cardiovascular: Denies abdominal bloating, abdominal edema or abdominal pain Respiratory/Chest Respiratory/Chest: Denies change in mental status, change in phlegm color, chest congestion or chest tightness Gastrointestinal Gastrointestinal: Denies belching, bloating, change in bowel habits, change in stool character, chewing difficulty, coffee ground emesis, constipation, cramping, diarrhea, dyspepsia, dysphagia, early satiety, excessive flatus, fecal incontinence, heartburn, hematemesis, hematochezia, hemorrhoids, loose stools, melena, nausea, odynophagia, rectal bleeding, tenesmus, vomiting or weight changes Genitourinary Genitourinary: Denies abdominal discomfort, burning urination or itching Musculoskeletal Musculoskeletal: Reports as per HPI; Denies muscle weakness or myalgias Integumentary Integumentary: Denies jaundice Neurologic Neurologic: Denies lack of coordination or weakness Psychiatric Psychiatric: Denies confusion, depression, memory loss, mood swings, paranoia or suicidal ideation Endocrine Endocrinology: Denies systems reviewed and no addt'l complaints, except as documented Hematologic/Lymphatic Hematologic/Lymphatic: Denies anemia, easy bleeding, easy bruising or lymphadenopathy Allergic/Immunologic Allergic/Immunologic: Denies systems reviewed and no addt'l complaints, except as documented Vital Signs Vital Signs Vital Signs: 11/08/22 08:10 11/08/22 08:10 Temperature 98.9 F Temperature Source Temporal Pulse Rate 88 Respiratory Rate 18 Respiratory Pattern Normal Blood Pressure 108/73 Blood Pressure Mean 84 Blood Pressure Source Monitor Blood Pressure Position Semi-Fowlers Blood Pressure Location Left Arm Pulse Ox 100 Oxygen Delivery Method Room Air Weight Weight: 165 lb Body Mass Index (BMI) 28.3 Physical Exam Const alert General Appearance: cooperative Orientation / Consciousness: oriented to person HEENT hearing grossly normal bilaterally Head and Scalp: normal to inspection Face and Sinus: face symmetric Nose: external nose normal Mouth: oral and palatal mucosa normal Eyes conjunctivae normal General Eye: normal appearance of both eyes Neck full ROM General: normal visual inspection Lymph Lymphatic: no lymphadenopathy noted Chest inspection of chest normal and palpation of chest normal Chest: symmetrical chest wall rise Resp normal respiratory effort Effort and Inspection: able to speak in complete sentences Cardio regular rate GI non-distended Percussion: normal to percussion Rectal Exam: deferred Neuro Speech: speech normal Gait (Neuro): normal gait Assessment & Plan Assessment/Plan (1) Encounter for screening colonoscopy: PLAN: She was explained alternatives, risk, benefits include not withstanding bleeding, infection, sepsis, perforation, need for emergent surgery . She of an ASA of 2.
--- NOTE | 2022-11-08 08:45 | COLBX_PTH ---
PATIENT: DIANNE BENZ LOC: EN U#:[id number] AGE/SX: 62/F ROOM: RE11/08/[address]: Dr. Chivo Lisa DO : 1960 BED: DIS: 11/08/2022 SPEC #: [id number] RECD: 11/08/22 10:23 STATUS: MARY REQ #: [id number] CHRISS: 11/08/22 08:[address]: Chivo Lisa DEPT: SURGICAL PATHOLOGY RECD BY: Connie Cantu ENTERED: 11/08/22 11:35 SP TYPE: COLON BX OTHR DR: Dr. Randy Reynoso DO Tissues: Transverse colon Procedures: Surgery Specimen Level IV HEADER OPERATION: Colonoscopy ? open access (MAC) with biopsy PRE-OP DIAGNOSIS: Screening TISSUE SUBMITTED: Transverse colon polyp biopsy MICROSCOPIC DIAGNOSIS Transverse colon polyp, biopsy: Polypoid fragment of benign colonic mucosa. See comment. AM:nadir 11/09/2022 COMMENT Neither hyperplastic nor adenomatous change is identified. Clinical correlation is suggested. MICROSCOPIC DESCRIPTION Slides are reviewed. GROSS DESCRIPTION Received in fixative is one container labeled with the patient's name and designated transverse colon polyp. The specimen consists of one irregular fragment of light levine soft tissue that measures 0.3 x 0.3 x 0.1 cm. The specimen is totally submitted in one cassette. / AM:nadir 11/08/2022 TC:5 CPT: 46371
[2022-11-08 09:06] VITALS: BP 108/73; BP 95/59; PULSE 78; RESP 16; TEMP 36.4; O2SAT 100
--- NOTE | 2022-11-08 09:07 | OP.COLON_ITS ---
Patient Name: Keily Liriano Procedure Date: 11/08/2022 8:26 AM Date of : 1960 Age: 62 Procedure: Colonoscopy Indications: Screening for colorectal malignant neoplasm Providers: Chivo Lisa DO Medicines: Monitored Anesthesia Care Patient Profile: This is a 62 year old female. Refer to note in patient chart for documentation of history and physical. Last Colonoscopy: more than 10 years ago. Complications: No immediate complications. Procedure: Pre-Anesthesia Assessment: - Prior to the procedure, a History and Physical was performed, and patient medications and allergies were reviewed. The risks and benefits of the procedure and the sedation options and risks were discussed with the patient. All questions were answered and informed consent was obtained. Patient identification and proposed procedure were verified by the physician in the pre-procedure area. Mental Status Examination: alert and oriented. Airway Examination: normal oropharyngeal airway and neck mobility. Respiratory Examination: clear to auscultation. CV Examination: normal. Prophylactic Antibiotics: The patient does not require prophylactic antibiotics. Prior Anticoagulants: The patient has taken no previous anticoagulant or antiplatelet agents. ASA Grade Assessment: II - A patient with mild systemic disease. After reviewing the risks and benefits, the patient was deemed in satisfactory condition to undergo the procedure. The anesthesia plan was to use monitored anesthesia care (MAC). Immediately prior to administration of medications, the patient was re-assessed for adequacy to receive sedatives. The heart rate, respiratory rate, oxygen saturations, blood pressure, adequacy of pulmonary ventilation, and response to care were monitored throughout the procedure. The physical status of the patient was re-assessed after the procedure. After I obtained informed consent, the scope was passed under direct vision. Throughout the procedure, the patient's blood pressure, pulse, and oxygen saturations were monitored continuously. The pediatric colonoscope was introduced through the anus and advanced to the cecum, identified by appendiceal orifice and ileocecal valve. The colonoscopy was performed without difficulty. The patient tolerated the procedure well. The quality of the bowel preparation was good. Scope In: 8:45:37 AM Scope Withdrawal Time 0 hours 7 minutes 12 seconds Scope Out: 9:01:53 AM Total Procedure Duration Time 0 hours 16 minutes 16 seconds Findings: The perianal and digital rectal examinations were normal. A few small and large-mouthed diverticula were found in the recto-sigmoid colon and sigmoid colon. A 3 mm polyp was found in the transverse colon. The polyp was sessile. The polyp was removed with a jumbo cold forceps. Resection and retrieval were complete. Verification of patient identification for the specimen was done. Estimated blood loss was minimal. Impression: - Diverticulosis in the recto-sigmoid colon and in the sigmoid colon. - One 3 mm polyp in the transverse colon, removed with a jumbo cold forceps. Resected and retrieved. Recommendation: - Repeat colonoscopy in 5 years for surveillance based on pathology results. - Continue present medications. Procedure Code(s): --- Professional --- 55774, Colonoscopy, flexible; with biopsy, single or multiple CPT copyright 2017 [employer]. All rights reserved. The codes documented in this report are preliminary and upon deputy bailiff review may be revised to meet current compliance requirements. Chivo Lisa DO 11/08/2022 9:07:08 AM This report has been signed electronically. Number of Addenda: 0 Note Initiated On: 11/08/2022 8:26 AM
--- NOTE | 2022-11-08 09:07 | OP.CCLET_ITS ---
11/08/2022 Randy Reynoso [address] [place] [address] Re : Colonoscopy procedure for Keily Liriano Dear Dr. Reynoso This procedure was performed on November. My impressions and recommendations are as follows: Impressions : - Diverticulosis in the recto-sigmoid colon and in the sigmoid colon. - One 3 mm polyp in the transverse colon, removed with a jumbo cold forceps. Resected and retrieved. Recommendations : - Repeat colonoscopy in 5 years for surveillance based on pathology results. - Continue present medications. My findings are described in the full procedure note, which is enclosed. If I can be of further assistance, please feel free to contact me at . Sincerely, Chivo Lisa, 11/08/2022 9:07:08 AM This report has been signed electronically.
[2022-11-08 09:10] VITALS: BP 108/73; BP 95/59; PULSE 84; RESP 16; O2SAT 100
[2022-11-08 09:15] VITALS: BP 108/73; BP 98/61; PULSE 73; RESP 16; O2SAT 100
[2022-11-08 09:22] VITALS: BP 108/73; BP 99/62; PULSE 69; RESP 16; TEMP 36.2; O2SAT 100
[2022-11-08 09:50] VITALS: BP 108/73
== END 2022-11-08 09:50 | disposition home or self-care (01) ==
LOC: EN 07:50 → AC 07:50
PROVIDERS: PCP Family Medicine; Referring Provider Internal Medicine Gastroenterology; Visit Provider Internal Medicine Gastroenterology
PROC: 0DJD8ZZ Inspection of Lower Intestinal Tract, Via Natural or Artificial Opening Endoscopic (ICD-10-PCS; CPT 45378; principal; 2022-11-08 08:40)
DX: Z12.11 Encounter for screening for malignant neoplasm of colon (principal); J44.9 Chronic obstructive pulmonary disease, unspecified; K57.30 Diverticulosis of large intestine without perforation or abscess without bleeding; Z87.891 Personal history of nicotine dependence; E78.00 Pure hypercholesterolemia, unspecified; K63.5 Polyp of colon; E03.9 Hypothyroidism, unspecified; Z79.890 Hormone replacement therapy; K21.9 Gastro-esophageal reflux disease without esophagitis; Z79.899 Other long term (current) drug therapy
CPT/HCPCS: 45380; 88305; J7120; J2405

== ENCOUNTER → 2023-02-19 | Outpatient (CLI) | payer OTHER, SELFPAY ==
[2023-02-19 13:08] LABS: T4 Free Direct 1.07 ng/dL (0.76-1.46); Thyroid Stim Hormone (TSH) 1.28 uIU/mL (0.358-3.74)
== END | disposition home or self-care (01) ==
LOC: MTLAB 10:32
PROVIDERS: PCP Family Medicine; Referring Provider Family Medicine; Visit Provider Family Medicine
DX: E03.9 Hypothyroidism, unspecified (principal)
CPT/HCPCS: 36415; 84439; 84443

== ENCOUNTER → 2023-10-01 | Outpatient (CLI) | payer OTHER, SELFPAY ==
[2023-10-01 16:29] LABS: T4 Free Direct 1.25 ng/dL (0.76-1.46); Thyroid Stim Hormone (TSH) 1.04 uIU/mL (0.358-3.74)
== END | disposition home or self-care (01) ==
LOC: MTLAB 12:53
PROVIDERS: PCP Family Medicine; Referring Provider Family Medicine; Visit Provider Family Medicine
DX: E03.9 Hypothyroidism, unspecified (principal)
CPT/HCPCS: 36415; 84439; 84443

== ENCOUNTER 2023-12-04 09:30 | Emergency (ER) | payer OTHER, SELFPAY ==
[2023-12-04 09:31] VITALS: BP 124/80; PULSE 82; RESP 16; TEMP 36.4; O2SAT 99; BMI 32.5
--- NOTE | 2023-12-04 09:50 | EX.ED.DYSGE1 ---
HPI History of Present Illness Chief Complaint: General Illness Informant: patient Onset/Context/Timing Onset: Month(s) (2) Context: Gradual Onset Timing: Intermittent Quality: Dull, stabbing Location: Left lower extremity Worsened by: Ambulation, certain movements Relieved by: Rest, ice Narrative Narrative: Patient presents with pain and swelling in her left knee and lower leg that has been getting worse over the past 2 months. Patient states she has dull and stabbing pain in her left lower extremity. Patient states that she has been having some difficulty moving her right leg at times. Patient states that she trips over her right leg frequently. Patient denies any trauma or injury. Patient states her pain in her left leg is worse with ambulation and worse with certain movements. [facility] Medical History Abscess of bursa, right hand Abscess of bursa, right wrist Abscess of right forearm Abscess of right hand Acute osteomyelitis of right hand Anxiety Arthritis Arthritis due to other bacteria, right wrist Asthma Back problem Bladder disease Bloody stool CAT BITE ABCESS RIGHT MID PALM CAT BITE INFECTION ABSCESS DISTAL PALM CAT BITE INFECTION ABSCESS MIDCARPAL JOINTS RIGHT WRIST CAT BITE INFECTION ABSCESS RIGHT DISTAL FOREARM Cat bite of hand CATBITE ABSCESS CARPAL TUNNEL RIGHT WRIST Cellulitis of right hand COMPARTMENT SYNDROME DORSAL INTEROSSEOUS MUSCLES RIGHT HAND Complex regional pain syndrome of right upper extremity COPD (chronic obstructive pulmonary disease) Degenerative disc disease Diarrhea Difficulty balancing Dyspnea Encephalopathy chronic Environmental allergies Epilepsy Fatigue Former smoker Hay fever HEADACHES/MIGRAINES Hearing problem HERPETIC LESION DORSUM RIGHT INDEX FINGER High cholesterol History of echocardiogram History of edema History of gastroesophageal reflux (GERD) History of hypothyroidism HOSHIMOTO ENCEPHELITIS Hyperlipidemia Hypersomnia Hypocalcemia Hypothyroidism Infection of right hand Knee pain Leg cramps Lung disease Migraines OSTEOMYELITIS RIGHT DISTAL RADIUS Other synovitis and tenosynovitis, right hand Pain in right hand PONV (postoperative nausea and vomiting) Post-menopausal REFLEX DYSTROPHY RIGHT HAND AND WRIST Restless legs RLS (restless legs syndrome) Seizure Seizure disorder Shortness of breath on exertion Shoulder pain SOB (shortness of breath) Stiffness of finger joint of right hand Stiffness of right wrist joint Subacromial bursitis of left shoulder joint SUPPURATIVE FLEXOR TENOSYNOVITIS RIGHT SMALL FINGER Thyroid disease UNUSUAL TIREDNESS Vision problem Wears contact lenses Wears partial dentures Home Medications levetiracetam 500 mg tablet 1,000 mg PO QHS seizures 02/11/17 [History Last Taken 04/02/17 20:00] levetiracetam 500 mg tablet (Keppra) 500 mg PO DAILY seizures 02/11/17 [History Last Taken 11/08/22] magnesium oxide 500 mg capsule 1,000 mg PO DAILY 02/11/17 [History Last Taken 04/02/17 20:00] omeprazole 40 mg capsule,delayed release 40 mg PO DAILY 02/27/17 [History Last Taken 11/08/22] pyridoxine (vitamin B6) 50 mg tablet 50 mg PO DAILY 02/27/17 [History Last Taken 04/02/17 20:00] vitamin E 268 mg (400 unit) capsule 400 unit PO DAILY 02/27/17 [History Last Taken 04/02/17 20:00] ferrous gluconate 240 mg (27 mg iron) tablet (Fergon) 240 mg PO DAILY 04/20/18 [History Last Taken Unknown] albuterol sulfate 90 mcg/actuation aerosol inhaler (ProAir HFA) 2 puff inhalation Q4H #1 inh 03/16/20 [Rx Last Taken Unknown] cholecalciferol (vitamin D3) 10 mcg (400 unit) capsule 10 mcg PO DAILY 06/23/20 [History Last Taken Unknown] dextroamphetamine-amphetamine ER 20 mg 24hr capsule,extend release (Adderall XR) 20 mg PO DAILY DROWSINESS FROM S[facility] MEDS 11/02/22 [History Last Taken Unknown] ropinirole 0.5 mg tablet 0.5 mg PO TID PRN PRN RLS 11/02/22 [History Last Taken Unknown] budesonide 0.25 mg/2 mL suspension for nebulization 0.25 mg inhalation BID 11/18/23 [History Last Taken Unknown] celecoxib 100 mg capsule (Celebrex) 100 mg PO BID #60 caps 11/18/23 [Rx Last Taken Unknown] fexofenadine 60 mg tablet (Yadira Allergy) 60 mg PO BID 11/18/23 [History Last Taken Unknown] levothyroxine 175 mcg tablet 125 mcg PO DAILY 11/18/23 [History Last Taken Unknown] oxcarbazepine 150 mg tablet 150 mg PO DAILY 11/18/23 [History Last Taken Unknown] Allergy/AdvReac Type Severity Reaction Status Date / Time ciprofloxacin [[facility]] Allergy Severe SEIZURES Verified 12/04/23 09:35 bupropion HCl Allergy Unknown Verified 12/04/23 09:35 [From Wellbutrin] Gadolinium-MRI Contrast Allergy Other Verified 12/04/23 09:35 Medium pregabalin [From Lyrica] Allergy Unknown Verified 12/04/23 09:35 gabapentin AdvReac Other Verified 12/04/23 09:35 hydromorphone [From Dilaudid] AdvReac Other Verified 12/04/23 09:35 Vyyvnig-UCH-GaM Reductase AdvReac LEG CRAMPS Verified 12/04/23 09:35 Inhibitor Family History Mother Arthritis Bleeding disorder Hypertension High cholesterol LUNG/RESPIRATORY DISEASE Colon polyps Grandmother Colon cancer Aunt Colon cancer Son Colon polyps Other Diabetes Surgical History ABLATION BLADDER LIFT CARPAL BONE RIGHT WRIST FOR OSTEOMYELITIS EAR TUBES AND TONSILS History of bladder suspension procedure History of colonoscopy History of endometrial ablation History of tonsillectomy History of tubal ligation INCISION AND DRAINAGE RIGHT ULNAR PALM Status post VNS (vagus nerve stimulator) placement SURGICAL PREPARATION RIGHT DISTAL PALM Tubal ligation status VAGUS NERVESTIMULATOR IMPLANT Social History household members: spouse Smoking Status: Former smoker second hand exposure: No alcohol intake: never substance use type: does not use caffeine: Yes what type of physical activity do you participate in: walking frequency: 3-4 times per week seatbelt use: always do you feel safe at home: Yes additional social history: - Yo Patient is on disability ROS ROS ED Constitutional Constitutional ED: Denies chills or fever(s) Eyes Eyes: Denies blurry vision or change in vision ENT ENT ED: Denies rhinorrhea or sore throat Cardiovascular Cardiovascular: Denies chest pain or palpitations Respiratory/Chest Respiratory/Chest: Denies cough or dyspnea Gastrointestinal Gastrointestinal: Denies nausea or vomiting Genitourinary Genitourinary ED: Denies dysuria or hematuria Musculoskeletal Musculoskeletal: Reports back pain; Denies neck pain Integumentary Reports rash; Denies abscess Neurologic Neurologic: Reports headache(s); Denies weakness Allergic/Immunologic Allergic/Immunologic ED: Denies mouth swelling or urticaria EXAM Physical Exam Const Vital Signs: 12/04/23 09:31 12/04/23 09:31 12/04/23 11:31 Temperature 97.6 F L Temperature Source Temporal Pulse Rate 82 64 Respiratory Rate 16 18 Respiratory Pattern Normal Blood Pressure 124/80 H 142/78 H Blood Pressure Mean 94 99 Pulse Ox 99 98 Oxygen Delivery Method Room Air Room Air 12/04/23 13:00 Temperature Temperature Source Pulse Rate 84 Respiratory Rate 24 H Respiratory Pattern Blood Pressure 128/77 H Blood Pressure Mean 94 Pulse Ox 100 Oxygen Delivery Method Room Air Positive well nourished and well developed General Appearance ED: well developed and NAD HEENT Reports moist mucous membranes Neck supple and no JVD Resp normal respiratory effort and clear to auscultation bilaterally Cardio regular rate and regular rhythm GI non-tender and non-distended Extremity Extremity Narrative: There is mild tenderness over the posterior aspect of the left knee. There is no joint effusion. There is no bony crepitance or step-off noted. Range of motion was limited in all motions of the left knee secondary to pain. There is mild calf tenderness. Pedal pulses are equal bilateral. Sensation was intact to light touch bilaterally in the lower extremities. Strength is 5/5 bilaterally in the lower extremities. Neuro oriented x3, CN's II-XII intact bilaterally and no sensory deficits noted Neuro Narrative: Pygq-[id number] testing was normal. Sensorium / Orientation: alert Motor Exam: strength 5/5 throughout Psych mental status grossly normal MDM MDM MDM Narrative Medical decision making narrative: Differential diagnosis include viral illness, DVT, electrolyte abnormality, dehydration, occult fracture, stroke, and muscle strain. Venous duplex of the lower extremities will be obtained to assess for DVT. X-rays of the left knee will be obtained to assess for occult fracture. CT scan of the brain will be obtained to assess for stroke. COVID-19, influenza, and RSV PCR will be obtained to assess for viral illness. CBC will be obtained to assess for leukocytosis and anemia. Comprehensive metabolic profile will be obtained to assess for hepatic function, renal function, and electrolyte abnormality. Urinalysis will be obtained to assess for urinary tract infection and hematuria. PT with INR and PTT will be obtained to assess for coagulopathy. Lab Data Attestation: I reviewed the patient's lab results. Lab results narrative: CBC was reviewed and was within normal limits. PT with INR and PTT were reviewed and were essentially within normal limits. Comprehensive metabolic profile was reviewed. Creatinine was slightly elevated at 1.2. The remainder is within normal limits. Urinalysis was reviewed. There is no evidence of urinary tract infection or hematuria. Labs: Laboratory Results - last 24 hr 12/04/23 12/04/23 10:40 11:54 WBC 10.7 RBC 4.69 Hgb 13.9 Hct 43.0 MCV 91.7 MCH 29.6 MCHC 32.3 RDW Std Deviation 40.4 RDW Coeff of Ovidio 12.1 Plt Count 258 MPV 9.8 Immature Gran % (Auto) 0.600 Neut % (Auto) 65.2 Lymph % (Auto) 19.4 Owen % (Auto) 8.8 Eos % (Auto) 5.2 H Baso % (Auto) 0.8 Absolute Neuts (auto) 7.0 Absolute Lymphs (auto) 2.07 Nucleated RBC % 0 PT 11.9 INR 0.9 APTT 21.9 L Sodium 138 Potassium 4.1 Chloride 106 Carbon Dioxide 29.0 Anion Gap 3 L BUN 17 Creatinine 1.20 H Estim Creat Clear Calc 52.30 Est GFR (MDRD) Af Amer 59 L Est GFR (MDRD) Non-Af 48 L BUN/Creatinine Ratio 14.2 Glucose 101 Calcium 9.1 Total Bilirubin 0.40 AST 13 L ALT 21 Alkaline Phosphatase 113 Total Protein 7.1 Albumin 3.9 Globulin 3.2 Albumin/Globulin Ratio 1.2 Urine Color Yellow Urine Clarity Clear Urine pH 6.5 Ur Specific [place] 1.015 Urine Protein Negative Urine Glucose (UA) Normal Urine Ketones Negative Urine Occult Blood 10 H Urine Nitrite Negative Urine Bilirubin Negative Urine Urobilinogen Normal Ur Leukocyte Esterase Negative Urine RBC 0-5 SEEN Urine WBC 0 SEEN Ur Squamous Epith Cells 0-5 SEEN Urine Bacteria 0 SEEN Urine Mucus 0 SEEN Radiography Diagnostic Testing: Clinical Impression(s) from Imaging Studies Brain CT 12/04/23 10:19 IMPRESSION: Normal unenhanced CT scan of the brain. Electronically Signed: Avinash Forrest MD at 12:00 EDT , Venous Doppler Study 05/01/24 10:19 Interpretation Summary No evidence for acute deep venous thrombosis bilateral lower extremities with patent and compressible bilateral great saphenous veins. Ordering Physician: Teto Booth Referring Physician: Randy Reynoso Performed By: Clara Elder, T Knee X-Ray 12/04/23 10:21 IMPRESSION: Normal x-ray examination of the knee. Electronically Signed: Avinash Forrest MD at 12:00 EDT , Venous duplex of the lower extremities was obtained. There is no evidence of DVT. X-rays of the left knee were obtained. There are 4 views. On my independent interpretation, there is no acute fracture or dislocation noted. There is no loose body noted. Radiologist also interpreted the x-ray and agrees. CT scan of the brain was obtained. There is no acute intracranial abnormality. This was interpreted by the radiologist and was also independently reviewed by myself. Treatment and Re-Evaluation :: Patient was advised of her findings. Patient was advised that this could just be a muscle strain. Patient was instructed to ice and elevate the left leg. Patient was instructed to follow-up with her primary care physician in 5 to 7 days. Patient was instructed to take Tylenol or ibuprofen as needed for pain. Patient understood and was agreeable with the plan. All questions were answered. Discharge Plan Triage Chief Complaint: General Illness ED Provider: Teto Booth Dx/Rx/DC Orders Clinical Impression: Pain of left lower extremity, Left knee DJD Instructions: ED Muscle Strain, Extremity, ED RICE Prescriptions: No Action ferrous gluconate [Fergon] 240 mg (27 mg iron) tablet 240 mg PO DAILY albuterol sulfate [ProAir HFA] 90 mcg/actuation HFA aerosol inhaler 2 puff INHALATION Q4H Qty: 1 3RF Rx Instructions: administer with spacer cholecalciferol (vitamin D3) 10 mcg (400 unit) capsule 10 mcg PO DAILY oxcarbazepine 150 mg tablet 150 mg PO DAILY fexofenadine [Yadira Allergy] 60 mg tablet 60 mg PO BID budesonide 0.25 mg/2 mL suspension for nebulization 0.25 mg inhalation BID celecoxib [Celebrex] 100 mg capsule 100 mg PO BID Qty: 60 0RF Rx Instructions: do not take in conjunction with other NSAID. tylenol is ok. levetiracetam 500 MG tablet 1,000 mg PO QHS Patient Comments: in PM seizures levetiracetam [Keppra] 500 MG tablet 500 mg PO DAILY Patient Comments: in AM seizures magnesium oxide 500 MG capsule 1,000 mg PO DAILY Patient Comments: supplement omeprazole 40 MG capsule 40 mg PO DAILY pyridoxine (vitamin B6) 50 MG tablet 50 mg PO DAILY vitamin E 400 UNIT capsule 400 unit PO DAILY ropinirole 0.5 mg tablet 0.5 mg PO TID PRN PRN (Reason: RLS) dextroamphetamine-amphetamine [Adderall XR] 20 mg Capsule,Extended Release 24hr 20 mg PO DAILY levothyroxine 175 mcg tablet 125 mcg PO DAILY Primary Care Provider: Randy Reynoso Referrals: Randy Reynoso DO [Primary Care Provider] - 5-7 Days Disposition Disposition: Home, Self Care
--- NOTE | 2023-12-04 10:19 | CT_ITS ---
STUDY: CT BRAIN WITHOUT CONTRAST REASON FOR EXAM: Female, 63 years old. Weakness RADIATION DOSAGE (If Supplied By Facility): CTDIvol = ( 44.99 ) mGy, DLP = ( 779.24 ) mGycm TECHNIQUE: Transaxial CT imaging of the brain was performed without administration of intravenous contrast material. Individualized dose optimization techniques were used for this CT. COMPARISON: Comparison is made with prior study July 18, 2012. FINDINGS: Normal soft tissue structures. Normal calvarium. Normal size ventricles and extra-axial spaces for the patient''s age. Normal white matter tracts of the cerebral hemispheres. Normal basal ganglia and thalami. Normal brainstem. Normal cerebellum. There is no intracranial hemorrhage. There are no findings of an acute ischemic infarction. Normal visualized paranasal sinuses. CT/Brain/Head without Contrast IMPRESSION: Normal unenhanced CT scan of the brain. Electronically Signed: Avinash Forrest MD at 12:00 EDT ,
--- NOTE | 2023-12-04 10:19 | VDLE_ITS ---
Reason For Study: Bilateral leg swelling RIGHT LEFT GSV is normal. GSV is normal. CFV is compressible, spontaneous, phasic, CFV is compressible, spontaneous, phasic, competent and demonstrates normal competent, and demonstrates normal augmentation. augmentation. FV is compressible, spontaneous, phasic, FV is compressible, spontaneous, phasic, competent and demonstrates normal competent and demonstrates normal augmentation. augmentation. POP V is compressible, spontaneous, phasic, POP V is compressible, spontaneous, phasic, competent and demonstrates normal competent and demonstrates normal augmentation. augmentation. T/P Trunk is compressible. T/P Trunk is compressible. PTV is compressible. PTV is compressible. RT PerV is compressible. LT PerV is compressible. Procedure This is a venous duplex using B-mode, color flow and spectral Doppler. Exam performed portable in ED. A preliminary report was called and/or faxed to ED. VL/Venous Duplex US - [place] Extrem Interpretation Summary No evidence for acute deep venous thrombosis bilateral lower extremities with p atent and compressible bilateral great saphenous veins. Ordering Physician: Teto Booth Referring Physician: Randy Reynoso Performed By: Clara Elder RVT
--- NOTE | 2023-12-04 10:21 | RAD_ITS ---
STUDY: X-RAY - LEFT KNEE REASON FOR EXAM: Female, 63 years old. Injury/Pain TECHNIQUE: 4 view(s) of the knee. COMPARISON: None. FINDINGS: Normal visualized distal femur. Normal visualized proximal tibia and fibula. Normal proximal tibiofibular articulation. Normal medial femorotibial compartment. Normal lateral femorotibial compartment. Normal patellofemoral articulation. The soft tissue structures are unremarkable. RAD/Knee 4 or More Views IMPRESSION: Normal x-ray examination of the knee. Electronically Signed: Avinash Forrest MD at 12:00 EDT ,
[2023-12-04 10:51] LABS: Absolute Lymphocyte Count 2.07 X10^3/uL (0.83-4.51); Basophil# 0.09 X10^3/uL; Basophil% 0.8 % (0-1); Eosinophil# 0.56 X10^3/uL; Eosinophils% 5.2 % (0-5); Hemoglobin 13.9 g/dL (12.0-15.0); Lymphocyte # 2.07 X10^3/ul (0.83-4.51); Lymphocyte % 19.4 % (19-41); Mean Corp Hgb Conc 32.3 g/dL (32-36); Mean Corpuscular Hgb 29.6 pg (27.0-32.0); Mean Corpuscular Volume 91.7 fL (81-99); Mean Platelet Vol. 9.8 fl (6.2-12.0); Monocyte# 0.94 X10^3/uL; Monocyte% 8.8 % (0-10); NRBC Flagged by Analyzer 0 % (0-5); Neutrophil # 6.95 X10^3/uL (2.7-7.7); Neutrophil % 65.2 % (47-70); Platelet Count 258 K/mm3 (150-450); RBC Distribution Width CV 12.1 % (11.6-14.6); RBC Distribution Width SD 40.4 fl (35.1-43.9); Red Blood Count 4.69 M/mm3 (4.2-5.4); White Blood Count 10.7 K/mm3 (4.4-11.0)
[2023-12-04 11:04] LABS: International Normalized Ratio 0.9; Prothrombin Time (Protime)PT. 11.9 SECONDS (11.7-14.9)
[2023-12-04 11:05] LABS: Partial Thromboplast Time 21.9 Seconds (24.1-36.2)
[2023-12-04 11:06] LABS: ALB/GLOB Ratio 1.2 RATIO (0.9-2.4); AST(SGOT) 13 U/L (15-37); Alanine Aminotransfer ALT/SGPT 21 U/L (13-56); Albumin, Serum 3.9 g/dL (3.2-5.0); Alkaline Phosphatase 113 U/L (45-117); Anion Gap 3 (5-15); BUN 17 mg/dL (7-18); BUN/Creat Ratio 14.2 RATIO (10-20); Calcium,Total 9.1 mg/dL (8.5-10.1); Chloride 106 mmol/L (98-107); EST Glomerular Filtration Rate 48 mL/min (>60); Est Glom Filt Rate - Afr Amer 59 mL/min (>60); Globulin 3.2 g/dL (2.2-4.2); Glucose 101 mg/dL (74-106); Potassium 4.1 mmol/L (3.5-5.1); Protein, Total 7.1 g/dL (6.4-8.2); Sodium Level 138 mmol/L (136-145)
[2023-12-04 11:31] VITALS: BP 142/78; PULSE 64; RESP 18; O2SAT 98
[2023-12-04 11:59] LABS: Bacteria 0 SEEN /hpf (None Seen); Color, Urine Yellow (Yellow); Glucose, Dipstick Normal (Normal); Ketone-Dipstick Negative (Negative); Leukocyte Esterase-Dipstick Negative /ul (Negative); Mucous, Urine 0 SEEN /hpf (<or=2+); Nitrite-Dipstick Negative (Negative); Occult Blood-Urine 10 /ul (Negative); Protein-Dipstick Negative (Negative); Specific Gravity, Urine 1.015 (1.002-1.030); Urine Bilirubin Dipstick Negative (Negative); Urine Clarity Clear (Clear); Urine Urobilinogen Normal (Normal); Urine pH 6.5 (5.0 - 8.0); White Blood Cells 0 SEEN /hpf (0-5)
[2023-12-04 12:47] LABS: Red Blood Cells-Urine 0-5 SEEN /hpf (0-5); Squamous Epithelial Cells - UA 0-5 SEEN /hpf (5-10)
[2023-12-04 13:00] VITALS: BP 128/77; PULSE 84; RESP 24; O2SAT 100
[2023-12-04 14:13] VITALS: BP 135/79; PULSE 72; RESP 16; TEMP 36.6; O2SAT 98
== END 2023-12-04 14:14 | disposition home or self-care (01) ==
PROVIDERS: Emergency Provider Emergency Medicine; PCP Family Medicine; Visit Provider Emergency Medicine
DX: M17.12 Unilateral primary osteoarthritis, left knee (principal); J44.9 Chronic obstructive pulmonary disease, unspecified; Z87.891 Personal history of nicotine dependence; M79.89 Other specified soft tissue disorders; R51.9 Headache, unspecified; M79.662 Pain in left lower leg
CPT/HCPCS: 70450; 73564; 80053; 81001; 85025; 85610; 85730; 87631; 93970; 99284; A4216

== ENCOUNTER → 2024-02-26 | Outpatient (CLI) | payer OTHER, SELFPAY ==
--- NOTE | 2024-02-26 11:30 | CT_ITS ---
CT LEFT LOWER EXTREMITY WITH 3-D IMAGING CLINICAL INDICATION: Medial left knee pain following a twisting injury. TECHNIQUE: Axial CT images of the LEFT lower extremity was performed IV contrast material. Coronal and sagittal reformats were provided. The protocol utilizes one or more of the following dose reduction techniques: automated exposure control, adjustment of mA and/or kV according to patient size,and/or use of iterative reconstruction technique. RADIATION DOSAGE (If Supplied By Facility): CTDIvol = ( 19.84 ) mGy, DLP = ( 591.30 ) mGycm COMPARISON: No relevant prior comparison study available FINDINGS: Bones: There is evidence of an avulsion of the intercondylar eminence.. No fracture is seen. Soft Tissues: Contrast was injected. Contrast is seen in the anterior superior aspect of the patellar soft tissues. There is evidence of a small joint effusion. There is thickening of the medial lateral collateral ligament. The superficial soft tissues are unremarkable without evidence of edema, hematoma, or foreign body. CT/Extremity Lower WITH Contrast IMPRESSION: Thickening of the medial and lateral collateral ligament. Electronically Signed: Avinash Forrest MD at 13:32 EDT ,
--- NOTE | 2024-02-26 11:30 | RAD_ITS ---
CLINICAL HISTORY: Female, 63 years old. PROCEDURE: ARTHROGRAM - RADIATION DOSAGE (If Supplied By Facility): CTDIvol = ( ) mGy, DLP = ( ) mGycm CONSENT: SEDATION: FLUOROSCOPY TIME (if supplied): ( ) minutes/seconds Injection Information: Number of images obtained: TECHNIQUE: (All elements of maximal sterile barrier technique followed, including US elements as applicable) RAD/Arthrogram Knee IMPRESSION: Electronically Signed: Avinash Forrest MD at 13:27 EDT ,
[2024-02-26] MEDS: Lidocaine 2% (5ml sdv) 5 ML VIAL.MPF INFILT (12:15)
[2024-02-26] MEDS: Gadoterate Meglumine Diluted 10 ML, Iopamidol 5 ML, Lidocaine 1% (20 ml mdv) 5 ML, Epin... INTRAARTIC (12:18)
[2024-02-26] MEDS: Iopamidol 10 ML in Syringe 1 EACH 600 ML INTRAARTIC (12:18)
--- NOTE | 2024-02-26 15:14 | PCM.OP.PRO ---
Procedure Report Date of Procedure: 02/26/24 Assessment & Plan Assessment/Plan (1) Left knee pain: QUALIFIERS: Chronicity: unspecified Qualified Code(s): M25.562 - Pain in left knee PLAN: PROCEDURE: Arthrogram-left knee ORDERING PROVIDER: Dr. Randy Reynoso INDICATION: Female, 63 years old. Left knee pain. FLUOROSCOPY TIME (if supplied): 0 minutes/52 seconds. 6.3 mGy PROVIDER: Deepa López APRN-[facility] CONSENT: The procedure as well as the benefits and possible complications including bleeding and infection were explained to the patient. Informed consent was obtained. TECHNIQUE: The patient was positioned supine. The overlying skin was prepped and draped in the usual sterile fashion. Following injection of local anesthetic with 2% lidocaine and under direct fluoroscopic guidance, a 22-gauge spinal needle was placed into the suprapatellar area. 2 cc of Isovue 300 was injected for confirmation. Following this, 10 cc of arthrogram contrast (gadoterate, iopamidol, lidocaine, and epinephrine), compounded by pharmacy, was injected. All elements of maximal sterile barrier technique followed. Patient tolerated procedure well. On radiologist review of CT imaging, arthrogram contrast did stay in the supra/anterior patellar area rather than post patellar area. A left knee effusion is notable. IMPRESSION: Fluoroscopic guidance for the injection of arthrogram contrast into the left knee. Contrast however remained in the supra and anterior patellar area. CT imaging was still obtained. Procedures Radiology Radiology Xray Procedures: [id number] Arthrogram Knee Multi Select Codes Radiology Rad Xray Procedures: [id number] Fluoroscopic guidance for needle placement
== END | disposition home or self-care (01) ==
LOC: RAD 11:28
PROVIDERS: PCP Family Medicine; Referring Provider Family Medicine; Visit Provider Family Medicine
DX: M25.562 Pain in left knee (principal); S83.207A Unspecified tear of unspecified meniscus, current injury, left knee, initial encounter
CPT/HCPCS: 27369; 73580; 73701; Q9967

== ENCOUNTER → 2024-03-13 | Outpatient (CLI) | payer OTHER, SELFPAY ==
[2024-03-13 10:22] LABS: Erythrocyte Sedimentation Rate 5 mm/hr (0-30)
[2024-03-13 10:24] LABS: Absolute Lymphocyte Count 1.61 X10^3/uL (0.83-4.51); Absolute Neutrophil Count 3.3 X10^3/uL (2.0-7.7); Basophil# 0.06 X10^3/uL; Eosinophil# 0.27 X10^3/uL; Eosinophils% 4.7 % (0-5); Hematocrit 40.7 % (37-47); Hemoglobin 13.3 g/dL (12.0-15.0); Lymphocyte # 1.61 X10^3/ul (0.83-4.51); Lymphocyte % 27.8 % (19-41); Mean Corp Hgb Conc 32.7 g/dL (32-36); Mean Corpuscular Hgb 29.8 pg (27.0-32.0); Mean Corpuscular Volume 91.3 fL (81-99); Mean Platelet Vol. 11.1 fl (6.2-12.0); Monocyte# 0.59 X10^3/uL; Monocyte% 10.2 % (0-10); NRBC Flagged by Analyzer 0 % (0-5); Neutrophil # 3.25 X10^3/uL (2.7-7.7); Platelet Count 195 K/mm3 (150-450); RBC Distribution Width CV 11.9 % (11.6-14.6); RBC Distribution Width SD 40.2 fl (35.1-43.9); Red Blood Count 4.46 M/mm3 (4.2-5.4); White Blood Count 5.8 K/mm3 (4.4-11.0)
[2024-03-13 13:24] LABS: ALB/GLOB Ratio 1.2 RATIO (0.9-2.4); AST(SGOT) 21 U/L (15-37); Alanine Aminotransfer ALT/SGPT 23 U/L (13-56); Albumin, Serum 3.8 g/dL (3.2-5.0); Alkaline Phosphatase 104 U/L (45-117); Anion Gap 7 (5-15); BUN 15 mg/dL (7-18); BUN/Creat Ratio 16.1 RATIO (10-20); CRP 4.06 mg/L (0.0-3.0); Chloride 109 mmol/L (98-107); Creatinine, Serum 0.93 mg/dL (0.55-1.02); EST Glomerular Filtration Rate 65 mL/min (>60); Est Glom Filt Rate - Afr Amer 78 mL/min (>60); Globulin 3.2 g/dL (2.2-4.2); Glucose 125 mg/dL (74-106); Potassium 3.9 mmol/L (3.5-5.1); Rheumatoid Factor < 10.0 IU/mL (<15); Sodium Level 140 mmol/L (136-145); Thyroid Stim Hormone (TSH) 1.76 uIU/mL (0.358-3.74)
[2024-03-14 14:09] LABS: CCP IgG Antibodies 5 units (0-19)
== END | disposition home or self-care (01) ==
LOC: MTLAB 08:57
PROVIDERS: PCP Family Medicine; Referring Provider Family Medicine; Visit Provider Family Medicine
DX: R61 Generalized hyperhidrosis (principal); R63.5 Abnormal weight gain; M25.50 Pain in unspecified joint
CPT/HCPCS: 36415; 80053; 82533; 84443; 85025; 85652; 86140; 86200; 86431

== ENCOUNTER → 2024-06-16 | Outpatient (CLI) | payer OTHER, SELFPAY ==
[2024-06-16 13:11] LABS: Free T3 2.5 pg/mL (2.18-3.98); T4 Free Direct 0.98 ng/dL (0.76-1.46)
== END | disposition home or self-care (01) ==
LOC: MTLAB 08:57
PROVIDERS: PCP Family Medicine
DX: E03.9 Hypothyroidism, unspecified (principal)
CPT/HCPCS: 36415; 84439; 84443; 84481

== ENCOUNTER → 2024-09-09 | Outpatient (CLI) | payer OTHER, SELFPAY ==
[2024-09-09 10:46] LABS: Free T3 2.9 pg/mL (2.18-3.98)
== END | disposition home or self-care (01) ==
LOC: MTLAB 08:34
PROVIDERS: PCP Family Medicine
DX: E03.9 Hypothyroidism, unspecified (principal)
CPT/HCPCS: 36415; 84439; 84443; 84481

== ENCOUNTER → 2025-08-03 | Outpatient (CLI) | payer OTHER, SELFPAY ==
[2025-08-03 10:40] LABS: Hematocrit 41.1 % (37-47); Hemoglobin 13.4 g/dL (12.0-15.0); Immature Granulocytes Count 0.020 X10^3/uL (0.0-0.0); Mean Corp Hgb Conc 32.6 g/dL (32-36); Mean Corpuscular Volume 89.7 fL (81-99); Mean Platelet Vol. 10.2 fl (6.2-12.0); NRBC Flagged by Analyzer 0 % (0-5); Platelet Count 207 K/mm3 (150-450); RBC Distribution Width CV 11.7 % (11.6-14.6); RBC Distribution Width SD 38.0 fl (35.1-43.9); Red Blood Count 4.58 M/mm3 (4.2-5.4); White Blood Count 6.2 K/mm3 (4.4-11.0)
[2025-08-03 11:23] LABS: AST(SGOT) 18 U/L (<=31); Alanine Aminotransfer ALT/SGPT 14 U/L (<=34); Albumin, Serum 4.3 g/dL (3.4-4.8); Alkaline Phosphatase 115 U/L (35-104); Anion Gap 10 (7-18); BUN 14 mg/dL (4-19); BUN/Creat Ratio 16.2 RATIO (10-20); Calcium,Total 9.4 mg/dL (7.6-11.0); Carbon Dioxide 25.2 mmol/L (20.0-29.0); Chloride 103 mmol/L (96-106); Cholesterol 262 mg/dL (<=200); Ferritin 96 ng/mL (22-378); Globulin 2.7 g/dL (2.2-4.2); Glucose 101 mg/dL (70-99); Low Density Lipoprotein Calc. 177 mg/dL; Potassium 4.4 mmol/L (3.5-5.1); Triglycerides 106 mg/dL; Very Low Density Lipoprotein 21 mg/dL (5-40); Vitamin B12 715 pg/mL (180-914); Vitamin D,25 Hydroxy 22.7 ng/mL (30-100); cholesterol:hdl ratio screen 3.93
[2025-08-03 12:19] LABS: CRP 3.57 mg/L (0.0-3.0); Iron 76 ug/dL (50-170)
== END | disposition home or self-care (01) ==
LOC: MTLAB 07:56
PROVIDERS: PCP Family Medicine; Referring Provider Family Medicine; Visit Provider Family Medicine
DX: M13.0 Polyarthritis, unspecified (principal); E78.5 Hyperlipidemia, unspecified; D64.9 Anemia, unspecified; E03.9 Hypothyroidism, unspecified; R53.83 Other fatigue
CPT/HCPCS: 36415; 80053; 80061; 82306; 82607; 82728; 83540; 84439; 84443; 85025; 85652; 86140; 86200; 86431